=== PATIENT | male | born 1965 | race Caucasian/White ===

== ENCOUNTER 2016-03-30 17:46 | Inpatient (IN) | payer OTHER ==
[2016-03-30] MEDS ORDERED: FUROSEMIDE 40 MG/4 ML INJECTABLE VIAL IVPUSH ONE (18:08)
[2016-03-30] MEDS ORDERED: NITROGLYCERIN SUBLINGUAL 1/150 0.4 MG TAB SL ONE (18:09)
[2016-03-30 18:10] VITALS: BMI 33.0
[2016-03-30] MEDS ORDERED: NITROGLYCERIN 25MG/D5W 250ML 250 ML IVPB SCH (18:15)
--- NOTE | 2016-03-30 18:16 | PDOC ---
History of Present Illness - General Chief Complaint: Shortness of Breath Stated Complaint: SOB Time Seen by Provider: 03/30/16 17:56 - History of Present Illness Initial Comments: 03/30/16 18:11 50-year-old male with a past medical history of stage V CKD, who was supposed to start dialysis on Sunday He also has a history of bipolar disorder, substance abuse, hypertension, syncope, hyperkalemia Patient arrives in extremis, minimal history is available from the patient, history is obtained from old records Patient is due to start dialysis on Sunday He is complaining of progressive shortness of breath for 2-3 days, and became severely dyspneic this evening He is complaining of dyspnea with minimal exertion, and leg edema He denies any chest pain He has a known history of hyperkalemia and stopped his Kayexalate a few weeks ago Patient arrives in extremis, and no further history is available Past History - Past Medical History Allergies/Adverse Reactions: Allergies Allergy/AdvReac Type Severity Reaction Status Date / Time No Known Drug Allergies Allergy Verified 03/30/16 18:06 Home Medications: Ambulatory Orders Bupropion HCl [Wellbutrin -] 150 mg PO DAILY 03/30/16 Divalproex [Depakote -] 1,000 mg PO BID 03/30/16 Lamotrigine [Lamictal] 100 mg PO DAILY 03/30/16 Lorazepam [Ativan] 1 mg PO BID 03/30/16 Nifedipine [Adalat cc] 30 mg PO DAILY 03/30/16 Quetiapine Fumarate [Seroquel] 150 mg PO DAILY 03/30/16 Sodium Bicarbonate - 1,300 mg PO BID 03/30/16 Sodium Polystyrene Sulfon/Sorb [Kionex] 15 gm PO Q48H 03/30/16 Anemia: No Asthma: No Cancer: No Cardiac Disorders: No CVA: No COPD: No CHF: No Dementia: No Diabetes: No (diet-controlled, borderline) GI Disorders: No Disorders: No HTN: No ("FLUCTUATES" NO MEDS AT THIS TIME) Hypercholesterolemia: No Liver Disease: No Psychiatric Problems: Yes (bipolar and depression) Seizures: No Thyroid Disease: No Other medical history: esrd - Surgical History Abdominal Surgery: No Appendectomy: No Cardiac Surgery: No Cholecystectomy: No Lung Surgery: No Neurologic Surgery: No Orthopedic Surgery: No - Immunization History Td Vaccination: No - Psycho/Social/Smoking Cessation Hx Anxiety: No Suicidal Ideation: No Smoking Status: No Smoking History: Former smoker Years of Tobacco Use: 0 Have you smoked in the past 12 months: No Number of Cigarettes Smoked Daily: 0 If you are a former smoker, when did you quit?: 1999 Information on smoking cessation initiated: No Hx Alcohol Use: No Drug/Substance Use Hx: No Substance Use Type: None Hx Substance Use Treatment: No Review of Systems - Review of Systems Able to Perform ROS?: No (pt in extremis) *Physical Exam - Vital Signs Last Vital Signs Temp Pulse Resp BP Pulse Ox 97.8 F 116 H 24 164/97 92 L 03/30/16 17:47 03/30/16 17:47 03/30/16 17:47 03/30/16 17:47 03/30/16 18:05 - Physical Exam Comments: 03/30/16 18:16 Physical exam Last Vital Signs Temp Pulse Resp BP Pulse Ox 97.8 F 116 H 24 164/97 92 L 03/30/16 17:47 03/30/16 17:47 03/30/16 17:47 03/30/16 17:47 03/30/16 18:05 GENERAL: The patient is awake, and dyspneic, and answering simple questions HEAD: Normal with no signs of trauma. EYES: Sclera anicteric ENT: Mucous membranes moist NECK: Normal range of motion, supple with JVD LUNGS: There are rales in all lung mccord all the way to the top HEART: Tachycardic Regular rate and rhythm, normal S1 and S2 without murmur, rub or gallop. ABDOMEN: Soft, nontender, normoactive bowel sounds. No guarding, no rebound. No masses appreciated. EXTREMITIES: 3+ pitting pedal edema NEUROLOGICAL: Dyspneic at rest, answering simple questions, moving all extremities SKIN: Warm, Dry, ED Treatment Course - LABORATORY CBC & Chemistry Diagram: 04/01/16 05:20 04/01/16 15:50 - RADIOLOGY Radiology Studies Ordered: Category Date Time Status CHEST X-RAY PORTABLE* [RAD] Stat Radiology 03/30/16 18:07 Ordered Medical Decision Making - Critical Care Time Total Critical Care Time (minutes): 45 Critical Care Statement: The care of this patient involved high complexity decision making to prevent further life threatening deterioration of the patient 's condition and/or to evalute & treat vital organ system(s) failure or risk of failure. - Medical Decision Making 03/30/16 18:18 50-year-old male with end-stage renal disease due for dialysis on Sunday comes in with severe fluid overload, and hyperkalemic looking EKG He stopped his Kayexalate 3 weeks ago and has a history of hyperkalemia Will start with glucose insulin bicarbonate calcium immediately based on the hyperkalemic appearing EKG Awaiting all blood work Will give 80 of Lasix IV, subungual nitroglycerin, preload with a nitroglycerin drip EKG Sinus tachycardia with wide bizarre complex is with a QRS duration of 190 And a QTC of 544 03/30/16 19:16 Laboratory Results - last 24 hr 03/30/16 03/30/16 03/30/16 17:19 18:07 18:07 WBC 8.3 D RBC 3.91 L Hgb 12.6 Hct 36.3 MCV 92.9 MCHC 34.6 RDW 15.0 Plt Count 143 MPV 6.5 L INR 1.07 Sodium 137 Potassium 5.7 H Chloride 111 H Carbon Dioxide 16 L D Anion Gap 10 BUN 82 H Creatinine 4.9 H Creat Clearance w eGFR 12.54 Random Glucose 150 H D Calcium 8.9 Magnesium 2.6 H Total Bilirubin 0.4 AST 16 ALT 12 Alkaline Phosphatase 92 Creatine Kinase Troponin I Total Protein 6.2 L Albumin 3.1 L Lipase 66 H Urine Color Urine Appearance Urine pH Ur Specific [place] Urine Protein Urine Glucose (UA) Urine Ketones Urine Blood Urine Nitrite Urine Bilirubin Urine Urobilinogen Ur Leukocyte Esterase 03/30/16 03/30/16 18:07 18:48 WBC RBC Hgb Hct MCV MCHC RDW Plt Count MPV INR Sodium Potassium Chloride Carbon Dioxide Anion Gap BUN Creatinine Creat Clearance w eGFR Random Glucose Calcium Magnesium Total Bilirubin AST ALT Alkaline Phosphatase Creatine Kinase 49 Troponin I 0.05 D Total Protein Albumin Lipase Urine Color Yellow Urine Appearance Clear Urine pH 7.0 Ur Specific [place] 1.010 Urine Protein Trace Urine Glucose (UA) 1+ H Urine Ketones Negative Urine Blood 1+ H Urine Nitrite Negative Urine Bilirubin Negative Urine Urobilinogen 0.2 e.u/dl Ur Leukocyte Esterase Negative Potassium 5.7 Patient started on BiPAP, 01/10, 12, 30% Patient much more comfortable on BiPAP Starting to put out some urine in response to the IV Lasix Case discussed with insulation nozzleman-Dr. Márquez, case discussed with executive assistant- Dr. Palafox , and hospitalist Will admit ICU Hypervolemia,Fluid overload, Congestive heart failure, Acute hyperkalemia, CKD ( chronic kidney disease) stage 5, GFR less than 15 ml/min, Hypertension Repeat K - 4.5 *DC/Admit/Observation/Transfer Diagnosis at time of Disposition: Fluid overload, Congestive heart failure (CHF), Acute hyperkalemia, CKD ( chronic kidney disease) stage 5, GFR less than 15 ml/min, Hypertension - Discharge Dispostion Condition at time of disposition: Fair Admit: Yes
[2016-03-30] MEDS ORDERED: INSULIN REGULAR HUMAN 100 UNITS/ML *VIAL IVPUSH ONE (18:19)
[2016-03-30] MEDS ORDERED: DEXTROSE 50%-WATER 50 ML VIAL IVPUSH ONE (18:20)
[2016-03-30] MEDS ORDERED: SODIUM BICARBONATE 8.4% 50 MEQ/50 ML DISP.SYRIN IVPUSH ONE (18:20)
[2016-03-30] MEDS ORDERED: CALCIUM CHLORIDE 10% 1 GM/10 ML *VIAL IVPUSH ONE (18:22)
[2016-03-30] MEDS ORDERED: SODIUM POLYSTYRENE SULFONATE 15 GM/60 ML BOTTLE PO ONE (18:23)
[2016-03-30] MEDS ORDERED: NITROGLYCERIN SUBLINGUAL 1/150 0.4 MG TAB ONE (18:27)
[2016-03-30] MEDS ORDERED: FUROSEMIDE 100 MG/10 ML INJECTABLE VIAL ONE (18:27)
[2016-03-30 18:28] LABS: MCH 32.1 pg (25.7-33.7); MCHC 34.6 g/dl (32.0-35.9); MEAN CELL VOLUME 92.9 fl (80-96); MEAN PLT VOLUME 6.5 fl (7.5-11.1); PLATELET COUNT 143 K/MM3 (134-434); WHITE BLOOD COUNT 8.3 K/mm3 (4.0-10.0)
[2016-03-30] MEDS: NITROGLYCERIN 50 MG/10 ML VIAL IVPB SCH (18:28)
[2016-03-30] MEDS ORDERED: DEXTROSE 50%-WATER 50 ML DISP.SYRIN ONE (18:30)
[2016-03-30] MEDS ORDERED: SODIUM BICARBONATE 8.4% 50 MEQ/50 ML VIAL ONE (18:30)
[2016-03-30] MEDS ORDERED: SODIUM POLYSTYRENE SULFONATE 15 GM/60 ML BOTTLE ONE (18:30)
[2016-03-30] MEDS ORDERED: INSULIN REGULAR HUMAN 100 UNITS/ML *VIAL ONE (18:32)
[2016-03-30 18:34] LABS: INR 1.07 (0.82-1.09)
[2016-03-30 18:41] LABS: ALBUMIN 3.1 g/dl (3.5-5.0); BILIRUBIN,TOTAL 0.4 mg/dl (0.2-1.0); CALCIUM 8.9 mg/dl (8.4-10.2); CREATININE 4.9 mg/dl (0.6-1.3); MAGNESIUM 2.6 mg/dL (1.8-2.4); TOT PROT 6.2 g/dl (6.4-8.3)
[2016-03-30 18:55] LABS: URINE APPEARANCE Clear; URINE BILIRUBIN Negative (NEGATIVE); URINE GLUCOSE (UA) 1+ (NEGATIVE); URINE KETONE Negative (NEGATIVE); URINE LEUK ESTERASE Negative (NEGATIVE); URINE NITRITE Negative (NEGATIVE); URINE PROTEIN Trace (NEGATIVE); URINE UROBILINOGEN 0.2 E.U/dl (0.2-1.0)
[2016-03-30 18:56] LABS: URINE BLOOD 1+ (NEGATIVE); URINE COLOR YELLOW
[2016-03-30 18:56] LABS: TROPONIN I (DFP) 0.05 ng/ml (0.03-0.50)
--- NOTE | 2016-03-30 21:30 | PN ---
<Brooke Mason - Last Filed: 03/30/16 21:29> Teaching Attending Note Name of Resident: Yanick Reyes <Elizabeth Capellan - Last Filed: 03/31/16 04:41> Teaching Attending Note ATTENDING PHYSICIAN STATEMENT I saw and evaluated the patient. I reviewed the resident's note and discussed the case with the resident. I agree with the resident's findings and plan as documented. SUBJECTIVE: The patient is a 50 yo M with a PMHx of ESRD (was supposed to start HD on 03/27) , hypokalemia who presented to the ED with progressively worsening dyspnea for the past 2-3 days. He reports increasing SOB with minimal exertion however denies any chest pain, diaphoresis, palpitations, numbness or tingling. The patient states he stopped taking his Kayexalate a few weeks ago. Patients notes they called Dr. Palafox (transportation broker) and was sent in for further evaluation of his emergent condition. Patient is currently on BiPAP. PMHx: bipolar disorder, substance abuse, hypertension, syncope OBJECTIVE: Physical Last Vital Signs Temp Pulse Resp BP Pulse Ox 98.1 F 104 H 17 153/97 95 03/30/16 21:00 03/30/16 21:00 03/30/16 21:00 03/30/16 21:00 03/30/16 21:00 GENERAL: + Cooperative. + Delayed verbal responses. +Flat affect. Awake, alert , and fully oriented, in no acute distress HEENT: Atraumatic. PERRLA, EOMI. Moist mucosa. No JVD LUNGS: + on BiPAP. + Normal bilateral airway entry clear with no crackles or wheezing. No distress, speaks full sentences, clear to auscultation bilaterally HEART: Regular rate and rhythm, normal S1 and S2, no murmurs, rubs or gallops, peripheral pulses normal and equal bilaterally. ABDOMEN: Soft, nontender, normoactive bowel sounds. No guarding, no rebound. No masses EXTREMITIES: + R arm AV fistula with palpable thrill. 1+ pitting edema on bilateral LE. Normal inspection, Normal range of motion. No clubbing or cyanosis. NEUROLOGICAL: Cranial nerves II through XII grossly intact. Normal speech, normal gait, no focal sensorimotor deficits SKIN: + 3 areas of ecchymosis on his L anterior thorax mid clavicular below the level of T4. Warm, Dry, normal turgor, no rashes or lesions noted. CBCD WBC 8.3 K/mm3 (4.0-10.0) D 03/30/16 18:07 RBC 3.91 M/mm3 (4.00-5.60) L 03/30/16 18:07 Hgb 12.6 GM/dl (11.7-16.9) 03/30/16 18:07 Hct 36.3 % (35.4-49) 03/30/16 18:07 MCV 92.9 fl (80-96) 03/30/16 18:07 MCHC 34.6 g/dl (32.0-35.9) 03/30/16 18:07 RDW 15.0 % (11.9-15.9) 03/30/16 18:07 Plt Count 143 K/MM3 (134-434) 03/30/16 18:07 MPV 6.5 fl (7.5-11.1) L 03/30/16 18:07 CMP Sodium 137 mmol/L (136-145) 03/30/16 18:07 Potassium 5.7 mmol/L (3.5-5.1) H 03/30/16 18:07 Chloride 111 mmol/L (98-107) H 03/30/16 18:07 Carbon Dioxide 16 mmol/L (22-28) L D 03/30/16 18:07 Anion Gap 10 (8-16) 03/30/16 18:07 BUN 82 mg/dl (7-18) H 03/30/16 18:07 Creatinine 4.9 mg/dl (0.6-1.3) H 03/30/16 18:07 Creat Clearance w eGFR 12.54 (>60) 03/30/16 18:07 Calcium 8.9 mg/dl (8.4-10.2) 03/30/16 18:07 Total Bilirubin 0.4 mg/dl (0.2-1.0) 03/30/16 18:07 AST 16 U/L (10-42) 03/30/16 18:07 ALT 12 U/L (10-40) 03/30/16 18:07 Alkaline Phosphatase 92 U/L (32-92) 03/30/16 18:07 Total Protein 6.2 g/dl (6.4-8.3) L 03/30/16 18:07 Albumin 3.1 g/dl (3.5-5.0) L 03/30/16 18:07 Imaging: Chest Xray Impression: Bilateral pneumonic infiltrates, as described above. Follow-up is needed. ASSESSMENT AND PLAN: Patient admitted to ICU for further management of their emergent condition. 1.) ESRD and Hyperkalemia with dyspnea most likely secondary to fluid overload. -Repeat CMP -Nephrology consult to initiate HD in AM -Lasix 80 mg BID -Monitor Is and Os -ABG -Bicarb as per nephro consult -Cardiac monitoring -Repeat echo -Continue home meds Documentation prepared by Elizabeth Capellan, acting as medical screener for Brooke Mason MD.
--- NOTE | 2016-03-30 21:46 | HP ---
CHIEF COMPLAINT: PCP: HISTORY OF PRESENT ILLNESS: 50-year-old male with a past medical history of stage V CKD, HTN, DM ( not on meds ), bipolar, substance abuse, who was supposed to start dialysis on Sunday was sent from [facility] ED because of SOB. patient states that he noticed sob 3 days ago, which is progressivly increasing, unable to walk half block ( before use to walk normal), increases on lying down also reports that he has dry cough from 3 days. He also reports lightheadedness. Denies chest pain, palpitations, fever. pain abdomen, diarrhoea , nause, vomiting, swelling in legs, burning micturation. He was diagnosed with HTN 1 year ago and DM 3 - 4 year s ago. He has a known history of hyperkalemia and stopped his Kayexalate a few weeks ago. ER course was notable for: (1) cbc , cmp ua, cxr (2) lasix, calcium gluconate, insulin with d 50 Recent Travel: No PAST MEDICAL HISTORY: stage V CKD, HTN, DM ( not on meds ), bipolar, substance abuse PAST SURGICAL HISTORY: no Social History: Smoking: stopped in 1999 Alcohol: stopped in 1999 Drugs: mirjuana stopped in 1999 Family History: no Allergies No Known Drug Allergies Allergy (Verified 03/30/16 18:06) HOME MEDICATIONS: Home Medications Medication Instructions Recorded Bupropion HCl [Wellbutrin -] 150 mg PO DAILY 03/30/16 Divalproex [Depakote -] 1,000 mg PO BID 03/30/16 Lamotrigine [Lamictal] 100 mg PO DAILY 03/30/16 Lorazepam [Ativan] 1 mg PO BID 03/30/16 Nifedipine [Adalat cc] 30 mg PO DAILY 03/30/16 Quetiapine Fumarate [Seroquel] 150 mg PO DAILY 03/30/16 Sodium Bicarbonate - 1,300 mg PO BID 03/30/16 Sodium Polystyrene Sulfon/Sorb 15 gm PO Q48H 03/30/16 [Kionex] REVIEW OF SYSTEMS CONSTITUTIONAL: Absent: fever, chills, diaphoresis, generalized weakness, malaise, loss of appetite, weight change HEENT: Absent: rhinorrhea, nasal congestion, throat pain, throat swelling, difficulty swallowing, mouth swelling, ear pain, eye pain, visual changes CARDIOVASCULAR: Absent: chest pain, syncope, palpitations, irregular heart rate, lightheadedness , peripheral edema RESPIRATORY: Absent: cough, shortness of breath, dyspnea with exertion, orthopnea, wheezing, stridor, hemoptysis GASTROINTESTINAL: Absent: abdominal pain, abdominal distension, nausea, vomiting, diarrhea, constipation, melena, hematochezia GENITOURINARY: Absent: dysuria, frequency, urgency, hesitancy, hematuria, flank pain, genital pain MUSCULOSKELETAL: Absent: myalgia, arthralgia, joint swelling, back pain, neck pain SKIN: Absent: rash, itching, pallor HEMATOLOGIC/IMMUNOLOGIC: Absent: easy bleeding, easy bruising, lymphadenopathy, frequent infections ENDOCRINE: Absent: unexplained weight gain, unexplained weight loss, heat intolerance, cold intolerance NEUROLOGIC: Absent: headache, focal weakness or paresthesias, dizziness, unsteady gait, seizure, mental status changes, bladder or bowel incontinence PSYCHIATRIC: Absent: anxiety, depression, suicidal or homicidal ideation, hallucinations. PHYSICAL EXAMINATION GENERAL: Awake, alert, and fully oriented, HEAD: Normal with no signs of trauma. EYES: Pupils equal, round and reactive to light, extraocular movements intact, sclera anicteric, conjunctiva clear. EARS, NOSE, THROAT: Ears normal, nares patent, oropharynx clear without exudates. Moist mucous membranes. NECK: Normal range of motion, LUNGS: Breath sounds equal, clear to auscultation bilaterally. No wheezes, and no crackles. No accessory muscle use. HEART: Regular rate and rhythm, normal S1 and S2 without murmur, ABDOMEN: Soft, nontender, not distended, normoactive bowel sounds, no guarding, no rebound, no masses. 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 No bony deformities or tenderness. No CVA tenderness. UPPER EXTREMITIES: 2+ pulses, warm, well-perfused. No cyanosis. No clubbing. Cap refill <2 seconds. No peripheral edema. LOWER EXTREMITIES: 2+ pulses, warm, well-perfused. No calf tenderness. peripheral edema 2+ NEUROLOGICAL: Cranial nerves II-XII intact. Normal speech. Normal gait. PSYCHIATRIC: Cooperative. Good eye contact. Appropriate mood and affect. SKIN: Warm, dry, normal turgor, no rashes or lesions noted. Current Medications Generic Name Dose Route Start Last Admin Trade Name Freq PRN Reason Stop Dose Admin Chlorhexidine Gluconate 1 applic 03/30/16 22:00 Hibiclens For Decolonization - TP HS BERTIN Furosemide 80 mg 03/31/16 06:00 Lasix Injection - IVPUSH BID@0600,1400 BERTIN Heparin Sodium (Porcine) 5,000 unit 03/30/16 22:00 Heparin - SQ TID BERTIN Mupirocin 1 applic 03/30/16 22:00 Bactroban Ointment (For Decolonization) - NS 04/04/16 21:59 BID [facility] Nitroglycerin 10 mcg 03/30/16 19:00 03/30/16 18:28 Tridil Injection - IVPB 10 mcg TITR BERTIN Administration Sodium Bicarbonate 1,300 mg 03/30/16 22:00 Sodium Bicarbonate - PO BID BERTIN CBCD WBC 8.3 K/mm3 (4.0-10.0) D 03/30/16 18:07 RBC 3.91 M/mm3 (4.00-5.60) L 03/30/16 18:07 Hgb 12.6 GM/dl (11.7-16.9) 03/30/16 18:07 Hct 36.3 % (35.4-49) 03/30/16 18:07 MCV 92.9 fl (80-96) 03/30/16 18:07 MCHC 34.6 g/dl (32.0-35.9) 03/30/16 18:07 RDW 15.0 % (11.9-15.9) 03/30/16 18:07 Plt Count 143 K/MM3 (134-434) 03/30/16 18:07 MPV 6.5 fl (7.5-11.1) L 03/30/16 18:07 CMP Sodium 137 mmol/L (136-145) 03/30/16 18:07 Potassium 5.7 mmol/L (3.5-5.1) H 03/30/16 18:07 Chloride 111 mmol/L (98-107) H 03/30/16 18:07 Carbon Dioxide 16 mmol/L (22-28) L D 03/30/16 18:07 Anion Gap 10 (8-16) 03/30/16 18:07 BUN 82 mg/dl (7-18) H 03/30/16 18:07 Creatinine 4.9 mg/dl (0.6-1.3) H 03/30/16 18:07 Creat Clearance w eGFR 12.54 (>60) 03/30/16 18:07 Random Glucose 150 mg/dl (74-106) H D 03/30/16 18:07 Calcium 8.9 mg/dl (8.4-10.2) 03/30/16 18:07 Total Bilirubin 0.4 mg/dl (0.2-1.0) 03/30/16 18:07 AST 16 U/L (10-42) 03/30/16 18:07 ALT 12 U/L (10-40) 03/30/16 18:07 Alkaline Phosphatase 92 U/L (32-92) 03/30/16 18:07 Total Protein 6.2 g/dl (6.4-8.3) L 03/30/16 18:07 Albumin 3.1 g/dl (3.5-5.0) L 03/30/16 18:07 CARDIAC ENZYMES Creatine Kinase 49 IU/L (38-174) 03/30/16 18:07 Troponin I 0.05 ng/ml (0.03-0.50) D 03/30/16 18:07 cxr : b/l infiltrate ASSESSMENT/PLAN: 50-year-old male with a past medical history of stage V CKD, HTN, DM ( not on meds ), bipolar, substance abuse, who was supposed to start dialysis on Sunday was sent from [facility] ED because of SOB. ESRD with hyperkalemia and SOB probably from fluid over load Repeat [facility] nephrology consult continue lasix 80 mg bid monitor vital , monito i/O daily weight ECHO to r/o cardiorenal continue with sodium bicarb as per nephrology repeat sr k at 12:00 am continue with bipap DM diabetic diet monitor blood glucose sliding scale Bipolar disorder continue home meds HTN continue home meds nifidipine 30mg po daily Fluid : avoid electrolyte ; hyperkalemia, repeat sr k in at 1200: am nutrition : diabetic diet, low kotassium and low salt diet dvt pro ; on heparin gi pro : not required Dispo : admitted in icu Visit type - Emergency Visit Emergency Visit: Yes ED Registration Date: 03/30/16 Care time: The patient presented to the Emergency Department on the above date and was hospitalized for further evaluation of their emergent condition. - New Patient This patient is new to me today: Yes Date on this admission: 03/31/16 - Critical Care Critical Care patient: Yes Total Critical Care Time (in minutes): 45 Critical Care Statement: The care of this patient involved high complexity decision making to prevent further life threatening deterioration of the patient 's condition and/or to evalute & treat vital organ system(s) failure or risk of failure.
[2016-03-30] MEDS: NITROGLYCERIN 25MG/D5W 250ML 250 ML IVPB SCH (22:00)
[2016-03-30] MEDS ORDERED: SODIUM BICARBONATE 650 MG TABLET PO SCH (22:00)
--- NOTE | 2016-03-30 22:11 | CONSULT ---
Consult Consult Specialty:: Pulm/CCM Reason for Consultation:: SOB, renal failure - History of Present Illness Chief Complaint: SOB, nausea History of Present Illness: This is a 50 yo man with Bipolar disease, CKD 5 r/t HTN with plan for starting HD 04/03/16. He presented from home with progressive LE edema, nausea and SOB x 2 -3 days. Denies prodrome of illness, no fever/chills/HIGGINS. In the ED he was found to have hyperkalemia K: 5.7. BNP 35k. CXR with pulmonary vascular congestion and effusion L>R. BP: 164/97 treated with nitro gtt and lasix push. Good urine output (~1.4 liters). Sat 90% on RA. BiPAP (Fio2 30%) started for SOB with improvement. Patient transferred to [facility] ICU. Patient awake, alert and cooperative states his breathing is improved with BiPAP. - History Source History Provided By: Patient, Family Member, Medical Record Limitations to Obtaining History: No Limitations - Past Medical History Cardio/Vascular: Yes: HTN Pulmonary: Yes: Other (lung injust with chest tube insetion after trauma) Renal/: Yes: Renal Inusuff Psych: Yes: Bipolar - Past Surgical History Past Surgical History: Yes: AV Fistula/Graft (upper right arm) - Alcohol/Substance Use Hx Alcohol Use: No History of Substance Use: reports: Marijuana - Smoking History Smoking history: Former smoker Have you smoked in the past 12 months: No Aproximately how many cigarettes per day: 0 If you are a former smoker, when did you quit?: 1999 - Social History Usual Living Arrangement: With Spouse 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 of Recent Travel: No Home Medications - Allergies Allergies/Adverse Reactions: Allergies Allergy/AdvReac Type Severity Reaction Status Date / Time No Known Drug Allergies Allergy Verified 03/30/16 18:06 - Home Medications Home Medications: Ambulatory Orders Bupropion HCl [Wellbutrin -] 150 mg PO DAILY 03/30/16 Divalproex [Depakote -] 1,000 mg PO BID 03/30/16 Lamotrigine [Lamictal] 100 mg PO DAILY 03/30/16 Lorazepam [Ativan] 1 mg PO BID 03/30/16 Nifedipine [Adalat cc] 30 mg PO DAILY 03/30/16 Quetiapine Fumarate [Seroquel] 150 mg PO DAILY 03/30/16 Sodium Bicarbonate - 1,300 mg PO BID 03/30/16 Sodium Polystyrene Sulfon/Sorb [Kionex] 15 gm PO Q48H 03/30/16 Family Disease History - Family Disease History Family History: Unremarkable Review of Systems - Review of Systems Cardiovascular: reports: Edema, Shortness of Breath Gastrointestinal: reports: Nausea Genitourinary: reports: Frequency (decreased) Neurological: reports: No Symptoms Physical Exam Vital Signs: Vital Signs Temperature 98.1 F 03/30/16 20:32 Pulse Rate 104 H 03/30/16 20:32 Respiratory Rate 17 03/30/16 20:32 Blood Pressure 153/97 03/30/16 20:32 O2 Sat by Pulse Oximetry (%) 95 03/30/16 19:25 Intake & Output 03/27/16 03/28/16 03/29/16 03/30/16 23:59 23:59 23:59 23:59 Intake Total 50 Output Total 1999 Balance -1950 Weight 113.398 kg Current Medications Bupropion HCl (Wellbutrin -) 150 mg PO DAILY [facility] Chlorhexidine Gluconate (Hibiclens For Decolonization -) 1 applic TP HS [facility] Divalproex Sodium (Depakote -) 1,000 mg PO BID [facility] Furosemide (Lasix Injection -) 80 mg IVPUSH BID@0600,1400 [facility] Furosemide (Lasix Injection -) 80 mg IVPUSH ONCE ONE Stop: 03/31/16 00:02 Heparin Sodium (Porcine) (Heparin -) 5,000 unit SQ TID [facility] Lamotrigine (Lamictal -) 100 mg PO DAILY [facility] Lorazepam (Ativan -) 1 mg PO BID [facility] Mupirocin (Bactroban Ointment (For Decolonization) -) 1 applic NS BID [facility] Stop: 04/04/16 21:59 Nifedipine (Procardia Xl -) 30 mg PO DAILY [facility] Nitroglycerin (Tridil Injection -) 10 mcg IVPB TITR [facility] Last Admin: 03/30/16 18:28 Dose: 10 mcg Quetiapine Fumarate (Seroquel -) 150 mg PO DAILY [facility] Sodium Bicarbonate (Sodium Bicarbonate -) 1,300 mg PO BID [facility] Constitutional: Yes: No Distress, Calm Eyes: Yes: Conjunctiva Clear, EOM Intact Cardiovascular: Yes: Regular Rate and Rhythm, S1, S2 Respiratory: Yes: Rales (faint insp rales in bases) Gastrointestinal: Yes: Normal Bowel Sounds, Soft, Abdomen, Obese Renal/: Yes: Maher Present Edema: LLE: 2+, RLE: 2+ Integumentary: Yes: Tattoos ...Motor Strength: WNL Psychiatric: Yes: Alert, Oriented Labs: CBCD WBC 8.3 K/mm3 (4.0-10.0) D 03/30/16 18:07 RBC 3.91 M/mm3 (4.00-5.60) L 03/30/16 18:07 Hgb 12.6 GM/dl (11.7-16.9) 03/30/16 18:07 Hct 36.3 % (35.4-49) 03/30/16 18:07 MCV 92.9 fl (80-96) 03/30/16 18:07 MCHC 34.6 g/dl (32.0-35.9) 03/30/16 18:07 RDW 15.0 % (11.9-15.9) 03/30/16 18:07 Plt Count 143 K/MM3 (134-434) 03/30/16 18:07 MPV 6.5 fl (7.5-11.1) L 03/30/16 18:07 CMP Sodium 137 mmol/L (136-145) 03/30/16 18:07 Potassium 5.7 mmol/L (3.5-5.1) H 03/30/16 18:07 Chloride 111 mmol/L (98-107) H 03/30/16 18:07 Carbon Dioxide 16 mmol/L (22-28) L D 03/30/16 18:07 Anion Gap 10 (8-16) 03/30/16 18:07 BUN 82 mg/dl (7-18) H 03/30/16 18:07 Creatinine 4.9 mg/dl (0.6-1.3) H 03/30/16 18:07 Creat Clearance w eGFR 12.54 (>60) 03/30/16 18:07 Random Glucose 150 mg/dl (74-106) H D 03/30/16 18:07 Calcium 8.9 mg/dl (8.4-10.2) 03/30/16 18:07 Total Bilirubin 0.4 mg/dl (0.2-1.0) 03/30/16 18:07 AST 16 U/L (10-42) 03/30/16 18:07 ALT 12 U/L (10-40) 03/30/16 18:07 Alkaline Phosphatase 92 U/L (32-92) 03/30/16 18:07 Total Protein 6.2 g/dl (6.4-8.3) L 03/30/16 18:07 Albumin 3.1 g/dl (3.5-5.0) L 03/30/16 18:07 CARDIAC ENZYMES Creatine Kinase 49 IU/L (38-174) 03/30/16 18:07 Troponin I 0.05 ng/ml (0.03-0.50) D 03/30/16 18:07 Laboratory Tests 03/30/16 18:07 B-Natriuretic Peptide 65587.58 H Imaging - Results Chest X-ray: Report Reviewed, Image Reviewed (PVC, L>R effusion) Problem List - Problems (1) Acute hyperkalemia Code(s): E87.5 - HYPERKALEMIA (2) CKD (chronic kidney disease) stage 5, GFR less than 15 ml/min Code(s): N18.5 - CHRONIC KIDNEY DISEASE, STAGE 5 (3) Congestive heart failure (CHF) Code(s): I50.9 - HEART FAILURE, UNSPECIFIED (4) Fluid overload Code(s): E87.70 - FLUID OVERLOAD, UNSPECIFIED (5) Hypertension Code(s): I10 - ESSENTIAL (PRIMARY) HYPERTENSION (6) Affective bipolar disorder Code(s): F31.9 - BIPOLAR DISORDER, UNSPECIFIED Qualifiers: Active/Remission status: remission status unspecified Qualified Code(s) : F31.9 - Bipolar disorder, unspecified Assessment/Plan 50 yo man Bipolar, DM, CKD stage 5 planned with HTN, hypoxia and SOB r/t pulmonary vascular congestion -ICU monitoring -Renal consulted -renal dose all medications -will likely need HD this admission -medical management of hyperkalemia tonight: kayexalate and lasix -EKG/ECHO -frequent BMP to trend potassium -lasix BID (will give extra dose tonight given SOB) -nitro gtt for SBP 140s -add back home antihypertensives -glucose control -O2 for Sat >92% -BiPAP tonight for PVC -cont home bipolar meds -DVT prophylaxis Boerem ACNP Pulm/CCM CCT: 45m
[2016-03-30 22:24] LABS: URINE BACTERIA FEW /hpf (NEGATIVE); URINE WBC 0-2 (3-5)
[2016-03-30] MEDS: MUPIROCIN 2% TOPICAL OINTMENT FOR DECOLONIZATION NS SCH (23:57)
[2016-03-30] MEDS: DIVALPROEX SODIUM 500 MG TABLET E.C. PO SCH (23:57)
[2016-03-30] MEDS: LORazepam 1 MG TABLET PO SCH (23:57)
[2016-03-30] MEDS: SODIUM BICARBONATE 650 MG TABLET PO SCH (23:57)
[2016-03-30] MEDS: QUEtiapine FUMARATE 100 MG TABLET (FP) PO SCH (23:58)
[2016-03-30] MEDS: CHLORHEXIDINE GLUCONATE 4% CLEANSER FOR DECOLONIZATION TP SCH (23:58)
[2016-03-30] MEDS: HEPARIN NA (PORCINE) 5,000 UNITS/ML 1ML VIAL SQ SCH (23:58)
[2016-03-31] MEDS ORDERED: FUROSEMIDE 40 MG/4 ML INJECTABLE VIAL IVPUSH ONE (00:01)
[2016-03-31 00:06] LABS: URINE APPEARANCE CLEAR; URINE BILIRUBIN NEGATIVE (NEGATIVE); URINE COLOR COLORLESS; URINE GLUCOSE (UA) 1+ (NEGATIVE); URINE KETONE NEGATIVE (NEGATIVE); URINE LEUK ESTERASE NEGATIVE (NEGATIVE); URINE NITRITE NEGATIVE (NEGATIVE); URINE PROTEIN NEGATIVE (NEGATIVE); URINE UROBILINOGEN NEGATIVE E.U./dl (0.2-1.0)
[2016-03-31 00:08] LABS: URINE BLOOD 1+ (NEGATIVE)
[2016-03-31 00:09] LABS: URINE RBC <1 /hpf (0-3); URINE WBC <1 /hpf (3-5)
[2016-03-31 06:34] LABS: BASOPHIL 0.3 % (0-2.0); EOSINOPHIL 0.8 % (0-4.5); MCH 31.6 pg (25.7-33.7); MCHC 32.8 g/dl (32.0-35.9); MEAN CELL VOLUME 96.3 fl (80-96); MEAN PLT VOLUME 6.6 fl (7.5-11.1); NEUTROPHILS 65.3 % (42.8-82.8); PLATELET COUNT 106 K/MM3 (134-434); RDW 15.8 % (11.9-15.9)
[2016-03-31] MEDS ORDERED: FUROSEMIDE 40 MG/4 ML INJECTABLE VIAL ONE ×3 (06:47→13:06)
[2016-03-31 06:49] LABS: ALBUMIN 2.7 g/dl (3.4-5.0); CALCIUM 8.9 mg/dL (8.5-10.1)
[2016-03-31 06:55] LABS: BILIRUBIN,TOTAL 0.5 mg/dL (0.2-1.0); CREATININE 5.5 mg/dL (0.7-1.3); PHOSPHOROUS 6.4 mg/dL (2.5-4.9); TOT PROT 5.9 g/dl (6.4-8.2); TROPONIN I 0.09 ng/ml (0.00-0.05)
[2016-03-31] MEDS: HEPARIN NA (PORCINE) 5,000 UNITS/ML 1ML VIAL SQ SCH ×3 (06:57→22:30)
[2016-03-31] MEDS: FUROSEMIDE 40 MG/4 ML INJECTABLE VIAL IVPUSH SCH ×2 (06:58→13:07)
[2016-03-31 07:06] LABS: INR 1.12 (0.82-1.09); PROTHROMBIN TIME (PATIENT) 12.3 SEC (9.98-11.88)
[2016-03-31 07:09] LABS: ACTIVATED PTT 31.6 SECONDS (26.9-34.4)
[2016-03-31] MEDS ORDERED: PT OWN MED DRAWER 7, Y5N ONE ×2 (09:21→20:19)
[2016-03-31] MEDS: LORazepam 1 MG TABLET PO SCH ×2 (09:24→22:30)
[2016-03-31] MEDS: SODIUM BICARBONATE 650 MG TABLET PO SCH ×2 (09:24→22:30)
[2016-03-31] MEDS: MUPIROCIN 2% TOPICAL OINTMENT FOR DECOLONIZATION NS SCH ×2 (09:24→22:30)
[2016-03-31] MEDS: DIVALPROEX SODIUM 500 MG TABLET E.C. PO SCH ×2 (09:25→22:00)
[2016-03-31] MEDS: lamoTRIgine 100 MG TABLET (FP) PO SCH (09:26)
[2016-03-31] MEDS ORDERED: PNEUMOCOCCAL 23 VACCINE 0.5 ML VIAL IM ONE (10:00)
[2016-03-31] MEDS ORDERED: QUEtiapine FUMARATE 100 MG TABLET (FP) PO SCH (10:00)
[2016-03-31] MEDS ORDERED: PNEUMOC 13-VAL CONJ-DIP CRM/PF 0.5 ML DISP.SYRIN IM ONE (10:00)
[2016-03-31] MEDS ORDERED: NIFEdipine E.R. 30 MG TABLET (FP) PO SCH (10:00)
[2016-03-31] MEDS ORDERED: INFLUENZA VACCINE 45 MCG/0.5 ML (MDV 16-17) IM ONE (10:00)
[2016-03-31] MEDS ORDERED: buPROPion HCL 100 MG TABLET PO SCH (10:00)
--- NOTE | 2016-03-31 11:56 | CONSULT ---
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 Pt was seen in the office on 03/27 and was planned to start dialysis on 04/03. Pt has progressive worsening uremic symptoms ( metallic taste, weakness, Nausea, sleep-wake disturbance). Pt had not had a volume issue in the past. Pt denies any chest pain or dietary indiscretion. No flank pain. Good urine output. Pt responded well to IV lasix and Nitro gtt in the ED. Currently in the ICU. s/p BIPAP overnight. No confusion/lethargy. No fever or chills. No chest pain. No abd pain, No diarrhea. PMHx: as above Allergies: NKDA Family Hx: NC Social Hx: No T/A/D ROS: as per HPI, all other pertinent ros negative Home Meds: Home Medications Medication Instructions Recorded Bupropion HCl [Wellbutrin -] 150 mg PO DAILY 03/30/16 Divalproex [Depakote -] 1,000 mg PO BID 03/30/16 Lamotrigine [Lamictal] 100 mg PO DAILY 03/30/16 Lorazepam [Ativan] 1 mg PO BID 03/30/16 Nifedipine [Adalat cc] 30 mg PO DAILY 03/30/16 Quetiapine Fumarate [Seroquel] 150 mg PO DAILY 03/30/16 Sodium Bicarbonate - 1,300 mg PO BID 03/30/16 Sodium Polystyrene Sulfon/Sorb 15 gm PO Q48H 03/30/16 [Kionex] Vital Signs Temperature 98 F 03/31/16 09:00 Pulse Rate 101 H 03/31/16 10:25 Respiratory Rate 16 03/31/16 10:00 Blood Pressure 133/102 03/31/16 10:00 O2 Sat by Pulse Oximetry (%) 96 03/31/16 10:25 Intake & Output 03/28/16 03/29/16 03/30/16 03/31/16 23:59 23:59 23:59 23:59 Intake Total 50 320 Output Total 3600 2000 Balance -2990 -1680 Weight 250 lb 220 lb 6 oz Gen: NAD, awake and alert HEENT: NC/AT, MMM, slight JVD CVS: RRR, No M/R Lungs: DEc BS at lung bases, no rales or wheeze Abd: Soft NT/ND Ext: No edema, clubbing or cyanosis : No bladder distension, hunter in place. Neuro: awake and alert, no focal defects CBC, BMP 03/31/16 05:10 03/31/16 05:10 Current Medications Bupropion HCl (Wellbutrin Xl -) 150 mg PO DAILY [facility] Last Admin: 03/31/16 09:26 Dose: 150 mg Chlorhexidine Gluconate (Hibiclens For Decolonization -) 1 applic TP HS [facility] Last Admin: 03/30/16 23:58 Dose: 1 applic Divalproex Sodium (Depakote -) 1,000 mg PO BID [facility] Last Admin: 03/31/16 09:25 Dose: 1,000 mg Furosemide (Lasix Injection -) 80 mg IVPUSH BID@0600,1400 [facility] Last Admin: 03/31/16 06:58 Dose: 80 mg Heparin Sodium (Porcine) (Heparin -) 5,000 unit SQ TID [facility] Last Admin: 03/31/16 06:57 Dose: 5,000 unit Nitroglycerin/Dextrose (Nitroglycerin 25mg/D5w 250ml) 250 mls @ 6 mls/hr IVPB TITR [facility] PRN Reason: 10 MCG/MIN Last Admin: 03/30/16 22:00 Dose: 9 mls/hr Lamotrigine (Lamictal -) 100 mg PO DAILY [facility] Last Admin: 03/31/16 09:26 Dose: 100 mg Lorazepam (Ativan -) 1 mg PO BID [facility] Last Admin: 03/31/16 09:24 Dose: 1 mg Mupirocin (Bactroban Ointment (For Decolonization) -) 1 applic NS BID [facility] Stop: 04/04/16 21:59 Last Admin: 03/31/16 09:24 Dose: 1 applic Nifedipine (Procardia Xl -) 30 mg PO DAILY [facility] Last Admin: 03/31/16 09:24 Dose: 30 mg Nitroglycerin (Tridil Injection -) 10 mcg IVPB TITR [facility] Last Admin: 03/30/16 18:28 Dose: 10 mcg Quetiapine Fumarate (Seroquel -) 150 mg PO HS [facility] Last Admin: 03/30/16 23:58 Dose: 150 mg Sodium Bicarbonate (Sodium Bicarbonate -) 1,300 mg PO BID [facility] Last Admin: 03/31/16 09:24 Dose: 1,300 mg A/p 50 year old Gentleman with PMhx of CKD Stage 5 secondary to tubulo-interstitial disease from chronic [place] Use and diabetic nephropathy, Hypertension, DM Type 2, Bipolar Disorder who presented to [facility] with complaints of SOB for 2 days. #CKD Stage 5 -> ESRD on HD with volume overload Continue IV diuretics for now Plan to start dialysis today: 2 hours with goal Uf of 1.5-2L as tolerated Next dialysis planned for tomorrow Pt and informed about the risks and benefits of dialysis and consented to proceeding Will use AVF for HD reveles all meds for intermittent HD Outpatient HD unit placement Nutrition for ESRD Diet education #Renal Osteodystrophy Start Renvela Check PTH Trend Phos #Volume Overload r/o Cardiac dysfunction Check ECHO on Tele currently cardiology evaluation titrate off Nitro gtt as per cardiology #Metabolic acidosis continue PO sodium bicarb for now can discontinue once getting regular HD #Bipolar Disorder continue home meds #Hypertension continue Nifedpine Goal BP < 140/90 Thank you will follow Cornelius Palafox DO
--- NOTE | 2016-03-31 12:13 | EKG ---
Test Reason : Blood Pressure : / mmHG Vent. Rate : 105 BPM Atrial Rate : 105 BPM P-R Int : 154 ms QRS Dur : 188 ms QT Int : 408 ms P-R-T Axes : 054 -13 151 degrees QTc Int : 539 ms SINUS TACHYCARDIA LEFT BUNDLE BRANCH BLOCK ABNORMAL ECG WHEN COMPARED WITH ECG OF 20-MAR-2015 09:00, LEFT BUNDLE BRANCH BLOCK IS NOW PRESENT Confirmed by GULSHAN IVAN MD ([id number] on 03/31/2016 12:13:15 PM Referred By: BRIAN Confirmed By:GULSHAN IVAN MD
--- NOTE | 2016-03-31 12:36 | PN ---
Teaching Attending Note Name of Resident: Noble Canchola ATTENDING PHYSICIAN STATEMENT I saw and evaluated the patient. I reviewed the resident's note and discussed the case with the resident. I agree with the resident's findings and plan as documented. SUBJECTIVE: Patient seen and examined in the ICU. Remains on IV NTG. Required NIPPV overnight. Sleepy but awakens easily to voice command. Intake & Output 03/28/16 03/29/16 03/30/16 03/31/16 23:59 23:59 23:59 23:59 Intake Total 50 320 Output Total 3600 2000 Balance -3550 -1680 Weight 250 lb 220 lb 6 oz Last Vital Signs Temp Pulse Resp BP Pulse Ox 98 F 94 H 14 142/100 96 03/31/16 09:00 03/31/16 12:00 03/31/16 12:00 03/31/16 12:00 03/31/16 10:25 Active Medications Bupropion HCl (Wellbutrin Xl -) 150 mg PO DAILY [facility] Last Admin: 03/31/16 09:26 Dose: 150 mg Chlorhexidine Gluconate (Hibiclens For Decolonization -) 1 applic TP HS [facility] Last Admin: 03/30/16 23:58 Dose: 1 applic Divalproex Sodium (Depakote -) 1,000 mg PO BID [facility] Last Admin: 03/31/16 09:25 Dose: 1,000 mg Furosemide (Lasix Injection -) 80 mg IVPUSH BID@0600,1400 [facility] Last Admin: 03/31/16 06:58 Dose: 80 mg Heparin Sodium (Porcine) (Heparin -) 5,000 unit SQ TID [facility] Last Admin: 03/31/16 06:57 Dose: 5,000 unit Heparin Sodium (Porcine) (Heparin -) 1,000 unit IVPUSH ONCE ONE Stop: 04/01/16 06:01 Nitroglycerin/Dextrose (Nitroglycerin 25mg/D5w 250ml) 250 mls @ 6 mls/hr IVPB TITR [facility] PRN Reason: 10 MCG/MIN Last Admin: 03/30/16 22:00 Dose: 9 mls/hr Lamotrigine (Lamictal -) 100 mg PO DAILY [facility] Last Admin: 03/31/16 09:26 Dose: 100 mg Lorazepam (Ativan -) 1 mg PO BID [facility] Last Admin: 03/31/16 09:24 Dose: 1 mg Mupirocin (Bactroban Ointment (For Decolonization) -) 1 applic NS BID [facility] Stop: 04/04/16 21:59 Last Admin: 03/31/16 09:24 Dose: 1 applic Nifedipine (Procardia Xl -) 30 mg PO DAILY [facility] Last Admin: 03/31/16 09:24 Dose: 30 mg Nitroglycerin (Tridil Injection -) 10 mcg IVPB TITR [facility] Last Admin: 03/30/16 18:28 Dose: 10 mcg Quetiapine Fumarate (Seroquel -) 150 mg PO HS [facility] Last Admin: 03/30/16 23:58 Dose: 150 mg Sevelamer Carbonate (Renvela -) 800 mg PO TIDCM [facility] Sodium Bicarbonate (Sodium Bicarbonate -) 1,300 mg PO BID [facility] Last Admin: 03/31/16 09:24 Dose: 1,300 mg Constitutional: Yes: No Distress, Sleepy but easily arousable Eyes: Yes: Conjunctiva Clear, EOM Intact Cardiovascular: Yes: Regular Rate and Rhythm, S1, S2 Respiratory: Yes: Basilar Rales Gastrointestinal: Yes: Normal Bowel Sounds, Soft, Abdomen, Obese Renal/: Yes: Maher Present Edema: LLE: 2+, RLE: 2+ Integumentary: Yes: Tattoos ...Motor Strength: WNL Psychiatric: Yes: Alert, Oriented Labs: Laboratory Results - last 24 hr 03/30/16 03/30/16 03/30/16 17:19 18:07 18:07 WBC 8.3 D RBC 3.91 L Hgb 12.6 Hct 36.3 MCV 92.9 MCHC 34.6 RDW 15.0 Plt Count 143 MPV 6.5 L Neutrophils % Lymphocytes % Monocytes % Eosinophils % Basophils % INR 1.07 PTT (Actin FS) Sodium 137 Potassium 5.7 H Chloride 111 H Carbon Dioxide 16 L D Anion Gap 10 BUN 82 H Creatinine 4.9 H Creat Clearance w eGFR 12.54 POC Glucometer Random Glucose 150 H D Lactic Acid Calcium 8.9 Phosphorus Magnesium 2.6 H Total Bilirubin 0.4 AST 16 ALT 12 Alkaline Phosphatase 92 Creatine Kinase Troponin I B-Natriuretic Peptide 37508.58 H Total Protein 6.2 L Albumin 3.1 L Lipase 66 H Urine Color Urine Appearance Urine pH Ur Specific [place] Urine Protein Urine Glucose (UA) Urine Ketones Urine Blood Urine Nitrite Urine Bilirubin Urine Urobilinogen Ur Leukocyte Esterase Urine RBC Urine WBC Urine Bacteria 03/30/16 03/30/16 03/30/16 18:07 18:48 23:07 WBC RBC Hgb Hct MCV MCHC RDW Plt Count MPV Neutrophils % Lymphocytes % Monocytes % Eosinophils % Basophils % INR PTT (Actin FS) Sodium Potassium Chloride Carbon Dioxide Anion Gap BUN Creatinine Creat Clearance w eGFR POC Glucometer 142.74803 Random Glucose Lactic Acid Calcium Phosphorus Magnesium Total Bilirubin AST ALT Alkaline Phosphatase Creatine Kinase 49 Troponin I 0.05 D B-Natriuretic Peptide Total Protein Albumin Lipase Urine Color Yellow Urine Appearance Clear Urine pH 7.0 Ur Specific [place] 1.010 Urine Protein Trace Urine Glucose (UA) 1+ H Urine Ketones Negative Urine Blood 1+ H Urine Nitrite Negative Urine Bilirubin Negative Urine Urobilinogen 0.2 e.u/dl Ur Leukocyte Esterase Negative Urine RBC 2-4 Urine WBC 0-2 Urine Bacteria Few 03/31/16 03/31/16 03/31/16 00:00 00:00 05:10 WBC 6.0 RBC 3.85 L Hgb 12.1 D Hct 37.0 MCV 96.3 H MCHC 32.8 RDW 15.8 Plt Count 106 L D MPV 6.6 L Neutrophils % 65.3 D Lymphocytes % 18.4 D Monocytes % 15.2 H Eosinophils % 0.8 Basophils % 0.3 INR PTT (Actin FS) Sodium Potassium 4.5 Chloride Carbon Dioxide Anion Gap BUN Creatinine Creat Clearance w eGFR POC Glucometer Random Glucose Lactic Acid Calcium Phosphorus Magnesium Total Bilirubin AST ALT Alkaline Phosphatase Creatine Kinase Troponin I B-Natriuretic Peptide Total Protein Albumin Lipase Urine Color Colorless Urine Appearance Clear Urine pH 6.0 Ur Specific [place] 1.004 Urine Protein Negative Urine Glucose (UA) 1+ H Urine Ketones Negative Urine Blood 1+ H Urine Nitrite Negative Urine Bilirubin Negative Urine Urobilinogen Negative Ur Leukocyte Esterase Negative Urine RBC <1 Urine WBC <1 Urine Bacteria 03/31/16 03/31/16 03/31/16 05:10 05:10 05:10 WBC RBC Hgb Hct MCV MCHC RDW Plt Count MPV Neutrophils % Lymphocytes % Monocytes % Eosinophils % Basophils % INR 1.12 PTT (Actin FS) 31.6 Sodium 151 H Potassium 4.5 Chloride 119 H Carbon Dioxide 20 L Anion Gap 12 BUN 85 H D Creatinine 5.5 H Creat Clearance w eGFR 10.97 POC Glucometer Random Glucose 109 H Lactic Acid 0.526 Calcium 8.9 Phosphorus 6.4 H D Magnesium 3.0 H Total Bilirubin 0.5 D AST 11 L D ALT 11 L D Alkaline Phosphatase 99 Creatine Kinase 27 L Troponin I 0.09 H D B-Natriuretic Peptide Total Protein 5.9 L Albumin 2.7 L Lipase Urine Color Urine Appearance Urine pH Ur Specific [place] Urine Protein Urine Glucose (UA) Urine Ketones Urine Blood Urine Nitrite Urine Bilirubin Urine Urobilinogen Ur Leukocyte Esterase Urine RBC Urine WBC Urine Bacteria Problem List - Problems (1) Acute hyperkalemia Code(s): E87.5 - HYPERKALEMIA (2) CKD (chronic kidney disease) stage 5, GFR less than 15 ml/min Code(s): N18.5 - CHRONIC KIDNEY DISEASE, STAGE 5 (3) Congestive heart failure (CHF) Code(s): I50.9 - HEART FAILURE, UNSPECIFIED (4) Fluid overload Code(s): E87.70 - FLUID OVERLOAD, UNSPECIFIED (5) Hypertension Code(s): I10 - ESSENTIAL (PRIMARY) HYPERTENSION (6) Affective bipolar disorder Code(s): F31.9 - BIPOLAR DISORDER, UNSPECIFIED Qualifiers: Active/Remission status: remission status unspecified Qualified Code(s) : F31.9 - Bipolar disorder, unspecified Assessment/Plan HD per Renal O2 as needed NIPPV as needed Daily weight Taper IV NTG ECHO Restart home antihypertensives Glucose control Dr [place] CCTime 35"
[2016-03-31] MEDS: NITROGLYCERIN 50 MG/10 ML VIAL IVPB SCH (15:00)
--- NOTE | 2016-03-31 15:39 | PN ---
Physical Exam: SUBJECTIVE: Patient seen and examined. he is complaining of SOB. He denies abdominal pain, chhest pain, palpitations, fever, chills. OBJECTIVE: Vital Signs Period Temp Pulse Resp BP Sys/Miguel Pulse Ox Last 24 Hr 98 F-98.6 F 94-107 14-18 104-157/73-108 96-96 GENERAL: The patient is awake, alert, and fully oriented, in no acute distress, on 3l NC. HEAD: Normal with no signs of trauma. EYES:extraocular movements intact, sclera anicteric, conjunctiva clear. ENT: oropharynx clear without exudates, moist mucous membranes. NECK: Trachea midline, supple. LUNGS: Breath sounds equal, clear to auscultation bilaterally, no wheezes, no crackles, no accessory muscle use. HEART: Regular rate and rhythm, S1, S2 without murmur, rub or gallop. ABDOMEN: Obese,soft, nontender, nondistended, normoactive bowel sounds, no guarding, no rebound. EXTREMITIES: no edema. NEUROLOGICAL: Normal speech, gait not observed. PSYCH: Normal mood, normal affect. SKIN: Warm, dry, normal turgor. Laboratory Results - last 24 hr 03/30/16 03/31/16 03/31/16 23:07 00:00 00:00 WBC RBC Hgb Hct MCV MCHC RDW Plt Count MPV Neutrophils % Lymphocytes % Monocytes % Eosinophils % Basophils % INR PTT (Actin FS) Sodium Potassium 4.5 Chloride Carbon Dioxide Anion Gap BUN Creatinine Creat Clearance w eGFR POC Glucometer [id number] Random Glucose Lactic Acid Calcium Phosphorus Magnesium Total Bilirubin AST ALT Alkaline Phosphatase Creatine Kinase Troponin I Total Protein Albumin Urine Color Colorless Urine Appearance Clear Urine pH 6.0 Ur Specific [place] 1.004 Urine Protein Negative Urine Glucose (UA) 1+ H Urine Ketones Negative Urine Blood 1+ H Urine Nitrite Negative Urine Bilirubin Negative Urine Urobilinogen Negative Ur Leukocyte Esterase Negative Urine RBC <1 Urine WBC <1 03/31/16 03/31/16 03/31/16 05:10 05:10 05:10 WBC 6.0 RBC 3.85 L Hgb 12.1 D Hct 37.0 MCV 96.3 H MCHC 32.8 RDW 15.8 Plt Count 106 L D MPV 6.6 L Neutrophils % 65.3 D Lymphocytes % 18.4 D Monocytes % 15.2 H Eosinophils % 0.8 Basophils % 0.3 INR 1.12 PTT (Actin FS) 31.6 Sodium 151 H Potassium 4.5 Chloride 119 H Carbon Dioxide 20 L Anion Gap 12 BUN 85 H D Creatinine 5.5 H Creat Clearance w eGFR 10.97 POC Glucometer Random Glucose 109 H Lactic Acid Calcium 8.9 Phosphorus 6.4 H D Magnesium 3.0 H Total Bilirubin 0.5 D AST 11 L D ALT 11 L D Alkaline Phosphatase 99 Creatine Kinase 27 L Troponin I 0.09 H D Total Protein 5.9 L Albumin 2.7 L Urine Color Urine Appearance Urine pH Ur Specific [place] Urine Protein Urine Glucose (UA) Urine Ketones Urine Blood Urine Nitrite Urine Bilirubin Urine Urobilinogen Ur Leukocyte Esterase Urine RBC Urine WBC 03/31/16 05:10 WBC RBC Hgb Hct MCV MCHC RDW Plt Count MPV Neutrophils % Lymphocytes % Monocytes % Eosinophils % Basophils % INR PTT (Actin FS) Sodium Potassium Chloride Carbon Dioxide Anion Gap BUN Creatinine Creat Clearance w eGFR POC Glucometer Random Glucose Lactic Acid 0.526 Calcium Phosphorus Magnesium Total Bilirubin AST ALT Alkaline Phosphatase Creatine Kinase Troponin I Total Protein Albumin Urine Color Urine Appearance Urine pH Ur Specific [place] Urine Protein Urine Glucose (UA) Urine Ketones Urine Blood Urine Nitrite Urine Bilirubin Urine Urobilinogen Ur Leukocyte Esterase Urine RBC Urine WBC Active Medications Generic Name Dose Route Start Last Admin Trade Name Ani PRN Reason Stop Dose Admin Bupropion HCl 150 mg 03/31/16 10:00 03/31/16 09:26 Wellbutrin Xl - PO 150 mg DAILY BERTIN Administration Chlorhexidine Gluconate 1 applic 03/30/16 22:00 03/30/16 23:58 Hibiclens For Decolonization - TP 1 applic HS BERTIN Administration Divalproex Sodium 1,000 mg 03/30/16 22:00 03/31/16 09:25 Depakote - PO 1,000 mg BID BERTIN Administration Furosemide 80 mg 03/31/16 06:00 03/31/16 13:07 Lasix Injection - IVPUSH 80 mg BID@0600,1400 BERTIN Administration Heparin Sodium (Porcine) 5,000 unit 03/30/16 22:00 03/31/16 13:07 Heparin - SQ 5,000 unit TID BERTIN Administration Heparin Sodium (Porcine) 1,000 unit 04/01/16 06:00 Heparin - IVPUSH 04/01/16 06:01 ONCE ONE Nitroglycerin/Dextrose 250 mls @ 6 mls/hr 03/31/16 03:45 03/30/16 22:00 Nitroglycerin 25mg/D5w 250ml IVPB 9 mls/hr TITR BERTIN Administration 10 MCG/MIN Lamotrigine 100 mg 03/31/16 10:00 03/31/16 09:26 Lamictal - PO 100 mg DAILY BERTIN Administration Lorazepam 1 mg 03/30/16 22:00 03/31/16 09:24 Ativan - PO 1 mg BID BERTIN Administration Mupirocin 1 applic 03/30/16 22:00 03/31/16 09:24 Bactroban Ointment (For Decolonization) - NS 04/04/16 21:59 1 applic BID BERTIN Administration Nifedipine 30 mg 03/31/16 10:00 03/31/16 09:24 Procardia Xl - PO 30 mg DAILY BERTIN Administration Nitroglycerin 10 mcg 03/30/16 19:00 03/30/16 18:28 Tridil Injection - IVPB 10 mcg TITR BERTIN Administration Quetiapine Fumarate 150 mg 03/30/16 22:00 03/30/16 23:58 Seroquel - PO 150 mg HS BERTIN Administration Sevelamer Carbonate 800 mg 03/31/16 17:30 Renvela - PO TIDCM BERTIN Sodium Bicarbonate 1,300 mg 03/30/16 22:00 03/31/16 09:24 Sodium Bicarbonate - PO 1,300 mg BID BERTIN Administration cxr : b/l infiltrate ASSESSMENT/PLAN: 50-year-old male with a past medical history of stage V CKD, HTN, DM ( not on meds ), bipolar, substance abuse, who was supposed to start dialysis on Sunday was sent from [facility] because of SOB. ESRD with hyperkalemia and SOB probably from fluid over load, he was about to have first HD dialysis today: 2 hours with goal Uf of 1.5-2L as tolerated Repeat CMP i AM nephrology consulted , will have HD today continue lasix 80 mg bid taper NTG IV monitor vital , monito i/O daily weight ECHO to r/o cardiorenal DM diabetic diet monitor blood glucose sliding scale Bipolar disorder continue home meds HTN continue home meds nifidipine 30mg po daily Fluid : No electrolyte ; Nl nutrition : diabetic diet, low kotassium and low salt diet dvt pro ; on heparin gi pro : not required Dispo : admitted in icu Visit type - Emergency Visit Emergency Visit: Yes ED Registration Date: 03/30/16 Care time: The patient presented to the Emergency Department on the above date and was hospitalized for further evaluation of their emergent condition. - New Patient This patient is new to me today: Yes Date on this admission: 03/31/16 - Critical Care Critical Care patient: Yes Total Critical Care Time (in minutes): 40 Critical Care Statement: The care of this patient involved high complexity decision making to prevent further life threatening deterioration of the patient 's condition and/or to evalute & treat vital organ system(s) failure or risk of failure. - Discharge Referral [facility]erred to [facility] Med P.C.: No
[2016-03-31 16:21] LABS: BASOPHIL 0.2 % (0-2.0); EOSINOPHIL 0.2 % (0-4.5); MCH 30.9 pg (25.7-33.7); MCHC 32.7 g/dl (32.0-35.9); MEAN CELL VOLUME 94.5 fl (80-96); MEAN PLT VOLUME 6.7 fl (7.5-11.1); NEUTROPHILS 75.2 % (42.8-82.8); PLATELET COUNT 113 K/MM3 (134-434); RDW 15.9 % (11.9-15.9)
--- NOTE | 2016-03-31 16:54 | PN ---
Physical Exam: SUBJECTIVE: Patient seen and examined at bedside in the ICU. He reported feeling better, especially breathing, put out a lot of urine, appetite has returned. Denies fever, chills, chest pain, n/v, headache, abd pain. OBJECTIVE: Vital Signs Period Temp Pulse Resp BP Sys/Miguel Pulse Ox Last 24 Hr 98 F-98.6 F 90-107 14-18 104-157/73-108 96-96 GENERAL: AAO x 3 on NC. EYES: Pupils equal, reactive to light LUNGS: bibasal fine crackles HEART: tachycardic, S1 and S2, without murmur, gallop, rub ABDOMEN: Soft, obese, nontender, not distended, normoactive bowel sounds, no guarding, no rebound, no masses. EXTREMITIES: No peripheral edema. CBCD WBC 7.0 K/mm3 (4.0-10.0) 03/31/16 15:30 RBC 4.21 M/mm3 (4.00-5.60) 03/31/16 15:30 Hgb 13.0 GM/dL (11.7-16.9) 03/31/16 15:30 Hct 39.7 % (35.4-49) 03/31/16 15:30 MCV 94.5 fl (80-96) 03/31/16 15:30 MCHC 32.7 g/dl (32.0-35.9) 03/31/16 15:30 RDW 15.9 % (11.9-15.9) 03/31/16 15:30 Plt Count 113 K/MM3 (134-434) L 03/31/16 15:30 MPV 6.7 fl (7.5-11.1) L 03/31/16 15:30 CMP Sodium 151 mmol/L (136-145) H 03/31/16 05:10 Potassium 4.5 mmol/L (3.5-5.1) 03/31/16 05:10 Chloride 119 mmol/L (98-107) H 03/31/16 05:10 Carbon Dioxide 20 mmol/L (21-32) L 03/31/16 05:10 Anion Gap 12 (8-16) 03/31/16 05:10 BUN 85 mg/dL (7-18) H D 03/31/16 05:10 Creatinine 5.5 mg/dL (0.7-1.3) H 03/31/16 05:10 Creat Clearance w eGFR 10.97 (>60) 03/31/16 05:10 Calcium 8.9 mg/dL (8.5-10.1) 03/31/16 05:10 Total Bilirubin 0.5 mg/dL (0.2-1.0) D 03/31/16 05:10 AST 11 U/L (15-37) L D 03/31/16 05:10 ALT 11 U/L (12-78) L D 03/31/16 05:10 Alkaline Phosphatase 99 U/L (45-117) 03/31/16 05:10 Total Protein 5.9 g/dl (6.4-8.2) L 03/31/16 05:10 Albumin 2.7 g/dl (3.4-5.0) L 03/31/16 05:10 Intake & Output 03/28/16 03/29/16 03/30/16 03/31/16 23:59 23:59 23:59 23:59 Intake Total 50 1320 Output Total 3600 4300 Balance -3550 -2980 Weight 113.398 kg 99.96 kg Active Medications Generic Name Dose Route Start Last Admin Trade Name Freq PRN Reason Stop Dose Admin Bupropion HCl 150 mg 03/31/16 10:00 03/31/16 09:26 Wellbutrin Xl - PO 150 mg DAILY BERTIN Administration Chlorhexidine Gluconate 1 applic 03/30/16 22:00 03/30/16 23:58 Hibiclens For Decolonization - TP 1 applic HS BERTIN Administration Divalproex Sodium 1,000 mg 03/30/16 22:00 03/31/16 09:25 Depakote - PO 1,000 mg BID BERTIN Administration Furosemide 80 mg 03/31/16 06:00 03/31/16 13:07 Lasix Injection - IVPUSH 80 mg BID@0600,1400 BERTIN Administration Heparin Sodium (Porcine) 5,000 unit 03/30/16 22:00 03/31/16 13:07 Heparin - SQ 5,000 unit TID BERTIN Administration Heparin Sodium (Porcine) 1,000 unit 04/01/16 06:00 Heparin - IVPUSH 04/01/16 06:01 ONCE ONE Nitroglycerin/Dextrose 250 mls @ 6 mls/hr 03/31/16 03:45 03/30/16 22:00 Nitroglycerin 25mg/D5w 250ml IVPB 9 mls/hr TITR BERTIN Administration 10 MCG/MIN Lamotrigine 100 mg 03/31/16 10:00 03/31/16 09:26 Lamictal - PO 100 mg DAILY BERTIN Administration Lorazepam 1 mg 03/30/16 22:00 03/31/16 09:24 Ativan - PO 1 mg BID BERTIN Administration Mupirocin 1 applic 03/30/16 22:00 03/31/16 09:24 Bactroban Ointment (For Decolonization) - NS 04/04/16 21:59 1 applic BID BERTIN Administration Nifedipine 30 mg 03/31/16 10:00 03/31/16 09:24 Procardia Xl - PO 30 mg DAILY BERTIN Administration Nitroglycerin 10 mcg 03/30/16 19:00 03/30/16 18:28 Tridil Injection - IVPB 10 mcg TITR BERTIN Administration Quetiapine Fumarate 150 mg 03/30/16 22:00 03/30/16 23:58 Seroquel - PO 150 mg HS BERTIN Administration Sevelamer Carbonate 800 mg 03/31/16 17:30 Renvela - PO TIDCM BERTIN Sodium Bicarbonate 1,300 mg 03/30/16 22:00 03/31/16 09:24 Sodium Bicarbonate - PO 1,300 mg BID BERTIN Administration IMAGING CXR on 03/31: b/l infiltrate ECHO on 03/31: reduced LV function, mild tri. regurg., pericardial effusion, large pleural effusion ASSESSMENT/PLAN: 50 yo M h/o stage 5 CKD, HTN, bipolar, substance abuse admitted to the ICU for acute respiratory distress 2/2 CHF exacerbation and hyperkalemia. Cardio and Pulm: Acute systolic CHF exacerbation - ECHO shows HFrEF - On NC 2L maintain O2 Sat > 88% - Lasix 80mg IVPUSH BID - Strict I/O and daily weight - BiPAP PRN Renal: CKD Stage 5 2/2 [employer] lithium use - Received first HD today - Hyperkalemia resolved, cont. to monitor electrolytes - On NaCO3 and renvela, cont. to trend phos - Titrating down nitro - Started back on procarda for BP control - f/u PTH level Neuro: Bipolar disorder - Cont. all medications - Neurochecks Endo: DM2 - BGM - On Sliding scale Prophylaxis - DVT: heparin SQ 5000 BID - GI: not indicated Disposition - Cont. to monitor in ICU Code status - Full code Visit type - Emergency Visit Emergency Visit: No - New Patient This patient is new to me today: Yes Date on this admission: 03/31/16 - Critical Care Critical Care patient: Yes Total Critical Care Time (in minutes): 45 Critical Care Statement: The care of this patient involved high complexity decision making to prevent further life threatening deterioration of the patient 's condition and/or to evalute & treat vital organ system(s) failure or risk of failure.
--- NOTE | 2016-03-31 17:00 | PN ---
Teaching Attending Note Name of Resident: Katie Romeo ATTENDING PHYSICIAN STATEMENT I saw and evaluated the patient. I reviewed the resident's note and discussed the case with the resident. I agree with the resident's findings and plan as documented. SUBJECTIVE:" i feel better " . SOB improved, but c/o pain in suprepubic area after insertion of catheter OBJECTIVE: Vital Signs Temp 98.5 F 03/31/16 15:10 Pulse 96 H 03/31/16 16:15 Resp 18 03/31/16 16:15 BP 111/92 03/31/16 16:15 Pulse Ox 96 03/31/16 10:25 Intake & Output 03/30/16 03/31/16 03/31/16 23:59 11:59 23:59 Intake Total 50 320 1000 Output Total 3600 1999 2300 Balance -3550 -1680 -1300 Weight 113.398 kg 99.96 kg Intake: IV 120 Nitroglycerin 25Mg/D5w 120 250Ml 250 ml @ 10 MCG/MIN 6 mls/hr IVPB TITR BERTIN Rx#:[id number] IVPB 50 Oral 200 1000 Output: Urine 3600 1999 2300 [place] 3600 1999 2300 Other: Voiding Method Indwelling Catheter Indwelling Catheter Indwelling Catheter Height 6 ft 1 in Body Mass Index (BMI) 33.0 Weight Measurement Method Built in [facility] Weight Measurement Method Est/Stated by Patient GENERAL: The patient is awake, alert, and fully oriented, in no acute distress, on 3l NC. HEAD: Normal with no signs of trauma. EYES:extraocular movements intact, sclera anicteric, conjunctiva clear. ENT: oropharynx clear without exudates, moist mucous membranes. NECK: Trachea midline, supple. LUNGS: Breath sounds equal, clear to auscultation bilaterally, no wheezes, no crackles, no accessory muscle use. HEART: Regular rate and rhythm, S1, S2 without murmur, rub or gallop. ABDOMEN: Obese,soft, nontender, nondistended, normoactive bowel sounds, no guarding rebound. EXTREMITIES: no edema. NEUROLOGICAL: Normal speech, gait not observed. PSYCH: Normal mood, normal affect. SKIN: Warm, dry, normal turgor. CBC, BMP 03/31/16 15:30 03/31/16 05:10 ASSESSMENT AND PLAN: 50 year old with history of CKD IV admitted due to SOB and fluid overload . Was scheduled for his 1st HD on 04/03. R arm fistula is mature 1.Acute respiratory failure secondary to fluid overload . - for HD today - O2 supplement 2. CKD IV - will arrange HD as o/p - on renal transplant list 3. Hyperkalemia - corrected, no acute EKG changes upon arrival - monitor electrolytes 4. Disuria , 2/2 hunter - puridium 5. DVT ppx Lovenox
[2016-03-31] MEDS: SEVELAMER CARBONATE 800 MG TAB (FP) PO SCH (17:09)
[2016-03-31] MEDS: QUEtiapine FUMARATE 100 MG TABLET (FP) PO SCH (22:30)
[2016-03-31] MEDS: CHLORHEXIDINE GLUCONATE 4% CLEANSER FOR DECOLONIZATION TP SCH (22:30)
[2016-04-01] MEDS ORDERED: FUROSEMIDE 40 MG/4 ML INJECTABLE VIAL ONE (04:44)
[2016-04-01 06:16] LABS: MCH 31.4 pg (25.7-33.7); MCHC 33.1 g/dl (32.0-35.9); MEAN PLT VOLUME 6.8 fl (7.5-11.1); PLATELET COUNT 106 K/MM3 (134-434); RDW 15.7 % (11.9-15.9); WHITE BLOOD COUNT 7.9 K/mm3 (4.0-10.0)
[2016-04-01] MEDS: FUROSEMIDE 40 MG/4 ML INJECTABLE VIAL IVPUSH SCH (06:20)
[2016-04-01] MEDS: HEPARIN NA (PORCINE) 5,000 UNITS/ML 1ML VIAL SQ SCH ×3 (06:20→21:31)
[2016-04-01 06:52] LABS: ALBUMIN 3.1 g/dl (3.4-5.0); BILIRUBIN,TOTAL 0.6 mg/dL (0.2-1.0); CALCIUM 9.3 mg/dL (8.5-10.1); CREATININE 5.4 mg/dL (0.7-1.3); PHOSPHOROUS 7.1 mg/dL (2.5-4.9); TOT PROT 6.7 g/dl (6.4-8.2)
[2016-04-01] MEDS: SEVELAMER CARBONATE 800 MG TAB (FP) PO SCH ×3 (08:30→17:00)
--- NOTE | 2016-04-01 08:52 | PN ---
Progress Note (short form) - Note Progress Note: Seen and examined in [facility] stable of BiPAP Denies: SOB/CP/n/v/HIGGINS Weaned off nitro drip this AM tolerated HD yesterday Current Medications Bupropion HCl (Wellbutrin Xl -) 150 mg PO DAILY [facility] Last Admin: 03/31/16 09:26 Dose: 150 mg Chlorhexidine Gluconate (Hibiclens For Decolonization -) 1 applic TP HS [facility] Last Admin: 03/31/16 22:30 Dose: 1 applic Divalproex Sodium (Depakote -) 1,000 mg PO BID [facility] Last Admin: 03/31/16 22:00 Dose: 1,000 mg Furosemide (Lasix Injection -) 80 mg IVPUSH BID@0600,1400 [facility] Last Admin: 04/01/16 06:20 Dose: 80 mg Heparin Sodium (Porcine) (Heparin -) 5,000 unit SQ TID [facility] Last Admin: 04/01/16 06:20 Dose: 5,000 unit Heparin Sodium (Porcine) (Heparin -) 1,000 unit IVPUSH ONCE ONE Stop: 04/01/16 06:01 Nitroglycerin/Dextrose (Nitroglycerin 25mg/D5w 250ml) 250 mls @ 6 mls/hr IVPB TITR [facility] PRN Reason: 10 MCG/MIN Last Admin: 03/30/16 22:00 Dose: 9 mls/hr Lamotrigine (Lamictal -) 100 mg PO DAILY [facility] Last Admin: 03/31/16 09:26 Dose: 100 mg Lorazepam (Ativan -) 1 mg PO BID [facility] Last Admin: 03/31/16 22:30 Dose: 1 mg Mupirocin (Bactroban Ointment (For Decolonization) -) 1 applic NS BID [facility] Stop: 04/04/16 21:59 Last Admin: 03/31/16 22:30 Dose: 1 applic Nifedipine (Procardia Xl -) 60 mg PO DAILY [facility] Quetiapine Fumarate (Seroquel -) 150 mg PO HS [facility] Last Admin: 03/31/16 22:30 Dose: 150 mg Sevelamer Carbonate (Renvela -) 800 mg PO TIDCM [facility] Last Admin: 03/31/16 17:09 Dose: 800 mg Sodium Bicarbonate (Sodium Bicarbonate -) 1,300 mg PO BID [facility] Last Admin: 03/31/16 22:30 Dose: 1,300 mg Vital Signs Period Temp Pulse Resp BP Sys/Miguel Pulse Ox Last 24 Hr 94 F-98.6 F 90-102 14-23 111-168/75-111 93-96 Intake & Output 03/29/16 03/30/16 03/31/16 04/01/16 23:59 23:59 23:59 23:59 Intake Total 50 2221 208.5 Output Total 3600 6500 1500 Balance -3550 -4279 -1291.5 Weight 113.398 kg 99.96 kg 96.524 kg Exam: gen: OOb to chair eating breakfast w/o distress HEENT: PERRL CV: RRR Abd: obese, SNTND Ext: WWP +1 LEedema Neuro: intact CBCD WBC 7.9 K/mm3 (4.0-10.0) 04/01/16 05:20 RBC 4.26 M/mm3 (4.00-5.60) 04/01/16 05:20 Hgb 13.4 GM/dL (11.7-16.9) 04/01/16 05:20 Hct 40.4 % (35.4-49) 04/01/16 05:20 MCV 95.0 fl (80-96) 04/01/16 05:20 MCHC 33.1 g/dl (32.0-35.9) 04/01/16 05:20 RDW 15.7 % (11.9-15.9) 04/01/16 05:20 Plt Count 106 K/MM3 (134-434) L 04/01/16 05:20 MPV 6.8 fl (7.5-11.1) L 04/01/16 05:20 CMP Sodium 151 mmol/L (136-145) H 04/01/16 05:20 Potassium 3.8 mmol/L (3.5-5.1) 04/01/16 05:20 Chloride 112 mmol/L (98-107) H 04/01/16 05:20 Carbon Dioxide 26 mmol/L (21-32) D 04/01/16 05:20 Anion Gap 13 (8-16) 04/01/16 05:20 BUN 71 mg/dL (7-18) H 04/01/16 05:20 Creatinine 5.4 mg/dL (0.7-1.3) H 04/01/16 05:20 Creat Clearance w eGFR 11.21 (>60) 04/01/16 05:20 Random Glucose 95 mg/dL (74-106) 04/01/16 05:20 Calcium 9.3 mg/dL (8.5-10.1) 04/01/16 05:20 Total Bilirubin 0.6 mg/dL (0.2-1.0) 04/01/16 05:20 AST 13 U/L (15-37) L 04/01/16 05:20 ALT 11 U/L (12-78) L 04/01/16 05:20 Alkaline Phosphatase 113 U/L (45-117) 04/01/16 05:20 Total Protein 6.7 g/dl (6.4-8.2) 04/01/16 05:20 Albumin 3.1 g/dl (3.4-5.0) L 04/01/16 05:20 CARDIAC ENZYMES Creatine Kinase 27 IU/L (39-308) L 03/31/16 05:10 Troponin I 0.09 ng/ml (0.00-0.05) H D 03/31/16 05:10 Problem List - Problems (1) Acute hyperkalemia Code(s): E87.5 - HYPERKALEMIA (2) CKD (chronic kidney disease) stage 5, GFR less than 15 ml/min Code(s): N18.5 - CHRONIC KIDNEY DISEASE, STAGE 5 (3) Congestive heart failure (CHF) Code(s): I50.9 - HEART FAILURE, UNSPECIFIED (4) Fluid overload Code(s): E87.70 - FLUID OVERLOAD, UNSPECIFIED (5) Hypertension Code(s): I10 - ESSENTIAL (PRIMARY) HYPERTENSION (6) Affective bipolar disorder Code(s): F31.9 - BIPOLAR DISORDER, UNSPECIFIED Qualifiers: Active/Remission status: remission status unspecified Qualified Code(s) : F31.9 - Bipolar disorder, unspecified Assessment/Plan HD per Renal encourage free water for hyperNa O2 as needed NIPPV as needed Daily weight Taper IV NTG increased oral antiHTN Glucose control Stable for floor transfer now off nitro Boerem ACNP Pulm/CCM CCT: 35 Problem List - Problems (1) Acute hyperkalemia Code(s): E87.5 - HYPERKALEMIA (2) CKD (chronic kidney disease) stage 5, GFR less than 15 ml/min Code(s): N18.5 - CHRONIC KIDNEY DISEASE, STAGE 5 (3) Congestive heart failure (CHF) Code(s): I50.9 - HEART FAILURE, UNSPECIFIED (4) Fluid overload Code(s): E87.70 - FLUID OVERLOAD, UNSPECIFIED (5) Hypertension Code(s): I10 - ESSENTIAL (PRIMARY) HYPERTENSION (6) Affective bipolar disorder Code(s): F31.9 - BIPOLAR DISORDER, UNSPECIFIED Qualifiers: Active/Remission status: remission status unspecified Qualified Code(s) : F31.9 - Bipolar disorder, unspecified
[2016-04-01] MEDS: NITROGLYCERIN 25MG/D5W 250ML 250 ML IVPB SCH ×2 (09:18→14:55)
[2016-04-01] MEDS: LORazepam 1 MG TABLET PO SCH ×2 (09:43→21:30)
[2016-04-01] MEDS: lamoTRIgine 100 MG TABLET (FP) PO SCH (09:44)
[2016-04-01] MEDS: MUPIROCIN 2% TOPICAL OINTMENT FOR DECOLONIZATION NS SCH ×2 (09:44→21:31)
[2016-04-01] MEDS: DIVALPROEX SODIUM 500 MG TABLET E.C. PO SCH ×2 (09:44→21:30)
[2016-04-01] MEDS ORDERED: NIFEdipine E.R 60 MG TABLET (UD) PO SCH (10:00)
[2016-04-01] MEDS ORDERED: HEPARIN NA (PORCINE) 5,000 UNITS/ML 1ML VIAL IVPUSH ONE (10:15)
--- NOTE | 2016-04-01 10:38 | PN ---
Progress Note (short form) - Note Progress Note: Renal Follow up for CKD Stage 5 -> ESRD on HD Pt seen and examined at the bedside No acute complaints s/p HD yesterday SOB is improved no abd pain,N/V/D or chest pain For dialysis today Vital Signs Temperature 94 F L 04/01/16 06:05 Pulse Rate 100 H 04/01/16 08:53 Respiratory Rate 18 04/01/16 08:00 Blood Pressure 151/97 04/01/16 08:00 O2 Sat by Pulse Oximetry (%) 98 04/01/16 08:53 Intake & Output 03/29/16 03/30/16 03/31/16 04/01/16 23:59 23:59 23:59 23:59 Intake Total 50 2221 208.5 Output Total 3600 6500 1500 Balance -3550 -4279 -1291.5 Weight 250 lb 220 lb 6 oz 212 lb 12.8 oz Gen: NAD, awake and alert CVS: RRR, No M/R Lungs: DEc BS at lung bases Abd: Soft NT/ND Ext: No edema, clubbing or cyanosis Neuro: awake and alert, no focal defects CBC, BMP 04/01/16 05:20 04/01/16 05:20 Laboratory Tests 03/31/16 04/01/16 04/01/16 05:10 05:20 05:20 Calcium 8.9 9.3 Phosphorus 6.4 H D 7.1 H Magnesium 3.0 H Albumin 3.1 L PTH Intact Pending Current Medications Bupropion HCl (Wellbutrin Xl -) 150 mg PO DAILY [facility] Last Admin: 04/01/16 09:43 Dose: 150 mg Chlorhexidine Gluconate (Hibiclens For Decolonization -) 1 applic TP HS [facility] Last Admin: 03/31/16 22:30 Dose: 1 applic Divalproex Sodium (Depakote -) 1,000 mg PO BID [facility] Last Admin: 04/01/16 09:44 Dose: 1,000 mg Furosemide (Lasix -) 80 mg PO DAILY [facility] Heparin Sodium (Porcine) (Heparin -) 5,000 unit SQ TID [facility] Last Admin: 04/01/16 06:20 Dose: 5,000 unit Nitroglycerin/Dextrose (Nitroglycerin 25mg/D5w 250ml) 250 mls @ 6 mls/hr IVPB TITR BERTIN PRN Reason: 10 MCG/MIN Last Admin: 04/01/16 09:18 Dose: Not Given Lamotrigine (Lamictal -) 100 mg PO DAILY [facility] Last Admin: 04/01/16 09:44 Dose: 100 mg Lorazepam (Ativan -) 1 mg PO BID [facility] Last Admin: 04/01/16 09:43 Dose: 1 mg Mupirocin (Bactroban Ointment (For Decolonization) -) 1 applic NS BID [facility] Stop: 04/04/16 21:59 Last Admin: 04/01/16 09:44 Dose: 1 applic Nifedipine (Procardia Xl -) 60 mg PO DAILY [facility] Last Admin: 04/01/16 09:43 Dose: 60 mg Quetiapine Fumarate (Seroquel -) 150 mg PO HS [facility] Last Admin: 03/31/16 22:30 Dose: 150 mg Sevelamer Carbonate (Renvela -) 800 mg PO TIDCM [facility] Last Admin: 04/01/16 08:30 Dose: 800 mg A/p 50 year old Gentleman with PMhx of CKD Stage 5 secondary to tubulo-interstitial disease from chronic [place] Use and diabetic nephropathy, Hypertension, DM Type 2, Bipolar Disorder who presented to [facility] with complaints of SOB for 2 days. #CKD Stage 5 -> ESRD on HD with volume overload For second Hd today Change IV Lasix to PO once daily UF as tolerated with HD Dose all meds for intermittent HD Social work consult for outpatient HD unit placement #Renal Osteodystrophy Continue Renvela PTH pending Low phos diet #Volume Overload ECHO showed decreased LVEF Consider Cardiology evaluation off NItro gtt #Metabolic acidosis D/c PO sodium bicarb #Bipolar Disorder continue home meds #Hypertension continue Nifedpine Goal BP < 140/90 trend BP with fluid removal with dialysis Cornelius Palafox DO
--- NOTE | 2016-04-01 14:31 | PN ---
Physical Exam: SUBJECTIVE: Patient seen and examined. He is feeling better today. He doesn't have any complaints. He deniesdysuria, fever, chills, abdominal pain, dizziness. OBJECTIVE: Vital Signs Period Temp Pulse Resp BP Sys/Miguel Pulse Ox Last 24 Hr 94 F-98.6 F 90-101 10-23 96-168/75-111 93-99 GENERAL: The patient is awake, alert, and fully oriented, in no acute distress, on 3l NC. HEAD: Normal with no signs of trauma. EYES:extraocular movements intact, sclera anicteric, conjunctiva clear. ENT: oropharynx clear without exudates, moist mucous membranes. NECK: Trachea midline, supple. LUNGS: Breath sounds equal, clear to auscultation bilaterally, no wheezes, no crackles, no accessory muscle use. HEART: Regular rate and rhythm, S1, S2 without murmur, rub or gallop. ABDOMEN: Obese,soft, nontender, nondistended, normoactive bowel sounds, no guarding, no rebound. EXTREMITIES: trace LE edema. NEUROLOGICAL: Normal speech, gait not observed. PSYCH: Normal mood, normal affect. SKIN: Warm, dry, normal turgor. Laboratory Results - last 24 hr 03/31/16 03/31/16 03/31/16 15:30 17:18 22:50 WBC 7.0 RBC 4.21 Hgb 13.0 Hct 39.7 MCV 94.5 MCHC 32.7 RDW 15.9 Plt Count 113 L MPV 6.7 L Neutrophils % 75.2 Lymphocytes % 11.2 D Monocytes % 13.2 H Eosinophils % 0.2 Basophils % 0.2 Sodium Potassium Chloride Carbon Dioxide Anion Gap BUN Creatinine Creat Clearance w eGFR POC Glucometer 149.80043 94.05447 Random Glucose Calcium Phosphorus Total Bilirubin AST ALT Alkaline Phosphatase Total Protein Albumin 04/01/16 04/01/16 04/01/16 05:16 05:20 05:20 WBC 7.9 RBC 4.26 Hgb 13.4 Hct 40.4 MCV 95.0 MCHC 33.1 RDW 15.7 Plt Count 106 L MPV 6.8 L Neutrophils % Lymphocytes % Monocytes % Eosinophils % Basophils % Sodium 151 H Potassium 3.8 Chloride 112 H Carbon Dioxide 26 D Anion Gap 13 BUN 71 H Creatinine 5.4 H Creat Clearance w eGFR 11.21 POC Glucometer 114.23266 Random Glucose 95 Calcium 9.3 Phosphorus 7.1 H Total Bilirubin 0.6 AST 13 L ALT 11 L Alkaline Phosphatase 113 Total Protein 6.7 Albumin 3.1 L Active Medications Generic Name Dose Route Start Last Admin Trade Name Freq PRN Reason Stop Dose Admin Bupropion HCl 150 mg 03/31/16 10:00 04/01/16 09:43 Wellbutrin Xl - PO 150 mg DAILY BERTIN Administration Chlorhexidine Gluconate 1 applic 03/30/16 22:00 03/31/16 22:30 Hibiclens For Decolonization - TP 1 applic HS BERTIN Administration Divalproex Sodium 1,000 mg 03/30/16 22:00 04/01/16 09:44 Depakote - PO 1,000 mg BID BERTIN Administration Furosemide 80 mg 04/02/16 10:00 Lasix - PO DAILY BERTIN Heparin Sodium (Porcine) 5,000 unit 03/30/16 22:00 04/01/16 06:20 Heparin - SQ 5,000 unit TID BERTIN Administration Nitroglycerin/Dextrose 250 mls @ 6 mls/hr 03/31/16 03:45 04/01/16 09:18 Nitroglycerin 25mg/D5w 250ml IVPB Not Given TITR BERTIN 10 MCG/MIN Lamotrigine 100 mg 03/31/16 10:00 04/01/16 09:44 Lamictal - PO 100 mg DAILY BERTIN Administration Lorazepam 1 mg 03/30/16 22:00 04/01/16 09:43 Ativan - PO 1 mg BID BERTIN Administration Mupirocin 1 applic 03/30/16 22:00 04/01/16 09:44 Bactroban Ointment (For Decolonization) - NS 04/04/16 21:59 1 applic BID BERTIN Administration Nifedipine 60 mg 04/01/16 10:00 04/01/16 09:43 Procardia Xl - PO 60 mg DAILY BERTIN Administration Quetiapine Fumarate 150 mg 03/30/16 22:00 03/31/16 22:30 Seroquel - PO 150 mg HS BERTIN Administration Sevelamer Carbonate 800 mg 03/31/16 17:30 04/01/16 08:30 Renvela - PO 800 mg TIDCM BERTIN Administration cxr : b/l infiltrate ASSESSMENT/PLAN: 50-year-old male with a past medical history of stage V CKD, HTN, DM ( not on meds ), bipolar, substance abuse, who was supposed to start dialysis on Sunday was sent from [facility] ED because of SOB. ESRD with hyperkalemia and SOB probably from fluid over load, he was about to have first HD on 04/03/16 dialysis yestedrday: 2 hours with goal Uf of 1.5-2L as tolerated, another one today-2h Repeat CMP i AM nephrology consulted continue lasix 80 mg qd taper NTG IV today monitor vital , monito i/O daily weight ECHO done, Cardiology consult ordered DM diabetic diet monitor blood glucose sliding scale Bipolar disorder continue home meds HTN continue home meds nifidipine 30mg po daily switched to 60 mg today Renal Osteodystrophy Continue Renvela PTH pending Fluid : No electrolyte ; Nl nutrition : diabetic diet, low potassium and low salt diet dvt pro ; on heparin gi pro : not required Dispo : admitted in icu, will be transferred to medicine after HD. Visit type - Emergency Visit Emergency Visit: Yes ED Registration Date: 03/30/16 Care time: The patient presented to the Emergency Department on the above date and was hospitalized for further evaluation of their emergent condition. - New Patient This patient is new to me today: No - Critical Care Critical Care patient: No - Discharge Referral Referred to [facility] Med P.C.: No
--- NOTE | 2016-04-01 14:54 | PN ---
Teaching Attending Note Name of Resident: Katie Romeo ATTENDING PHYSICIAN STATEMENT I saw and evaluated the patient. I reviewed the resident's note and discussed the case with the resident. I agree with the resident's findings and plan as documented. SUBJECTIVE: Patient is comfortable sitting in chair. OBJECTIVE: Vital Signs Period Temp Pulse Resp BP Sys/Miguel Pulse Ox Last 24 Hr 94 F-98.6 F 71-101 10-23 96-168/75-111 93-99 HEART: S1 S2, RRR LUNGS: Clear ABDOMEN: Soft, non-tender, normal BS EXTREMITIES: Trace edema ASSESSMENT AND PLAN: This is a 50-year-old man with a history of stage 5 CKD, HTN, type 2 DM, bipolar disorder, polysubstance abuse who presented with SOB. 1. ESRD with hyperkalemia, volume overload, metabolic acidosis - HD started yesterday - HD again today - Continue Lasix - Sodium bicarb discontinued since acidosis improved - Potassium improved 2. Acute on chronic systolic heart failure secondary to volume overload - Continue HD, Lasix - Nitroglycerin IV drip discontinued 3. Type 2 diabetes mellitus 4. Bipolar disorder - Continue Seroquel, Depakote, Lamictal, Wellbutrin, Ativan 5. Hypertension - Continue Procardia, Lasix 6. Renal osteodystrophy - Continue Renvela - PTH pending 7. Hypernatremia - Monitor electrolytes
--- NOTE | 2016-04-01 15:54 | CON.CARD ---
Consult Consult Specialty:: cardiology Reason for Consultation:: shortness of breath - History of Present Illness Chief Complaint: no chest pain; mild dyspnea intermittently, with or without exertion. History of Present Illness: 50-year-old male with a past medical history of stage V CKD, who was supposed to start dialysis on Sunday He also has a history of bipolar disorder, substance abuse, hypertension, syncope, hyperkalemia Patient arrives in extremis, minimal history is available from the patient, history is obtained from old records Patient is due to start dialysis on Sunday He is complaining of progressive shortness of breath for 2-3 days, and became severely dyspneic this evening He is complaining of dyspnea with minimal exertion, and leg edema He denies any chest pain He has a known history of hyperkalemia and stopped his Kayexalate a few weeks ago Patient arrives in extremis, and no further history is available - History Source History Provided By: Patient, Medical Record Limitations to Obtaining History: Poor Historian - Past Medical History Cardio/Vascular: Yes: HTN Pulmonary: Yes: Other (lung injust with chest tube insetion after trauma) Renal/: Yes: Renal Inusuff Psych: Yes: Bipolar - Past Surgical History Past Surgical History: Yes: AV Fistula/Graft (upper right arm) - Alcohol/Substance Use Hx Alcohol Use: No History of Substance Use: reports: Marijuana - Smoking History Smoking history: Former smoker Have you smoked in the past 12 months: No Aproximately how many cigarettes per day: 0 If you are a former smoker, when did you quit?: 1999 - Social History Usual Living Arrangement: With Spouse 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 of Recent Travel: No Home Medications - Allergies Allergies/Adverse Reactions: Allergies Allergy/AdvReac Type Severity Reaction Status Date / Time No Known Drug Allergies Allergy Verified 03/30/16 18:06 - Home Medications Home Medications: Ambulatory Orders Bupropion HCl [Wellbutrin -] 150 mg PO DAILY 03/30/16 Divalproex [Depakote -] 1,000 mg PO BID 03/30/16 Lamotrigine [Lamictal] 100 mg PO DAILY 03/30/16 Lorazepam [Ativan] 1 mg PO BID 03/30/16 Nifedipine [Adalat cc] 30 mg PO DAILY 03/30/16 Quetiapine Fumarate [Seroquel] 150 mg PO DAILY 03/30/16 Sodium Bicarbonate - 1,300 mg PO BID 03/30/16 Sodium Polystyrene Sulfon/Sorb [Kionex] 15 gm PO Q48H 03/30/16 Review of Systems Unable to obtain ROS, reason: bipolar - Risk Factors Known Risk Factors: Yes: Age, Diabetes Mellitus, Hypercholesterolemia, Hypertension, Physical Inactivity Vital Signs: Vital Signs Temperature 98.3 F 04/01/16 15:00 Pulse Rate 98 H 04/01/16 15:00 Respiratory Rate 15 04/01/16 15:00 Blood Pressure 115/84 04/01/16 15:00 O2 Sat by Pulse Oximetry (%) 95 04/01/16 14:22 Constitutional: Yes: Anxious Eyes: Yes: WNL HENT: Yes: WNL Neck: Yes: WNL Respiratory: Yes: Diminished Gastrointestinal: Yes: Soft Renal/: No: Anuria Cardiovascular: Yes: Regular Rate and Rhythm PMI: Displaced Heart Sounds: Yes: Split S2 Murmur: Yes: Systolic Murmur, Grade 2 Musculoskeletal: Yes: Muscle Weakness Edema: Yes Edema: LLE: Trace, RLE: Trace Peripheral Pulses WNL: Yes Neurological: Yes: Alert, Weakness Psychiatric: Yes: Other (bipolar) - Other Data Labs, Other Data: CBC, BMP 04/01/16 05:20 04/01/16 05:20 INR, PTT INR 1.12 (0.82-1.09) 03/31/16 05:10 Echo: Report Reviewed Ejection Fraction %: LVEF < 40 % Imaging - Results Chest X-ray: Image Reviewed (pneumonic infiltrates; left pleural effusion) EKG: Image Reviewed (NSR; LBBB (?new).) Problem List - Problems (1) CKD (chronic kidney disease) stage 5, GFR less than 15 ml/min Assessment/Plan: underwent HD again today. F/u with surveillance inspector. Code(s): N18.5 - CHRONIC KIDNEY DISEASE, STAGE 5 (2) Acute on chronic systolic CHF (congestive heart failure), NYHA class 2 Assessment/Plan: Moderately severe LVEF by ECHO. As discussed with Dr. Palafox, will start metoprolol ER and lisinopril; will discontinue nifedipine. Plan for starting spironolactone in the future, if pt tolerates optimal dose of lisinopril and hyperkalemia does not re-develop. If not done recently, pt will require coronary artery workup in the future to r/ o CAD. F/u lipids. Code(s): I50.23 - ACUTE ON CHRONIC SYSTOLIC (CONGESTIVE) HEART FAILURE
[2016-04-01] MEDS: POLYETHYLENE GLYCOL 3350 119 GM BTL PO SCH (17:00)
[2016-04-01 17:07] LABS: CREATININE 4.5 mg/dL (0.7-1.3); MAGNESIUM 2.1 mg/dL (1.8-2.4); PHOSPHOROUS 4.4 mg/dL (2.5-4.9)
[2016-04-01 17:36] LABS: CHOLESTEROL 174 mg/dL (50-200); LDL CHOLESTEROL (ONLY SJRH) 105 mg/dL (5-100)
[2016-04-01] MEDS: QUETIAPINE FUMARATE 100 MG, QUETIAPINE FUMARATE 50 MG PO SCH (21:30)
[2016-04-01] MEDS: CHLORHEXIDINE GLUCONATE 4% CLEANSER FOR DECOLONIZATION TP SCH (21:31)
[2016-04-01] MEDS ORDERED: QUEtiapine FUMARATE 100 MG TABLET (FP) PO SCH (22:00)
[2016-04-02] MEDS: HEPARIN NA (PORCINE) 5,000 UNITS/ML 1ML VIAL SQ SCH ×3 (06:03→21:24)
[2016-04-02 08:53] LABS: MCH 31.6 pg (25.7-33.7); MCHC 33.3 g/dl (32.0-35.9); MEAN CELL VOLUME 94.7 fl (80-96); MEAN PLT VOLUME 6.5 fl (7.5-11.1); PLATELET COUNT 91 K/MM3 (134-434); RDW 15.5 % (11.9-15.9); WHITE BLOOD COUNT 8.6 K/mm3 (4.0-10.0)
[2016-04-02] MEDS: SEVELAMER CARBONATE 800 MG TAB (FP) PO SCH ×3 (08:59→16:39)
[2016-04-02] MEDS: MUPIROCIN 2% TOPICAL OINTMENT FOR DECOLONIZATION NS SCH ×2 (09:00→21:25)
[2016-04-02] MEDS: DIVALPROEX SODIUM 500 MG TABLET E.C. PO SCH ×2 (09:00→21:23)
[2016-04-02] MEDS: LORazepam 1 MG TABLET PO SCH ×2 (09:00→21:24)
[2016-04-02] MEDS: lamoTRIgine 100 MG TABLET (FP) PO SCH (09:00)
[2016-04-02] MEDS: LISINOPRIL 5 MG TABLET (FP) PO SCH (09:02)
[2016-04-02] MEDS: METOPROLOL SUCCINATE 25 MG TAB.SR.24H (FP) PO SCH (09:02)
[2016-04-02] MEDS: FUROSEMIDE 40 MG TABLET (FP) PO SCH (09:02)
[2016-04-02] MEDS: POLYETHYLENE GLYCOL 3350 119 GM BTL PO SCH (09:02)
[2016-04-02 09:06] LABS: CALCIUM 9.5 mg/dL (8.5-10.1); CREATININE 5.3 mg/dL (0.7-1.3); MAGNESIUM 2.7 mg/dL (1.8-2.4); PHOSPHOROUS 7.3 mg/dL (2.5-4.9)
[2016-04-02] MEDS ORDERED: NIFEdipine E.R 60 MG TABLET (UD) PO SCH (10:00)
[2016-04-02] MEDS ORDERED: POLYETHYLENE GLYCOL 3350 119 GM BTL PO SCH (10:00)
[2016-04-02] MEDS ORDERED: FUROSEMIDE 40 MG TABLET (FP) PO SCH (10:00)
--- NOTE | 2016-04-02 10:22 | PN ---
Progress Note (short form) - Note Progress Note: PULMONARY Breathing continues to improve. Minimal nonproductive cough. No fevers or chills. Last Vital Signs Temp Pulse Resp BP Pulse Ox 98.6 F 91 H 18 117/86 96 04/02/16 06:00 04/02/16 06:00 04/02/16 06:00 04/02/16 06:00 04/01/16 21:00 Gen: NAD at rest Heart: RRR Lung: decreased breath sounds at the bases Abd: soft, nontender Ext: no edema CBC, BMP 04/02/16 07:15 04/02/16 07:15 Active Medications Bupropion HCl (Wellbutrin Xl -) 150 mg PO DAILY [facility] Last Admin: 04/02/16 09:01 Dose: 150 mg Chlorhexidine Gluconate (Hibiclens For Decolonization -) 1 applic TP HS [facility] Last Admin: 04/01/16 21:31 Dose: Not Given Divalproex Sodium (Depakote -) 1,000 mg PO BID [facility] Last Admin: 04/02/16 09:00 Dose: 1,000 mg Furosemide (Lasix -) 80 mg PO DAILY [facility] Last Admin: 04/02/16 09:02 Dose: 80 mg Heparin Sodium (Porcine) (Heparin -) 5,000 unit SQ TID [facility] Last Admin: 04/02/16 06:03 Dose: 5,000 unit Nitroglycerin/Dextrose (Nitroglycerin 25mg/D5w 250ml) 250 mls @ 6 mls/hr IVPB TITR [facility] PRN Reason: 10 MCG/MIN Last Admin: 04/01/16 14:55 Dose: Not Given Lamotrigine (Lamictal -) 100 mg PO DAILY [facility] Last Admin: 04/02/16 09:00 Dose: 100 mg Lisinopril (Prinivil) 2.5 mg PO DAILY [facility] Last Admin: 04/02/16 09:02 Dose: 2.5 mg Lorazepam (Ativan -) 1 mg PO BID [facility] Last Admin: 04/02/16 09:00 Dose: 1 mg Metoprolol Succinate (Toprol Xl -) 25 mg PO DAILY [facility] Last Admin: 04/02/16 09:02 Dose: 25 mg Mupirocin (Bactroban Ointment (For Decolonization) -) 1 applic NS BID [facility] Stop: 04/04/16 21:59 Last Admin: 04/02/16 09:00 Dose: Not Given Polyethylene Glycol (Miralax (For Daily Use) -) 17 gm PO DAILY [facility] Last Admin: 04/02/16 09:02 Dose: Not Given Quetiapine Fumarate 100 mg/ (Quetiapine Fumarate 50 mg) 150 mg PO HS [facility] Last Admin: 04/01/16 21:30 Dose: 150 mg Sevelamer Carbonate (Renvela -) 800 mg PO TIDCM [facility] Last Admin: 04/02/16 08:59 Dose: 800 mg A/P ESRD on HD Hypertensive Urgency improved Volume Overload LV Systolic Dysfunction Pulmonary HTN - HD per renal with ultrafiltration - continue lasix - monitor urine output, creatinine - BP control - O2 to keep SpO2 >90% - DVT prophylaxis
--- NOTE | 2016-04-02 10:34 | PN ---
Physical Exam: SUBJECTIVE: Patient seen and examined. He has no complaints. OBJECTIVE: Vital Signs Period Temp Pulse Resp BP Sys/Miguel Pulse Ox Last 24 Hr 9.0 F-98.6 F 71-101 10-21 96-122/72-86 95-96 GENERAL: The patient is awake, alert, and fully oriented, in no acute distress. LUNGS: Breath sounds equal, clear to auscultation bilaterally, no wheezes, no crackles, no accessory muscle use. HEART: Regular rate and rhythm, S1, S2 without murmur, rub or gallop. ABDOMEN: Soft, nontender, nondistended, normoactive bowel sounds, no guarding, no rebound, no hepatosplenomegaly, no masses. EXTREMITIES: 2+ pulses, warm, well-perfused, no edema. Laboratory Results - last 24 hr 04/01/16 04/01/16 04/01/16 13:18 15:50 15:50 WBC RBC Hgb Hct MCV MCHC RDW Plt Count MPV Sodium 143 Potassium 3.5 Chloride 99 D Carbon Dioxide 28 Anion Gap 16 BUN 47 H D Creatinine 4.5 H POC Glucometer [phone] Random Glucose 212 H D Calcium 9.0 9.5 Phosphorus 4.4 D Magnesium 2.1 D Triglycerides Cholesterol Total LDL Cholesterol HDL Cholesterol 04/01/16 04/01/16 04/01/16 15:50 17:04 21:29 WBC RBC Hgb Hct MCV MCHC RDW Plt Count MPV Sodium Potassium Chloride Carbon Dioxide Anion Gap BUN Creatinine POC Glucometer 96 87 Random Glucose Calcium Phosphorus Magnesium Triglycerides 177 H Cholesterol 174 Total LDL Cholesterol 105 H HDL Cholesterol 54 04/02/16 04/02/16 04/02/16 06:02 07:15 07:15 WBC 8.6 RBC 4.43 Hgb 14.0 Hct 41.9 MCV 94.7 MCHC 33.3 RDW 15.5 Plt Count 91 L MPV 6.5 L Sodium 143 Potassium 4.0 Chloride 102 Carbon Dioxide 30 Anion Gap 11 BUN 64 H D Creatinine 5.3 H POC Glucometer 98 Random Glucose 92 D Calcium 9.5 Phosphorus 7.3 H D Magnesium 2.7 H D Triglycerides Cholesterol Total LDL Cholesterol HDL Cholesterol Active Medications Generic Name Dose Route Start Last Admin Trade Name Freq PRN Reason Stop Dose Admin Bupropion HCl 150 mg 04/02/16 10:00 04/02/16 09:01 Wellbutrin Xl - PO 150 mg DAILY BERTIN Administration Chlorhexidine Gluconate 1 applic 04/01/16 22:00 04/01/16 21:31 Hibiclens For Decolonization - TP Not Given HS BERTIN Divalproex Sodium 1,000 mg 04/01/16 22:00 04/02/16 09:00 Depakote - PO 1,000 mg BID BERTIN Administration Furosemide 80 mg 04/02/16 10:00 04/02/16 09:02 Lasix - PO 80 mg DAILY BERTIN Administration Heparin Sodium (Porcine) 5,000 unit 04/01/16 22:00 04/02/16 06:03 Heparin - SQ 5,000 unit TID BERTIN Administration Nitroglycerin/Dextrose 250 mls @ 6 mls/hr 04/01/16 14:51 04/01/16 14:55 Nitroglycerin 25mg/D5w 250ml IVPB Not Given TITR BERTIN 10 MCG/MIN Lamotrigine 100 mg 04/02/16 10:00 04/02/16 09:00 Lamictal - PO 100 mg DAILY BERTIN Administration Lisinopril 2.5 mg 04/02/16 10:00 04/02/16 09:02 Prinivil PO 2.5 mg DAILY BERTIN Administration Lorazepam 1 mg 04/01/16 22:00 04/02/16 09:00 Ativan - PO 1 mg BID BERTIN Administration Metoprolol Succinate 25 mg 04/02/16 10:00 04/02/16 09:02 Toprol Xl - PO 25 mg DAILY BERTIN Administration Mupirocin 1 applic 04/01/16 22:00 04/02/16 09:00 Bactroban Ointment (For Decolonization) - NS 04/04/16 21:59 Not Given BID BERTIN Polyethylene Glycol 17 gm 04/01/16 16:45 04/02/16 09:02 Miralax (For Daily Use) - PO Not Given DAILY BERTIN Quetiapine Fumarate 100 mg/ 150 mg 04/01/16 22:00 04/01/16 21:30 Quetiapine Fumarate 50 mg PO 150 mg HS BERTIN Administration Sevelamer Carbonate 800 mg 04/01/16 17:30 04/02/16 08:59 Renvela - PO 800 mg TIDCM BERTIN Administration ASSESSMENT/PLAN: This is a 50-year-old man with a history of stage 5 CKD, HTN, type 2 DM, bipolar disorder, polysubstance abuse who presented with SOB. 1. ESRD with hyperkalemia, volume overload, metabolic acidosis - Had HD 03/31 and 04/01 - Continue Lasix - Metabolic acidosis improved - Potassium improved 2. Acute on chronic systolic heart failure secondary to volume overload - Continue HD, Lasix - Procardia discontinued - Lisinopril and Toprol XL started 3. Type 2 diabetes mellitus - Diet controlled 4. Bipolar disorder - Continue Seroquel, Depakote, Lamictal, Wellbutrin, Ativan 5. Hypertension - Continue Lisinopril, Toprol XL, Lasix 6. Renal osteodystrophy - Continue Renvela - PTH pending 7. Hypernatremia - Improved Visit type - Emergency Visit Emergency Visit: Yes ED Registration Date: 03/30/16 Care time: The patient presented to the Emergency Department on the above date and was hospitalized for further evaluation of their emergent condition. - New Patient This patient is new to me today: No - Critical Care Critical Care patient: No - Discharge Referral Referred to [facility] Med P.C.: No
[2016-04-02] MEDS: NITROGLYCERIN 25MG/D5W 250ML 250 ML IVPB SCH (14:36)
[2016-04-02] MEDS: QUETIAPINE FUMARATE 100 MG, QUETIAPINE FUMARATE 50 MG PO SCH (21:24)
[2016-04-02] MEDS: CHLORHEXIDINE GLUCONATE 4% CLEANSER FOR DECOLONIZATION TP SCH (21:25)
[2016-04-03] MEDS ORDERED: HEPARIN NA (PORCINE) 5,000 UNITS/ML 1ML VIAL IVPUSH ONE ×2 (06:00→14:00)
[2016-04-03] MEDS: HEPARIN NA (PORCINE) 5,000 UNITS/ML 1ML VIAL SQ SCH ×3 (06:03→21:03)
--- NOTE | 2016-04-03 07:31 | PN ---
Progress Note, Physician Chief Complaint: no chest pain History of Present Illness: 50-year-old white male with a past medical history of stage V CKD, who was supposed to start dialysis on Sunday He also has a history of bipolar disorder, substance abuse, hypertension, syncope, hyperkalemia, ? hyperlipidemia. Patient arrives in extremis, minimal history is available from the patient, history is obtained from old records Patient is due to start dialysis on Sunday He is complaining of progressive shortness of breath for 2-3 days, and became severely dyspneic this evening He is complaining of dyspnea with minimal exertion, and leg edema He denies any chest pain He has a known history of hyperkalemia and stopped his Kayexalate a few weeks ago Patient arrives in extremis, and no further history is available - Current Medication List Current Medications: Active Medications Bupropion HCl (Wellbutrin Xl -) 150 mg PO DAILY [facility] Last Admin: 04/02/16 09:01 Dose: 150 mg Chlorhexidine Gluconate (Hibiclens For Decolonization -) 1 applic TP HS [facility] Last Admin: 04/02/16 21:25 Dose: Not Given Divalproex Sodium (Depakote -) 1,000 mg PO BID [facility] Last Admin: 04/02/16 21:23 Dose: 1,000 mg Furosemide (Lasix -) 80 mg PO DAILY [facility] Last Admin: 04/02/16 09:02 Dose: 80 mg Heparin Sodium (Porcine) (Heparin -) 5,000 unit SQ TID [facility] Last Admin: 04/03/16 06:03 Dose: 5,000 unit Heparin Sodium (Porcine) (Heparin -) 1,000 unit IVPUSH ONCE ONE Stop: 04/03/16 06:16 Nitroglycerin/Dextrose (Nitroglycerin 25mg/D5w 250ml) 250 mls @ 6 mls/hr IVPB TITR [facility] PRN Reason: 10 MCG/MIN Last Admin: 04/02/16 14:36 Dose: Not Given Lamotrigine (Lamictal -) 100 mg PO DAILY [facility] Last Admin: 04/02/16 09:00 Dose: 100 mg Lisinopril (Prinivil) 2.5 mg PO DAILY [facility] Last Admin: 04/02/16 09:02 Dose: 2.5 mg Lorazepam (Ativan -) 1 mg PO BID [facility] Last Admin: 04/02/16 21:24 Dose: 1 mg Metoprolol Succinate (Toprol Xl -) 25 mg PO DAILY [facility] Last Admin: 04/02/16 09:02 Dose: 25 mg Mupirocin (Bactroban Ointment (For Decolonization) -) 1 applic NS BID [facility] Stop: 04/04/16 21:59 Last Admin: 04/02/16 21:25 Dose: Not Given Polyethylene Glycol (Miralax (For Daily Use) -) 17 gm PO DAILY [facility] Last Admin: 04/02/16 09:02 Dose: Not Given Quetiapine Fumarate 100 mg/ (Quetiapine Fumarate 50 mg) 150 mg PO HS [facility] Last Admin: 04/02/16 21:24 Dose: 150 mg Sevelamer Carbonate (Renvela -) 800 mg PO TIDCM [facility] Last Admin: 04/02/16 16:39 Dose: 800 mg - Objective Vital Signs: Vital Signs Temperature 97.4 F L 04/03/16 05:52 Pulse Rate 73 04/03/16 05:52 Respiratory Rate 18 04/03/16 05:52 Blood Pressure 90/55 04/03/16 05:52 O2 Sat by Pulse Oximetry (%) 98 04/02/16 21:00 Constitutional: Yes: Calm Eyes: Yes: WNL HENT: Yes: WNL Neck: Yes: WNL Cardiovascular: Yes: Regular Rate and Rhythm Respiratory: Yes: Regular Gastrointestinal: Yes: Soft ...Rectal Exam: Yes: Deferred Genitourinary: No: Anuria Breast(s): Yes: WNL Musculoskeletal: Yes: Muscle Weakness Extremities: Yes: Cool Edema: No Peripheral Pulses WNL: No Peripheral Pulses: Left Doralis Pedis: 1+, Right Dorsalis Pedis: 1+ Neurological: Yes: Alert Psychiatric: Yes: Other Labs: CBC, BMP 04/02/16 07:15 04/02/16 07:15 INR, PTT INR 1.12 (0.82-1.09) 03/31/16 05:10 Problem List - Problems (1) CKD (chronic kidney disease) stage 5, GFR less than 15 ml/min Assessment/Plan: F/u with roll cutting operator for HD. Code(s): N18.5 - CHRONIC KIDNEY DISEASE, STAGE 5 (2) Acute on chronic systolic CHF (congestive heart failure), NYHA class 2 Assessment/Plan: On lisinopril and metoprolol (denies hx cocaine). Code(s): I50.23 - ACUTE ON CHRONIC SYSTOLIC (CONGESTIVE) HEART FAILURE (3) Hypertension Code(s): I10 - ESSENTIAL (PRIMARY) HYPERTENSION (4) Affective bipolar disorder Code(s): F31.9 - BIPOLAR DISORDER, UNSPECIFIED Qualifiers: Active/Remission status: remission status unspecified Qualified Code(s) : F31.9 - Bipolar disorder, unspecified (5) Hyperlipidemia Assessment/Plan: lipid panel noted. Statin started. Code(s): E78.5 - HYPERLIPIDEMIA, UNSPECIFIED
[2016-04-03] MEDS: SEVELAMER CARBONATE 800 MG TAB (FP) PO SCH ×3 (08:17→17:06)
[2016-04-03] MEDS: LORazepam 1 MG TABLET PO SCH ×2 (09:47→21:02)
[2016-04-03] MEDS: DIVALPROEX SODIUM 500 MG TABLET E.C. PO SCH ×2 (09:47→21:02)
[2016-04-03] MEDS: lamoTRIgine 100 MG TABLET (FP) PO SCH (09:47)
[2016-04-03] MEDS: POLYETHYLENE GLYCOL 3350 119 GM BTL PO SCH (09:48)
[2016-04-03] MEDS: LISINOPRIL 5 MG TABLET (FP) PO SCH (09:48)
[2016-04-03] MEDS: FUROSEMIDE 40 MG TABLET (FP) PO SCH (09:48)
[2016-04-03] MEDS: METOPROLOL SUCCINATE 25 MG TAB.SR.24H (FP) PO SCH (09:48)
[2016-04-03] MEDS: MUPIROCIN 2% TOPICAL OINTMENT FOR DECOLONIZATION NS SCH ×2 (09:48→21:03)
[2016-04-03] MEDS ORDERED: PT OWN MED DRAWER 7, Y5N ONE ×2 (10:00→21:00)
--- NOTE | 2016-04-03 10:51 | PN ---
Progress Note (short form) - Note Progress Note: Renal Follow up for CKD Stage 5 -> ESRD on HD Pt seen and examined at the bedside no acute complaints sob is resolved had cramping in LE with last hD Vital Signs Temperature 97.2 F L 04/03/16 09:00 Pulse Rate 72 04/03/16 09:00 Respiratory Rate 20 04/03/16 09:00 Blood Pressure 92/60 04/03/16 09:00 O2 Sat by Pulse Oximetry (%) 98 04/02/16 21:00 Intake & Output 03/31/16 04/01/16 04/02/16 04/03/16 23:59 23:59 23:59 23:59 Intake Total 2221 1421.5 400 650 Output Total 6500 3500 Balance -4279 -2078.5 400 650 Weight 220 lb 6 oz 212 lb 12.8 oz 214 lb 216 lb Gen: NAD, awake and alert CVS: RRR, No M/R Lungs: DEc BS at lung bases Abd: Soft NT/ND Ext: No edema, clubbing or cyanosis Neuro: awake and alert, no focal defects CBC, BMP 04/02/16 07:15 04/02/16 07:15 Current Medications Atorvastatin Calcium (Lipitor -) 20 mg PO HS [facility] Bupropion HCl (Wellbutrin Xl -) 150 mg PO DAILY [facility] Last Admin: 04/03/16 09:47 Dose: 150 mg Chlorhexidine Gluconate (Hibiclens For Decolonization -) 1 applic TP HS [facility] Last Admin: 04/02/16 21:25 Dose: Not Given Divalproex Sodium (Depakote -) 1,000 mg PO BID [facility] Last Admin: 04/03/16 09:47 Dose: 1,000 mg Furosemide (Lasix -) 80 mg PO DAILY [facility] Last Admin: 04/03/16 09:48 Dose: Not Given Heparin Sodium (Porcine) (Heparin -) 5,000 unit SQ TID [facility] Last Admin: 04/03/16 06:03 Dose: 5,000 unit Heparin Sodium (Porcine) (Heparin -) 1,000 unit IVPUSH ONCE ONE Stop: 04/03/16 06:16 Lamotrigine (Lamictal -) 100 mg PO DAILY [facility] Last Admin: 04/03/16 09:47 Dose: 100 mg Lisinopril (Prinivil) 2.5 mg PO DAILY [facility] Last Admin: 04/03/16 09:48 Dose: Not Given Lorazepam (Ativan -) 1 mg PO BID [facility] Last Admin: 04/03/16 09:47 Dose: 1 mg Metoprolol Succinate (Toprol Xl -) 25 mg PO DAILY [facility] Last Admin: 04/03/16 09:48 Dose: Not Given Mupirocin (Bactroban Ointment (For Decolonization) -) 1 applic NS BID [facility] Stop: 04/04/16 21:59 Last Admin: 04/03/16 09:48 Dose: Not Given Polyethylene Glycol (Miralax (For Daily Use) -) 17 gm PO DAILY [facility] Last Admin: 04/03/16 09:48 Dose: Not Given Quetiapine Fumarate 100 mg/ (Quetiapine Fumarate 50 mg) 150 mg PO [facility] Last Admin: 04/02/16 21:24 Dose: 150 mg Sevelamer Carbonate (Renvela -) 1,600 mg PO TIDCM [facility] A/p 50 year old Gentleman with PMhx of CKD Stage 5 secondary to tubulo-interstitial disease from chronic [place] Use and diabetic nephropathy, Hypertension, DM Type 2, Bipolar Disorder who presented to [place] ED with complaints of SOB for 2 days. #CKD Stage 5 -> ESRD on HD with volume overload HD today UF as tolerated #Renal Osteodystrophy Continue Renvela (increased to 1600mg TID) PTH pending Low phos diet #Volume Overload ECHO showed decreased LVEF Cardiology follow up #Bipolar Disorder continue home meds #Hypertension Bp low today monitor UF after HD may need to down titrate meds Cornelius Palafox DO
--- NOTE | 2016-04-03 13:36 | PN ---
Progress Note, Physician History of Present Illness: 50-year-old white male with a past medical history of stage V CKD, who was supposed to start dialysis on Sunday He also has a history of bipolar disorder, substance abuse, hypertension, syncope, hyperkalemia, ? hyperlipidemia. - Current Medication List Current Medications: Active Medications Atorvastatin Calcium (Lipitor -) 20 mg PO [facility] Bupropion HCl (Wellbutrin Xl -) 150 mg PO DAILY [facility] Last Admin: 04/03/16 09:47 Dose: 150 mg Chlorhexidine Gluconate (Hibiclens For Decolonization -) 1 applic TP [facility] Last Admin: 04/02/16 21:25 Dose: Not Given Divalproex Sodium (Depakote -) 1,000 mg PO BID [facility] Last Admin: 04/03/16 09:47 Dose: 1,000 mg Furosemide (Lasix -) 80 mg PO DAILY [facility] Last Admin: 04/03/16 09:48 Dose: Not Given Heparin Sodium (Porcine) (Heparin -) 5,000 unit SQ TID [facility] Last Admin: 04/03/16 06:03 Dose: 5,000 unit Heparin Sodium (Porcine) (Heparin -) 1,000 unit IVPUSH ONCE ONE Stop: 04/03/16 06:16 Lamotrigine (Lamictal -) 100 mg PO DAILY [facility] Last Admin: 04/03/16 09:47 Dose: 100 mg Lorazepam (Ativan -) 1 mg PO BID [facility] Last Admin: 04/03/16 09:47 Dose: 1 mg Metoprolol Succinate (Toprol Xl -) 25 mg PO DAILY [facility] Last Admin: 04/03/16 09:48 Dose: Not Given Mupirocin (Bactroban Ointment (For Decolonization) -) 1 applic NS BID [facility] Stop: 04/04/16 21:59 Last Admin: 04/03/16 09:48 Dose: Not Given Polyethylene Glycol (Miralax (For Daily Use) -) 17 gm PO DAILY [facility] Last Admin: 04/03/16 09:48 Dose: Not Given Quetiapine Fumarate 100 mg/ (Quetiapine Fumarate 50 mg) 150 mg PO [facility] Last Admin: 04/02/16 21:24 Dose: 150 mg Sevelamer Carbonate (Renvela -) 1,600 mg PO TIDCM [facility] Last Admin: 04/03/16 12:11 Dose: 1,600 mg - Objective Vital Signs: Vital Signs Temperature 97.2 F L 04/03/16 09:00 Pulse Rate 72 04/03/16 09:00 Respiratory Rate 20 04/03/16 09:00 Blood Pressure 92/60 04/03/16 09:00 O2 Sat by Pulse Oximetry (%) 98 04/02/16 21:00 Eyes: Yes: WNL, Conjunctiva Clear, EOM Intact HENT: Yes: WNL, Atraumatic, Normocephalic Neck: Yes: WNL, Supple, Trachea Midline Cardiovascular: Yes: WNL, Regular Rate and Rhythm Respiratory: Yes: WNL, Regular, CTA Bilaterally Gastrointestinal: Yes: WNL, Normal Bowel Sounds Genitourinary: Yes: WNL Musculoskeletal: Yes: WNL Extremities: Yes: WNL Edema: No Integumentary: Yes: WNL Neurological: Yes: WNL, Alert, Oriented ...Motor Strength: WNL Psychiatric: Yes: WNL Labs: CBC, BMP 04/02/16 07:15 04/02/16 07:15 INR, PTT INR 1.12 (0.82-1.09) 03/31/16 05:10
--- NOTE | 2016-04-03 13:37 | PN ---
Progress Note, Physician History of Present Illness: 50-year-old white male with a past medical history of stage V CKD, who was supposed to start dialysis on Sunday He also has a history of bipolar disorder, substance abuse, hypertension, syncope, hyperkalemia, ? hyperlipidemia. - Current Medication List Current Medications: Active Medications Atorvastatin Calcium (Lipitor -) 20 mg PO [facility] Bupropion HCl (Wellbutrin Xl -) 150 mg PO DAILY [facility] Last Admin: 04/03/16 09:47 Dose: 150 mg Chlorhexidine Gluconate (Hibiclens For Decolonization -) 1 applic TP [facility] Last Admin: 04/02/16 21:25 Dose: Not Given Divalproex Sodium (Depakote -) 1,000 mg PO BID [facility] Last Admin: 04/03/16 09:47 Dose: 1,000 mg Furosemide (Lasix -) 80 mg PO DAILY [facility] Last Admin: 04/03/16 09:48 Dose: Not Given Heparin Sodium (Porcine) (Heparin -) 5,000 unit SQ TID [facility] Last Admin: 04/03/16 13:35 Dose: Not Given Heparin Sodium (Porcine) (Heparin -) 1,000 unit IVPUSH ONCE ONE Stop: 04/03/16 06:16 Lamotrigine (Lamictal -) 100 mg PO DAILY [facility] Last Admin: 04/03/16 09:47 Dose: 100 mg Lorazepam (Ativan -) 1 mg PO BID [facility] Last Admin: 04/03/16 09:47 Dose: 1 mg Metoprolol Succinate (Toprol Xl -) 25 mg PO DAILY [facility] Last Admin: 04/03/16 09:48 Dose: Not Given Mupirocin (Bactroban Ointment (For Decolonization) -) 1 applic NS BID [facility] Stop: 04/04/16 21:59 Last Admin: 04/03/16 09:48 Dose: Not Given Polyethylene Glycol (Miralax (For Daily Use) -) 17 gm PO DAILY [facility] Last Admin: 04/03/16 09:48 Dose: Not Given Quetiapine Fumarate 100 mg/ (Quetiapine Fumarate 50 mg) 150 mg PO [facility] Last Admin: 04/02/16 21:24 Dose: 150 mg Sevelamer Carbonate (Renvela -) 1,600 mg PO TIDCM [facility] Last Admin: 04/03/16 12:11 Dose: 1,600 mg - Objective Vital Signs: Vital Signs Temperature 97.2 F L 04/03/16 09:00 Pulse Rate 72 04/03/16 09:00 Respiratory Rate 20 04/03/16 09:00 Blood Pressure 92/60 04/03/16 09:00 O2 Sat by Pulse Oximetry (%) 98 04/02/16 21:00 Eyes: Yes: WNL, Conjunctiva Clear, EOM Intact HENT: Yes: WNL, Atraumatic, Normocephalic Neck: Yes: WNL, Supple, Trachea Midline Cardiovascular: Yes: WNL, Regular Rate and Rhythm Respiratory: Yes: WNL, Regular, CTA Bilaterally Gastrointestinal: Yes: WNL, Normal Bowel Sounds Genitourinary: Yes: WNL Musculoskeletal: Yes: WNL Extremities: Yes: WNL Edema: No Integumentary: Yes: WNL Neurological: Yes: WNL, Alert, Oriented ...Motor Strength: WNL Psychiatric: Yes: WNL Labs: CBC, BMP 04/02/16 07:15 04/02/16 07:15 INR, PTT INR 1.12 (0.82-1.09) 03/31/16 05:10 Assessment/Plan - Problems (1) CKD (chronic kidney disease) stage 5, GFR less than 15 ml/min Assessment/Plan: 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 Code(s): N18.5 - CHRONIC KIDNEY DISEASE, STAGE 5 (2) Acute on chronic systolic CHF (congestive heart failure), NYHA class 2 Assessment/Plan: On lisinopril and metoprolol (denies hx cocaine). Code(s): I50.23 - ACUTE ON CHRONIC SYSTOLIC (CONGESTIVE) HEART FAILURE (3) Hypertension Code(s): I10 - ESSENTIAL (PRIMARY) HYPERTENSION (4) Affective bipolar disorder Code(s): F31.9 - BIPOLAR DISORDER, UNSPECIFIED Qualifiers: Active/Remission status: remission status unspecified Qualified Code(s) : F31.9 - Bipolar disorder, unspecified (5) Hyperlipidemia Assessment/Plan: lipid panel noted. Statin started. Code(s): E78.5 - HYPERLIPIDEMIA, UNSPECIFIED
[2016-04-03 14:12] LABS: MCH 31.3 pg (25.7-33.7); MCHC 33.2 g/dl (32.0-35.9); MEAN CELL VOLUME 94.2 fl (80-96); MEAN PLT VOLUME 6.2 fl (7.5-11.1); PLATELET COUNT 101 K/MM3 (134-434); WHITE BLOOD COUNT 9.7 K/mm3 (4.0-10.0)
[2016-04-03 14:47] LABS: ALBUMIN 2.6 g/dl (3.4-5.0); BILIRUBIN,TOTAL 0.3 mg/dL (0.2-1.0); CALCIUM 8.2 mg/dL (8.5-10.1); CREATININE 7.2 mg/dL (0.7-1.3); TOT PROT 5.7 g/dl (6.4-8.2)
[2016-04-03 14:52] LABS: PHOSPHOROUS 8.5 mg/dL (2.5-4.9)
--- NOTE | 2016-04-03 18:28 | PN ---
Physical Exam: SUBJECTIVE: Patient seen and examined. He doesn't have any complaints today. He deinies chest pain, palpitations, abdominal pain, leg cramps today. OBJECTIVE: Vital Signs Period Temp Pulse Resp BP Sys/Miguel Pulse Ox Last 24 Hr 97.2 F-98.0 F 72-93 18-20 79-114/43-73 98 GENERAL: The patient is awake, alert, and fully oriented, in no acute distress. HEAD: Normal with no signs of trauma. EYES:extraocular movements intact, sclera anicteric, conjunctiva clear. ENT: oropharynx clear without exudates, moist mucous membranes. NECK: Trachea midline, supple. LUNGS: Breath sounds equal, clear to auscultation bilaterally, no wheezes, no crackles, no accessory muscle use. HEART: Regular rate and rhythm, S1, S2 without murmur, rub or gallop. ABDOMEN: Obese,soft, nontender, nondistended, normoactive bowel sounds, no guarding, no rebound. EXTREMITIES: trace LE edema. NEUROLOGICAL: Normal speech, gait not observed. PSYCH: Normal mood, normal affect. SKIN: Warm, dry, normal turgor. Laboratory Results - last 24 hr 04/02/16 04/03/16 04/03/16 21:23 05:58 14:00 WBC 9.7 RBC 4.03 Hgb 12.6 Hct 38.0 MCV 94.2 MCHC 33.2 RDW 15.0 Plt Count 101 L MPV 6.2 L Sodium Potassium Chloride Carbon Dioxide Anion Gap BUN Creatinine Creat Clearance w eGFR POC Glucometer 140 106 Random Glucose Calcium Phosphorus Total Bilirubin AST ALT Alkaline Phosphatase Total Protein Albumin 04/03/16 14:00 WBC RBC Hgb Hct MCV MCHC RDW Plt Count MPV Sodium 135 L Potassium 3.4 L Chloride 93 L Carbon Dioxide 23 D Anion Gap 19 H BUN 95 H D Creatinine 7.2 H D Creat Clearance w eGFR 8.04 POC Glucometer Random Glucose 122 H D Calcium 8.2 L Phosphorus 8.5 H Total Bilirubin 0.3 D AST 23 D ALT 14 D Alkaline Phosphatase 95 Total Protein 5.7 L Albumin 2.6 L Active Medications Generic Name Dose Route Start Last Admin Trade Name Freq PRN Reason Stop Dose Admin Atorvastatin Calcium 20 mg 04/03/16 22:00 Lipitor - PO HS [facility] Bupropion HCl 150 mg 04/02/16 10:00 04/03/16 09:47 Wellbutrin Xl - PO 150 mg DAILY [facility] Administration Chlorhexidine Gluconate 1 applic 04/01/16 22:00 04/02/16 21:25 Hibiclens For Decolonization - TP Not Given HS [facility] Divalproex Sodium 1,000 mg 04/01/16 22:00 04/03/16 09:47 Depakote - PO 1,000 mg BID [facility] Administration Furosemide 80 mg 04/02/16 10:00 04/03/16 09:48 Lasix - PO Not Given DAILY [facility] Heparin Sodium (Porcine) 5,000 unit 04/01/16 22:00 04/03/16 13:35 Heparin - SQ Not Given TID [facility] Lamotrigine 100 mg 04/02/16 10:00 04/03/16 09:47 Lamictal - PO 100 mg DAILY [facility] Administration Lorazepam 1 mg 04/01/16 22:00 04/03/16 09:47 Ativan - PO 1 mg BID [facility] Administration Metoprolol Succinate 25 mg 04/02/16 10:00 04/03/16 09:48 Toprol Xl - PO Not Given DAILY [facility] Mupirocin 1 applic 04/01/16 22:00 04/03/16 09:48 Bactroban Ointment (For Decolonization) - NS 04/04/16 21:59 Not Given BID [facility] Polyethylene Glycol 17 gm 04/01/16 16:45 04/03/16 09:48 Miralax (For Daily Use) - PO Not Given DAILY [facility] Quetiapine Fumarate 100 mg/ 150 mg 04/01/16 22:00 04/02/16 21:24 Quetiapine Fumarate 50 mg PO 150 mg HS [facility] Administration Sevelamer Carbonate 1,600 mg 04/03/16 12:00 04/03/16 17:06 Renvela - PO 1,600 mg TIDCM [facility] Administration cxr : b/l infiltrate ASSESSMENT/PLAN: 50-year-old male with a past medical history of stage V CKD, HTN, DM ( not on meds ), bipolar, substance abuse, who was supposed to start dialysis on Sunday was sent from [facility] because of SOB. ESRD with hyperkalemia and SOB probably from fluid over load, he was about to have first HD on 04/03/16 dialysis started on weekend nephrology consulted continue lasix 80 mg qd monitor vital , monito i/O daily weight ECHO done, Cardiology consult ordered Acute on chronic systolic CHF NYHA class 2 cont. metoprolol DM diabetic diet monitor blood glucose sliding scale Bipolar disorder continue home meds HTN holding COOKIE inh cont. metoprolol Renal Osteodystrophy increased Renvela PTH pending Fluid : No electrolyte ; Nl nutrition : diabetic diet, low potassium and low salt diet dvt pro ; on heparin gi pro : not required Dispo : med-surg, discharge tomorrow Problem List - Problems (1) CKD (chronic kidney disease) stage 5, GFR less than 15 ml/min Code(s): N18.5 - CHRONIC KIDNEY DISEASE, STAGE 5 (2) Acute hyperkalemia Code(s): E87.5 - HYPERKALEMIA (3) Acute on chronic systolic CHF (congestive heart failure), NYHA class 2 Code(s): I50.23 - ACUTE ON CHRONIC SYSTOLIC (CONGESTIVE) HEART FAILURE (4) Fluid overload Code(s): E87.70 - FLUID OVERLOAD, UNSPECIFIED (5) Affective bipolar disorder Code(s): F31.9 - BIPOLAR DISORDER, UNSPECIFIED Qualifiers: Active/Remission status: remission status unspecified Qualified Code(s) : F31.9 - Bipolar disorder, unspecified (6) Hypertension Code(s): I10 - ESSENTIAL (PRIMARY) HYPERTENSION (7) Hyperlipidemia Code(s): E78.5 - HYPERLIPIDEMIA, UNSPECIFIED Visit type - Emergency Visit Emergency Visit: Yes ED Registration Date: 03/30/16 Care time: The patient presented to the Emergency Department on the above date and was hospitalized for further evaluation of their emergent condition. - New Patient This patient is new to me today: No - Critical Care Critical Care patient: No - Discharge Referral Referred to [facility] Med P.C.: No
--- NOTE | 2016-04-03 18:41 | PN ---
Teaching Attending Note Name of Resident: Katie Romeo ATTENDING PHYSICIAN STATEMENT I saw and evaluated the patient. I reviewed the resident's note and discussed the case with the resident. I agree with the resident's findings and plan as documented. SUBJECTIVE: Patient seen at HD. He has no complaints. OBJECTIVE: Vital Signs Period Temp Pulse Resp BP Sys/Miguel Pulse Ox Last 24 Hr 97.2 F-98.0 F 72-93 18-20 79-114/43-73 98 GENERAL: The patient is awake, alert, and fully oriented, in no acute distress. LUNGS: Breath sounds equal, clear to auscultation bilaterally, no wheezes, no crackles, no accessory muscle use. HEART: Regular rate and rhythm, S1, S2 without murmur, rub or gallop. ABDOMEN: Soft, nontender, nondistended, normoactive bowel sounds, no guarding, no rebound, no hepatosplenomegaly, no masses. EXTREMITIES: 2+ pulses, warm, well-perfused, no edema. ASSESSMENT AND PLAN: This is a 50-year-old man with a history of stage 5 CKD, HTN, type 2 DM, bipolar disorder, polysubstance abuse who presented with SOB. 1. ESRD with hyperkalemia, volume overload, metabolic acidosis - Had HD 03/31 and 04/01 - Continue Lasix - Metabolic acidosis improved - Potassium improved 2. Acute on chronic systolic heart failure secondary to volume overload - Continue HD, Lasix - Procardia discontinued - Lisinopril and Toprol XL started 3. Type 2 diabetes mellitus - Diet controlled 4. Bipolar disorder - Continue Seroquel, Depakote, Lamictal, Wellbutrin, Ativan 5. Hypertension - Continue Lisinopril, Toprol XL, Lasix 6. Renal osteodystrophy - Continue Renvela - PTH pending 7. Hypernatremia - Improved
[2016-04-03] MEDS: QUETIAPINE FUMARATE 100 MG, QUETIAPINE FUMARATE 50 MG PO SCH (21:02)
[2016-04-03] MEDS: CHLORHEXIDINE GLUCONATE 4% CLEANSER FOR DECOLONIZATION TP SCH (21:03)
[2016-04-03] MEDS ORDERED: ATORVASTATIN CA 20 MG TABLET (FP) PO SCH (22:00)
[2016-04-04] MEDS: HEPARIN NA (PORCINE) 5,000 UNITS/ML 1ML VIAL SQ SCH ×2 (06:17→13:38)
[2016-04-04] MEDS: SEVELAMER CARBONATE 800 MG TAB (FP) PO SCH ×2 (08:03→11:47)
[2016-04-04 09:01] LABS: CALCIUM 8.7 mg/dL (8.5-10.1); CREATININE 5.7 mg/dL (0.7-1.3)
[2016-04-04] MEDS: METOPROLOL SUCCINATE 25 MG TAB.SR.24H (FP) PO SCH (09:24)
[2016-04-04] MEDS: LORazepam 1 MG TABLET PO SCH (09:24)
[2016-04-04] MEDS: FUROSEMIDE 40 MG TABLET (FP) PO SCH (09:24)
[2016-04-04] MEDS: lamoTRIgine 100 MG TABLET (FP) PO SCH (09:25)
[2016-04-04] MEDS: DIVALPROEX SODIUM 500 MG TABLET E.C. PO SCH (09:25)
[2016-04-04] MEDS: MUPIROCIN 2% TOPICAL OINTMENT FOR DECOLONIZATION NS SCH (09:27)
[2016-04-04] MEDS: POLYETHYLENE GLYCOL 3350 119 GM BTL PO SCH (09:27)
[2016-04-04 15:05] VITALS: BP 98/69; PULSE 86; TEMP 98.3
--- NOTE | 2016-04-04 15:16 | PN ---
Progress Note (short form) - Note Progress Note: Renal Follow up for CKD Stage 5 -> ESRD on HD Pt seen and examined at the bedside no complaints denies any dizziness or lightheadedness no sob or chest pain Vital Signs Temperature 98.3 F 04/04/16 15:04 Pulse Rate 86 04/04/16 15:04 Respiratory Rate 20 04/04/16 09:00 Blood Pressure 98/69 04/04/16 15:04 O2 Sat by Pulse Oximetry (%) 98 04/04/16 10:45 Intake & Output 04/01/16 04/02/16 04/03/16 04/04/16 23:59 23:59 23:59 23:59 Intake Total 1421.5 400 1550 1250 Output Total 3500 Balance -2078.5 400 1550 1250 Weight 212 lb 12.8 oz 214 lb 216 lb 216 lb 3 oz Gen: NAD, awake and alert CVS: RRR, No M/R Lungs: DEc BS at lung bases Abd: Soft NT/ND Ext: No edema, clubbing or cyanosis Neuro: awake and alert, no focal defects CBC, BMP 04/03/16 14:00 04/04/16 07:08 A/p 50 year old Gentleman with PMhx of CKD Stage 5 secondary to tubulo-interstitial disease from chronic [place] Use and diabetic nephropathy, Hypertension, DM Type 2, Bipolar Disorder who presented to [place] ED with complaints of SOB for 2 days. #CKD Stage 5 -> ESRD on HD with volume overload s/p dialysis yesterday to resume HD as outpatient on #Renal Osteodystrophy Continue Renvela Low phos diet #Volume Overload ECHO showed decreased LVEF Cardiology follow up #Bipolar Disorder continue home meds Cornelius Palafox DO
--- NOTE | 2016-04-04 18:47 | PN ---
Teaching Attending Note Name of Resident: Katie Romeo ATTENDING PHYSICIAN STATEMENT I saw and evaluated the patient. I reviewed the resident's note and discussed the case with the resident. I agree with the resident's findings and plan as documented. SUBJECTIVE: No complaints. OBJECTIVE: Vital Signs Period Temp Pulse Resp BP Sys/Miguel Pulse Ox Last 24 Hr 97.6 F-99.1 F 82-95 18-20 85-101/50-69 97-98 GENERAL: The patient is awake, alert, and fully oriented, in no acute distress. LUNGS: Breath sounds equal, clear to auscultation bilaterally, no wheezes, no crackles, no accessory muscle use. HEART: Regular rate and rhythm, S1, S2 without murmur, rub or gallop. ABDOMEN: Soft, nontender, nondistended, normoactive bowel sounds, no guarding, no rebound, no hepatosplenomegaly, no masses. EXTREMITIES: 2+ pulses, warm, well-perfused, no edema. ASSESSMENT AND PLAN: This is a 50-year-old man with a history of stage 5 CKD, HTN, type 2 DM, bipolar disorder, polysubstance abuse who presented with SOB. 1. ESRD with hyperkalemia, volume overload, metabolic acidosis - Had HD 03/31 and 04/01 - Continue Lasix - Metabolic acidosis improved - Potassium improved 2. Acute on chronic systolic heart failure secondary to volume overload - Continue HD, Lasix, Lisinopril, Toprol XL 3. Type 2 diabetes mellitus - Diet controlled 4. Bipolar disorder - Continue Seroquel, Depakote, Lamictal, Wellbutrin, Ativan 5. Hypertension - Continue Lisinopril, Toprol XL, Lasix 6. Renal osteodystrophy - Continue Renvela - PTH elevated 541 7. Hypernatremia - Improved 8. Disposition - Arrangements made for HD at [facility] Tu/Th/Sat - Discharge home today
== END 2016-04-04 15:14 | disposition home or self-care (01) | DRG 291 ==
LOC: FER 17:46 → JICU 21:00 → J6S 04-01 15:28
PROVIDERS: ADMIT Internal Medicine; ATTEND Internal Medicine
DX: I13.2 Hypertensive heart and chronic kidney disease with heart failure and with stage 5 chronic kidney disease, or end stage renal disease (principal); N18.6 End stage renal disease; I50.23 Acute on chronic systolic (congestive) heart failure; E87.2 Acidosis; E11.22 Type 2 diabetes mellitus with diabetic chronic kidney disease; F31.9 Bipolar disorder, unspecified; E87.5 Hyperkalemia; Z87.891 Personal history of nicotine dependence; Z99.2 Dependence on renal dialysis; I16.0 Hypertensive urgency
CPT/HCPCS: 36415; 71010-TC; 80048; 80053; 80061; 80074; 81003; 81015; 82310; 82550; 83605; 83690; 83721; 83735; 83880; 83970; 84100; 84132; 84484; 85025; 85027; 85610; 85730; 90732; 93005; 93306-TC; 93990-TC; 94660; 99285-25; G0008; G0009; J1644; Q2037

== ENCOUNTER 2016-04-08 16:59 | Emergency (ER) | payer OTHER ==
[2016-04-08 17:08] VITALS: TEMP 97.7; BMI 28.3
--- NOTE | 2016-04-08 17:12 | PDOC ---
History of Present Illness - General History Source: Patient Exam Limitations: No Limitations - History of Present Illness Initial Comments: 04/08/16 17:18 The patient is a 50 year old male with a significant past medical history of stage V CKD, and hypertension, presenting to the Emergency Department s/p fall at home after dialysis treatment just prior to arrival. The patient states that today was his 4th dialysis treatment, from which his drove him home. He reports that he tripped on the curb coming out of the car, falling onto his right hip and wrist. He denies dizziness before or after the fall and denies hitting his head. He admits to walking up the stairs to his home after the fall. The patient admits that it is normal for him to be tired and fatigued after his dialysis treatments. He is current complaining of right hip and right wrist pain. The patient denies dizziness, blurry vision, and headache. Patient denies nausea , vomiting, and diarrhea. Patient denies fever, cough, or chills. Patient denies back pain, or neck pain. Patient denies shortness of breath, palpitations , or chest pain. PCP: Dr. Borwn Beater Engineer Helper: Dr. Palafox <Ayde Aviles - Last Filed: 04/08/16 17:31> <Jeanmarie Villalba - Last Filed: 04/08/16 18:11> - General Chief Complaint: Injury Stated Complaint: BACK, RT HIP PAIN, FALL Time Seen by Provider: 04/08/16 17:10 Past History <Ayde Aviles - Last Filed: 04/08/16 17:31> - Past Medical History Anemia: No Asthma: No Cancer: No Cardiac Disorders: No CVA: No COPD: No CHF: No Dementia: No Diabetes: (diet-controlled, borderline) GI Disorders: No Disorders: No HTN: Yes ("FLUCTUATES" NO MEDS AT THIS TIME) Hypercholesterolemia: No Liver Disease: No Psychiatric Problems: Yes (bipolar and depression) Seizures: No Thyroid Disease: No - Surgical History Abdominal Surgery: No Appendectomy: No Cardiac Surgery: No Cholecystectomy: No Lung Surgery: No Neurologic Surgery: No Orthopedic Surgery: No - Immunization History Td Vaccination: No - Psycho/Social/Smoking Cessation Hx Anxiety: Yes Suicidal Ideation: No Smoking Status: No Smoking History: Unknown if ever smoked Years of Tobacco Use: 0 Have you smoked in the past 12 months: No Number of Cigarettes Smoked Daily: 0 If you are a former smoker, when did you quit?: 1999 Hx Alcohol Use: No (Quit 1999) Drug/Substance Use Hx: No Substance Use Type: None Hx Substance Use Treatment: No <Jeanmarie Villalba - Last Filed: 04/08/16 18:11> - Past Medical History Allergies/Adverse Reactions: Allergies Allergy/AdvReac Type Severity Reaction Status Date / Time No Known Drug Allergies Allergy Verified 04/08/16 17:04 Home Medications: Ambulatory Orders Bupropion HCl [Wellbutrin -] 150 mg PO DAILY 03/30/16 Divalproex [Depakote -] 1,000 mg PO BID 03/30/16 Lamotrigine [Lamictal] 100 mg PO DAILY 03/30/16 Lorazepam [Ativan] 1 mg PO BID 03/30/16 Quetiapine Fumarate [Seroquel] 150 mg PO DAILY 03/30/16 Atorvastatin Ca [Lipitor] 20 mg PO HS #30 tablet 04/04/16 Furosemide [Lasix -] 80 mg PO DAILY #30 tablet 04/04/16 Metoprolol Succinate [Toprol XL -] 25 mg PO DAILY #30 tab.sr.24h 04/04/16 Sevelamer Carbonate [Renvela -] 1,600 mg PO TIDCM #90 tab 04/04/16 Review of Systems - Review of Systems Able to Perform ROS?: Yes Comments:: 04/08/16 17:19 CONSTITUTIONAL: Absent: fever, chills, diaphoresis, generalized weakness, malaise, loss of appetite HEENT: Absent: rhinorrhea, nasal congestion, throat pain, throat swelling, difficulty swallowing, mouth swelling, ear pain, eye pain, visual Changes CARDIOVASCULAR: Absent: chest pain, syncope, palpitations, irregular heart rate, lightheadedness , peripheral edema RESPIRATORY: Absent: cough, shortness of breath, dyspnea with exertion, orthopnea, wheezing, stridor, hemoptysis GASTROINTESTINAL: Absent: abdominal pain, abdominal distension, nausea, vomiting, diarrhea, constipation, melena, hematochezia GENITOURINARY: Absent: dysuria, frequency, urgency, hesitancy, hematuria, flank pain, genital pain MUSCULOSKELETAL: Present: + right hip pain, + right wrist pain Absent: myalgia, arthralgia, joint swelling SKIN: Absent: rash, itching, pallor HEMATOLOGIC/IMMUNOLOGIC: Absent: easy bleeding, easy bruising, lymphadenopathy, frequent infections ENDOCRINE: Absent: unexplained weight gain, unexplained weight loss, heat intolerance, cold intolerance NEUROLOGIC: Absent: headache, focal weakness or paresthesias, dizziness, unsteady gait, seizure, mental status changes, bladder or bowel incontinence PSYCHIATRIC: Absent: anxiety, depression, suicidal or homicidal ideation, hallucinations. <Ayde Aviles - Last Filed: 04/08/16 17:31> *Physical Exam - Vital Signs Last Vital Signs Temp Pulse Resp BP Pulse Ox 97.7 F 74 18 83/51 100 04/08/16 17:00 04/08/16 17:00 04/08/16 17:00 04/08/16 17:00 04/08/16 17:00 - Physical Exam Comments: 04/08/16 17:19 GENERAL: Well developed, well nourished. Awake and alert. In no acute distress. HEENT: Normocephalic, atraumatic. PERRLA, EOMI. No conjunctival pallor. Sclera are non- icteric. Moist mucous membranes. Oropharynx is clear. NECK: Supple. Full ROM. No JVD. Carotid pulses 2+ and symmetric, without bruits. No thyromegaly. No lymphadenopathy. CARDIOVASCULAR: Regular rate and rhythm. No murmurs, rubs, or gallops. Distal pulses are 2+ and symmetric. PULMONARY: No evidence of respiratory distress. Lungs clear to auscultation bilaterally. No wheezing, rales or rhonchi. ABDOMINAL: Soft. Non-tender. Non-distended. No rebound or guarding. No organomegaly. Normoactive bowel sounds. MUSCULOSKELETAL Normal range of motion at all joints. No bony deformities or tenderness. No CVA tenderness. EXTREMITIES: No hip pain with flexion, extension, internal rotation, or external rotation. Mild right lateral hip tenderness on deep palpation. No wrist tenderness on lateral and AP compression or axial loading. No carpal bone tenderness on lateral or AP compression or axial loading. No cyanosis. No clubbing. No edema. No calf tenderness. SKIN: Warm and dry. Normal capillary refill. No rashes. No jaundice. NEUROLOGICAL: Alert, awake, appropriate. Cranial nerves 2-12 intact. No deficits to light touch and temperature in face, upper extremities and lower extremities. No motor deficits in the in face, upper extremities and lower extremities. Normoreflexic in the upper and lower extremities. Normal speech. Toes are downgoing bilaterally. Gait is normal without ataxia. PSYCHIATRIC: Cooperative. Good eye contact. Appropriate mood and affect. <TraciAyde - Last Filed: 04/08/16 17:31> - Vital Signs Last Vital Signs Temp Pulse Resp BP Pulse Ox 97.7 F 74 18 83/51 100 04/08/16 17:00 04/08/16 17:00 04/08/16 17:00 04/08/16 17:00 04/08/16 17:00 <Jeanmarie Villalba - Last Filed: 04/08/16 18:11> ED Treatment Course - LABORATORY CBC & Chemistry Diagram: 04/08/16 17:21 04/08/16 17:21 <Jeanmarie Villalba - Last Filed: 04/08/16 18:11> Medical Decision Making - Medical Decision Making 04/08/16 17:11 The patient is well-appearing and in no acute distress His fall was mechanical He adamantly denies head or neck trauma There is no pain at his right hip with all active and passive range of motion There is no pain at his right wrist with all active and passive range of motion as well as axial loading and lateral/AP compression Both he and his state that it is normal for him to feel fatigued after dialysis Will obtain plain films of the right wrist, right hip and pelvis Will obtain basic labs 04/08/16 17:44 After an extensive discussion with both the patient and the , they are adamantly refusing x-rays They would like to leave the emergency department immediately, even though the labs are pending I discussed the risks and benefits of leaving the emergency department without x -rays and without lab results, and strongly cautioned them against it They agreed to stay for lab results They continue to refuse x-rays 04/08/16 18:08 Labs noted Serial blood pressures noted, and at baseline according to the patient and his He is well appearing and in no acute distress The patient states that he feels "much better" and would like to go home Clinical impression: Status post mechanical fall Wrist contusion Hip contusion I discussed the physical exam findings, ancillary test results and final diagnoses with the patient. I answered all of the patient's questions. The patient was satisfied with the care received and felt comfortable with the discharge plan and treatment plan. The patient will call their primary care physician within 24 hours to arrange follow-up and will return to the Emergency Department with any new, persistent or worsening symptoms. A portion of this note was documented by scribe services under my direction. I have reviewed the details of the note, within reason, and agree with the documentation with the following case summary and management plan written by me. <Jeanmarie Villalba - Last Filed: 04/08/16 18:11> *DC/Admit/Observation/Transfer - Attestations Scribe Attestion: 04/08/16 17:21 Documentation prepared by Ayde Aviles, acting as medical laboratory scientist for Emergency Dept,PhysicianMD. <Ayde Aviles - Last Filed: 04/08/16 17:31> <Jeanmarie Villalba - Last Filed: 04/08/16 18:11> Diagnosis at time of Disposition: Fall, Contusion of wrist, right, Contusion of right hip - Discharge Dispostion Disposition: HOME Condition at time of disposition: Stable - Patient Instructions Printed Discharge Instructions: How to Prevent Falls, DI for Contusion Additional Instructions: Return to the emergency department immediately with ANY new, persistent or worsening symptoms. You MUST call and follow up with your doctor tomorrow. Please make sure your doctor reviews the results of your emergency department evaluation.
[2016-04-08 17:48] LABS: BASOPHIL 0.6 % (0-2.0); EOSINOPHIL 0.8 % (0-4.5); MCH 31.1 pg (25.7-33.7); MCHC 33.5 g/dl (32.0-35.9); MEAN CELL VOLUME 92.8 fl (80-96); MEAN PLT VOLUME 6.2 fl (7.5-11.1); NEUTROPHILS 67.4 % (42.8-82.8); PLATELET COUNT 137 K/MM3 (134-434); RDW 13.8 % (11.9-15.9); WHITE BLOOD COUNT 6.1 K/mm3 (4.0-10.0)
[2016-04-08 17:54] LABS: ALBUMIN 2.7 g/dl (3.5-5.0); BILIRUBIN,TOTAL 0.6 mg/dl (0.2-1.0); CALCIUM 8.7 mg/dl (8.4-10.2); CREATININE 3.9 mg/dl (0.6-1.3); TOT PROT 6.2 g/dl (6.4-8.3)
[2016-04-08 18:06] VITALS: BP 94/56; PULSE 72
== END 2016-04-08 18:35 | disposition home or self-care (01) ==
LOC: FER 16:59
DX: S70.01XA Contusion of right hip, initial encounter (principal); S60.211A Contusion of right wrist, initial encounter; W10.1XXA Fall (on)(from) sidewalk curb, initial encounter; Y93.89 Activity, other specified; Y92.410 Unspecified street and highway as the place of occurrence of the external cause; N18.5 Chronic kidney disease, stage 5; Z99.2 Dependence on renal dialysis; F31.9 Bipolar disorder, unspecified
CPT/HCPCS: 36415; 80053; 85025; 99284-25

== ENCOUNTER 2016-06-13 10:52 | Day surgery (SDC) | payer OTHER, MEDICARE ==
[2016-06-12 10:44] VITALS: BMI 27.4
[~2016-06-13 10:52] MED LIST: LIDOCAINE HCL 2% JELLY 10 ML CARTRIDGE TP ONE
[2016-06-13] MEDS ORDERED: ACETAMINOPHEN 1000 MG/100 ML VIAL (NON FORMULARY) IVPB ONE (12:09)
--- NOTE | 2016-06-13 12:09 | HP ---
History & Physical Update - History History: No Change - Physical Physical: No Change - Assessment Assessment: No Change - Plan Plan: No Change
[2016-06-13] MEDS ORDERED: DEXTROSE 5%-0.45% SALINE 1,000 ML IV SCH (12:15)
[2016-06-13] MEDS ORDERED: LIDOCAINE HCL/PF 2% SDV 5ML VIAL ONE (12:22)
[2016-06-13] MEDS ORDERED: PROPOFOL 20 ML ONE (12:22)
[2016-06-13] MEDS ORDERED: MIDAZOLAM HCL 2 MG/2 ML SINGLE DOSE VIAL ONE (12:22)
[2016-06-13] MEDS ORDERED: LIDOCAINE HCL 2% JELLY 10 ML CARTRIDGE ONE (12:46)
[2016-06-13] MEDS ORDERED: ceFAZolin SODIUM 1 GM VIAL ONE (12:50)
[2016-06-13] MEDS ORDERED: ceFAZolin SODIUM 1 GM VIAL IVPB ONE (12:52)
[2016-06-13] MEDS ORDERED: LIDOCAINE HCL 2% JELLY 10 ML CARTRIDGE TP ONE (13:09)
[2016-06-13] MEDS ORDERED: oxyCODONE HCL 5 MG TABLET PO PRN (13:26)
[2016-06-13] MEDS ORDERED: ACETAMINOPHEN 325 MG TABLET (FP) PO PRN (13:26)
[2016-06-13] MEDS ORDERED: ONDANSETRON 4 MG/2 ML VIAL IVPUSH PRN (13:26)
[2016-06-13] MEDS ORDERED: SODIUM CHLORIDE 1,000 ML IV SCH (13:30)
[2016-06-13] MEDS ORDERED: ACETAMINOPHEN INJECTION 100 ML IVPB ONE (13:54)
[2016-06-13] MEDS ORDERED: oxyCODONE HCL 5 MG TABLET ONE ×2 (14:55→16:08)
[2016-06-13 16:04] VITALS: PULSE 70
[2016-06-13 17:21] VITALS: BP 90/60; TEMP 97.8
--- NOTE | 2016-06-14 13:49 | PATH ---
Surgical Pathology Report Patient Name: VARINDER REGALADO [facility]. Rec. #: [id number] /Age/Gender: 1965 (Age: 50) / M Account: [id number] Location: [facility] SURGICAL Taken: 06/13/2016 Received: 06/13/2016 Reported: 06/14/2016 Physicians: Emmanuel Sykes M.D. Specimen(s) Received BLADDER BIOPSY Clinical History Gross hematuria Final Diagnosis BLADDER, BIOPSY: BENIGN UROTHELIAL MUCOSA WITH MARKED ACTIVE AND CHRONIC INFLAMMATION WITH FOCAL FEATURES OF CYSTITIS CYSTICA. NO CARCINOMA IDENTIFIED. Electronically Signed Juni Castillo M.D. Gross Description Received in formalin, labeled "bladder tissue biopsy" is a del castillo, irregular portion of soft tissue measuring 0.5 cm in greatest dimension. The specimen is submitted in toto in one cassette. /06/13/201606/13/2016
--- NOTE | 2016-07-04 10:31 | OP ---
DATE OF OPERATION: 06/13/2016 PREOPERATIVE DIAGNOSES: Gross hematuria. Bladder mass. POSTOPERATIVE DIAGNOSES: Gross hematuria. Bladder mass. PROCEDURES: Cystoscopy. Biopsy of the bladder. SURGEON: Emmanuel Sykes MD ANESTHESIA: General. SPECIMEN: Bladder biopsy. PREOPERATIVE INDICATION: The patient is a 50-year-old male with a history of gross hematuria. Cystoscopy revealed an area of the bladder that appears to be irregular and not normal. He was brought to the OR for a formal bladder biopsy. OPERATION: The patient was brought to the OR, placed on the table in the supine position, given general anesthesia and IV antibiotics, and placed in the modified lithotomy position. The groin was prepped and draped sterilely. A timeout was performed. A cystoscopy was performed. The urethra appeared to be unremarkable. The sphincter was visualized. The prostate appeared to be normal, as well. In the bladder itself, no june tumors or stones were seen. Both UOs were visualized. There was an area of irregularity noted. This area was biopsied. The area that was biopsied was then fulgurated. No active bleeding was seen at the end of the case. The bladder was emptied. The patient was woken up. Brian [id number]
== END 2016-06-13 17:15 | disposition home or self-care (01) ==
LOC: JASU-SURG 10:52
PROVIDERS: ATTEND Urology
PROC: 0T5B8ZZ Destruction of Bladder, Via Natural or Artificial Opening Endoscopic (ICD-10-PCS; principal; 2016-06-13 12:00)
DX: N30.91 Cystitis, unspecified with hematuria (principal); D30.3 Benign neoplasm of bladder
CPT/HCPCS: 88305-TC; 94760

== ENCOUNTER 2017-02-04 15:57 | Emergency (ER) | payer OTHER, MEDICARE ==
[2017-02-04 16:17] VITALS: BP 136/84; PULSE 85; TEMP 97.6; BMI 28.5
--- NOTE | 2017-02-04 16:26 | PDOC ---
History of Present Illness - General History Source: Patient Exam Limitations: No Limitations - History of Present Illness Initial Comments: 02/04/17 16:45 The patient is a 51 year old male with history of DM, ESRD on HD ([facility]), bipolar disorder, who presents to the ED complaining of pain and blistering to his left fourth and fifth fingers that began yesterday. The patient reports he was moving freezing cans without wearing gloves yesterday prior to the onset of his symptoms. He subsequently did not run his hands under warm water, but wrapped his hand in a glove. Today he was at his HD session when they sent him to the ED. He does complain about some mild associated numbness in his left hand. No fever, chills, nausea, vomiting. <Carolina Nieves - Last Filed: 02/04/17 16:45> <Suha Holguin - Last Filed: 02/04/17 17:49> - General Chief Complaint: Wound Stated Complaint: POSSIBLE FROSTBITE LEFT HAND FINGERS Time Seen by Provider: 02/04/17 16:25 Past History <Carolina Nieves - Last Filed: 02/04/17 16:45> - Past Medical History Anemia: No Asthma: No Cancer: No Cardiac Disorders: No CVA: No COPD: No CHF: No Dementia: No Diabetes: Yes (diet-controlled, borderline) Dialysis: Yes (graft to right arm) GI Disorders: No Disorders: No HTN: Yes ("FLUCTUATES" NO MEDS AT THIS TIME) Hypercholesterolemia: No Liver Disease: No Psychiatric Problems: Yes (bipolar) Seizures: No Thyroid Disease: No - Surgical History Abdominal Surgery: No Appendectomy: No Cardiac Surgery: No Cholecystectomy: No Lung Surgery: No Neurologic Surgery: No Orthopedic Surgery: No - Immunization History Td Vaccination: No - Suicide/Smoking/Psychosocial Hx Smoking Status: No Smoking History: Former smoker Years of Tobacco Use: 0 Have you smoked in the past 12 months: No Number of Cigarettes Smoked Daily: 0 If you are a former smoker, when did you quit?: 1999 Information on smoking cessation initiated: No Hx Alcohol Use: No Drug/Substance Use Hx: No Substance Use Type: None Hx Substance Use Treatment: No <Suha Holguin - Last Filed: 02/04/17 17:49> - Past Medical History Allergies/Adverse Reactions: Allergies Allergy/AdvReac Type Severity Reaction Status Date / Time No Known Drug Allergies Allergy Verified 06/13/16 11:52 Home Medications: Ambulatory Orders Bupropion HCl [Wellbutrin -] 150 mg PO DAILY 03/30/16 Divalproex [Depakote -] 1,000 mg PO BID 03/30/16 Lamotrigine [Lamictal] 100 mg PO HS 03/30/16 Lorazepam [Ativan] 1 mg PO BID 03/30/16 Quetiapine Fumarate [Seroquel] 400 mg PO HS 03/30/16 Atorvastatin Ca [Lipitor] 20 mg PO HS #30 tablet 04/04/16 Furosemide [Lasix -] 80 mg PO DAILY #30 tablet 04/04/16 Sevelamer Carbonate [Renvela -] 1,600 mg PO TIDCM #90 tab 04/04/16 Bacitracin - [Bacitracin Topical Ointment -] 1 applic TP DAILY #1 tube 02/04/17 Gauze Bandage [Rolled Gauze] 1 each TP DAILY #20 bandage 02/04/17 Review of Systems - Review of Systems Able to Perform ROS?: Yes Comments:: 02/04/17 16:49 GENERAL/CONSTITUTIONAL: No fever or chills. No weakness. HEAD, EYES, EARS, NOSE AND THROAT: No change in vision. No ear pain or discharge. No sore throat. CARDIOVASCULAR: No chest pain or shortness of breath. RESPIRATORY: No cough, wheezing, or hemoptysis. GASTROINTESTINAL: No nausea, vomiting, diarrhea or constipation. GENITOURINARY: No dysuria, frequency, or change in urination. MUSCULOSKELETAL: Left fourth and fifth fingers pain, blistering, numbness. No other joint or muscle swelling or pain. No neck or back pain. SKIN: As described in MUSCULOSKELETAL. NEUROLOGIC: No headache, vertigo, loss of consciousness, or change in strength/ sensation. ENDOCRINE: No increased thirst. No abnormal weight change. HEMATOLOGIC/LYMPHATIC: No anemia, easy bleeding, or history of blood clots. ALLERGIC/IMMUNOLOGIC: No hives or skin allergy. <Carolina Nieves - Last Filed: 02/04/17 16:45> *Physical Exam - Vital Signs Last Vital Signs Temp Pulse Resp BP Pulse Ox 97.6 F 85 20 136/84 99 02/04/17 15:59 02/04/17 15:59 02/04/17 15:59 02/04/17 15:59 02/04/17 15:59 - Physical Exam Comments: 02/04/17 16:51 GENERAL: Awake, alert, and fully oriented, in no acute distress EXTREMITIES: Left upper extremity: Large bullous lesions to fourth and fifth distal phalanges. NEUROLOGICAL: Alert and oriented x 3. Moves all extremities. Face is symmetric. Left upper extremity: Decreased sensation to the tips of the fourth and fifth fingers. <Carolina Nieves - Last Filed: 02/04/17 16:45> - Vital Signs Last Vital Signs Temp Pulse Resp BP Pulse Ox 97.6 F 85 20 136/84 99 02/04/17 15:59 02/04/17 15:59 02/04/17 15:59 02/04/17 15:59 02/04/17 15:59 <Suha Holguin - Last Filed: 02/04/17 17:49> Medical Decision Making - Medical Decision Making History is suspicious for frostbite which led to formation of the bullous lesions to the fingers. He was outside in below-freezing temperatures handling wet objects without gloves on. He subsequently wrapped them in tight scarves in the house, which may have made the bullae form. Recommended lubricating the skin to prevent worsening blistering. I dressed with bacitracin and sterile gauze. Counseled him NOT to rupture the blisters, as he may be at risk for infection. F/u with PMD. <Suha Holguin - Last Filed: 02/04/17 17:49> *DC/Admit/Observation/Transfer - Attestations Scribe Attestion: 02/04/17 16:53 Documentation prepared by Carolina Nieves, acting as medical research tech for Suha Holguin MD. <Carolina Nieves - Last Filed: 02/04/17 16:45> - Discharge Dispostion Admit: No <Suha Holguin - Last Filed: 02/04/17 17:49> Diagnosis at time of Disposition: Frostbite Qualifiers: Encounter type: initial encounter Qualified Code(s): T33.90XA - Superficial frostbite of unspecified sites, initial encounter - Discharge Dispostion Disposition: HOME Condition at time of disposition: Stable - Prescriptions Prescriptions: Bacitracin - [Bacitracin Topical Ointment -] 1 applic TP DAILY #1 tube Gauze Bandage [Rolled Gauze] 1 each TP DAILY #20 bandage - Patient Instructions Printed Discharge Instructions: DI for Frostbite Additional Instructions: Keep fingers covered with bacitracin and gauze as directed. Do not break the blisters. Allow them to break by themselves.
== END 2017-02-04 16:36 | disposition home or self-care (01) ==
LOC: FER 15:57
DX: T33.532A Superficial frostbite of left finger(s), initial encounter (principal); T33.99XA Superficial frostbite of other sites, initial encounter; X31.XXXA Exposure to excessive natural cold, initial encounter; Y93.89 Activity, other specified; Y92.9 Unspecified place or not applicable; Y99.0 Civilian activity done for income or pay; F31.9 Bipolar disorder, unspecified; E11.22 Type 2 diabetes mellitus with diabetic chronic kidney disease; N18.6 End stage renal disease; Z99.2 Dependence on renal dialysis; Z87.891 Personal history of nicotine dependence
CPT/HCPCS: 99282-25

== ENCOUNTER 2017-02-07 21:11 | Emergency (ER) | payer OTHER, MEDICARE ==
[2017-02-07 21:21] VITALS: BP 130/100; PULSE 100; TEMP 98; BMI 43.4
--- NOTE | 2017-02-07 22:03 | PDOC ---
History of Present Illness - General Chief Complaint: [place] Bite Stated Complaint: BLISTERS TO THE L HAND Time Seen by Provider: 02/07/17 21:22 - History of Present Illness Initial Comments: This 51-year-old man with a history of DM and ESRD (hemodialysis M/W/F) presents with his mother for reevaluation of his left hand. Patient was seen here 02/04/17 with development of bullae of the distal dorsal aspect of the left fourth and fifth fingers (patient's dialysis access is on the right arm ) . History suggested that this was frostbite since he had been handling wet cans in a cold environment without gloves the day prior to onset of the bullae. Since evaluation, the patient and his mother have been dressing the area with bacitracin and gauze as instructed. He notes no increase in pain (either at rest or with movement of the fingers), no fever/chills. There has been no red streaking in hand/fingers or increase in swelling in the hands/fingers. The patient became concerned tonight because the bullae have become faintly red over the last 24 hours. Past History - Past Medical History Allergies/Adverse Reactions: Allergies Allergy/AdvReac Type Severity Reaction Status Date / Time No Known Drug Allergies Allergy Verified 06/13/16 11:52 Home Medications: Ambulatory Orders Bupropion HCl [Wellbutrin -] 150 mg PO DAILY 03/30/16 Divalproex [Depakote -] 1,000 mg PO BID 03/30/16 Lamotrigine [Lamictal] 100 mg PO HS 03/30/16 Lorazepam [Ativan] 1 mg PO BID 03/30/16 Quetiapine Fumarate [Seroquel] 400 mg PO HS 03/30/16 Atorvastatin Ca [Lipitor] 20 mg PO HS #30 tablet 04/04/16 Furosemide [Lasix -] 80 mg PO DAILY #30 tablet 04/04/16 Sevelamer Carbonate [Renvela -] 1,600 mg PO TIDCM #90 tab 04/04/16 Bacitracin - [Bacitracin Topical Ointment -] 1 applic TP DAILY #1 tube 02/04/17 Gauze Bandage [Rolled Gauze] 1 each TP DAILY #20 bandage 02/04/17 Anemia: No Asthma: No Cancer: No Cardiac Disorders: No CVA: No COPD: No CHF: No Dementia: No Diabetes: Yes (diet-controlled, borderline) Dialysis: Yes (graft to right arm) GI Disorders: No Disorders: No HTN: Yes ("FLUCTUATES" NO MEDS AT THIS TIME) Hypercholesterolemia: No Liver Disease: No Psychiatric Problems: Yes (bipolar) Seizures: No Thyroid Disease: No - Surgical History Abdominal Surgery: No Appendectomy: No Cardiac Surgery: No Cholecystectomy: No Lung Surgery: No Neurologic Surgery: No Orthopedic Surgery: No - Immunization History Td Vaccination: No - Suicide/Smoking/Psychosocial Hx Smoking Status: No Smoking History: Unknown if ever smoked Years of Tobacco Use: 0 Have you smoked in the past 12 months: No Number of Cigarettes Smoked Daily: 0 If you are a former smoker, when did you quit?: 1999 Information on smoking cessation initiated: No Hx Alcohol Use: No Drug/Substance Use Hx: No Substance Use Type: None Hx Substance Use Treatment: No Review of Systems - Review of Systems Able to Perform ROS?: Yes Comments:: 12 point review of systems is negative except for what is noted in the history of present illness *Physical Exam - Vital Signs Last Vital Signs Temp Pulse Resp BP Pulse Ox 98 F 100 H 14 130/100 99 02/07/17 21:15 02/07/17 21:15 02/07/17 21:15 02/07/17 21:15 02/07/17 21:15 - Physical Exam Comments: GENERAL: Adult male, alert and oriented 3, no acute distress HEAD: Normal with no signs of trauma. EYES: PERRLA, EOMI, sclera anicteric, conjunctiva clear. ENT: Ears normal, nares patent, oropharynx clear without exudates. Dry mucous membranes. NECK: Normal range of motion, supple without lymphadenopathy, JVD, or masses. LUNGS: Breath sounds equal, clear to auscultation bilaterally. No wheezes, and no crackles. HEART:Regular rate and rhythm, normal S1 and S2 without murmur, rub or gallop. ABDOMEN:.normal bowel sounds No guarding,tenderness or rebound.No masses No distention. EXTREMITIES: Left hand-faintly erythematous intact bullae of the dorsal distal phalanx (periungual ) of the fourth and fifth fingers Moderate edema without erythema or streaking of fourth and fifth fingers No pain on passive or active movement of any of the fingers of the left hand No other bullae/necrosis or significant skin changes noted Hemodialysis access intact in right forearm NEUROLOGICAL: Cranial nerves II through XII grossly intact. Normal speech. No focal neurological deficits. MUSCULOSKELETAL: Back non-tender to palpation, no CVA tenderness SKIN: Warm, Dry, normal turgor, no rashes or lesions noted. Medical Decision Making - Medical Decision Making This patient presents for wound check of frostbite of his left fourth/fifth fingers. This was sustained 4 days prior to presentation; patient evaluated here 3 days ago. Patient and his mother have been dressing area daily since being seen here. Patient has no new complaints but was concerned that vesicles have become mildly erythematous in the last 24 hours. There is no other evidence of cellulitis or lymphangitis/Tenosynovitis. Patient and his mother had been instructed to follow up with PMD () but no follow-up appointment has yet been made. Case discussed with Dr. Pinto (general surgery staff). He agreed with wound care plan and will follow up with the patient on February. Referral information for Dr. Pinto given to patient/mother. Meanwhile, they should call Dr. Harris tomorrow morning and make appointment to be seen by her. If there is any increase in redness/swelling/pain or development of fever , the patient should return to the emergency room *DC/Admit/Observation/Transfer Diagnosis at time of Disposition: Frostbite of hand, left Qualifiers: Encounter type: subsequent encounter Qualified Code(s): T33.522D - Superficial frostbite of left hand, subsequent encounter - Discharge Dispostion Disposition: HOME Condition at time of disposition: Stable - Referrals Referrals: Angelina Harris MD [Primary Care Provider] - Call tomorrow Jesus Pinto MD [Staff Physician] - 02/13/17 - Patient Instructions Printed Discharge Instructions: DI for Frostbite Additional Instructions: Continue bacitracin/gauze dressings to fingers daily Call tomorrow to arrange follow-up within [address] Pinto's(surgeon) office tomorrow to arrange follow-up on February 13 Return to ER if fingers/hand become red/swollen/painful or fever develops - Post Discharge Activity
[2017-02-07] MEDS ORDERED: IBUPROFEN 600 MG TABLET (FP) PO ONE (22:35)
== END 2017-02-07 22:47 | disposition home or self-care (01) ==
LOC: FER 21:11
DX: T33.522D Superficial frostbite of left hand, subsequent encounter (principal); X58.XXXD Exposure to other specified factors, subsequent encounter; Y93.89 Activity, other specified; Y92.9 Unspecified place or not applicable
CPT/HCPCS: 99282-25

== ENCOUNTER 2017-12-28 16:36 | Emergency (ER) | payer OTHER, MEDICARE ==
--- NOTE | 2017-12-28 16:49 | PDOC ---
History of Present Illness - History of Present Illness Initial Comments: 12/28/17 16:51 The patient is a 52 year old male, accompanied by , with a significant PMH of diabetes mellitus, ESRD on dialysis (M-W-F), who presents to the emergency department with pulsating bleeding from the right arm fistula beginning prior to arrival. The patient states after arriving home from dialysis he removed the right arm bandage surrounding the fistula and the bleeding began. The patient reports he applied pressure to the right arm fistula bleeding and was transported to the ED by his . The patient states he completed his dialysis in full. The patient denies chest pain, shortness of breath, headache and dizziness. Denies fever, chills, nausea, vomit, diarrhea and constipation. Denies dysuria, frequency, urgency and hematuria. Allergies: NKDA <Rufino García - Last Filed: 12/28/17 16:51> - General History Source: Patient Exam Limitations: No Limitations <Amrita Burch - Last Filed: 12/28/17 17:41> - General Chief Complaint: AV shunt bleeding Stated Complaint: BLEEDING FROM DIALYSIS FISTULA Time Seen by Provider: 12/28/17 16:44 Past History <Rufino García - Last Filed: 12/28/17 16:51> - Past Medical History Anemia: No Asthma: No Cancer: No Cardiac Disorders: No CVA: No COPD: No CHF: No Dementia: No Diabetes: Yes (diet-controlled, borderline) Dialysis: Yes (graft to right arm) GI Disorders: No Disorders: No HTN: Yes ("FLUCTUATES" NO MEDS AT THIS TIME) Hypercholesterolemia: No Liver Disease: No Psychiatric Problems: Yes (bipolar) Seizures: No Thyroid Disease: No - Surgical History Abdominal Surgery: No Appendectomy: No Cardiac Surgery: No Cholecystectomy: No Lung Surgery: No Neurologic Surgery: No Orthopedic Surgery: No - Immunization History Td Vaccination: No - Suicide/Smoking/Psychosocial Hx Smoking Status: No Smoking History: Unknown if ever smoked Years of Tobacco Use: 0 Have you smoked in the past 12 months: No Number of Cigarettes Smoked Daily: 0 If you are a former smoker, when did you quit?: 1999 Hx Alcohol Use: No Drug/Substance Use Hx: No Substance Use Type: None Hx Substance Use Treatment: No <Amrita Burch - Last Filed: 12/28/17 17:41> - Past Medical History Allergies/Adverse Reactions: Allergies Allergy/AdvReac Type Severity Reaction Status Date / Time No Known Drug Allergies Allergy Verified 12/28/17 16:37 Home Medications: Ambulatory Orders Bupropion HCl [Wellbutrin -] 150 mg PO DAILY 03/30/16 Divalproex [Depakote -] 1,000 mg PO BID 03/30/16 LORazepam [Ativan] 1 mg PO BID 03/30/16 Lamotrigine [Lamictal] 100 mg PO HS 03/30/16 Quetiapine Fumarate [Seroquel] 400 mg PO HS 03/30/16 Atorvastatin Ca [Lipitor] 20 mg PO HS #30 tablet 04/04/16 Sevelamer Carbonate [Renvela -] 1,600 mg PO TIDCM #90 tab 04/04/16 Furosemide [Lasix -] 80 mg PO BID 12/28/17 Gabapentin 300 mg PO HS 12/28/17 Review of Systems - Review of Systems Comments:: 12/28/17 16:52 GENERAL/CONSTITUTIONAL: No fever or chills. No weakness. HEAD, EYES, EARS, NOSE AND THROAT: No change in vision. No ear pain or discharge. No sore throat. CARDIOVASCULAR: No chest pain or shortness of breath. RESPIRATORY: No cough, wheezing, or hemoptysis. GASTROINTESTINAL: No nausea, vomiting, diarrhea or constipation. GENITOURINARY: No dysuria, frequency, or change in urination. MUSCULOSKELETAL: No joint or muscle swelling or pain. No neck or back pain. SKIN: No rash. NEUROLOGIC: No headache, vertigo, loss of consciousness, or change in strength/ sensation. ENDOCRINE: No increased thirst. No abnormal weight change. HEMATOLOGIC/LYMPHATIC: (+) Bleeding from right arm fistula. No anemia or history of blood clots. ALLERGIC/IMMUNOLOGIC: No hives or skin allergy. <Rufino García - Last Filed: 12/28/17 16:51> *Physical Exam - Vital Signs Last Vital Signs Temp Pulse Resp BP Pulse Ox 98 F 112 H 20 149/106 H 100 12/28/17 16:37 12/28/17 16:37 12/28/17 16:37 12/28/17 16:37 12/28/17 16:37 - Physical Exam Comments: 12/28/17 16:53 GENERAL: Awake, alert, and fully oriented, in no acute distress HEAD: No signs of trauma EYES: PERRLA, EOMI, sclera anicteric, conjunctiva clear ENT: Auricles normal inspection, hearing grossly normal, nares patent, oropharynx clear without exudates. Moist mucosa NECK: Normal ROM, supple, no lymphadenopathy, JVD, or masses LUNGS: Breath sounds equal, clear to auscultation bilaterally. No wheezes, and no crackles HEART: Regular rate and rhythm, normal S1 and S2, no murmurs, rubs or gallops ABDOMEN: Soft, nontender, normoactive bowel sounds. No guarding, no rebound. No masses EXTREMITIES: Normal range of motion, no edema. No clubbing or cyanosis. No cords, erythema, or tenderness NEUROLOGICAL: Cranial nerves II through XII grossly intact. Normal speech, normal gait SKIN: (+) Right upper extremity dialysis site has a pulsating bleed in fistula area. Fistula has good bruits. Strong pulse. No erythema. Distal neurovascular intact. Otherwise warm and dry except for the fistula wound. <Rufino García - Last Filed: 12/28/17 16:51> Medical Decision Making - Medical Decision Making 12/28/17 16:47 52 yo male h/o DM htn esrd on dialysis s/p dialysis today took off bandage immediately following. had bleeding from site. no dizziness, unable to get bleeding to stop. no cp or sob. no syncope. normally takes off bandage, but today was bleeding. on exam pulstatile small puncture, dialysis access site. pressure dressing placed. bleeding contained. will revaluate after short observation. 12/28/17 17:38 bleeding controlled with pressure. dc home. <Amrita Burch - Last Filed: 12/28/17 17:41> *DC/Admit/Observation/Transfer - Attestations Scribe Attestion: 12/28/17 16:56 Documentation prepared by Rufino García, acting as medical transcription radiology for Amrita Burch MD. <Rufino García - Last Filed: 12/28/17 16:51> <Amrita Burch - Last Filed: 12/28/17 17:41> Diagnosis at time of Disposition: Complication of AV dialysis fistula - Discharge Dispostion Disposition: HOME Condition at time of disposition: Improved - Referrals Referrals: Kushal Rice MD [Non Staff, Medical] - - Patient Instructions Printed Discharge Instructions: DI for Arteriovenous Fistula for Dialysis Additional Instructions: follow up with dr. Rice next week. call to schedule. return for any recurrent bleeding, feeling of dizziness or any concerns. keep the dressing in place until tomorrow.
[2017-12-28 16:58] VITALS: TEMP 98; BMI 29.7
[2017-12-28 17:15] VITALS: BP 128/86; PULSE 94
== END 2017-12-28 17:44 | disposition home or self-care (01) ==
LOC: FER 16:36
DX: Y84.1 Kidney dialysis as the cause of abnormal reaction of the patient, or of later complication, without mention of misadventure at the time of the procedure (principal); Y73.8 Miscellaneous gastroenterology and urology devices associated with adverse incidents, not elsewhere classified; Y92.89 Other specified places as the place of occurrence of the external cause
CPT/HCPCS: 99281-25

== ENCOUNTER 2018-01-10 06:14 | Emergency (ER) | payer OTHER, MEDICARE ==
--- NOTE | 2018-01-10 06:19 | PDOC ---
History of Present Illness - General Stated Complaint: DISLOCATED HIP Time Seen by Provider: 01/10/18 06:18 - History of Present Illness Initial Comments: 01/10/18 06:19 Mr. Mckeon is a 52 yo male w/ pmh of DM and ESRD (M/W/F dialysis) who presents for evaluation of R hip pain. Patient reports he was in his prior state of health until he attempted to get up from a chair this evening and experienced sudden right hip pain. Was not able to get up out of the chair following this and experiencing sharp pains when he tries to raise his right leg. Patient denies any trauma or previous pain at this site until before then. No other complaints at this time. The patient denies chest pain, shortness of breath, headache and dizziness. Denies fever, chills, nausea, vomit, diarrhea and constipation. Denies dysuria, frequency, urgency and hematuria. Past History - Past Medical History Allergies/Adverse Reactions: Allergies Allergy/AdvReac Type Severity Reaction Status Date / Time No Known Drug Allergies Allergy Verified 01/10/18 06:20 Home Medications: Ambulatory Orders Bupropion HCl [Wellbutrin -] 150 mg PO DAILY 03/30/16 Divalproex [Depakote -] 1,000 mg PO BID 03/30/16 LORazepam [Ativan] 1 mg PO BID 03/30/16 Lamotrigine [Lamictal] 100 mg PO HS 03/30/16 Quetiapine Fumarate [Seroquel] 400 mg PO HS 03/30/16 Atorvastatin Ca [Lipitor] 20 mg PO HS #30 tablet 04/04/16 Sevelamer Carbonate [Renvela -] 1,600 mg PO TIDCM #90 tab 04/04/16 Furosemide [Lasix -] 80 mg PO BID 12/28/17 Gabapentin 300 mg PO HS 12/28/17 Anemia: No Asthma: No Cancer: No Cardiac Disorders: No CVA: No COPD: No CHF: No Dementia: No Diabetes: Yes (diet-controlled, borderline) Dialysis: Yes (graft to right arm) GI Disorders: No Disorders: No HTN: Yes ("FLUCTUATES" NO MEDS AT THIS TIME) Hypercholesterolemia: No Liver Disease: No Psychiatric Problems: Yes (bipolar) Seizures: No Thyroid Disease: No - Surgical History Abdominal Surgery: No Appendectomy: No Cardiac Surgery: No Cholecystectomy: No Lung Surgery: No Neurologic Surgery: No Orthopedic Surgery: No - Immunization History Td Vaccination: No - Suicide/Smoking/Psychosocial Hx Smoking Status: No Smoking History: Unknown if ever smoked Years of Tobacco Use: 0 Have you smoked in the past 12 months: No Number of Cigarettes Smoked Daily: 0 If you are a former smoker, when did you quit?: 1999 Hx Alcohol Use: No Drug/Substance Use Hx: No Substance Use Type: None Hx Substance Use Treatment: No Review of Systems - Review of Systems Comments:: 01/10/18 06:23 GENERAL/CONSTITUTIONAL: No fever or chills. No weakness. HEAD, EYES, EARS, NOSE AND THROAT: No change in vision. No ear pain or discharge. No sore throat. CARDIOVASCULAR: No chest pain or shortness of breath RESPIRATORY: No cough, wheezing, or hemoptysis. GASTROINTESTINAL: No nausea, vomiting, diarrhea or constipation. GENITOURINARY: No dysuria, frequency, or change in urination. MUSCULOSKELETAL: +Right hip pain as described. SKIN: No rash NEUROLOGIC: No headache, vertigo, loss of consciousness, or change in strength/ sensation. ENDOCRINE: No increased thirst. No abnormal weight change HEMATOLOGIC/LYMPHATIC: No anemia, easy bleeding, or history of blood clots. ALLERGIC/IMMUNOLOGIC: No hives or skin allergy. *Physical Exam - Physical Exam Comments: 01/10/18 06:24 GENERAL: Awake, alert, and fully oriented, in no acute distress HEAD: No signs of trauma, normocephalic, atraumatic EYES: PERRLA, EOMI, sclera anicteric, conjunctiva clear ENT: Auricles normal inspection, hearing grossly normal, nares patent, oropharynx clear without exudates. Moist mucosa NECK: Normal ROM, supple, no lymphadenopathy, JVD, or masses LUNGS: No distress, speaks full sentences, clear to auscultation bilaterally HEART: Regular rate and rhythm, normal S1 and S2, no murmurs, rubs or gallops, peripheral pulses normal and equal bilaterally. ABDOMEN: Soft, nontender, normoactive bowel sounds. No guarding, no rebound. No masses EXTREMITIES: +Pain with attempted engagement of leg muscles however not on passive ranging. TTP of lower leg / upper femur. AV fistula noted to R upper arm. Otherwise normal inspection, normal range of motion, no edema. No clubbing or cyanosis. NEUROLOGICAL: Cranial nerves II through XII grossly intact. Normal speech, normal gait, no focal sensorimotor deficits SKIN: Warm, Dry, normal turgor, no rashes or lesions noted. ED Treatment Course - RADIOLOGY Radiology Studies Ordered: Category Date Time Status HIP & PELVIS-RIGHT [RAD] Stat Radiology 01/10/18 06:18 Ordered Medical Decision Making - Medical Decision Making 01/10/18 06:26 Mr. Mckeon is a 52 yo male w/ pmh as described who presents for evaluation of right hip/leg pain. Xray ordered for further evaluation. Upon repeat interview patient endorses falling around a week ago however denies problems ambulating following this episode. 01/10/18 06:57 Patient signed out to Dr. Case for further evaluation. *DC/Admit/Observation/Transfer Diagnosis at time of Disposition: Leg pain, right - Referrals - Patient Instructions - Post Discharge Activity
[2018-01-10 06:22] VITALS: BMI 30.3
--- NOTE | 2018-01-10 06:49 | PDOC ---
Attending Attestation - Resident Resident Name: Robby Ponce - ED Attending Attestation I have performed the following: I have examined & evaluated the patient, The case was reviewed & discussed with the resident, I agree w/resident's findings & plan, Exceptions are as noted - HPI HPI: 01/10/18 06:47 52M here with sudden onset of R hip px. Pt was seated and trying to get up when he experience sudden onset of focal px to his R hip. No numbness, weakness - Physicial Exam PE: 01/10/18 06:48 Agree with exam as reported by resident, MISA w/o internal/external rotation, symmetric length, no px with passive motion SILT, distal pulses intact - Medical Decision Making 01/10/18 06:48 No trauma, fx dislocation less likely, pathologic fracture? spasm? analgesia f/u xr re-eval
--- NOTE | 2018-01-10 06:58 | PDOC ---
*Physical Exam - Vital Signs Last Vital Signs Temp Pulse Resp BP Pulse Ox 98.6 F 91 H 18 110/98 99 01/10/18 06:20 12 06:20 01/10/18 06:20 01/10/18 06:20 01/10/18 06:20 Medical Decision Making - Medical Decision Making 01/10/18 06:57 52 year old male with PMH DM, ESRD (M/W/F dialysis) presented to ED for nontraumatic right hip pain. Initial Vital Signs Temp Pulse Resp BP Pulse Ox 98.6 F 91 H 18 110/98 99 01/10/18 06:20 01/10/18 06:20 01/10/18 06:20 01/10/18 06:20 01/10/18 06:20 Afebrile. No tachycardia. No tachypnea. Mild hypotension. No hypoxia on room air. Pending XR. 01/10/18 08:43 XR right femur report: no acute fracture, subluxation or dislocation. arthritic changes noted. 01/10/18 08:53 XR pelvis/hip: no acute pathology. Pt reassessed, stated continued right hip pain with standing. Pt was able to bear weight but had difficulty taking steps, only took 2 steps and then had to return to bed. Pending CT right lower extremity. Motrin 600 mg ordered for pain. 01/10/18 11:27 CT right lower extremity: no acute fracture, dislocation. arthritic changes. 01/10/18 11:43 Pt able to ambulate unassisted with crutches. Pt to be discharged with Ortho and PCP follow up. *DC/Admit/Observation/Transfer Diagnosis at time of Disposition: Leg pain, right - Discharge Dispostion Disposition: HOME Condition at time of disposition: Stable Decision to Admit order: No - Referrals Referrals: Angelina Harris MD [Primary Care Provider] - - Patient Instructions Additional Instructions: You were seen today for hip pain. Your XR and Catscan was normal. There are no broken bones. Take ibuprofen over the counter for your pain, take as advised on label. Follow up with your primary care doctor in 1-2 days, follow up with an orthopedic doctor in 1-2 days. Call their offices today and ask for the soonest appointment. Return to the Emergency Department for increasing pain, inability to walk, swelling of calf, or any other new, worsening or concerning symptoms. - Post Discharge Activity
[2018-01-10 08:37] VITALS: BP 147/87; PULSE 89; TEMP 97.8
[2018-01-10] MEDS ORDERED: IBUPROFEN 600 MG TABLET (FP) PO ONE ×2 (08:56→09:07)
== END 2018-01-10 12:02 | disposition home or self-care (01) ==
LOC: JER 06:14
DX: M25.551 Pain in right hip (principal); I12.0 Hypertensive chronic kidney disease with stage 5 chronic kidney disease or end stage renal disease; E11.22 Type 2 diabetes mellitus with diabetic chronic kidney disease; N18.6 End stage renal disease; N17.8 Other acute kidney failure; Z99.2 Dependence on renal dialysis; F31.9 Bipolar disorder, unspecified
CPT/HCPCS: 73523-TC-FY; 73552-TC-RT-FY; 73700-TC-RT; 99282-25

== ENCOUNTER 2018-03-26 08:12 | Day surgery (SDC) | payer OTHER, MEDICARE ==
[2018-03-26 08:54] VITALS: BMI 30.4
[2018-03-26 09:28] VITALS: TEMP 98
[2018-03-26 12:40] VITALS: BP 161/85; PULSE 84
== END 2018-03-26 10:18 | disposition home or self-care (01) ==
LOC: JASU-ENDO 08:12
PROVIDERS: ATTEND Internal Medicine Gastroenterology
PROC: 0DJD8ZZ Inspection of Lower Intestinal Tract, Via Natural or Artificial Opening Endoscopic (ICD-10-PCS; principal; 2018-03-26 09:00)
DX: Z12.11 Encounter for screening for malignant neoplasm of colon (principal); K64.8 Other hemorrhoids

== ENCOUNTER 2018-06-29 06:08 | Emergency (ER) | payer OTHER, MEDICARE ==
[2018-06-29 06:17] VITALS: BP 111/71; PULSE 90; TEMP 98.6; BMI 30.3
--- NOTE | 2018-06-29 07:59 | PDOC ---
History of Present Illness - General Chief Complaint: Pain Stated Complaint: B/L FEET PAIN Time Seen by Provider: 06/29/18 06:34 History Source: Patient, Spouse - History of Present Illness Initial Comments: 06/29/18 07:54 52 yo male h/o schizophrenia, bipolar esrd dm htn ( Dialysis m/w/f) her with c/ o foot pain and swelling. pt mother provides history states he stepped on a peice of glass 6 days ago, was walking and accidently stepped on glass while bare foot. 2 days later pt had a fall. tripped landed on hand. r/o right wrist pain. denies head trauma. no f/c feet hurt , did not take anything for pain. pcp dr damaris lindsey/ tati fernandez meds lorazapam 1 mg bid lamictal 100 qhs depakote 100mg bid lipitor 20 po qhs gabapentin sensipar 1 tab qhs renvla 3 tabs with meals lasix 80 mg q am welbutrin seroquel 400 mg 06/29/18 10:02 Past History - Past Medical History Allergies/Adverse Reactions: Allergies Allergy/AdvReac Type Severity Reaction Status Date / Time No Known Drug Allergies Allergy Verified 01/10/18 06:20 Home Medications: Ambulatory Orders Bupropion HCl [Wellbutrin -] 150 mg PO DAILY 03/30/16 Divalproex [Depakote -] 1,000 mg PO BID 03/30/16 LORazepam [Ativan] 1 mg PO BID 03/30/16 Lamotrigine [Lamictal] 100 mg PO HS 03/30/16 Quetiapine Fumarate [Seroquel] 400 mg PO HS 03/30/16 Sevelamer Carbonate [Renvela -] 1,600 mg PO TIDCM #90 tab 04/04/16 Furosemide [Lasix -] 80 mg PO BID 12/28/17 Clindamycin [Cleocin -] 300 mg PO TID 7 Days #21 capsule 06/29/18 Anemia: No Asthma: No Cancer: No Cardiac Disorders: No CVA: No COPD: No CHF: No Dementia: No Diabetes: Yes (diet-controlled, borderline) Dialysis: Yes (graft to right arm) GI Disorders: No Disorders: Yes (ESRD-DIALYSIS) HTN: Yes ("FLUCTUATES" NO MEDS AT THIS TIME) Hypercholesterolemia: Yes Liver Disease: No Psychiatric Problems: Yes (bipolar) Seizures: No Thyroid Disease: No - Surgical History Abdominal Surgery: No Appendectomy: No Cardiac Surgery: No Cholecystectomy: No Lung Surgery: No Neurologic Surgery: No Orthopedic Surgery: No - Immunization History Td Vaccination: No - Suicide/Smoking/Psychosocial Hx Smoking Status: No Smoking History: Never smoked Years of Tobacco Use: 0 Have you smoked in the past 12 months: No Number of Cigarettes Smoked Daily: 0 If you are a former smoker, when did you quit?: 1999 Hx Alcohol Use: No Drug/Substance Use Hx: No Substance Use Type: None Hx Substance Use Treatment: No Review of Systems - Review of Systems Constitutional: No: Chills, Diaphoresis, Fever HEENTM: No: Eye Pain Respiratory: No: Cough, Orthopnea Cardiac (ROS): No: Chest Pain, Edema : No: Burning, Dysuria All Other Systems: Reviewed and Negative *Physical Exam - Vital Signs Last Vital Signs Temp Pulse Resp BP Pulse Ox 98.6 F 90 18 111/71 100 06/29/18 06:11 06/29/18 06:11 06/29/18 06:11 06/29/18 06:11 06/29/18 06:11 - Physical Exam Comments: 06/29/18 07:59 awake alert lungs clear bilaterally heart rrr no mrg abd soft nt nd ext wwp. right upper ext fistula cdi. right wrist eccymosis over base thumb. from .no snuff box tenderness. mild ttp. 2 + med/ ulnar pulses distally nv intact. left foot plantar surface base small toe with scabbed area. purulence, no palp foreign body. surrounding erythema swelling to left small toe and onto foot. 2 + dp pt pulses bilaterally. nuero alert oriented x 3. moves all four ext. 06/29/18 10:03 ED Treatment Course - LABORATORY CBC & Chemistry Diagram: 06/29/18 08:35 06/29/18 08:35 - RADIOLOGY Radiology Studies Ordered: Category Date Time Status FOOT-LEFT [RAD] Stat Radiology 06/29/18 07:41 Ordered Medical Decision Making - Medical Decision Making 06/29/18 08:02 52 yo m h/o schizophrenia, bipolar esrd nueropathy dm htn esrd here with foot injury , right wrist injury. signs cellulitis foot/ toe possible abscess / fb. plan xray foot. will soak. 06/29/18 08:44 pt with foreign body/ glass in foot. removed at bedside , foot soaked. base clean. continued to soak. will give iv clindamycin. labs pending. pending labs will consider admission for obs vs. dc with 24 - 48 hr fu. 06/29/18 09:19 pt with normal wbc, afebrile will dc with twice daily soaks, clindamycin tid, and close followup. dr damaris lindsey paged. told to return in 48 hr for reevaluation *DC/Admit/Observation/Transfer Diagnosis at time of Disposition: Puncture wound - Discharge Dispostion Disposition: HOME Condition at time of disposition: Stable - Prescriptions Prescriptions: Clindamycin [Cleocin -] 300 mg PO TID 7 Days #21 capsule - Referrals Referrals: Angelina Harris MD [Staff Physician] - Frank Chamberlain MD [Staff Physician] - - Patient Instructions Printed Discharge Instructions: DI for Puncture Wound Additional Instructions: you had a piece of glass removed from your foot today. you need to soak your foot twice daily in warm soapy water. you should follow up with podiatry, Dr Chamberlain, call to schedule see referral informaton. you should also follow up with DR Moses, call to schedule within 5 days. you should return to ED in 48 hrs for a repeat evaluation. return sooner for fever, chills worsening redness , thick yellow discharge or any concerns. you should apply bacitracin and dressing to foot twice daily. - Post Discharge Activity
[2018-06-29] MEDS ORDERED: CLINDAMYCIN PHOSPHATE 600 MG/4 ML VIAL ONE (08:43)
[2018-06-29] MEDS ORDERED: CLINDAMYCIN PHOSPHATE 300 MG/2 ML VIAL ONE (08:43)
[2018-06-29] MEDS ORDERED: CLINDAMYCIN 900 MG PREMIX IVPB 900 MG/50 ML BAG IVPB ONE (08:44)
[2018-06-29 08:52] LABS: HEMOGLOBIN 12.6 GM/dl (11.7-16.9); MEAN CELL VOLUME 98.2 fl (80-96)
[2018-06-29 08:54] LABS: BASO % 0.6 % (0-2.0); EOS % 1.5 % (0-4.5); HEMATOCRIT 37.5 % (35.4-49); LYMPH % 21.3 % (8-40); MCH 33.1 pg (25.7-33.7); MCHC 33.8 g/dl (32.0-35.9); MEAN PLT VOLUME 6.7 fl (7.5-11.1); MONO % 8.5 % (3.8-10.2); NEUT % 68.1 % (42.8-82.8); PLATELET COUNT 136 K/MM3 (134-434); RBC 3.82 M/mm3 (4.00-5.60); RDW 14.2 % (11.9-15.9); WHITE BLOOD COUNT 6.5 K/mm3 (4.0-10.8)
[2018-06-29 09:00] LABS: ALBUMIN 3.3 g/dl (3.4-5.0); BILIRUBIN,TOTAL 0.4 mg/dl (0.2-1); CALCIUM 8.2 mg/dl (8.5-10); CREATININE 5.2 mg/dl (0.55-1.3); TOT PROT 6.5 g/dl (6.4-8.2)
== END 2018-06-29 09:51 | disposition home or self-care (01) ==
LOC: FER 06:08
DX: S91.145A Puncture wound with foreign body of left lesser toe(s) without damage to nail, initial encounter (principal); F31.9 Bipolar disorder, unspecified; E11.22 Type 2 diabetes mellitus with diabetic chronic kidney disease; I12.0 Hypertensive chronic kidney disease with stage 5 chronic kidney disease or end stage renal disease; N18.6 End stage renal disease; F20.9 Schizophrenia, unspecified; X58.XXXA Exposure to other specified factors, initial encounter; Y93.89 Activity, other specified; Y92.89 Other specified places as the place of occurrence of the external cause; Z99.2 Dependence on renal dialysis
CPT/HCPCS: 36415; 71046-TC-FY; 73110-TC-RT-FY; 73630-TC-LT; 80053; 85025; 85651; 86140; 87040; 99282-25

== ENCOUNTER 2018-07-01 16:09 | Emergency (ER) | payer OTHER, MEDICARE | END 2018-07-01 16:40 | disposition home or self-care (01) | LOC: FER 16:09 ==

== ENCOUNTER 2018-11-15 08:47 | Emergency (ER) | payer OTHER, MEDICARE ==
--- NOTE | 2018-11-15 08:50 | PDOC ---
History of Present Illness - General Chief Complaint: Injury Stated Complaint: FALL THIS AM INJURED RIGHT ARM AND KNEES Time Seen by Provider: 11/15/18 08:49 - History of Present Illness Initial Comments: 11/15/18 08:50 52 yo male h/o schizophrenia, bipolar esrd dm htn ( Dialysis m/w/f) who presents with pain in the R elbow after a mechanical fall while stepping down his front stairs while wearing new shoes. The patient denies head trauma or loss of consciousness, but he was able to crawl to the side of the building and called his who helped him up. He was able to walk into the ED at baseline per . The patient denies lightheadedness, chest pain or nausea just prior to fall. ROS GENERAL/CONSTITUTIONAL: No fever or chills. No weakness. HEAD, EYES, EARS, NOSE AND THROAT: No change in vision. No ear pain or discharge. No sore throat. CARDIOVASCULAR: No chest pain or shortness of breath RESPIRATORY: No cough, wheezing, or hemoptysis. GASTROINTESTINAL: No nausea, vomiting, diarrhea or constipation. GENITOURINARY: No dysuria, frequency, or change in urination. MUSCULOSKELETAL: + joint or muscle swelling or pain. No neck or back pain. SKIN: No rash NEUROLOGIC: No headache, vertigo, loss of consciousness, or change in strength/ sensation. PE GENERAL: Awake, alert, and fully oriented, in no acute distress HEAD: No signs of trauma, normocephalic, atraumatic EYES: PERRLA, EOMI, sclera anicteric, conjunctiva clear ENT: oropharynx clear without exudates. Moist mucosa NECK: Normal ROM, supple LUNGS: No distress, speaks full sentences, clear to auscultation bilaterally HEART: Regular rate and rhythm, normal S1 and S2, no murmurs, rubs or gallops, peripheral pulses normal and equal bilaterally. EXTREMITIES : R elbow hematoma, FROM of wrist, elbow, shoulder, NV intact NEUROLOGICAL: Cranial nerves II through XII grossly intact. Normal speech, gait slow (baseline)no focal sensorimotor deficits SKIN: Warm, Dry, normal turgor, no rashes or lesions noted MDM DDX including but not limited to: disolcation vs fx vs sprain W/U: - XR TX: - pain control ED Course: XR as viewed by attending and this global technical writer, no acute pathology on reassessement patient with improvement of pain symptoms will d/c with pcp f/u and otc pain control strict return precautions Karin Jefferson, PGY2 Emergency Medicine 11/15/18 09:58 Past History - Past Medical History Allergies/Adverse Reactions: Allergies Allergy/AdvReac Type Severity Reaction Status Date / Time No Known Drug Allergies Allergy Verified 11/15/18 08:49 Home Medications: Ambulatory Orders Bupropion HCl [Wellbutrin -] 150 mg PO DAILY 03/30/16 Divalproex [Depakote -] 1,000 mg PO BID 03/30/16 LORazepam [Ativan] 1 mg PO BID 03/30/16 Lamotrigine [Lamictal] 100 mg PO HS 03/30/16 Quetiapine Fumarate [Seroquel -] 150 mg PO HS 03/30/16 Furosemide [Lasix -] 80 mg PO DAILY 12/28/17 Atorvastatin Ca [Lipitor] 20 mg PO HS 11/15/18 Gabapentin 100 mg PO DAILY 11/15/18 Isoniazid 300 mg PO DAILY 11/15/18 Sevelamer Carbonate [Renvela -] 2,400 mg PO TIDCM 11/15/18 Anemia: No Asthma: No Cancer: No Cardiac Disorders: No CVA: No COPD: No CHF: No Dementia: No Diabetes: Yes (diet-controlled, borderline) Dialysis: Yes (graft to right arm) GI Disorders: No Disorders: Yes (ESRD-DIALYSIS) HTN: Yes ("FLUCTUATES" NO MEDS AT THIS TIME) Hypercholesterolemia: Yes Liver Disease: No Psychiatric Problems: Yes (bipolar) Seizures: No Thyroid Disease: No - Surgical History Abdominal Surgery: No Appendectomy: No Cardiac Surgery: No Cholecystectomy: No Lung Surgery: No Neurologic Surgery: No Orthopedic Surgery: No - Immunization History Td Vaccination: No - Psycho Social/Smoking Cessation Hx Smoking Status: No Smoking History: Never smoked Years of Tobacco Use: 0 Have you smoked in the past 12 months: No Number of Cigarettes Smoked Daily: 0 If you are a former smoker, when did you quit?: 1999 Hx Alcohol Use: No Drug/Substance Use Hx: No Substance Use Type: None Hx Substance Use Treatment: No Discharge - Discharge Information Problems reviewed: Yes Clinical Impression/Diagnosis: Traumatic hematoma of right elbow Condition: Stable Disposition: HOME - Admission No - Follow up/Referral - Patient Discharge Instructions Patient Printed Discharge Instructions: DI for Elbow Sprain Additional Instructions: You were seen in the ED for complaints of R elbow pain after a fall In the ED you were evaluated with imaging Your results were unremarkable There does not appear to be an acute need for immediate hospitalization. You are advised to follow up with your Primary Care Physician within 1 week. Take Tylenol for pain control, rest, ice and elevate your elbow Return to the ED immediately if you experience worsening pain, inability to move the elbow, numbness or tingling or fevers. - Post Discharge Activity
[2018-11-15 08:58] VITALS: BP 125/81; PULSE 98; TEMP 98.1; BMI 28.2
--- NOTE | 2018-11-15 09:01 | PDOC ---
Attending Attestation - Resident Resident Name: CosmeemmylenchoKarin - HPI HPI: 11/15/18 09:11 Pt presents to the ED complaining of R elbow, hand and wrist pain after mechanical trip and fall. Denies hitting his head or LOC. Patient has AV fistula for HD in affected arm 11/15/18 09:14 - Physicial Exam PE: 11/15/18 09:14 Agree with resident exam. PAtient is sleeping but easily arousable and in no acute distress. RUE: + large ecchymosis at the elbow. No deformity. Full ROM. + small ecchymosis over the MCP joints of the R hand. minimal tenderness. Full ROM at the wrist and MCP joint. 11/15/18 09:14 - Medical Decision Making 11/15/18 09:17 Pt presents to the ED complaining of pain and swelling to the R elbow after fall. Will check xrays to rule out fx.
[2018-11-15] MEDS ORDERED: ACETAMINOPHEN 325 MG TABLET (FP) PO ONE (09:08)
[2018-11-15] MEDS ORDERED: ACETAMINOPHEN 325 MG TABLET (FP) ONE (09:12)
== END 2018-11-15 10:15 | disposition home or self-care (01) ==
LOC: FER 08:47
DX: S53.401A Unspecified sprain of right elbow, initial encounter (principal); W10.8XXA Fall (on) (from) other stairs and steps, initial encounter; Y93.89 Activity, other specified; Y92.008 Other place in unspecified non-institutional (private) residence as the place of occurrence of the external cause; E11.22 Type 2 diabetes mellitus with diabetic chronic kidney disease; I12.0 Hypertensive chronic kidney disease with stage 5 chronic kidney disease or end stage renal disease; N18.6 End stage renal disease; Z99.2 Dependence on renal dialysis; F20.9 Schizophrenia, unspecified; F31.9 Bipolar disorder, unspecified
CPT/HCPCS: 73030-TC-RT-FY; 73070-TC-RT-FY; 73110-TC-RT-FY; 99282-25

== ENCOUNTER 2018-11-27 16:11 | Emergency (ER) | payer OTHER, MEDICARE ==
[2018-11-27 16:17] VITALS: BP 122/76; PULSE 96; TEMP 98.1; BMI 27.7
--- NOTE | 2018-11-27 16:22 | PDOC ---
Rapid Medical Evaluation Chief Complaint: Injury Time Seen by Provider: 11/27/18 16:14 Medical Evaluation: Allergies Allergy/AdvReac Type Severity Reaction Status Date / Time No Known Drug Allergies Allergy Verified 11/15/18 08:49 11/27/18 16:19 Pt c/o: left knee buckled today and now with pain, pt also states fell 2 wereks ago and had xrays done of rue but was -. still with swelling, pain to rt 4th/ 5th knuckles Pt on brief exam: noted ecchymosis and edema to rt hand, no edema or deformity of left knee Pt ordered for: knee and hand xray Pt to proceed to the ED Discharge Disposition - Diagnosis Injury - Referrals - Patient Instructions - Post Discharge Activity
--- NOTE | 2018-11-27 16:38 | PDOC ---
History of Present Illness - General Chief Complaint: Injury Stated Complaint: LT KNEE/RT ARM/RT HAND PAIN Time Seen by Provider: 11/27/18 16:14 History Source: Patient Exam Limitations: No Limitations Past History - Past Medical History Allergies/Adverse Reactions: Allergies Allergy/AdvReac Type Severity Reaction Status Date / Time No Known Drug Allergies Allergy Verified 11/27/18 16:17 Home Medications: Ambulatory Orders Bupropion HCl [Wellbutrin -] 150 mg PO DAILY 03/30/16 Divalproex [Depakote -] 1,000 mg PO BID 03/30/16 LORazepam [Ativan] 1 mg PO BID 03/30/16 Lamotrigine [Lamictal] 100 mg PO HS 03/30/16 Quetiapine Fumarate [Seroquel -] 150 mg PO HS 03/30/16 Furosemide [Lasix -] 80 mg PO DAILY 12/28/17 Atorvastatin Ca [Lipitor] 20 mg PO HS 11/15/18 Gabapentin 100 mg PO DAILY 11/15/18 Isoniazid 300 mg PO DAILY 11/15/18 Sevelamer Carbonate [Renvela -] 2,400 mg PO TIDCM 11/15/18 Anemia: No Asthma: No Cancer: No Cardiac Disorders: No CVA: No COPD: No CHF: No Dementia: No Diabetes: Yes (diet-controlled, borderline) Dialysis: Yes (graft to right arm) GI Disorders: No Disorders: Yes (ESRD-DIALYSIS Rt arm FISTULA) HTN: Yes ("FLUCTUATES" NO MEDS AT THIS TIME) Hypercholesterolemia: Yes Liver Disease: No Psychiatric Problems: Yes (bipolar) Seizures: No Thyroid Disease: No - Surgical History Abdominal Surgery: No Appendectomy: No Cardiac Surgery: No Cholecystectomy: No Lung Surgery: No Neurologic Surgery: No Orthopedic Surgery: No - Immunization History Td Vaccination: No - Psycho Social/Smoking Cessation Hx Smoking Status: No Smoking History: Never smoked Years of Tobacco Use: 0 Have you smoked in the past 12 months: No Number of Cigarettes Smoked Daily: 0 If you are a former smoker, when did you quit?: 1999 Information on smoking cessation initiated: No Hx Alcohol Use: No Drug/Substance Use Hx: No Substance Use Type: None Hx Substance Use Treatment: No *Physical Exam - Vital Signs Last Vital Signs Temp Pulse Resp BP Pulse Ox 98.1 F 96 H 18 122/76 99 11/27/18 16:15 11/27/18 16:15 11/27/18 16:15 11/27/18 16:15 11/27/18 16:15 - Physical Exam General Appearance: No: Apparent Distress Extremity: positive: Other (+ecchymosis along RUE (above R elbow and along dorsal aspect of R hand), FROM of RUE; no effusion of L knee, mild swelling L knee, no TTP along joint, +pain with extension of L knee). negative: Swelling, Calf Tenderness, Erythema Neurologic: positive: Alert, Normal Mood/Affect ED Treatment Course - RADIOLOGY Radiology Studies Ordered: Category Date Time Status DUPLEX VASCUL US-1 ARM [US] Stat Ultrasound 11/27/18 16:33 Ordered Medical Decision Making - Medical Decision Making 52 y/o M with hx of schizophrenia, bipolar, ESRD on HD M/W/F (last completed session today) presents for US of RUE. Patient had mechanical fall 2 weeks, injuring RUE, with negative xrays at the time. Though states the bruising has decreased significantly since the injury, was concerned about how it is still swollen and d/w his vascular physician, Dr. Rice, who recommended US of RUE. Also mentions L knee pain; mentions has bad arthritis and today he exacerbated his L knee by putting extra weight on it when getting up from the toilet. Denies fever, sob, cp, abd pain, n/v, other complaints Plan: L knee xray, RUE US to r/o clot 11/27/18 16:37 L knee xray negative RUE US negative as well stable for dc 11/27/18 18:05 Discharge - Discharge Information Problems reviewed: Yes Clinical Impression/Diagnosis: Injury of right upper arm Qualifiers: Encounter type: subsequent encounter Qualified Code(s): S49.91XD - Unspecified injury of right shoulder and upper arm, subsequent encounter Left knee pain Qualifiers: Chronicity: chronic Qualified Code(s): M25.562 - Pain in left knee; G89.29 - Other chronic pain Condition: Stable Disposition: HOME - Admission No - Additional Discharge Information Prescription Drug Monitoring Program (I-STOP) results: I-STOP not reviewed - Follow up/Referral Referrals: Burt Funk MD [Primary Care Provider] - Darryl Reed MD [Staff Physician] - 2 Days - Patient Discharge Instructions Patient Printed Discharge Instructions: DI for Osteoarthritis Additional Instructions: Thank you for choosing [facility]. It was a pleasure taking care of you. Your ultrasound showed no evidence of clot Please follow-up with orthopedics for continue evaluation of your arthritis Return to the Emergency Department if your symptoms worsen or persist or have other concerning symptoms. - Post Discharge Activity
== END 2018-11-27 18:09 | disposition home or self-care (01) ==
LOC: JERFT 16:11
DX: F31.9 Bipolar disorder, unspecified (principal); F20.9 Schizophrenia, unspecified; Z87.891 Personal history of nicotine dependence; E11.22 Type 2 diabetes mellitus with diabetic chronic kidney disease; I12.0 Hypertensive chronic kidney disease with stage 5 chronic kidney disease or end stage renal disease; N18.6 End stage renal disease; Z99.2 Dependence on renal dialysis
CPT/HCPCS: 73562-TC-LT-FY; 93971; 99281-25

== ENCOUNTER 2019-09-04 17:59 | Inpatient (IN) | payer OTHER, MEDICARE ==
--- NOTE | 2019-09-04 18:18 | PDOC ---
History of Present Illness - General Chief Complaint: Syncope/Near Syncope Stated Complaint: HIT MY HEAD/PASSED OUT History Source: Patient Exam Limitations: No Limitations Past History - Medical History Allergies/Adverse Reactions: Allergies Allergy/AdvReac Type Severity Reaction Status Date / Time No Known Drug Allergies Allergy Verified 09/04/19 18:00 Home Medications: Ambulatory Orders Bupropion HCl [Wellbutrin -] 150 mg PO DAILY 03/30/16 Divalproex [Depakote -] 1,000 mg PO BID 03/30/16 LORazepam [Ativan] 1 mg PO BID 03/30/16 Lamotrigine [Lamictal] 100 mg PO HS 03/30/16 Quetiapine Fumarate [Seroquel -] 150 mg PO HS 03/30/16 Furosemide [Lasix -] 80 mg PO DAILY 12/28/17 Atorvastatin Ca [Lipitor] 20 mg PO HS 11/15/18 Gabapentin 100 mg PO DAILY 11/15/18 Isoniazid 300 mg PO DAILY 11/15/18 Sevelamer Carbonate [Renvela -] 2,400 mg PO TIDCM 11/15/18 Anemia: No Asthma: No Cancer: No Cardiac Disorders: No CVA: No COPD: No CHF: No Dementia: No Diabetes: Yes (diet-controlled, borderline) Dialysis: Yes (graft to right arm) GI Disorders: No Disorders: Yes (ESRD-DIALYSIS Rt arm FISTULA) HTN: Yes ("FLUCTUATES" NO MEDS AT THIS TIME) Hypercholesterolemia: Yes Liver Disease: No Psychiatric Problems: Yes Seizures: No Thyroid Disease: No - Surgical History Abdominal Surgery: No Appendectomy: No Cardiac Surgery: No Cholecystectomy: No Lung Surgery: No Neurologic Surgery: No Orthopedic Surgery: No - Immunization History Td Vaccination: No - Psycho-Social/Smoking History Smoking Status: No Smoking History: Never smoked Years of Tobacco Use: 0 Have you smoked in the past 12 months: No Number of Cigarettes Smoked Daily: 0 If you are a former smoker, when did you quit?: 1999 Information on smoking cessation initiated: No - Substance Abuse Hx (Audit-C & DAST Scrn) How often the patient has a drink containing alcohol: Never Score: In Men: 4 or > Positive; In Women: 3 or > Positive: 0 Screen Result (Pos requires Nsg. Audit-10AR): Negative In the last yr the pt used illegal drug/Rx for NonMed reason: No Score: Yes response is considered Positive: 0 Screen Result (Positive result requires Nsg. DAST-10): Negative Cardiac Specific PMH - Complaint Specific PMHX Pacemaker: No *Physical Exam - Vital Signs Last Vital Signs Temp Pulse Resp BP Pulse Ox 98.8 F 57 L 18 116/46 L 98 09/04/19 18:00 09/04/19 18:00 09/04/19 18:00 09/04/19 18:00 09/04/19 18:00 Discharge - Discharge Information Condition: Stable - Follow up/Referral - Patient Discharge Instructions - Post Discharge Activity
[2019-09-04] MEDS ORDERED: DIPHTH,PERTUSS(ACELL),TET 0.5 ML DISP.SYRIN IM ONE (18:45)
[2019-09-04 19:01] LABS: BASO % 0.9 % (0-2.0); EOS % 1.1 % (0-4.5); HEMATOCRIT 36.5 % (35.4-49); HEMOGLOBIN 12.4 GM/dl (11.7-16.9); LYMPH % 17.6 % (8-40); MCH 32.6 pg (25.7-33.7); MCHC 33.9 g/dl (32.0-35.9); MEAN CELL VOLUME 96.1 fl (80-96); MEAN PLT VOLUME 6.7 fl (7.5-11.1); MONO % 11.1 % (3.8-10.2); NEUT % 69.3 % (42.8-82.8); PLATELET COUNT 140 K/MM3 (134-434); RDW 14.2 % (11.9-15.9); WHITE BLOOD COUNT 9.1 K/mm3 (4.0-10.8)
[2019-09-04 19:09] LABS: ALBUMIN 3.8 g/dl (3.4-5.0); BILIRUBIN,TOTAL 0.8 mg/dl (0.2-1); CALCIUM 7.9 mg/dl (8.5-10); MAGNESIUM 3.1 mg/dL (1.8-2.4); PHOSPHOROUS 8.3 mg/dl (2.5-4.9); POTASSIUM 5.5 mmol/L (3.5-5.1); TOT PROT 6.7 g/dl (6.4-8.2)
[2019-09-04 19:11] LABS: ACTIVATED PTT 19.8 SECONDS (25.2-36.5)
[2019-09-04 19:12] LABS: CREATININE 7.7 mg/dl (0.55-1.3)
[2019-09-04 19:15] LABS: INR 1.1 (0.82-1.09); PROTHROMBIN TIME (PATIENT) 12.3 SEC (10.2-13.0)
--- NOTE | 2019-09-04 20:16 | PDOC ---
Documentation entered by Maggie Andrea SCRIBE, acting as scribe for Amrita Burch MD. Amrita Burch MD: This documentation has been prepared by the Zully medina Xhesika, SCRIBE, under my direction and personally reviewed by me in its entirety. I confirm that the documentation accurately reflects all work, treatment, procedures, and medical decision making performed by me. Attending Attestation - Resident Resident Name: Sarah Mcfadden - ED Attending Attestation I have performed the following: I have examined & evaluated the patient, The case was reviewed & discussed with the resident, I agree w/resident's findings & plan, Exceptions are as noted - HPI HPI: 09/04/19 19:33 The patient is a 53 y/o M with a PMH of schizophrenia, bipolar,DM, peripheral nueropathy, on ESRD HD M/W/F who presents to the ED s/p syncope. Pt had an episode of lightheadedness and dizziness when he passed out and hit his head. states he was outside the grocery store and was in hot sun, felt lightheaded, next thing he knew he was on the ground. denies and palpiations or chest pain prior. does report feeling lighteaded also this am. had similar episode one week ago while walking in a burger t[place] where he nearly fell and passed out. Pt is now reporting L ankle pain and an laceration to posterior head. Pt states he was able to get up after the incident. Per family at beside, the patient has been having more frequent episodes of dizziness where he passes out afterwards. no other complaints. no abd pain. no n/v did eat today. last dialysis was yesterday. Allergies: NKDA PCP: Dr. Lenny Menard 09/04/19 20:07 - Physicial Exam PE: 09/04/19 20:09 awake alert posterior left occipital ne with laceration 1 cm. no palp skull defect. no midline spinal tenderness. skin otherwise warm and dry. lungs clear bilat heart RRR no mrg abd soft nt nd ext wwp. left ankle ttp laterally. eccymosis lateral small toe left foot ( old ) 2 + dp pt pulses right foot. 1+ dp pulse left foot. pelvis stable, knee from bilat. strength 5/5 all four ext. alert oriented x 3. speech clear. - Medical Decision Making 09/04/19 20:11 53 yo male h/o bipolar schizophrenia, dm esrd on dialysis , here s/p syncope. differential dysrthymia, head injury ich, electrolyte abnormality, hypoglycemia, dehydration, mi, plan labs ekg trop cxr xray left ankle r/o bony injury. ct head. pt with episodes of bradycardia on monitor while on tele in ED. will admit to telemetry for further cardiac workup. cxr negative for acute pathology. 09/04/19 20:[address] head unremarkable. potassium mildly elevated at 5.5 due to dysrthymia on monitoring, will treat with insulin d 50 and calclium pt will require admission. tomorrow is his dialysis day. Heart Score/ECG Review #1 General ECG Interpretation: Sinus Rhythm, No acute ischemic changes Compared to previous ECG there are: Other (sinus bradycardia. notched p waves, RBBB. `) Discharge - Discharge Information Problems reviewed: Yes Clinical Impression/Diagnosis: Syncope, Dysthymia, ESRD (end stage renal disease) Condition: Stable - Admission Yes - Follow up/Referral Referrals: Angelina Harris MD [Primary Care Provider] - - Patient Discharge Instructions - Post Discharge Activity
[2019-09-04] MEDS ORDERED: INSULIN REGULAR HUMAN 100 UNITS/ML *VIAL IVPUSH ONE (20:17)
[2019-09-04] MEDS ORDERED: DEXTROSE 50%-WATER - 25 GM/50 ML VIAL IVPUSH ONE (20:18)
[2019-09-04] MEDS ORDERED: CALCIUM GLUCONATE 10% - 1,000 MG/10 ML VIAL IVPUSH ONE (20:18)
[2019-09-04] MEDS ORDERED: DEXTROSE 50%-WATER 25 GM/50 ML DISP.SYRIN ONE (20:31)
[2019-09-04] MEDS ORDERED: CALCIUM GLUCONATE 10% - 1,000 MG/10 ML VIAL ONE (20:31)
[2019-09-04] MEDS ORDERED: INSULIN REGULAR HUMAN 100 UNITS/ML *VIAL ONE (20:33)
--- NOTE | 2019-09-04 23:50 | PN ---
Teaching Attending Note Name of Resident: Cyrus Osorio ATTENDING PHYSICIAN STATEMENT I saw and evaluated the patient. I reviewed the resident's note and discussed the case with the resident. I agree with the resident's findings and plan as documented. SUBJECTIVE: Patient is a 53 year old man with a PMH of Schizophrenia, Bipolar disorder, NI DDM, Peripheral neuropathy and ESRD (on Hemodialysis M/W/F -dialyzed yesterday) who presents to the ER after a syncopal episode. He went to [place] [facility] and was transferred to [facility] telemetry unit after initial evaluation. Patient had an episode of lightheadedness and dizziness when he passed out and hit his head. States he was outside the grocery store and was in the hot sun, felt lightheaded, next thing he knew he was on the ground. Had similar episode one week ago while walking in a [employer] where he nearly fell and passed out. Now has left ankle pain and an laceration to posterior head. States he was able to get up after the incident. Per family at beside, the patient has been having more frequent episodes of dizziness where he passes out afterwards. Patient denies chest pain, shortness of breath, abdominal pain, headache, palpitations, dizziness, fever, chills, nausea, vomiting, diarrhea, constipation, dysuria, frequency, urgency, melena, hematochezia or hematuria. Denies alcohol, tobacco or illicit drug use. No sick contacts or recent travels. Family history is unremarkable. OBJECTIVE: Alert Vital Signs Period Temp Pulse Resp BP Sys/Miguel Pulse Ox Last 24 Hr 98.8 F 52-72 14-18 116-144/46-66 98 HEENT: No Jaundice, eye redness or discharge, PERRLA, EOMI. Left occipital scalp laceration; normocephalic. External ears are normal and hearing is grossly intact. No nasal discharge. Neck: Supple, nontender. No palpable adenopathy or thyromegaly. No JVD Chest: Good effort. Clear to auscultation and percussion. Heart: Regular. No S3, rub or murmur Abdomen: Not distended, soft, nontender and no HSM. No rebound or guarding. Normal bowel sounds. Ext: Peripheral pulses intact. No leg edema. Tender and swollen left ankle. Skin: Warm and dry. No petechiae, rash or ecchymosis. Neuro: Alert. Oriented x3. CN 2-12 grossly intact. Sensation grossly intact in all four extremities and DTR are symmetric. Psych: Appropriate mood and affect. Good insight. Home Medications Medication Instructions Recorded Bupropion HCl [Wellbutrin -] 150 mg PO DAILY 03/30/16 Divalproex [Depakote -] 1,000 mg PO BID 03/30/16 LORazepam [Ativan] 1 mg PO BID 03/30/16 Lamotrigine [Lamictal] 100 mg PO HS 03/30/16 Quetiapine Fumarate [Seroquel -] 300 mg PO HS 03/30/16 Furosemide [Lasix -] 80 mg PO DAILY 12/28/17 Atorvastatin Ca [Lipitor] 20 mg PO HS 11/15/18 Gabapentin 100 mg PO DAILY 11/15/18 Sevelamer Carbonate [Renvela -] 2,400 mg PO TIDCM 11/15/18 Abnormal Lab Results 09/04/19 09/04/19 09/04/19 18:27 18:27 18:27 RBC 3.80 L MCV 96.1 H MPV 6.7 L Monocytes % 11.1 H PTT (Actin FS) 19.8 L Sodium 134 L Potassium 5.5 H Chloride 97 L BUN 75.0 H Creatinine 7.7 H* Calcium 7.9 L Phosphorus 8.3 H Magnesium 3.1 H CK-MB (CK-2) 09/04/19 18:27 RBC MCV MPV Monocytes % PTT (Actin FS) Sodium Potassium Chloride BUN Creatinine Calcium Phosphorus Magnesium CK-MB (CK-2) 4.0 H Current Medications Generic Name Dose Route Start Last Admin Trade Name Freq PRN Reason Stop Dose Admin Heparin Sodium (Porcine) 5,000 unit 09/05/19 06:00 09/05/19 05:42 Heparin - SQ 5,000 unit TID [facility] Administration Insulin Aspart 1 vial 09/05/19 07:00 Novolog Vial Sliding Scale - SQ ACHS [facility] Protocol ASSESSMENT AND PLAN: 1. Syncope - Cause unclear. Will get his updated medication list from his Pharmacy since medication side effect is a possibility. Head CT scan shows left parietal scalp contusion but no acute intracranial abnormalty. CXR shows cardiomegaly but no evidence of acute lung disease. Foot/ankle xray didnot show a fracture. EKG shows NSR at 87/minute and QTc 529, LAE, RBBB with no significant ST-T wave changes. Initial troponin is negative. Will avoid drugs that may prolong QTc. Apply warm compress to left ankle and use Tylenol for pain control - get CT scan if pain persists. Will admit to telemetry, do neurochecks, implement seizure/fall/aspiration precautions, repeat troponin, get ECHO, fasting lipids, carotid doppler, brain MRI and consult Cardiology and Neurology. Got DPT vaccine for scalp laceration and acute treatment for hyperkalemia at [place] [facility] - repeat BMP pending. Viral testing for COVID-19 ordered and patient placed on airborne, droplet and contact isolation. Will continue comprehensive care for all of patients comorbid conditions. 2. ESRD - Consult Nephrology for ESRD care. Treat with phosphate binders, check PTH and address hypocalcemia. 3. DM For now, we will hold the home diabetes drugs and implement sliding scale insulin regimen. Provide comprehensive diabetes care with patient teaching and counseling about the importance of adherence to prescribed diabetes regimen, euglycemia, eye care and foot care. 4. Hypertension Will restart suitable outpatient antihypertensive drugs when clinically appropriate. Subsequently, will revise regimen to ensure [id number] excellent BP control. Patient counseled on the injurious effects of uncontrolled hypertension. Nonpharmacologic measures to control hypertension like weight loss, salt restriction and exercise stressed. Importance of adherence to treatment regimen and attainment of normotension emphasized. 5. DVT prophylaxis - Heparin 5000u sq tid. 6. Advance directives - Full code
[2019-09-05 01:45] VITALS: BMI 30.1
[2019-09-05 03:04] LABS: BLOOD UREA NITROGEN 81.5 mg/dL (7-18); POTASSIUM 4.7 mmol/L (3.5-5.1)
[2019-09-05 03:13] LABS: CREATININE 8.2 mg/dL (0.55-1.3)
[2019-09-05] MEDS: HEPARIN NA (PORCINE) 5,000 UNITS/ML 1ML VIAL SQ SCH ×3 (05:42→21:34)
--- NOTE | 2019-09-05 07:23 | HP ---
CHIEF COMPLAINT: passing out and falling PCP: Dr. Lenny Menard HISTORY OF PRESENT ILLNESS: Pt is a 53 yo M with PMH of ESRD (on HD M/W/F - last dialyzed on Sunday), NIDDM, Schizophrenia, Bipolar Disorder, Peripheral Neuropathy who presented to the ED after a syncopal episode. Yesterday, pt was getting groceries with his when he notes developing dizziness and passing out. His syncopal episode was associated with trauma to the back of the head that resulted in a laceration and spraining his ankle. Endorses that a precipitating factor may have been the hot weather that day. He reports a similar episode one week ago while indoors at a restaurant. Pt denies any confusion before or after the fall, upper/lower extremity weakness, palpitations increased fatigue, CP, SOB, nausea, vomiting, fevers, chills, abdominal pain, or vision changes. Per pt's family, pt seems to be having an increased frequency of dizziness episodes and near syncopal episodes. After being evaluated at , pt was transferred to the [facility] telemetry unit. ER/DF course was notable for: (1)Episodes of bradycardia; intial EKG concerning for Second Degree Heart Block - Mobitz Type 2. This resolved with subsequent EKGs. (2)CT head neg for intracranial pathology; left parietal scalp contusion. CXR negative for lung pathology; cardiomegaly. Foot Xray showing no fracture (3) K found to be 5. Treated with calcium gluconate/d50/insulin (4) Received DPT vaccine Recent Travel:none Sick Contacts: none PAST MEDICAL HISTORY: as per HPI PAST SURGICAL HISTORY: none Social History: Lives with and son. Smoking: Distant smoking hx. Quit several years back; pt refused to specify. Alcohol: Denies Drugs: Pt reports excessive marijuana use in the past but reports that this was "a long time ago." Allergies No Known Drug Allergies Allergy (Verified 09/04/19 18:00) HOME MEDICATIONS: Home Medications Medication Instructions Recorded Bupropion HCl [Wellbutrin -] 150 mg PO DAILY 03/30/16 Divalproex [Depakote -] 1,000 mg PO BID 03/30/16 LORazepam [Ativan] 1 mg PO BID 03/30/16 Lamotrigine [Lamictal] 100 mg PO HS 03/30/16 Quetiapine Fumarate [Seroquel -] 300 mg PO HS 03/30/16 Furosemide [Lasix -] 80 mg PO DAILY 12/28/17 Atorvastatin Ca [Lipitor] 20 mg PO HS 11/15/18 Gabapentin 100 mg PO DAILY 11/15/18 Sevelamer Carbonate [Renvela -] 2,400 mg PO TIDCM 11/15/18 REVIEW OF SYSTEMS As per HPI. PHYSICAL EXAMINATION Vital Signs - 24 hr 09/04/19 09/04/19 09/04/19 18:00 20:00 21:00 Temperature 98.8 F Pulse Rate 57 L Pulse Rate [ 72 52 L Apical] Respiratory 18 14 14 Rate Blood Pressure 116/46 L Blood Pressure 130/50 L 144/66 [Arm] O2 Sat by Pulse 98 Oximetry (%) 09/04/19 09/05/19 09/05/19 23:00 01:00 01:24 Temperature 97.7 F 97.7 F Pulse Rate 94 H 94 H Pulse Rate [ Apical] Respiratory 22 H 22 H 14 Rate Blood Pressure 136/100 136/100 Blood Pressure [Arm] O2 Sat by Pulse 98 98 Oximetry (%) 09/05/19 05:00 Temperature 97.4 F L Pulse Rate 81 Pulse Rate [ Apical] Respiratory 14 Rate Blood Pressure 135/70 Blood Pressure [Arm] O2 Sat by Pulse 98 Oximetry (%) GENERAL: Awake, alert, and fully oriented, in no acute distress. Resting comfortably. HEAD: Pt with laceration on posterior head - no active bleeding. EYES: Pupils equal, round and reactive to light, extraocular movements intact, sclera white, conjunctiva clear. EARS, NOSE, THROAT: Oropharynx clear without exudates. Moist mucous membranes. NECK: Supple without lymphadenopathy, or masses. LUNGS: Breath sounds equal, clear to auscultation bilaterally. No wheezes, and no crackles. No accessory muscle use. HEART: Regular rate and rhythm, normal S1 and S2 without murmur, rub or gallop. ABDOMEN: Soft, nontender, not distended, normoactive bowel sounds MUSCULOSKELETAL: Moving all extremities spontaneously and equally. UPPER EXTREMITIES: 2+ pulses, warm, well-perfused. No peripheral edema. HD Fistula on RUE. LOWER EXTREMITIES: 2+ pulses, warm, well-perfused. Mild swelling around L ankle. NEUROLOGICAL: Cranial nerves II-XII intact. Strength 5/5 through. Sensation intact b/l except decreased sensation at the soles of his feet to light tough. Normal speech. PSYCHIATRIC: Cooperative. Good eye contact. Appropriate mood and affect. SKIN: Warm, dry, no rashes. Laboratory Results - last 24 hr 09/04/19 09/04/19 09/04/19 18:26 18:27 18:27 WBC 9.1 RBC 3.80 L Hgb 12.4 Hct 36.5 MCV 96.1 H MCH 32.6 MCHC 33.9 RDW 14.2 Plt Count 140 MPV 6.7 L Absolute Neuts (auto) 6.3 Neutrophils % 69.3 Lymphocytes % 17.6 Monocytes % 11.1 H Eosinophils % 1.1 Basophils % 0.9 PT with INR 12.3 INR 1.10 PTT (Actin FS) 19.8 L Sodium Potassium Chloride Carbon Dioxide Anion Gap BUN Creatinine Est GFR (CKD-EPI)AfAm Est GFR (CKD-EPI)NonAf POC Glucometer 104 Random Glucose Calcium Phosphorus Magnesium Total Bilirubin AST ALT Alkaline Phosphatase Creatine Kinase Creatine Kinase Index CK-MB (CK-2) Troponin I Total Protein Albumin 09/04/19 09/04/19 09/04/19 18:27 18:27 18:27 WBC RBC Hgb Hct MCV MCH MCHC RDW Plt Count MPV Absolute Neuts (auto) Neutrophils % Lymphocytes % Monocytes % Eosinophils % Basophils % PT with INR INR PTT (Actin FS) Sodium 134 L Potassium 5.5 H Chloride 97 L Carbon Dioxide 21 Anion Gap 16 BUN 75.0 H Creatinine 7.7 H* Est GFR (CKD-EPI)AfAm 8.29 Est GFR (CKD-EPI)NonAf 7.15 POC Glucometer Random Glucose 100 Calcium 7.9 L Phosphorus 8.3 H Magnesium 3.1 H Total Bilirubin 0.8 AST 20 ALT 14 Alkaline Phosphatase 50 Creatine Kinase 161 Creatine Kinase Index 2.4 CK-MB (CK-2) 4.0 H Troponin I < 0.03 Total Protein 6.7 Albumin 3.8 09/05/19 09/05/19 01:00 06:54 WBC RBC Hgb Hct MCV MCH MCHC RDW Plt Count MPV Absolute Neuts (auto) Neutrophils % Lymphocytes % Monocytes % Eosinophils % Basophils % PT with INR INR PTT (Actin FS) Sodium 137 Potassium 4.7 Chloride 100 Carbon Dioxide 22 Anion Gap 14 BUN 81.5 H Creatinine 8.2 H* Est GFR (CKD-EPI)AfAm 7.68 Est GFR (CKD-EPI)NonAf 6.63 POC Glucometer 74 Random Glucose 137 H Calcium 8.0 L Phosphorus Magnesium Total Bilirubin AST ALT Alkaline Phosphatase Creatine Kinase Creatine Kinase Index CK-MB (CK-2) Troponin I Total Protein Albumin ASSESSMENT/PLAN: Pt is a 53 yo M with PMH of ESRD (on HD M/W/F - last dialyzed on Sunday), NIDDM, Schizophrenia, Bipolar Disorder, Peripheral Neuropathy admitted for evaluation and monitoring after a syncopal episode. # Syncope 2/2 unclear etiology Pt on several medications that me be contributing to syncope. Initial troponins negative - Reconcile active medications with pt pharmacy - Cardiology consulted as pt exhibited evidence of 2nd degree heart block (mobitz type 2) on EKG during this visit - Neurology consulted - Echo - Carotid Doppler - Brain MRI - F/u fasting lipids, troponin, CMP - Fall, seizure, and aspiration precautions - Warm compress for left ankle; Tylenol prn for pain #ESRD (HD M/W/F) - Nephrology consulted - pt should get HD today - f/u PTH; address hypoCa, can consider phosphate binders #NIDDM - hold home diabetes meds for now - ISS + BGM #DVT PPX - Heparin 5000 SQ tid #FEN -F - none -E - replete PRN; monitor lytes -N - renal/diabetic diet Dispo: Admit to telemetry Visit type - Emergency Visit Emergency Visit: Yes ED Registration Date: 09/04/19 Care time: The patient presented to the Emergency Department on the above date and was hospitalized for further evaluation of their emergent condition. - New Patient This patient is new to me today: Yes Date on this admission: 09/05/19 - Critical Care Critical Care patient: No ATTENDING PHYSICIAN STATEMENT I saw and evaluated the patient. I reviewed the resident's note and discussed the case with the resident. I agree with the resident's findings and plan as documented. SUBJECTIVE: OBJECTIVE: ASSESSMENT AND PLAN:
--- NOTE | 2019-09-05 07:35 | CON.CARD ---
Consult Consult Specialty:: cardiology Reason for Consultation:: syncope; bradycardia with ? AV block - History of Present Illness History of Present Illness: Mr. Mckeon is a 53 y/o M with a PMH of schizophrenia, bipolar, moderate- severely reduced LVEF (2017 ECHO), LBBB, DM, peripheral nueropathy, ESRD: HD M/W/F, who presents to the ED s/p syncope. Pt had an episode of lightheadedness and dizziness when he passed out and hit his head. states he was outside the grocery store and was in hot sun, felt lightheaded, next thing he knew he was on the ground. denies and palpiations or chest pain prior. does report feeling lighteaded also this am. had similar episode one week ago while walking in a [employer] [place] where he nearly fell and passed out. Pt is now reporting L ankle pain and an laceration to posterior head. Pt states he was able to get up after the incident. Per family at beside, the patient has been having more frequent episodes of dizziness where he passes out afterwards. no other complaints. no abd pain. no n/v did eat today. last dialysis was yesterday. Noted in [facility] to have periods of bradycardia with ? advanced AV block. - History Source History Provided By: Medical Record Limitations to Obtaining History: Other - Past Medical History Cardio/Vascular: Yes: HTN Pulmonary: Yes: Other (lung disorder with chest tube insetion after trauma) Renal/: Yes: Renal Inusuff Psych: Yes: Bipolar - Past Surgical History Past Surgical History: Yes: AV Fistula/Graft (upper right arm) - Alcohol/Substance Use Hx Alcohol Use: No History of Substance Use: reports: Marijuana - Smoking History Smoking history: Never smoked Have you smoked in the past 12 months: No Aproximately how many cigarettes per day: 0 If you are a former smoker, when did you quit?: 1999 - Social History Usual Living Arrangement: With Spouse 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 of Recent Travel: No Home Medications - Allergies Allergies/Adverse Reactions: Allergies Allergy/AdvReac Type Severity Reaction Status Date / Time No Known Drug Allergies Allergy Verified 09/04/19 18:00 - Home Medications Home Medications: Ambulatory Orders Bupropion HCl [Wellbutrin -] 150 mg PO DAILY 03/30/16 Divalproex [Depakote -] 1,000 mg PO BID 03/30/16 LORazepam [Ativan] 1 mg PO BID 03/30/16 Lamotrigine [Lamictal] 100 mg PO HS 03/30/16 Quetiapine Fumarate [Seroquel -] 300 mg PO HS 03/30/16 Furosemide [Lasix -] 80 mg PO DAILY 12/28/17 Atorvastatin Ca [Lipitor] 20 mg PO HS 11/15/18 Gabapentin 100 mg PO DAILY 11/15/18 Sevelamer Carbonate [Renvela -] 2,400 mg PO TIDCM 11/15/18 Vital Signs: Vital Signs Temperature 97.4 F L 09/05/19 05:00 Pulse Rate 81 09/05/19 05:00 Respiratory Rate 14 09/05/19 05:00 Blood Pressure 135/70 09/05/19 05:00 O2 Sat by Pulse Oximetry (%) 98 09/05/19 05:00 - Other Data Labs, Other Data: INR, PTT INR 1.10 (0.82-1.09) 09/04/19 18:27 Troponin, BNP 09/04/19 18:27 Troponin I < 0.03 Troponin, BNP 09/04/19 18:27 Troponin I < 0.03 Assessment/Plan SYncope, with recent increase in dizzy spells Periods of bradycardia with ?advanced AV blcok (pt was on metoprolol in 2018; unclear if he is still taking it) Moderately severe LV dysfunction on 2017 ECHO LBBB noted in 2017 Schizophrenia HTN DM Plan: Transfer to [facility] telemetry. Serial EKG TNI serially. ECHO for LVEF, chamber sizes, vlave status. Complete home medication list. Orthostatic VS checks F/u CT head, LE images post-fall Hemodilysis per bath design sales consultant.
[2019-09-05 07:38] LABS: BASO % 0.4 % (0-2.0); HEMATOCRIT 35.3 % (35.4-49); HEMOGLOBIN 11.6 GM/dL (11.7-16.9); LYMPH % 25.3 % (8-40); MCH 32.7 pg (25.7-33.7); MCHC 32.9 g/dl (32.0-35.9); MEAN CELL VOLUME 99.4 fl (80-96); MEAN PLT VOLUME 6.6 fl (7.5-11.1); MONO % 13.6 % (3.8-10.2); NEUT % 58.7 % (42.8-82.8); PLATELET COUNT 107 K/MM3 (134-434); RBC 3.55 M/mm3 (4.00-5.60); RDW 14.5 % (11.9-15.9)
[2019-09-05] MEDS: INSULIN SLIDING SCALE (NOVOLOG) 1 VIAL SQ SCH ×4 (07:46→22:14)
[2019-09-05 08:09] LABS: ALBUMIN 3.2 g/dl (3.4-5.0); BILIRUBIN,TOTAL 0.5 mg/dL (0.2-1); BLOOD UREA NITROGEN 87.2 mg/dL (7-18); MAGNESIUM 3.7 mg/dL (1.8-2.4); PHOSPHOROUS 8.6 mg/dL (2.5-4.9); POTASSIUM 5.5 mmol/L (3.5-5.1); TOT PROT 6.5 g/dl (6.4-8.2)
[2019-09-05 08:21] LABS: CREATININE 8.5 mg/dL (0.55-1.3)
--- NOTE | 2019-09-05 08:39 | PN ---
Progress Note, Physician History of Present Illness: Mr. Mckeon is a 53 y/o M with a PMH of schizophrenia, bipolar, moderate- severely reduced LVEF (2017 ECHO), LBBB, DM, peripheral nueropathy, ESRD: HD M/W/F, who presents to the ED s/p syncope. Pt had an episode of lightheadedness and dizziness when he passed out and hit his head. states he was outside the grocery store and was in hot sun, felt lightheaded, next thing he knew he was on the ground. denies and palpiations or chest pain prior. does report feeling lighteaded also this am. had similar episode one week ago while walking in a [place] where he nearly fell and passed out. Pt is now reporting L ankle pain and an laceration to posterior head. Pt states he was able to get up after the incident. Per family at beside, the patient has been having more frequent episodes of dizziness where he passes out afterwards. no other complaints. no abd pain. no n/v did eat today. last dialysis was yesterday. Noted in [facility] to have periods of bradycardia with ? advanced AV block. - Current Medication List Current Medications: Active Medications Heparin Sodium (Porcine) (Heparin -) 5,000 unit SQ TID [facility] Last Admin: 09/05/19 05:42 Dose: 5,000 unit Documented by: Insulin Aspart (Novolog Vial Sliding Scale -) 1 vial SQ ACHS [facility]; Protocol Last Admin: 09/05/19 07:46 Dose: Not Given Documented by: - Objective Vital Signs: Vital Signs Temperature 97.4 F L 09/05/19 05:00 Pulse Rate 81 09/05/19 05:00 Respiratory Rate 14 09/05/19 05:00 Blood Pressure 135/70 09/05/19 05:00 O2 Sat by Pulse Oximetry (%) 98 09/05/19 05:00 Eyes: Yes: WNL, Conjunctiva Clear, EOM Intact HENT: Yes: WNL, Atraumatic, Normocephalic Neck: Yes: WNL, Supple, Trachea Midline Cardiovascular: Yes: WNL, Regular Rate and Rhythm Respiratory: Yes: WNL, Regular, CTA Bilaterally Gastrointestinal: Yes: WNL, Normal Bowel Sounds Genitourinary: Yes: WNL Musculoskeletal: Yes: WNL Extremities: Yes: WNL Edema: No Integumentary: Yes: WNL Neurological: Yes: WNL, Alert, Oriented ...Motor Strength: WNL Psychiatric: Yes: WNL Labs: CBC, BMP 09/05/19 07:00 09/05/19 07:00 INR, PTT INR 1.10 (0.82-1.09) 09/04/19 18:27 Assessment/Plan Syncope, with recent increase in dizzy spells Periods of bradycardia with ?advanced AV blcok (pt was on metoprolol in 2018; unclear if he is still taking it) Moderately severe LV dysfunction on 2017 ECHO LBBB noted in 2017 Schizophrenia HTN DM Plan: Transfer to [facility] telemetry. Serial EKG TNI serially. ECHO for LVEF, chamber sizes, vlave status. Complete home medication list. Orthostatic VS checks F/u CT head, LE images post-fall Hemodilysis per vice president business development.
--- NOTE | 2019-09-05 09:15 | CONSULT ---
Consult - text type - Consultation Consultation Note: Neurology CHIEF COMPLAINT: passing out and falling PCP: Dr. Lenny Menard HISTORY OF PRESENT ILLNESS: Pt is a 53 yo M with PMH of ESRD (on HD M// - last dialyzed 2 days prior to admission), NIDDM, Schizophrenia, Bipolar Disorder, Peripheral Neuropathy who presented to the ED after a syncopal episode. On day prior to admission, pt was getting groceries with his when he noted developing dizziness and passing out. His syncopal episode was associated with trauma to the back of the head that resulted in a laceration and spraining his ankle. Endorsed that a precipitating factor may have been the hot weather that day. He reported a similar episode one week ago while indoors at a restaurant. Pt denied any confusion before or after the fall, upper/lower extremity weakness, palpitations increased fatigue, CP, SOB, nausea, vomiting, fevers, chills, abdominal pain, or vision changes. Per pt's family, pt seems to be having an increased frequency of dizziness episodes and near syncopal episodes. After being evaluated at , pt was transferred to the [facility] telemetry unit. Head CT reviewed and showed no acute intracranial pathology, L. parietal scalp contusion, generalized cerebral atrophy and the intracranial structures demostrate no definite intrval change since CT of 03/20/19. Patient complaining of ankle sprain but no significantneurologicdeficits or complaints at this time. Discussed with him the importance of hydration in hopes of avoiding subsequent dizziness. Recent Travel:none Sick Contacts: none PAST MEDICAL HISTORY: as per HPI PAST SURGICAL HISTORY: none Social History: Lives with and son. Smoking: Distant smoking hx. Quit several years back; pt refused to specify. Alcohol: Denies Drugs: Pt reports excessive marijuana use in the past but reports that this was "a long time ago." REVIEW OF SYSTEMS CONSTITUTIONAL: Absent: fever, chills, diaphoresis, + generalized weakness, malaise HEENT: Absent: rhinorrhea, nasal congestion, throat pain, throat swelling, difficulty swallowing, mouth swelling, ear pain, eye pain, visual changes CARDIOVASCULAR: Absent: chest pain, syncope, palpitations, irregular heart rate, lightheadedness, peripheral edema RESPIRATORY: Absent: cough, shortness of breath, dyspnea with exertion, orthopnea, wheezing, stridor, hemoptysis GASTROINTESTINAL: Absent: abdominal pain, abdominal distension, nausea GENITOURINARY: Absent: dysuria, frequency, urgency, MUSCULOSKELETAL: Absent: myalgia, SKIN: Absent: rash, itching, pallor HEMATOLOGIC/IMMUNOLOGIC: Absent: easy bleeding, easy bruising, lymphadenopathy, frequent infections ENDOCRINE: Absent: unexplained weight gain, unexplained weight loss, heat intolerance, cold intolerance NEUROLOGIC: Absent: headache, focal weakness or paresthesias, dizziness, seizure, PSYCHIATRIC: Absent: anxiety, depression, suicidal or homicidal ideation, hallucinations. Allergies No Known Drug Allergies Allergy (Verified 09/04/19 18:00) HOME MEDICATIONS: Home Medications Medication Instructions Recorded Bupropion HCl [Wellbutrin -] 150 mg PO DAILY 03/30/16 Divalproex [Depakote -] 1,000 mg PO BID 03/30/16 LORazepam [Ativan] 1 mg PO BID 03/30/16 Lamotrigine [Lamictal] 100 mg PO HS 03/30/16 Quetiapine Fumarate [Seroquel -] 300 mg PO HS 03/30/16 Furosemide [Lasix -] 80 mg PO DAILY 12/28/17 Atorvastatin Ca [Lipitor] 20 mg PO HS 11/15/18 Gabapentin 100 mg PO DAILY 11/15/18 Sevelamer Carbonate [Renvela -] 2,400 mg PO TIDCM 11/15/18 Active Medications Heparin Sodium (Porcine) (Heparin -) 5,000 unit SQ TID COUNTS INCLUDE 234 BEDS AT THE [facility] Last Admin: 09/05/19 05:42 Dose: 5,000 unit Documented by: Insulin Aspart (Novolog Vial Sliding Scale -) 1 vial SQ [facility] COUNTS INCLUDE 234 BEDS AT THE [facility]; Protocol Last Admin: 09/05/19 07:46 Dose: Not Given Documented by: PHYSICAL EXAMINATION Vital Signs Period Temp Pulse Resp BP Sys/Miguel Pulse Ox Last 24 Hr 97.4 F-98.8 F 52-94 14-22 116-144/46-100 98-98 GENERAL: Awake, alert, and fully oriented, in no acute distress. Resting comfortably. HEAD: Pt with laceration on posterior head - no active bleeding. EYES: Pupils equal, round and reactive to light, extraocular movements intact, sclera white, conjunctiva clear. EARS, NOSE, THROAT: Oropharynx clear without exudates. Moist mucous membranes. NECK: Supple without lymphadenopathy, or masses. LUNGS: Breath sounds equal, clear to auscultation bilaterally. No wheezes, and no crackles. No accessory muscle use. HEART: Regular rate and rhythm, normal S1 and S2 without murmur, rub or gallop. ABDOMEN: Soft, nontender, not distended, normoactive bowel sounds MUSCULOSKELETAL: Moving all extremities spontaneously and equally. UPPER EXTREMITIES: 2+ pulses, warm, well-perfused. No peripheral edema. HD Fistula on RUE. LOWER EXTREMITIES: 2+ pulses, warm, well-perfused. Mild swelling around L ankle. NEUROLOGICAL: Cranial nerves II-XII intact. Strength 5/5 through. Sensation intact b/l except decreased sensation at the soles of his feet to light tough. Normal speech. PSYCHIATRIC: Cooperative. Good eye contact. Appropriate mood and affect. SKIN: Warm, dry, no rashes. CBCD WBC 7.0 K/mm3 (4.0-10.0) 09/05/19 07:00 RBC 3.55 M/mm3 (4.00-5.60) L 09/05/19 07:00 Hgb 11.6 GM/dL (11.7-16.9) L 09/05/19 07:00 Hct 35.3 % (35.4-49) L 09/05/19 07:00 MCV 99.4 fl (80-96) H 09/05/19 07:00 MCHC 32.9 g/dl (32.0-35.9) 09/05/19 07:00 RDW 14.5 % (11.9-15.9) 09/05/19 07:00 Plt Count 107 K/MM3 (134-434) L 09/05/19 07:00 MPV 6.6 fl (7.5-11.1) L 09/05/19 07:00 CMP Sodium 138 mmol/L (136-145) 09/05/19 07:00 Potassium 5.5 mmol/L (3.5-5.1) H 09/05/19 07:00 Chloride 105 mmol/L (98-107) 09/05/19 07:00 Carbon Dioxide 23 mmol/L (21-32) 09/05/19 07:00 Anion Gap 10 MMOL/L (8-16) 09/05/19 07:00 BUN 87.2 mg/dL (7-18) H 09/05/19 07:00 Creatinine 8.5 mg/dL (0.55-1.3) H* 09/05/19 07:00 Random Glucose 72 mg/dL (74-106) L 09/05/19 07:00 Calcium 8.0 mg/dL (8.5-10.1) L 09/05/19 07:00 Total Bilirubin 0.5 mg/dL (0.2-1) 09/05/19 07:00 AST 12 U/L (15-37) L 09/05/19 07:00 ALT 12 U/L (13-61) L 09/05/19 07:00 Alkaline Phosphatase 57 U/L (45-117) 09/05/19 07:00 Total Protein 6.5 g/dl (6.4-8.2) 09/05/19 07:00 Albumin 3.2 g/dl (3.4-5.0) L 09/05/19 07:00 CARDIAC ENZYMES Creatine Kinase 161 U/L (26-308) 09/04/19 18:27 Troponin I 0.02 ng/ml (0.00-0.05) 09/05/19 07:00 ASSESSMENT/PLAN: Pt is a 53 yo M with PMH of ESRD (on HD M/W/F - last dialyzed 2 days prior to admission), NIDDM, Schizophrenia, Bipolar Disorder, Peripheral Neuropathy who presented to the ED after a syncopal episode. On day prior to admission, pt was getting groceries with his when he noted developing dizziness and passing out. His syncopal episode was associated with trauma to the back of the head that resulted in a laceration and spraining his ankle. Endorsed that a precipitating factor may have been the hot weather that day. He reported a similar episode one week ago while indoors at a restaurant. Pt denied any confusion before or after the fall, upper/lower extremity weakness, palpitations increased fatigue, CP, SOB, nausea, vomiting, fevers, chills, abdominal pain, or vision changes. Per pt's family, pt seems to be having an increased frequency of dizziness episodes and near syncopal episodes. After being evaluated at , pt was transferred to the [facility] telemetry unit. Head CT reviewed and showed no acute intracranial pathology, L. parietal scalp contusion, generalized cerebral atrophy and the intracranial structures demostrate no definite intrval change since CT of 03/20/19. Patient complaining of ankle sprain but no significantneurologicdeficits or complaints at this time. Discussed with him the importance of hydration in hopes of avoiding subsequent dizziness. Fall precautions recommended, continue cardiac workup Monitor diabetes, maintain euglycemic range and avoid significant glycemic fluctuation. Hemodialysis as per physician assistant psychiatry. Monitorafter dialysis sessions as significant volume shifting may lead to subsequent syncopal-type episodes.
[2019-09-05] MEDS ORDERED: SODIUM CHLORIDE 250 ML IV PRN (09:58)
--- NOTE | 2019-09-05 11:18 | EKG ---
Test Reason : Blood Pressure : / mmHG Vent. Rate : 048 BPM Atrial Rate : 048 BPM P-R Int : 206 ms QRS Dur : 134 ms QT Int : 552 ms P-R-T Axes : 077 033 052 degrees QTc Int : 493 ms SINUS BRADYCARDIA POSSIBLE LEFT ATRIAL ENLARGEMENT RIGHT BUNDLE BRANCH BLOCK SEPTAL INFARCT , AGE UNDETERMINED ABNORMAL ECG WHEN COMPARED WITH ECG OF 30-MAR-2016 18:54, VENT. RATE HAS DECREASED BY 57 BPM RIGHT BUNDLE BRANCH BLOCK HAS REPLACED LEFT BUNDLE BRANCH BLOCK SEPTAL INFARCT IS NOW PRESENT Confirmed by HANNA WHITE MD ([id number]) on 09/05/2019 11:18:35 AM Referred By: DR MEJIA Confirmed By:HANNA WHITE MD
--- NOTE | 2019-09-05 11:22 | EKG ---
Test Reason : Blood Pressure : / mmHG Vent. Rate : 081 BPM Atrial Rate : 081 BPM P-R Int : 228 ms QRS Dur : 168 ms QT Int : 446 ms P-R-T Axes : 043 -01 025 degrees QTc Int : 518 ms SINUS RHYTHM WITH 1ST DEGREE A-V BLOCK RIGHT BUNDLE BRANCH BLOCK ABNORMAL ECG WHEN COMPARED WITH ECG OF 05-SEP-2019 00:53, VENT. RATE HAS INCREASED BY 33 BPM QT HAS LENGTHENED Confirmed by HANNA WHITE MD ([id number]) on 09/05/2019 11:22:29 AM Referred By: LITO MEYERS DR Confirmed By:HANNA WHITE MD
--- NOTE | 2019-09-05 12:30 | ECHO ---
Version: 1 Name: VARINDER REGALADO Exam: Adult Echocardiogram Study Date: 09/05/2019, 10:42 AM Age: 53 Years MMode/2D Measurements & Calculations IVSd: 2.00 cm LVIDs: 3.6 cm LVIDd: 5.0 cm LVPWd: 1.27 cm LAV (MOD-bp): 52.0 ml ACS: 2.7 cm Ao root diam: 4.0 cm LVOT diam: 2.5 cm LA dimension: 4.1 cm Doppler Measurements & Calculations MV E max doc: 61.1 cm/sec MV V2 max: 112.7 cm/sec MV A max doc: 98.1 cm/sec MV max P.1 mmHg MV mean P.6 mmHg MV E/A: 0.62 Lat E/e': 5.9 Lat Peak E' Doc: 10.3 cm/sec Ao max P.5 mmHg Ao V2 max: 105.9 cm/sec TR max doc: 227.4 cm/sec TR max P.8 mmHg Left Ventricle There is mild concentric left ventricular hypertrophy. Left ventricular systolic function is mildly reduced. Ejection Fraction = 45-50%. The transmitral spectral Doppler flow pattern is suggestive of impaired LV relaxation. Mild to moderate hypokinesis of the apical septum, apical anterior wall and inferoseptum . Right Ventricle The right ventricle is normal in size and function. Atria The left atrium is mildly dilated. Right atrial size is normal. Mitral Valve The mitral valve is grossly normal. There is no mitral valve stenosis. There is no mitral regurgitat ion noted. Tricuspid Valve The tricuspid valve is not well visualized, but is grossly normal. There is mild tricuspid regurgita tion. Right ventricular systolic pressure is normal. Aortic Valve The aortic valve opens well. No hemodynamically significant valvular aortic stenosis. No aortic regu rgitation is present. Pulmonic Valve The pulmonic valve is not well seen, but is grossly normal. There is no pulmonic valvular stenosis. There is no pulmonic valvular regurgitation. Great Vessels Mild aortic root dilatation. Pericardium/Pleura There is no pericardial effusion. Summary Statements Left ventricular systolic function is mildly reduced. Ejection Fraction = 45-50%. The transmitral spectral Doppler flow pattern is suggestive of impaired LV relaxation. Mild to moderate hypokinesis of the apical septum, apical anterior wall and inferoseptum. The right ventricle is normal in size and function. The left atrium is mildly dilated. There is mild tricuspid regurgitation. Mild aortic root dilatation. There is no pericardial effusion. MD Canseco *Ortega 09/05/2019, 12:30 PM Ordering Physician: Cyrus Osorio Performed By: CHITRA OH
--- NOTE | 2019-09-05 12:37 | EKG ---
Test Reason : Blood Pressure : / mmHG Vent. Rate : 048 BPM Atrial Rate : 048 BPM P-R Int : 206 ms QRS Dur : 144 ms QT Int : 476 ms P-R-T Axes : 066 006 070 degrees QTc Int : 425 ms POOR DATA QUALITY, INTERPRETATION MAY BE ADVERSELY AFFECTED SINUS BRADYCARDIA POSSIBLE LEFT ATRIAL ENLARGEMENT RIGHT BUNDLE BRANCH BLOCK NONSPECIFIC ST ABNORMALITY ABNORMAL ECG Confirmed by HANNA WHITE MD ([id number]) on 09/05/2019 12:37:08 PM Referred By: Confirmed By:HANNA WHITE MD
--- NOTE | 2019-09-05 14:38 | PN ---
Teaching Attending Note Name of Resident: Elsy Lopez ATTENDING PHYSICIAN STATEMENT I saw and evaluated the patient. I reviewed the resident's note and discussed the case with the resident. I agree with the resident's findings and plan as documented. SUBJECTIVE: Patient has no new complains. will have dialysis today. OBJECTIVE: Vital Signs Temperature 97.4 F L 09/05/19 05:00 Pulse Rate 81 09/05/19 05:00 Respiratory Rate 14 09/05/19 05:00 Blood Pressure 135/70 09/05/19 05:00 O2 Sat by Pulse Oximetry (%) 98 09/05/19 05:00 PE: per resident's note CBCD WBC 7.0 K/mm3 (4.0-10.0) 09/05/19 07:00 RBC 3.55 M/mm3 (4.00-5.60) L 09/05/19 07:00 Hgb 11.6 GM/dL (11.7-16.9) L 09/05/19 07:00 Hct 35.3 % (35.4-49) L 09/05/19 07:00 MCV 99.4 fl (80-96) H 09/05/19 07:00 MCHC 32.9 g/dl (32.0-35.9) 09/05/19 07:00 RDW 14.5 % (11.9-15.9) 09/05/19 07:00 Plt Count 107 K/MM3 (134-434) L 09/05/19 07:00 MPV 6.6 fl (7.5-11.1) L 09/05/19 07:00 CMP Sodium 138 mmol/L (136-145) 09/05/19 07:00 Potassium 5.5 mmol/L (3.5-5.1) H 09/05/19 07:00 Chloride 105 mmol/L (98-107) 09/05/19 07:00 Carbon Dioxide 23 mmol/L (21-32) 09/05/19 07:00 Anion Gap 10 MMOL/L (8-16) 09/05/19 07:00 BUN 87.2 mg/dL (7-18) H 09/05/19 07:00 Creatinine 8.5 mg/dL (0.55-1.3) H* 09/05/19 07:00 Random Glucose 72 mg/dL (74-106) L 09/05/19 07:00 Calcium 8.0 mg/dL (8.5-10.1) L 09/05/19 07:00 Total Bilirubin 0.5 mg/dL (0.2-1) 09/05/19 07:00 AST 12 U/L (15-37) L 09/05/19 07:00 ALT 12 U/L (13-61) L 09/05/19 07:00 Alkaline Phosphatase 57 U/L (45-117) 09/05/19 07:00 Total Protein 6.5 g/dl (6.4-8.2) 09/05/19 07:00 Albumin 3.2 g/dl (3.4-5.0) L 09/05/19 07:00 CARDIAC ENZYMES Creatine Kinase 161 U/L (26-308) 09/04/19 18:27 Troponin I 0.02 ng/ml (0.00-0.05) 09/05/19 07:00 Current Medications Generic Name Dose Route Start Last Admin Trade Name Freq PRN Reason Stop Dose Admin Heparin Sodium (Porcine) 5,000 unit 09/05/19 06:00 09/05/19 05:42 Heparin - SQ 5,000 unit TID [facility] Administration Sodium Chloride 250 mls @ 3,000 mls/hr 09/05/19 09:58 Normal Saline - IV 09/06/19 09:58 PRN PRN Hypotension during Dialysis Insulin Aspart 1 vial 09/05/19 07:00 09/05/19 11:30 Novolog Vial Sliding Scale - SQ Not Given ACHS [facility] Protocol Home Medications Medication Instructions Recorded Bupropion HCl [Wellbutrin -] 150 mg PO DAILY 03/30/16 Divalproex [Depakote -] 1,000 mg PO BID 03/30/16 LORazepam [Ativan] 1 mg PO BID 03/30/16 Lamotrigine [Lamictal] 100 mg PO HS 03/30/16 Quetiapine Fumarate [Seroquel -] 300 mg PO HS 03/30/16 Furosemide [Lasix -] 80 mg PO DAILY 12/28/17 Atorvastatin Ca [Lipitor] 20 mg PO HS 11/15/18 Gabapentin 100 mg PO DAILY 11/15/18 Sevelamer Carbonate [Renvela -] 2,400 mg PO TIDCM 11/15/18 Now has left ankle pain and an laceration to posterior head. States he was able to get up after the incident. Head CT reviewed and showed no acute intracranial pathology, L. parietal scalp contusion, generalized cerebral atrophy and the intracranial structures demostrate no definite intrval change since CT of 03/20/19. MRI of the brain: no evidence of neoplasm, ischemic changes inthe white matter due tomlong standing HTN or a small vessel arteriosclerosis no evidence of infarction, otherwise NL Assessment and plan: This patient is a 53 yoM with PMHx of ESRD (on HD M/W/F), NIDDM, Schizophrenia, Bipolar Disorder, Peripheral Neuropathy who presented to the [facility] ED after a syncopal episodeand was transferred at [facility] . Patient had similar events x 2 before. #Syncope x2 with increased episode of dizzy spells. possible due to having bradycardia ( asper cardio note: that patient used to be on BB and was dc'd and not sure whether still taking it or not). as per Dr Hilton notes: Echo 2017: Moderately severe LV dysfunction ,LBBB noted in 2017 and patient now has RBBB, anterior apical Hypokinesis with EF 45-50%, Cardiac Catheterization: 12/06/17 -Left Main patent -LAD proximal 40%, distal 30% -LCx proximal 30% -RCA luminal irregularities continue to check orthostatics, CT of the head no acute pathology, left parietal scalp contusion , holter monitor as per cardio, neuro on the case #ESRD On HD (MWF) : nephro on the case #Schizophrenia #HTN #T2DM DVT px: heparin sq
--- NOTE | 2019-09-05 15:17 | CONSULT ---
Consult Consult Specialty:: Nephrology Reason for Consultation:: ESRD - History of Present Illness Chief Complaint: syncope History of Present Illness: Pt is a 53 year old male with pmhx of esrd (MWF), DM, schizophrenia, bipolar, and peripheral neuropathy who presented to the ER after a syncopal episode. He was getting groceries when he felt dizzy and passed out. He did have trauma to the back of the head. He did have an episode about a week ago. I was called to evaluate him for HD. He is due for HD today. He is awake and alert. He feels well. He denies shortness of breath or chest pain. He denies fevers or chills. - History Source History Provided By: Patient - Past Medical History Cardio/Vascular: Yes: HTN Pulmonary: Yes: Other (lung disorder with chest tube insetion after trauma) Renal/: Yes: Renal Inusuff, Hemodialysis Psych: Yes: Bipolar - Past Surgical History Past Surgical History: Yes: AV Fistula/Graft (upper right arm) - Alcohol/Substance Use Hx Alcohol Use: No History of Substance Use: reports: Marijuana - Smoking History Smoking history: Never smoked Have you smoked in the past 12 months: No Aproximately how many cigarettes per day: 0 If you are a former smoker, when did you quit?: 1999 - Social History Usual Living Arrangement: With Spouse 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 of Recent Travel: No Home Medications - Allergies Allergies/Adverse Reactions: Allergies Allergy/AdvReac Type Severity Reaction Status Date / Time No Known Drug Allergies Allergy Verified 09/04/19 18:00 - Home Medications Home Medications: Ambulatory Orders Bupropion HCl [Wellbutrin -] 150 mg PO DAILY 03/30/16 Divalproex [Depakote -] 1,000 mg PO BID 03/30/16 LORazepam [Ativan] 1 mg PO BID 03/30/16 Lamotrigine [Lamictal] 100 mg PO HS 03/30/16 Quetiapine Fumarate [Seroquel -] 300 mg PO HS 03/30/16 Furosemide [Lasix -] 80 mg PO DAILY 12/28/17 Atorvastatin Ca [Lipitor] 20 mg PO HS 11/15/18 Gabapentin 100 mg PO DAILY 11/15/18 Sevelamer Carbonate [Renvela -] 2,400 mg PO TIDCM 11/15/18 Family Medical History Family History: Denies Review of Systems - Review of Systems Constitutional: reports: No Symptoms Eyes: reports: No Symptoms HENT: reports: No Symptoms Neck: reports: No Symptoms Cardiovascular: reports: No Symptoms Respiratory: reports: No Symptoms Gastrointestinal: reports: No Symptoms Genitourinary: reports: No Symptoms Musculoskeletal: reports: No Symptoms Integumentary: reports: No Symptoms Neurological: reports: No Symptoms Endocrine: reports: No Symptoms Hematology/Lymphatic: reports: No Symptoms Psychiatric: reports: No Symptoms Physical Exam Vital Signs: Vital Signs Temperature 97.4 F L 09/05/19 05:00 Pulse Rate 81 09/05/19 05:00 Respiratory Rate 14 09/05/19 05:00 Blood Pressure 135/70 09/05/19 05:00 O2 Sat by Pulse Oximetry (%) 98 09/05/19 05:00 Constitutional: Yes: Calm Eyes: Yes: Conjunctiva Clear HENT: Yes: Atraumatic Neck: Yes: Supple Cardiovascular: Yes: S1, S2 Respiratory: Yes: CTA Bilaterally Gastrointestinal: Yes: Soft Renal/: Yes: WNL Musculoskeletal: Yes: WNL Edema: No Integumentary: Yes: WNL Neurological: Yes: Oriented Psychiatric: Yes: Oriented Labs: CBC, BMP 09/05/19 07:00 09/05/19 07:00 Imaging - Results MRI: Report Reviewed Problem List - Problems (1) ESRD (end stage renal disease) Code(s): N18.6 - END STAGE RENAL DISEASE (2) Syncope Code(s): R55 - SYNCOPE AND COLLAPSE (3) Acute hyperkalemia Code(s): E87.5 - HYPERKALEMIA Assessment/Plan Current Medications Generic Name Dose Route Start Last Admin Trade Name Freq PRN Reason Stop Dose Admin Heparin Sodium (Porcine) 5,000 unit 09/05/19 06:00 09/05/19 05:42 Heparin - SQ 5,000 unit TID [facility] Administration Sodium Chloride 250 mls @ 3,000 mls/hr 09/05/19 09:58 Normal Saline - IV 09/06/19 09:58 PRN PRN Hypotension during Dialysis Insulin Aspart 1 vial 09/05/19 07:00 09/05/19 11:30 Novolog Vial Sliding Scale - SQ Not Given ACHS [facility] Protocol Impression 1. ESRD 2. hyperkalemia 3. DM 4. syncope 5. bipolar Plan - HD today - monitor bp - will UF 1 liter today - monitor lytes - renal diet - cardio follow up - next HD on Sunday
--- NOTE | 2019-09-05 17:44 | PN ---
Physical Exam: SUBJECTIVE: Patient seen and examined, was very cooperative but difficult to follow what he was saying due to repeated tangentiality. Did express that he feels weak after HD and that he feels he could go home. OBJECTIVE: Vital Signs Period Temp Pulse Resp BP Sys/Miguel Pulse Ox Last 24 Hr 97.4 F-98.8 F 52-102 14-22 107-150/46-100 98-98 GENERAL: middle aged male, awake, alert, and fully oriented, in no acute distress HEAD: large laceration on L scalp with 2 lissa, surrounding dried crusted blood EYES: PERRL, extraocular movements intact, no ptosis LUNGS: Mild inspiratory crackles on LLL but all lobes CTAB on repeated auscultation HEART: Regular rate and rhythm, S1, S2 distant but without murmur ABDOMEN: Soft, nontender on palpation, nondistended, hyperactive bowel sounds EXTREMITIES: 2+ pulses, warm, well-perfused, L ankle edematous and tender on palpation, healing crusting black/blue scab on L pinky toe NEUROLOGICAL: Cranial nerves II through XII grossly intact. Normal speech PSYCH: Normal mood, normal affect, poor eye contact, tangential speech SKIN: Warm, no rashes or lesions noted Laboratory Results - last 24 hr 09/04/19 09/04/19 09/04/19 18:26 18:27 18:27 WBC 9.1 RBC 3.80 L Hgb 12.4 Hct 36.5 MCV 96.1 H MCH 32.6 MCHC 33.9 RDW 14.2 Plt Count 140 MPV 6.7 L Absolute Neuts (auto) 6.3 Neutrophils % 69.3 Lymphocytes % 17.6 Monocytes % 11.1 H Eosinophils % 1.1 Basophils % 0.9 Nucleated RBC % PT with INR 12.3 INR 1.10 PTT (Actin FS) 19.8 L Sodium Potassium Chloride Carbon Dioxide Anion Gap BUN Creatinine Est GFR (CKD-EPI)AfAm Est GFR (CKD-EPI)NonAf POC Glucometer 104 Random Glucose Hemoglobin A1c % Calcium Phosphorus Magnesium Total Bilirubin AST ALT Alkaline Phosphatase Creatine Kinase Creatine Kinase Index CK-MB (CK-2) Troponin I Total Protein Albumin Triglycerides Cholesterol Total LDL Cholesterol HDL Cholesterol TSH 09/04/19 09/04/19 09/04/19 18:27 18:27 18:27 WBC RBC Hgb Hct MCV MCH MCHC RDW Plt Count MPV Absolute Neuts (auto) Neutrophils % Lymphocytes % Monocytes % Eosinophils % Basophils % Nucleated RBC % PT with INR INR PTT (Actin FS) Sodium 134 L Potassium 5.5 H Chloride 97 L Carbon Dioxide 21 Anion Gap 16 BUN 75.0 H Creatinine 7.7 H* Est GFR (CKD-EPI)AfAm 8.29 Est GFR (CKD-EPI)NonAf 7.15 POC Glucometer Random Glucose 100 Hemoglobin A1c % Calcium 7.9 L Phosphorus 8.3 H Magnesium 3.1 H Total Bilirubin 0.8 AST 20 ALT 14 Alkaline Phosphatase 50 Creatine Kinase 161 Creatine Kinase Index 2.4 CK-MB (CK-2) 4.0 H Troponin I < 0.03 Total Protein 6.7 Albumin 3.8 Triglycerides Cholesterol Total LDL Cholesterol HDL Cholesterol TSH 09/05/19 09/05/19 09/05/19 01:00 06:54 07:00 WBC 7.0 RBC 3.55 L Hgb 11.6 L Hct 35.3 L MCV 99.4 H MCH 32.7 MCHC 32.9 RDW 14.5 Plt Count 107 L MPV 6.6 L Absolute Neuts (auto) 4.1 Neutrophils % 58.7 D Lymphocytes % 25.3 D Monocytes % 13.6 H Eosinophils % 2.0 D Basophils % 0.4 Nucleated RBC % 0 PT with INR INR PTT (Actin FS) Sodium 137 Potassium 4.7 Chloride 100 Carbon Dioxide 22 Anion Gap 14 BUN 81.5 H Creatinine 8.2 H* Est GFR (CKD-EPI)AfAm 7.68 Est GFR (CKD-EPI)NonAf 6.63 POC Glucometer 74 Random Glucose 137 H Hemoglobin A1c % Calcium 8.0 L Phosphorus Magnesium Total Bilirubin AST ALT Alkaline Phosphatase Creatine Kinase Creatine Kinase Index CK-MB (CK-2) Troponin I Total Protein Albumin Triglycerides Cholesterol Total LDL Cholesterol HDL Cholesterol TSH 09/05/19 09/05/19 09/05/19 07:00 07:00 07:00 WBC RBC Hgb Hct MCV MCH MCHC RDW Plt Count MPV Absolute Neuts (auto) Neutrophils % Lymphocytes % Monocytes % Eosinophils % Basophils % Nucleated RBC % PT with INR INR PTT (Actin FS) Sodium 138 Potassium 5.5 H Chloride 105 Carbon Dioxide 23 Anion Gap 10 BUN 87.2 H Creatinine 8.5 H* Est GFR (CKD-EPI)AfAm 7.35 Est GFR (CKD-EPI)NonAf 6.34 POC Glucometer Random Glucose 72 L Hemoglobin A1c % 5.4 Calcium 8.0 L Phosphorus 8.6 H Magnesium 3.7 H Total Bilirubin 0.5 AST 12 L ALT 12 L Alkaline Phosphatase 57 Creatine Kinase Creatine Kinase Index CK-MB (CK-2) Troponin I 0.02 Total Protein 6.5 Albumin 3.2 L Triglycerides 86 Cholesterol 122 Total LDL Cholesterol 48 HDL Cholesterol 47 TSH 1.40 D 09/05/19 17:18 WBC RBC Hgb Hct MCV MCH MCHC RDW Plt Count MPV Absolute Neuts (auto) Neutrophils % Lymphocytes % Monocytes % Eosinophils % Basophils % Nucleated RBC % PT with INR INR PTT (Actin FS) Sodium Potassium Chloride Carbon Dioxide Anion Gap BUN Creatinine Est GFR (CKD-EPI)AfAm Est GFR (CKD-EPI)NonAf POC Glucometer 118 Random Glucose Hemoglobin A1c % Calcium Phosphorus Magnesium Total Bilirubin AST ALT Alkaline Phosphatase Creatine Kinase Creatine Kinase Index CK-MB (CK-2) Troponin I Total Protein Albumin Triglycerides Cholesterol Total LDL Cholesterol HDL Cholesterol TSH Active Medications Generic Name Dose Route Start Last Admin Trade Name Freq PRN Reason Stop Dose Admin Heparin Sodium (Porcine) 5,000 unit 09/05/19 06:00 09/05/19 15:43 Heparin - SQ Not Given TID [facility] Sodium Chloride 250 mls @ 3,000 mls/hr 09/05/19 09:58 Normal Saline - IV 09/06/19 09:58 PRN PRN Hypotension during Dialysis Insulin Aspart 1 vial 09/05/19 07:00 09/05/19 11:30 Novolog Vial Sliding Scale - SQ Not Given ACHS [facility] Protocol ASSESSMENT/PLAN: Pt is a 53 yo M with PMH of ESRD (on HD M/W/F - last dialyzed on Sunday), NIDDM, Schizophrenia, Bipolar Disorder, Peripheral Neuropathy who presented to the ED after a syncopal episode causing him to fall, leaving him with a L scalp laceration and a L sprained ankle. ED course was remarkable for episodes of bradycardia; intial EKG concerning for Second Degree Heart Block - Mobitz Type 2. This resolved with subsequent EKGs. CT head neg for intracranial pathology; left parietal scalp contusion. CXR negative for lung pathology; cardiomegaly. Foot Xray showing no fracture. Hyperkelemia 5 - treated with calcium gluconate/d50/insulin. Received DPT vaccine. # Syncope 2/2 unclear etiology (cardiac cause vs. dehydration vs. polypharmacy) Pt on several medications that me be contributing to syncope. Initial troponins negative - med list reconciled with pharmacy - patient is taking all indicated medications except for furosemide - Cardiology consulted as pt exhibited evidence of 2nd degree heart block (mobitz type 2) on EKG during this visit - Neurology consulted - appreciated recs. - Echo - Carotid Doppler - Brain MRI - F/u fasting lipids, troponin, CMP - Fall, seizure, and aspiration precautions - Warm compress for left ankle; Tylenol prn for pain #ESRD (HD M/W/F) - Nephrology consulted - pt should get HD today - f/u PTH; address hypoCa, can consider phosphate binders #NIDDM - hold home diabetes meds for now - ISS + BGM #DVT PPX - Heparin 5000 SQ tid #FEN -F - none -E - replete PRN; monitor lytes -N - renal/diabetic diet Dispo: Admit to telemetry Visit type - Emergency Visit Emergency Visit: No - New Patient This patient is new to me today: Yes Date on this admission: 09/05/19 - Critical Care Critical Care patient: No ATTENDING PHYSICIAN STATEMENT I saw and evaluated the patient. I reviewed the resident's note and discussed the case with the resident. I agree with the resident's findings and plan as documented. SUBJECTIVE: OBJECTIVE: ASSESSMENT AND PLAN:
--- NOTE | 2019-09-05 18:36 | RAPID ---
Physical Examination Vital Signs: Vital Signs Temperature 98.5 F 09/05/19 14:00 Pulse Rate 97 H 09/05/19 16:50 Respiratory Rate 16 09/05/19 16:50 Blood Pressure 160/98 09/05/19 16:50 O2 Sat by Pulse Oximetry (%) 98 09/05/19 09:00 Labs: CBC, BMP 09/05/19 07:00 09/05/19 07:00 Rapid Response - Rapid Response Assessment: Rapid response was called overhead while I was in the hallway. Pt was initially wanting to sign out AMA, and I was going to talk to him. He just finished HD and when the nurse pulled out the line from the fistula, he had difficulty controlling the bleeding. Pt's reports this has been happening since February on some HD days. Pt's right arm was wrapped in pressure dressing per Dr. Rice. Dr. Medel also attended. Bleeding was controlled and pt was otherwise stable. He was in agreement to stay.
[2019-09-05] MEDS ORDERED: PT OWN MED DRAWER 7, Y5N ONE (21:35)
[2019-09-05] MEDS: lamoTRIgine 100 MG TABLET PO SCH (22:07)
[2019-09-05] MEDS: DIVALPROEX SODIUM 500 MG TABLET E.C. PO SCH (22:07)
[2019-09-05] MEDS: ATORVASTATIN CA 20 MG TABLET (FP) PO SCH (22:07)
[2019-09-06] MEDS: INSULIN SLIDING SCALE (NOVOLOG) 1 VIAL SQ SCH ×4 (06:17→23:41)
[2019-09-06] MEDS: HEPARIN NA (PORCINE) 5,000 UNITS/ML 1ML VIAL SQ SCH ×3 (07:18→22:31)
[2019-09-06 08:17] LABS: BASO % 0.2 % (0-2.0); EOS % 2.3 % (0-4.5); HEMATOCRIT 37.2 % (35.4-49); HEMOGLOBIN 12.5 GM/dL (11.7-16.9); LYMPH % 24.9 % (8-40); MCH 33.6 pg (25.7-33.7); MCHC 33.5 g/dl (32.0-35.9); MEAN CELL VOLUME 100.2 fl (80-96); MEAN PLT VOLUME 6.7 fl (7.5-11.1); MONO % 12.1 % (3.8-10.2); NEUT % 60.5 % (42.8-82.8); PLATELET COUNT 108 K/MM3 (134-434); RBC 3.71 M/mm3 (4.00-5.60); RDW 14.9 % (11.9-15.9); WHITE BLOOD COUNT 5.5 K/mm3 (4.0-10.0)
[2019-09-06 08:51] LABS: ALBUMIN 3.3 g/dl (3.4-5.0); CALCIUM 8.5 mg/dL (8.5-10.1); POTASSIUM 4.4 mmol/L (3.5-5.1)
[2019-09-06] MEDS: SEVELAMER CARBONATE 800 MG TAB (FP) PO SCH ×3 (09:03→17:02)
[2019-09-06 09:04] LABS: BILIRUBIN,TOTAL 0.5 mg/dL (0.2-1); CREATININE 6.1 mg/dL (0.55-1.3); PHOSPHOROUS 6.9 mg/dL (2.5-4.9)
[2019-09-06 09:08] LABS: BLOOD UREA NITROGEN 44.9 mg/dL (7-18)
[2019-09-06] MEDS: DIVALPROEX SODIUM 500 MG TABLET E.C. PO SCH ×2 (10:08→22:29)
--- NOTE | 2019-09-06 12:09 | PN ---
Progress Note (short form) - Note Progress Note: [facility] *LIVE* Neurology CHIEF COMPLAINT: passing out and falling PCP: Dr. Lenny Menard HISTORY OF PRESENT ILLNESS: Pt is a 53 yo M with PMH of ESRD (on HD M/W/F - last dialyzed 2 days prior to admission), NIDDM, Schizophrenia, Bipolar Disorder, Peripheral Neuropathy who presented to the ED after a syncopal episode. On day prior to admission, pt was getting groceries with his when he noted developing dizziness and passing out. His syncopal episode was associated with trauma to the back of the head that resulted in a laceration and spraining his ankle. Endorsed that a precipitating factor may have been the hot weather that day. He reported a similar episode one week ago while indoors at a restaurant. Pt denied any conf usion before or after the fall, upper/lower extremity weakness, palpitations increased fatigue, CP, SOB, nausea, vomiting, fevers, chills, abdominal pain, or vision changes. Per pt's family, pt seems to be having an increased frequency of dizziness episodes and near syncopal episodes. After being evaluated at , pt was transferred to the [facility] telemetry unit. Head CT reviewed and showed no acute intracranial pathology, L. parietal scalp contusion, generalized cerebral atrophy and the intracranial structures demostrate no definite intrval change since CT of 03/20/19. Patient complaining of ankle sprain but no significantneurologicdeficits or complaints at this time. Discussed with him the importance of hydration in hopes of avoiding subsequent dizziness. Brain MRI completed, no evidence of acute infarction/hemorrhage; ischemic changes in white matter likely due to long standing hypertension or small vessel arteriosclerosis. Echocardiagram completed, EF 45-50% with suggestive impaired L V relaxation and reduced systolic function. Per notes, patient desiring to leave AMA overnight, convinced to remain in hospital for further treatment. Active Medications Atorvastatin Calcium (Lipitor -) 20 mg PO HS [facility] Last Admin: 09/05/19 22:07 Dose: 20 mg Documented by: Bupropion HCl (Wellbutrin Xl -) 150 mg PO DAILY [facility] Last Admin: 09/06/19 10:03 Dose: 150 mg Documented by: Divalproex Sodium (Depakote -) 1,000 mg PO BID [facility] Last Admin: 09/06/19 10:08 Dose: 1,000 mg Documented by: Heparin Sodium (Porcine) (Heparin -) 5,000 unit SQ TID [facility] Last Admin: 09/06/19 07:18 Dose: Not Given Documented by: Sodium Chloride (Normal Saline -) 250 mls @ 3,000 mls/hr IV PRN PRN PRN Reason: Hypotension during Dialysis Stop: 09/06/19 09:58 Insulin Aspart (Novolog Vial Sliding Scale -) 1 vial SQ ACHS [facility]; Protocol Last Admin: 09/06/19 06:17 Dose: Not Given Documented by: Lamotrigine (Lamictal -) 100 mg PO HS [facility] Last Admin: 09/05/19 22:07 Dose: 100 mg Documented by: Sevelamer Carbonate (Renvela -) 2,400 mg PO TIDCM [facility] Last Admin: 09/06/19 09:03 Dose: 2,400 mg Documented by: PHYSICAL EXAMINATION Vital Signs Period Temp Pulse Resp BP Sys/Miguel Pulse Ox Last 24 Hr 97.5 F-98.5 F 80-102 16-20 107-160/69-103 96-98 GENERAL: Awake, alert, and fully oriented, in no acute distress. Resting comfortably. HEAD: Pt with laceration on posterior head - no active bleeding. EYES: Pupils equal, round and reactive to light, extraocular movements intact, sclera white, conjunctiva clear. EARS, NOSE, THROAT: Oropharynx clear without exudates. Moist mucous membranes. NECK: Supple without lymphadenopathy, or masses. LUNGS: Breath sounds equal, clear to auscultation bilaterally. No wheezes, and no crackles. No accessory muscle use. HEART: Regular rate and rhythm, normal S1 and S2 without murmur, rub or gallop. ABDOMEN: Soft, nontender, not distended, normoactive bowel sounds MUSCULOSKELETAL: Moving all extremities spontaneously and equally. UPPER EXTREMITIES: 2+ pulses, warm, well-perfused. No peripheral edema. HD Fistula on RUE. LOWER EXTREMITIES: 2+ pulses, warm, well-perfused. Mild swelling around L ankle. NEUROLOGICAL: Cranial nerves II-XII intact. Strength 5/5 through. Sensation intact b/l except decreased sensation at the soles of his feet to light tough. Normal speech. PSYCHIATRIC: Cooperative. Good eye contact. Appropriate mood and affect. SKIN: Warm, dry, no rashes. CBCD WBC 5.5 K/mm3 (4.0-10.0) 09/06/19 07:15 RBC 3.71 M/mm3 (4.00-5.60) L 09/06/19 07:15 Hgb 12.5 GM/dL (11.7-16.9) 09/06/19 07:15 Hct 37.2 % (35.4-49) 09/06/19 07:15 MCV 100.2 fl (80-96) H 09/06/19 07:15 MCHC 33.5 g/dl (32.0-35.9) 09/06/19 07:15 RDW 14.9 % (11.9-15.9) 09/06/19 07:15 Plt Count 108 K/MM3 (134-434) L 09/06/19 07:15 MPV 6.7 fl (7.5-11.1) L 09/06/19 07:15 CMP Sodium 141 mmol/L (136-145) 09/06/19 07:15 Potassium 4.4 mmol/L (3.5-5.1) 09/06/19 07:15 Chloride 103 mmol/L (98-107) 09/06/19 07:15 Carbon Dioxide 32 mmol/L (21-32) 09/06/19 07:15 Anion Gap 6 MMOL/L (8-16) L 09/06/19 07:15 BUN 44.9 mg/dL (7-18) H 09/06/19 07:15 Creatinine 6.1 mg/dL (0.55-1.3) H 09/06/19 07:15 Calcium 8.5 mg/dL (8.5-10.1) 09/06/19 07:15 Total Bilirubin 0.5 mg/dL (0.2-1) 09/06/19 07:15 AST 14 U/L (15-37) L 09/06/19 07:15 ALT 12 U/L (13-61) L 09/06/19 07:15 Alkaline Phosphatase 65 U/L (45-117) 09/06/19 07:15 Total Protein 7.0 g/dl (6.4-8.2) 09/06/19 07:15 Albumin 3.3 g/dl (3.4-5.0) L 09/06/19 07:15 ASSESSMENT/PLAN: Pt is a 53 yo M with PMH of ESRD (on HD M/W/F - last dialyzed 2 days prior to admission), NIDDM, Schizophrenia, Bipolar Disorder, Peripheral Neuropathy who presented to the ED after a syncopal episode. On day prior to admission, pt was getting groceries with his when he noted developing dizziness and passing out. His syncopal episode was associated with trauma to the back of the head that resulted in a laceration and spraining his ankle. Endorsed that a precipitating factor may have been the hot weather that day. He reported a similar episode one week ago while indoors at a restaurant. Pt denied any confusion before or after the fall, upper/lower extremity weakness, palpitations increased fatigue, CP, SOB, nausea, vomiting, fevers, chills, abdominal pain, or vision changes. Per pt's family, pt seems to be having an increased frequency of dizziness episodes and near syncopal episodes. After being evaluated at , pt was transferred to the [facility] telemetry unit. Head CT reviewed and showed no acute intracranial pathology, L. parietal scalp contusion, generalized cerebral atrophy and the intracranial structures demostrate no definite intrval change since CT of 03/20/19. Patient complaining of ankle sprain but no significantneurologicdeficits or complaints at this time. Discussed with him the importance of hydration in hopes of avoiding subsequent dizziness. Brain MRI completed, no evidence of acute infarction/hemorrhage; ischemic changes in white matter likely due to long standing hypertension or small vessel arteriosclerosis. Echocardiagram completed, EF 45-50% with suggestive impaired LV relaxation and reduced systolic function.Fall precautions recommended, continue cardiac workup Monitor diabetes, maintain euglycemic range and avoid significant glycemic fluctuation. Hemodialysis as per primary class teacher. Monitor after dialysis sessions as significant volume shifting may lead to subsequent syncopal-type episodes. Continue medical optimization.
--- NOTE | 2019-09-06 12:42 | PN ---
Progress Note (short form) - Note Progress Note: RENAL Pt is awake and alert He says he is accident prone feels well lightheaded when he gets up Last Vital Signs Temp Pulse Resp BP Pulse Ox 98.4 F 80 20 138/89 98 09/06/19 08:08 09/06/19 08:08 09/06/19 08:08 09/06/19 08:08 09/06/19 08:08 lungs clear cvs s1s2 rr abd soft ext no edema, has avf in right arm CBC, BMP 09/06/19 07:15 09/06/19 07:15 Current Medications Generic Name Dose Route Start Last Admin Trade Name Freq PRN Reason Stop Dose Admin Atorvastatin Calcium 20 mg 09/05/19 22:00 09/05/19 22:07 Lipitor - PO 20 mg HS [facility] Administration Bupropion HCl 150 mg 09/06/19 10:00 09/06/19 10:03 Wellbutrin Xl - PO 150 mg DAILY [facility] Administration Divalproex Sodium 1,000 mg 09/05/19 22:00 09/06/19 10:08 Depakote - PO 1,000 mg BID [facility] Administration Heparin Sodium (Porcine) 5,000 unit 09/05/19 06:00 09/06/19 07:18 Heparin - SQ Not Given TID [facility] Sodium Chloride 250 mls @ 3,000 mls/hr 09/05/19 09:58 Normal Saline - IV 09/06/19 09:58 PRN PRN Hypotension during Dialysis Insulin Aspart 1 vial 09/05/19 07:00 09/06/19 12:13 Novolog Vial Sliding Scale - SQ Not Given ACHS [facility] Protocol Lamotrigine 100 mg 09/05/19 22:00 09/05/19 22:07 Lamictal - PO 100 mg HS [facility] Administration Sevelamer Carbonate 2,400 mg 09/06/19 08:00 09/06/19 12:15 Renvela - PO 2,400 mg TIDCM [facility] Administration Impression 1. ESRD 2. hyperkalemia 3. DM 4. syncope 5. bipolar Plan re hemodialyze on Sunday continue monitoring MV
--- NOTE | 2019-09-06 15:43 | PN ---
Progress Note, Physician History of Present Illness: Mr. Mckeon is a 53 y/o M with a PMH of schizophrenia, bipolar, moderate- severely reduced LVEF (2017 ECHO), LBBB, DM, peripheral nueropathy, ESRD: HD M/W/F, who presents to the ED s/p syncope. Pt had an episode of lightheadedness and dizziness when he passed out and hit his head. states he was outside the grocery store and was in hot sun, felt lightheaded, next thing he knew he was on the ground. denies and palpiations or chest pain prior. does report feeling lighteaded also this am. had similar episode one week ago while walking in a burger tera where he nearly fell and passed out. Pt is now reporting L ankle pain and an laceration to posterior head. Pt states he was able to get up after the incident. Per family at beside, the patient has been having more frequent episodes of dizziness where he passes out afterwards. no other complaints. no abd pain. no n/v did eat today. last dialysis was yesterday. Noted in [facility] to have periods of bradycardia with ? advanced AV block. - Current Medication List Current Medications: Active Medications Atorvastatin Calcium (Lipitor -) 20 mg PO [facility] Last Admin: 09/05/19 22:07 Dose: 20 mg Documented by: Bupropion HCl (Wellbutrin Xl -) 150 mg PO DAILY [facility] Last Admin: 09/06/19 10:03 Dose: 150 mg Documented by: Divalproex Sodium (Depakote -) 1,000 mg PO BID [facility] Last Admin: 09/06/19 10:08 Dose: 1,000 mg Documented by: Heparin Sodium (Porcine) (Heparin -) 5,000 unit SQ TID [facility] Last Admin: 09/06/19 07:18 Dose: Not Given Documented by: Sodium Chloride (Normal Saline -) 250 mls @ 3,000 mls/hr IV PRN PRN PRN Reason: Hypotension during Dialysis Stop: 09/06/19 09:58 Insulin Aspart (Novolog Vial Sliding Scale -) 1 vial SQ ACHS [facility]; Protocol Last Admin: 09/06/19 12:13 Dose: Not Given Documented by: Lamotrigine (Lamictal -) 100 mg PO HS [facility] Last Admin: 09/05/19 22:07 Dose: 100 mg Documented by: Sevelamer Carbonate (Renvela -) 2,400 mg PO TIDCM [facility] Last Admin: 09/06/19 12:15 Dose: 2,400 mg Documented by: - Objective Vital Signs: Vital Signs Temperature 98 F 09/06/19 14:05 Pulse Rate 86 09/06/19 14:05 Respiratory Rate 09/06/19 14:05 Blood Pressure 149/78 09/06/19 14:05 O2 Sat by Pulse Oximetry (%) 98 09/06/19 08:08 Eyes: Yes: WNL, Conjunctiva Clear, EOM Intact HENT: Yes: WNL, Atraumatic, Normocephalic Neck: Yes: WNL, Supple, Trachea Midline Cardiovascular: Yes: WNL, Regular Rate and Rhythm Respiratory: Yes: WNL, Regular, CTA Bilaterally Gastrointestinal: Yes: WNL, Normal Bowel Sounds Genitourinary: Yes: WNL Musculoskeletal: Yes: WNL Extremities: Yes: WNL Edema: No Integumentary: Yes: WNL Labs: CBC, BMP 09/06/19 07:15 09/06/19 07:15 INR, PTT INR 1.10 (0.82-1.09) 09/04/19 18:27 Assessment/Plan Syncope, with recent increase in dizzy spells Periods of bradycardia with ?advanced AV blcok (pt was on metoprolol in 2018; unclear if he is still taking it) Moderately severe LV dysfunction on 2017 ECHO LBBB noted in 2017 now in RBBB Schizophrenia HTN DM ECHO ant apical HK EF 45-50% Cardiac Catheterization: 12/06/17 -Left Main patent -LAD proximal 40%, distal 30% -LCx proximal 30% -RCA luminal irregularities ESRD on HD 2016 Plan: 24 Holter TNI serially. Complete home medication list. 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
--- NOTE | 2019-09-06 17:13 | PN ---
Progress Note (short form) - Note Progress Note: patient is having lunch, comfortable with no acute distress. Vital Signs Temperature 98 F 09/06/19 14:05 Pulse Rate 86 09/06/19 14:05 Respiratory Rate 20 09/06/19 14:05 Blood Pressure 149/78 09/06/19 14:05 O2 Sat by Pulse Oximetry (%) 98 09/06/19 08:08 GENERAL: The patient is awake, alert, and fully oriented, in no acute distress. HEAD: Normal with no signs of trauma. EYES: PERRL, extraocular movements intact, sclera anicteric, conjunctiva clear. ENT: Ears normal, oropharynx clear without exudates, moist mucous membranes. NECK: Trachea midline, full range of motion, supple. LUNGS: Breath sounds equal, clear to auscultation bilaterally, no wheezes, no crackles, no accessory muscle use. HEART: Regular rate and rhythm, S1, S2 without murmur, rub or gallop. ABDOMEN: Soft, nontender, nondistended, normoactive bowel sounds, no guarding, no rebound, no hepatosplenomegaly, no masses. EXTREMITIES: 2+ pulses, warm, well-perfused, no edema. right arm fistula s/p bleed post dialysis, + gauze NEUROLOGICAL: Cranial nerves II through XII grossly intact. Normal speech, gait not observed. PSYCH: Normal mood, normal affect. SKIN: Warm, dry, normal turgor, no rashes or lesions noted CBCD WBC 5.5 K/mm3 (4.0-10.0) 09/06/19 07:15 RBC 3.71 M/mm3 (4.00-5.60) L 09/06/19 07:15 Hgb 12.5 GM/dL (11.7-16.9) 09/06/19 07:15 Hct 37.2 % (35.4-49) 09/06/19 07:15 MCV 100.2 fl (80-96) H 09/06/19 07:15 MCHC 33.5 g/dl (32.0-35.9) 09/06/19 07:15 RDW 14.9 % (11.9-15.9) 09/06/19 07:15 Plt Count 108 K/MM3 (134-434) L 09/06/19 07:15 MPV 6.7 fl (7.5-11.1) L 09/06/19 07:15 CMP Sodium 141 mmol/L (136-145) 09/06/19 07:15 Potassium 4.4 mmol/L (3.5-5.1) 09/06/19 07:15 Chloride 103 mmol/L (98-107) 09/06/19 07:15 Carbon Dioxide 32 mmol/L (21-32) 09/06/19 07:15 Anion Gap 6 MMOL/L (8-16) L 09/06/19 07:15 BUN 44.9 mg/dL (7-18) H 09/06/19 07:15 Creatinine 6.1 mg/dL (0.55-1.3) H 09/06/19 07:15 Random Glucose 99 mg/dL (74-106) 09/06/19 07:15 Calcium 8.5 mg/dL (8.5-10.1) 09/06/19 07:15 Total Bilirubin 0.5 mg/dL (0.2-1) 09/06/19 07:15 AST 14 U/L (15-37) L 09/06/19 07:15 ALT 12 U/L (13-61) L 09/06/19 07:15 Alkaline Phosphatase 65 U/L (45-117) 09/06/19 07:15 Total Protein 7.0 g/dl (6.4-8.2) 09/06/19 07:15 Albumin 3.3 g/dl (3.4-5.0) L 09/06/19 07:15 CARDIAC ENZYMES Creatine Kinase 161 U/L (26-308) 09/04/19 18:27 Troponin I 0.02 ng/ml (0.00-0.05) 09/05/19 07:00 Current Medications Generic Name Dose Route Start Last Admin Trade Name Freq PRN Reason Stop Dose Admin Atorvastatin Calcium 20 mg 09/05/19 22:00 09/05/19 22:07 Lipitor - PO 20 mg HS BERTIN Administration Bupropion HCl 150 mg 09/06/19 10:00 09/06/19 10:03 Wellbutrin Xl - PO 150 mg DAILY BERTIN Administration Divalproex Sodium 1,000 mg 09/05/19 22:00 09/06/19 10:08 Depakote - PO 1,000 mg BID BERTIN Administration Heparin Sodium (Porcine) 5,000 unit 09/05/19 06:00 09/06/19 15:01 Heparin - SQ 5,000 unit TID BRETIN Administration Sodium Chloride 250 mls @ 3,000 mls/hr 09/05/19 09:58 Normal Saline - IV 09/06/19 09:58 PRN PRN Hypotension during Dialysis Insulin Aspart 1 vial 09/05/19 07:00 09/06/19 17:02 Novolog Vial Sliding Scale - SQ Not Given ACHS [facility] Protocol Lamotrigine 100 mg 09/05/19 22:00 09/05/19 22:07 Lamictal - PO 100 mg HS BERTIN Administration Sevelamer Carbonate 2,400 mg 09/06/19 08:00 09/06/19 17:02 Renvela - PO 2,400 mg TIDCM BERTIN Administration Home Medications Medication Instructions Recorded RX: Bupropion HCl [Wellbutrin -] 150 mg PO DAILY 03/30/16 RX: Divalproex [Depakote -] 1,000 mg PO BID 03/30/16 RX: LORazepam [Ativan] 1 mg PO BID 03/30/16 RX: Lamotrigine [Lamictal] 100 mg PO HS 03/30/16 RX: Quetiapine Fumarate [Seroquel 300 mg PO HS 03/30/16 -] RX: Furosemide [Lasix -] 80 mg PO DAILY 12/28/17 Atorvastatin Ca [Lipitor] 20 mg PO HS 11/15/18 RX: Gabapentin 100 mg PO DAILY 11/15/18 RX: Sevelamer Carbonate [Renvela -] 2,400 mg PO TIDCM 11/15/[address] reviewed and showed no acute intracranial pathology, L. parietal scalp contusion, generalized cerebral atrophy and the intracranial structures demostrate no definite intrval change since CT of 03/20/19. MRI of the brain: no evidence of neoplasm, ischemic changes inthe white matter due tomlong standing HTN or a small vessel arteriosclerosis no evidence of infarction, otherwise NL Assessment and plan: This patient is a 53 yoM with PMHx of ESRD (on HD M/W/F), NIDDM, Schizophrenia, Bipolar Disorder, Peripheral Neuropathy who presented to the [facility] ED after a syncopal episodeand was transferred at [facility] . Patient had similar events x 2 before. #Syncope x2 with increased episode of dizzy spells. possible due to being on polypharmacy since patient is on lorazepam ,seroquel at home, will lower the dose of lorazepam . will psych to see the patient. and also possible due to having bradycardia ( asper cardio note: that patient used to be on BB and was dc'd and not sure whether still taking it or not). as per Dr Hilton notes: Echo 2017: Moderately severe LV dysfunction ,LBBB noted in 2017 and patient now has RBBB, anterior apical Hypokinesis with EF 45-50%, Cardiac Catheterization: 12/06/17 Left Main patent, LAD proximal 40%, distal 30%, LCx proximal 30%, RCA luminal irregularities continue to check orthostatics, CT of the head no acute pathology, left parietal scalp contusion , holter monitor as per cardio. #ESRD On HD (MWF) : nephro on the case #Schizophrenia: #HTN: monitor #T2DM: achs DVT px: heparin sq neuro/cardio/nephro/psych onthe case Visit type - Emergency Visit Emergency Visit: Yes ED Registration Date: 09/04/19 Care time: The patient presented to the Emergency Department on the above date and was hospitalized for further evaluation of their emergent condition. - New Patient This patient is new to me today: No - Critical Care Critical Care patient: No - Discharge Referral Referred to [facility] Med P.C.: No
[2019-09-06] MEDS: lamoTRIgine 100 MG TABLET PO SCH (22:28)
[2019-09-06] MEDS: ATORVASTATIN CA 20 MG TABLET (FP) PO SCH (22:31)
[2019-09-06] MEDS: LORazepam 0.5 MG TABLET PO PRN (22:32)
[2019-09-07] MEDS: HEPARIN NA (PORCINE) 5,000 UNITS/ML 1ML VIAL SQ SCH ×3 (06:39→21:40)
[2019-09-07] MEDS: INSULIN SLIDING SCALE (NOVOLOG) 1 VIAL SQ SCH ×4 (06:39→21:39)
[2019-09-07] MEDS ORDERED: PT OWN MED DRAWER 7, Y5N ONE ×2 (08:56→21:18)
[2019-09-07] MEDS: SEVELAMER CARBONATE 800 MG TAB (FP) PO SCH ×3 (08:57→17:02)
[2019-09-07] MEDS: DIVALPROEX SODIUM 500 MG TABLET E.C. PO SCH ×2 (09:02→21:40)
--- NOTE | 2019-09-07 09:53 | PN ---
Teaching Attending Note Name of Resident: Elsy Lopez ATTENDING PHYSICIAN STATEMENT I saw and evaluated the patient. I reviewed the resident's note and discussed the case with the resident. I agree with the resident's findings and plan as documented. SUBJECTIVE: This patient is comfortable with no acute distress. OBJECTIVE: Vital Signs Temperature 97.7 F 09/07/19 09:00 Pulse Rate 78 09/07/19 09:00 Respiratory Rate 20 09/07/19 09:00 Blood Pressure 146/78 09/07/19 09:00 O2 Sat by Pulse Oximetry (%) 98 09/07/19 09:00 PE: per resident's note CBCD WBC 5.5 K/mm3 (4.0-10.0) 09/06/19 07:15 RBC 3.71 M/mm3 (4.00-5.60) L 09/06/19 07:15 Hgb 12.5 GM/dL (11.7-16.9) 09/06/19 07:15 Hct 37.2 % (35.4-49) 09/06/19 07:15 MCV 100.2 fl (80-96) H 09/06/19 07:15 MCHC 33.5 g/dl (32.0-35.9) 09/06/19 07:15 RDW 14.9 % (11.9-15.9) 09/06/19 07:15 Plt Count 108 K/MM3 (134-434) L 09/06/19 07:15 MPV 6.7 fl (7.5-11.1) L 09/06/19 07:15 CMP Sodium 141 mmol/L (136-145) 09/06/19 07:15 Potassium 4.4 mmol/L (3.5-5.1) 09/06/19 07:15 Chloride 103 mmol/L (98-107) 09/06/19 07:15 Carbon Dioxide 32 mmol/L (21-32) 09/06/19 07:15 Anion Gap 6 MMOL/L (8-16) L 09/06/19 07:15 BUN 44.9 mg/dL (7-18) H 09/06/19 07:15 Creatinine 6.1 mg/dL (0.55-1.3) H 09/06/19 07:15 Random Glucose 99 mg/dL (74-106) 09/06/19 07:15 Calcium 8.5 mg/dL (8.5-10.1) 09/06/19 07:15 Total Bilirubin 0.5 mg/dL (0.2-1) 09/06/19 07:15 AST 14 U/L (15-37) L 09/06/19 07:15 ALT 12 U/L (13-61) L 09/06/19 07:15 Alkaline Phosphatase 65 U/L (45-117) 09/06/19 07:15 Total Protein 7.0 g/dl (6.4-8.2) 09/06/19 07:15 Albumin 3.3 g/dl (3.4-5.0) L 09/06/19 07:15 CARDIAC ENZYMES Creatine Kinase 161 U/L (26-308) 09/04/19 18:27 Troponin I 0.02 ng/ml (0.00-0.05) 09/05/19 07:00 Current Medications Generic Name Dose Route Start Last Admin Trade Name Ani PRN Reason Stop Dose Admin Atorvastatin Calcium 20 mg 09/05/19 22:00 09/06/19 22:31 Lipitor - PO 20 mg HS BERTIN Administration Bupropion HCl 150 mg 09/06/19 10:00 09/07/19 09:02 Wellbutrin Xl - PO 150 mg DAILY BERTIN Administration Divalproex Sodium 1,000 mg 09/05/19 22:00 09/07/19 09:02 Depakote - PO 1,000 mg BID BERTIN Administration Heparin Sodium (Porcine) 5,000 unit 09/05/19 06:00 09/07/19 06:39 Heparin - SQ 5,000 unit TID BERTIN Administration Sodium Chloride 250 mls @ 3,000 mls/hr 09/05/19 09:58 Normal Saline - IV 09/06/19 09:58 PRN PRN Hypotension during Dialysis Insulin Aspart 1 vial 09/05/19 07:00 09/07/19 06:39 Novolog Vial Sliding Scale - SQ Not Given ACHS [facility] Protocol Lamotrigine 100 mg 09/05/19 22:00 09/06/19 22:28 Lamictal - PO 100 mg HS BERTIN Administration Lorazepam 0.5 mg 09/06/19 17:15 09/06/19 22:32 Ativan - PO 0.5 mg DAILY PRN Administration ANXIETY Sevelamer Carbonate 2,400 mg 09/06/19 08:00 09/07/19 08:57 Renvela - PO 2,400 mg TIDCM BERTIN Administration Home Medications Medication Instructions Recorded Bupropion HCl [Wellbutrin -] 150 mg PO DAILY 03/30/16 Divalproex [Depakote -] 1,000 mg PO BID 03/30/16 LORazepam [Ativan] 1 mg PO BID 03/30/16 Lamotrigine [Lamictal] 100 mg PO HS 03/30/16 Quetiapine Fumarate [Seroquel -] 300 mg PO HS 03/30/16 Furosemide [Lasix -] 80 mg PO DAILY 12/28/17 Atorvastatin Ca [Lipitor] 20 mg PO HS 11/15/18 Gabapentin 100 mg PO DAILY 11/15/18 Sevelamer Carbonate [Renvela -] 2,400 mg PO TIDCM 11/15/[address] reviewed and showed no acute intracranial pathology, L. parietal scalp contusion, generalized cerebral atrophy and the intracranial structures demostrate no definite intrval change since CT of 03/20/19. MRI of the brain: no evidence of neoplasm, ischemic changes inthe white matter due tomlong standing HTN or a small vessel arteriosclerosis no evidence of infarction, otherwise NL Assessment and plan: This patient is a 53 yoM with PMHx of ESRD (on HD M//), NIDDM, Schizophrenia, Bipolar Disorder, Peripheral Neuropathy who presented to the [facility] ED after a syncopal episodeand was transferred at [facility] . Patient had similar events x 2 before. #Syncope x2 with increased episode of dizzy spells. possible due to being on polypharmacy since patient is on lorazepam ,seroquel at home, will lower the dose of lorazepam , seroquel ; patient is not on . will hold off on that, will ask psych to see the patient. and also possible due to having bradycardia ( as per cardio note: that patient used to be on BB and was dc'd and not sure whether still taking it or not). as per Dr Hilton notes: Echo 2017: Moderately severe LV dysfunction ,LBBB noted in 2017 and patient now has RBBB, anterior apical Hypokinesis with EF 45-50%, Cardiac Catheterization: 12/06/17 Left Main patent, LAD proximal 40%, distal 30%, LCx proximal 30%, RCA luminal irregularities continue to check orthostatics, CT of the head no acute pathology, left parietal scalp contusion , holter monitor as per cardio. #ESRD On HD (MWF) : nephro on the case #Schizophrenia: #HTN: monitor #T2DM: achs DVT px: heparin sq neuro/cardio/nephro/psych onthe case also lorazepam is lowered the dose due to having syncopal events, and since cannt stop the drug abruptly. continue his home meds
--- NOTE | 2019-09-07 12:28 | PN ---
Progress Note (short form) - Note Progress Note: RENAL Pt is awake and alert feels well Last Vital Signs Temp Pulse Resp BP Pulse Ox 97.7 F 78 20 146/78 98 09/07/19 09:00 09/07/19 09:00 09/07/19 09:00 09/07/19 09:00 09/07/19 09:00 lungs clear cvs s1s2 rr abd soft ext no edema, has avf in right arm CBC, BMP 09/06/19 07:15 09/06/19 07:15 Current Medications Generic Name Dose Route Start Last Admin Trade Name Freq PRN Reason Stop Dose Admin Atorvastatin Calcium 20 mg 09/05/19 22:00 09/06/19 22:31 Lipitor - PO 20 mg HS BERTIN Administration Bupropion HCl 150 mg 09/06/19 10:00 09/07/19 09:02 Wellbutrin Xl - PO 150 mg DAILY BERTIN Administration Divalproex Sodium 1,000 mg 09/05/19 22:00 09/07/19 09:02 Depakote - PO 1,000 mg BID BERTIN Administration Heparin Sodium (Porcine) 5,000 unit 09/05/19 06:00 09/07/19 06:39 Heparin - SQ 5,000 unit TID BERTIN Administration Sodium Chloride 250 mls @ 3,000 mls/hr 09/05/19 09:58 Normal Saline - IV 09/06/19 09:58 PRN PRN Hypotension during Dialysis Insulin Aspart 1 vial 09/05/19 07:00 09/07/19 11:11 Novolog Vial Sliding Scale - SQ Not Given ACHS BERTIN Protocol Lamotrigine 100 mg 09/05/19 22:00 09/06/19 22:28 Lamictal - PO 100 mg HS BERTIN Administration Lorazepam 0.5 mg 09/06/19 17:15 09/06/19 22:32 Ativan - PO 0.5 mg DAILY PRN Administration ANXIETY Sevelamer Carbonate 2,400 mg 09/06/19 08:00 09/07/19 08:57 Renvela - PO 2,400 mg TIDCM BERTIN Administration Impression 1. ESRD 2. hyperkalemia 3. DM 4. syncope 5. bipolar Plan re hemodialyze tomorrow continue monitoring no need for JAREK MV
[2019-09-07] MEDS ORDERED: SODIUM CHLORIDE 250 ML IV PRN (12:29)
--- NOTE | 2019-09-07 13:02 | PN ---
Physical Exam: SUBJECTIVE: Patient seen and examined, was walking out of bedroom upon my arrival. Shuffled gait, appears weak. He wants to go home but understands that he cannot due to the 24h tele monitor. OBJECTIVE: Vital Signs Period Temp Pulse Resp BP Sys/Miguel Pulse Ox Last 24 Hr 97.7 F-98 F 77-95 20-20 124-149/78-88 97-98 GENERAL: middle aged male, awake, alert, and fully oriented, in no acute distress HEAD: large laceration on L scalp with 2 lissa, surrounding dried crusted blood EYES: PERRL, extraocular movements intact, no ptosis LUNGS: CTAB HEART: Regular rate and rhythm, S1, S2 distant but without murmur ABDOMEN: Soft, nontender on palpation, nondistended, active bowel sounds EXTREMITIES: 2+ pulses, warm, well-perfused, L ankle edematous and tender on palpation, fistula on medial R upper arm NEUROLOGICAL: Cranial nerves II through XII grossly intact. Normal speech, shuffled gait PSYCH: Normal mood, normal affect, poor eye contact, tangential speech SKIN: Warm, no rashes or lesions noted Laboratory Results - last 24 hr 09/04/19 09/06/19 09/06/19 21:15 17:05 23:13 POC Glucometer 130 103 COVID-19 (BANG) Not detected 09/07/19 09/07/19 05:59 11:10 POC Glucometer 104 79 COVID-19 (BANG) Active Medications Generic Name Dose Route Start Last Admin Trade Name Freq PRN Reason Stop Dose Admin Atorvastatin Calcium 20 mg 09/05/19 22:00 09/06/19 22:31 Lipitor - PO 20 mg HS BERTIN Administration Bupropion HCl 150 mg 09/06/19 10:00 09/07/19 09:02 Wellbutrin Xl - PO 150 mg DAILY BERTIN Administration Divalproex Sodium 1,000 mg 09/05/19 22:00 09/07/19 09:02 Depakote - PO 1,000 mg BID BERTIN Administration Heparin Sodium (Porcine) 5,000 unit 09/05/19 06:00 09/07/19 06:39 Heparin - SQ 5,000 unit TID BERTIN Administration Sodium Chloride 250 mls @ 3,000 mls/hr 09/05/19 09:58 Normal Saline - IV 08/01/20 09:58 PRN PRN Hypotension during Dialysis Sodium Chloride 250 mls @ 3,000 mls/hr 09/07/19 12:29 Normal Saline - IV 09/08/19 12:29 PRN PRN Hypotension during Dialysis Insulin Aspart 1 vial 09/05/19 07:00 09/07/19 11:11 Novolog Vial Sliding Scale - SQ Not Given ACHS BERTIN Protocol Lamotrigine 100 mg 09/05/19 22:00 09/06/19 22:28 Lamictal - PO 100 mg HS BERTIN Administration Lorazepam 0.5 mg 09/06/19 17:15 09/06/19 22:32 Ativan - PO 0.5 mg DAILY PRN Administration ANXIETY Sevelamer Carbonate 2,400 mg 09/06/19 08:00 09/07/19 08:57 Renvela - PO 2,400 mg TIDCM BERTIN Administration ASSESSMENT/PLAN: Pt is a 53 yo M with PMH of ESRD (on HD M/W/F - last dialyzed on Sunday), NIDDM, Schizophrenia, Bipolar Disorder, Peripheral Neuropathy who presented to the ED after a syncopal episode causing him to fall, leaving him with a L scalp laceration and a L sprained ankle. ED course was remarkable for episodes of bradycardia; intial EKG concerning for Second Degree Heart Block - Mobitz Type 2. This resolved with subsequent EKGs. CT head neg for intracranial pathology; left parietal scalp contusion. CXR negative for lung pathology; cardiomegaly. Foot Xray showing no fracture. Received DPT vaccine. Bilateral Carotid doppler showed a small plaque in R common artery and mild intimal tickening at the R carotid bifurcation. Home meds were re-started. Brain MRI s howed no acute pathology and Echo showed impaired LV relaxation and decreased systolic function. Patient admitted for syncope w/o. # Syncope 2/2 unclear etiology (cardiac cause vs. dehydration vs. HD-related vs. polypharmacy) Pt on several medications that me be contributing to syncope Pt feels weak after HD treatments, has hx of bleeding from his fistula after treatments Initial troponins negative - med list reconciled with pharmacy - patient is taking all indicated medications except for furosemide - Cardiology consulted as pt exhibited evidence of 2nd degree heart block (mobitz type 2) on EKG during this visit - Neurology consulted - appreciated recs - F/u fasting lipids, troponin, CMP - Fall, seizure, and aspiration precautions - Warm compress for left ankle; Tylenol prn for pain - daily orthostatic VS #ESRD (HD M/W/F) - Nephrology consulted - appreciated recs - HD MWF - PTH 389, corrected Ca WNL, Phos 6.9 --> appreciate nephro recs #Hyperkalemia - resolved s/p tx with calcium gluconate/d50/insulin #NIDDM - hold home diabetes meds for now - ISS + BGM #DVT PPX - Heparin 5000 SQ tid #FEN -F - none -E - replete PRN; monitor lytes -N - renal/diabetic diet Dispo: Admit to telemetry Visit type - Emergency Visit Emergency Visit: No - New Patient This patient is new to me today: No - Critical Care Critical Care patient: No ATTENDING PHYSICIAN STATEMENT I saw and evaluated the patient. I reviewed the resident's note and discussed the case with the resident. I agree with the resident's findings and plan as documented. SUBJECTIVE: OBJECTIVE: ASSESSMENT AND PLAN:
--- NOTE | 2019-09-07 15:00 | PN ---
Progress Note, Physician History of Present Illness: Mr. Mckeon is a 53 y/o M with a PMH of schizophrenia, bipolar, moderate- severely reduced LVEF (2017 ECHO), LBBB, DM, peripheral nueropathy, ESRD: HD M/W/F, who presents to the ED s/p syncope. Pt had an episode of lightheadedness and dizziness when he passed out and hit his head. states he was outside the grocery store and was in hot sun, felt lightheaded, next thing he knew he was on the ground. denies and palpiations or chest pain prior. does report feeling lighteaded also this am. had similar episode one week ago while walking in a burger tera where he nearly fell and passed out. Pt is now reporting L ankle pain and an laceration to posterior head. Pt states he was able to get up after the incident. Per family at beside, the patient has been having more frequent episodes of dizziness where he passes out afterwards. no other complaints. no abd pain. no n/v did eat today. last dialysis was yesterday. Noted in [facility] to have periods of bradycardia with ? advanced AV block. - Current Medication List Current Medications: Active Medications Atorvastatin Calcium (Lipitor -) 20 mg PO HS [facility] Last Admin: 09/06/19 22:31 Dose: 20 mg Documented by: Bupropion HCl (Wellbutrin Xl -) 150 mg PO DAILY [facility] Last Admin: 09/07/19 09:02 Dose: 150 mg Documented by: Divalproex Sodium (Depakote -) 1,000 mg PO BID [facility] Last Admin: 09/07/19 09:02 Dose: 1,000 mg Documented by: Heparin Sodium (Porcine) (Heparin -) 5,000 unit SQ TID [facility] Last Admin: 09/07/19 13:45 Dose: 5,000 unit Documented by: Sodium Chloride (Normal Saline -) 250 mls @ 3,000 mls/hr IV PRN PRN PRN Reason: Hypotension during Dialysis Stop: 09/06/19 09:58 Sodium Chloride (Normal Saline -) 250 mls @ 3,000 mls/hr IV PRN PRN PRN Reason: Hypotension during Dialysis Stop: 09/08/19 12:29 Insulin Aspart (Novolog Vial Sliding Scale -) 1 vial SQ [facility]; Protocol Last Admin: 09/07/19 11:11 Dose: Not Given Documented by: Lamotrigine (Lamictal -) 100 mg PO HS [facility] Last Admin: 09/06/19 22:28 Dose: 100 mg Documented by: Lorazepam (Ativan -) 0.5 mg PO DAILY PRN PRN Reason: ANXIETY Last Admin: 09/06/19 22:32 Dose: 0.5 mg Documented by: Sevelamer Carbonate (Renvela -) 2,400 mg PO TIDCM [facility] Last Admin: 09/07/19 12:53 Dose: 2,400 mg Documented by: - Objective Vital Signs: Vital Signs Temperature 97.7 F 09/07/19 13:00 Pulse Rate 91 H 09/07/19 13:16 Respiratory Rate 20 09/07/19 13:00 Blood Pressure 149/86 09/07/19 13:16 O2 Sat by Pulse Oximetry (%) 98 09/07/19 13:00 Eyes: Yes: WNL, Conjunctiva Clear, EOM Intact HENT: Yes: WNL, Atraumatic, Normocephalic Neck: Yes: WNL, Supple, Trachea Midline Cardiovascular: Yes: WNL, Regular Rate and Rhythm Respiratory: Yes: WNL, Regular, CTA Bilaterally Gastrointestinal: Yes: WNL, Normal Bowel Sounds Genitourinary: Yes: WNL Musculoskeletal: Yes: WNL Extremities: Yes: WNL Edema: No Integumentary: Yes: WNL Neurological: Yes: WNL, Alert, Oriented ...Motor Strength: WNL Psychiatric: Yes: WNL Labs: CBC, BMP 09/06/19 07:15 09/06/19 07:15 INR, PTT INR 1.10 (0.82-1.09) 09/04/19 18:27 Assessment/Plan Syncope, with recent increase in dizzy spells Periods of bradycardia with ?advanced AV blcok (pt was on metoprolol in 2018; unclear if he is still taking it) Moderately severe LV dysfunction on 2017 ECHO LBBB noted in 2017 now in RBBB Schizophrenia HTN DM ECHO ant apical HK EF 45-50% Cardiac Catheterization: 12/06/17 -Left Main patent -LAD proximal 40%, distal 30% -LCx proximal 30% -RCA luminal irregularities Episodes of idioventricular rhythm on telemetry ESRD on HD 2016 Plan: 24 Holter TNI serially. Complete home medication list. 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
[2019-09-07] MEDS: lamoTRIgine 100 MG TABLET PO SCH (21:40)
[2019-09-07] MEDS: ATORVASTATIN CA 20 MG TABLET (FP) PO SCH (21:40)
[2019-09-07] MEDS: LORazepam 0.5 MG TABLET PO PRN (21:46)
[2019-09-08] MEDS: INSULIN SLIDING SCALE (NOVOLOG) 1 VIAL SQ SCH ×3 (06:23→17:38)
[2019-09-08] MEDS: HEPARIN NA (PORCINE) 5,000 UNITS/ML 1ML VIAL SQ SCH ×2 (06:24→14:56)
[2019-09-08 07:57] LABS: BASO % 0.3 % (0-2.0); EOS % 2.3 % (0-4.5); HEMATOCRIT 37.5 % (35.4-49); LYMPH % 30.5 % (8-40); MCH 32.2 pg (25.7-33.7); MCHC 32.1 g/dl (32.0-35.9); MEAN CELL VOLUME 100.5 fl (80-96); NEUT % 56.9 % (42.8-82.8); PLATELET COUNT 128 K/MM3 (134-434); RBC 3.73 M/mm3 (4.00-5.60); RDW 14.7 % (11.9-15.9); WHITE BLOOD COUNT 5.9 K/mm3 (4.0-10.0)
[2019-09-08 08:13] LABS: ALBUMIN 3.4 g/dl (3.4-5.0); BILIRUBIN,TOTAL 0.5 mg/dL (0.2-1); CALCIUM 8.7 mg/dL (8.5-10.1); MAGNESIUM 3.7 mg/dL (1.8-2.4); PHOSPHOROUS 8.4 mg/dL (2.5-4.9); POTASSIUM 4.9 mmol/L (3.5-5.1); TOT PROT 6.8 g/dl (6.4-8.2)
--- NOTE | 2019-09-08 08:31 | PN ---
Progress Note (short form) - Note Progress Note: [facility] *LIVE* Neurology CHIEF COMPLAINT: passing out and falling PCP: Dr. Lenny Menard HISTORY OF PRESENT ILLNESS: Pt is a 53 yo M with PMH of ESRD (on HD M/W/F - last dialyzed 2 days prior to admission), NIDDM, Schizophrenia, Bipolar Disorder, Peripheral Neuropathy who presented to the ED after a syncopal episode. On day prior to admission, pt was getting groceries with his when he noted developing dizziness and passing out. His syncopal episode was associated with trauma to the back of the head that resulted in a laceration and spraining his ankle. Endorsed that a precipitating factor may have been the hot weather that day. He reported a similar episode one week ago while indoors at a restaurant. Pt denied any conf usion before or after the fall, upper/lower extremity weakness, palpitations increased fatigue, CP, SOB, nausea, vomiting, fevers, chills, abdominal pain, or vision changes. Per pt's family, pt seems to be having an increased frequency of dizziness episodes and near syncopal episodes. After being evaluated at , pt was transferred to the [facility] telemetry unit. Head CT reviewed and showed no acute intracranial pathology, L. parietal scalp contusion, generalized cerebral atrophy and the intracranial structures demostrate no definite intrval change since CT of 03/20/19. Patient complaining of ankle sprain but no significantneurologicdeficits or complaints at this time. Discussed with him the importance of hydration in hopes of avoiding subsequent dizziness. Brain MRI completed, no evidence of acute infarction/hemorrhage; ischemic changes in white matter likely due to long standing hypertension or small vessel arteriosclerosis. Echocardiagram completed, EF 45-50% with suggestive impaired L V relaxation and reduced systolic function. Patient receiving hemodialysis this morning, no new complaints and seems neurologically at baseline. Active Medications Atorvastatin Calcium (Lipitor -) 20 mg PO HS [facility] Last Admin: 09/07/19 21:40 Dose: 20 mg Documented by: Bupropion HCl (Wellbutrin Xl -) 150 mg PO DAILY [facility] Last Admin: 09/07/19 09:02 Dose: 150 mg Documented by: Divalproex Sodium (Depakote -) 1,000 mg PO BID [facility] Last Admin: 09/07/19 21:40 Dose: 1,000 mg Documented by: Heparin Sodium (Porcine) (Heparin -) 5,000 unit SQ TID [facility] Last Admin: 09/08/19 06:24 Dose: 5,000 unit Documented by: Sodium Chloride (Normal Saline -) 250 mls @ 3,000 mls/hr IV PRN PRN PRN Reason: Hypotension during Dialysis Stop: 09/08/19 12:29 Insulin Aspart (Novolog Vial Sliding Scale -) 1 vial SQ ACHS [facility]; Protocol Last Admin: 09/08/19 06:23 Dose: Not Given Documented by: Lamotrigine (Lamictal -) 100 mg PO HS [facility] Last Admin: 09/07/19 21:40 Dose: 100 mg Documented by: Lorazepam (Ativan -) 0.5 mg PO DAILY PRN PRN Reason: ANXIETY Last Admin: 09/07/19 21:46 Dose: 0.5 mg Documented by: Sevelamer Carbonate (Renvela -) 2,400 mg PO TIDCM [facility] Last Admin: 09/07/19 17:02 Dose: 2,400 mg Documented by: PHYSICAL EXAMINATION Vital Signs Period Temp Pulse Resp BP Sys/Miguel Pulse Ox Last 24 Hr 97.3 F-98.1 F 73-92 18-20 128-149/71-97 96-98 GENERAL: Awake, alert, and fully oriented, in no acute distress. Resting comfortably. HEAD: Pt with laceration on posterior head - no active bleeding. EYES: Pupils equal, round and reactive to light, extraocular movements intact, sclera white, conjunctiva clear. EARS, NOSE, THROAT: Oropharynx clear without exudates. Moist mucous membranes. NECK: Supple without lymphadenopathy, or masses. LUNGS: Breath sounds equal, clear to auscultation bilaterally. No wheezes, and no crackles. No accessory muscle use. HEART: Regular rate and rhythm, normal S1 and S2 without murmur, rub or gallop. ABDOMEN: Soft, nontender, not distended, normoactive bowel sounds MUSCULOSKELETAL: Moving all extremities spontaneously and equally. UPPER EXTREMITIES: 2+ pulses, warm, well-perfused. No peripheral edema. HD Fistula on RUE. LOWER EXTREMITIES: 2+ pulses, warm, well-perfused. Mild swelling around L ankle. NEUROLOGICAL: Cranial nerves II-XII intact. Strength 5/5 through. Sensation intact b/l except decreased sensation at the soles of his feet to light tough. Normal speech. PSYCHIATRIC: Cooperative. Good eye contact. Appropriate mood and affect. SKIN: Warm, dry, no rashes. CBCD WBC 5.9 K/mm3 (4.0-10.0) 09/08/19 05:25 RBC 3.73 M/mm3 (4.00-5.60) L 09/08/19 05:25 Hgb 12.0 GM/dL (11.7-16.9) 09/08/19 05:25 Hct 37.5 % (35.4-49) 09/08/19 05:25 MCV 100.5 fl (80-96) H 09/08/19 05:25 MCHC 32.1 g/dl (32.0-35.9) 09/08/19 05:25 RDW 14.7 % (11.9-15.9) 09/08/19 05:25 Plt Count 128 K/MM3 (134-434) L 09/08/19 05:25 MPV 7.0 fl (7.5-11.1) L 09/08/19 05:25 CMP Sodium 141 mmol/L (136-145) 09/08/19 05:25 Potassium 4.9 mmol/L (3.5-5.1) 09/08/19 05:25 Chloride 105 mmol/L (98-107) 09/08/19 05:25 Carbon Dioxide 27 mmol/L (21-32) 09/08/19 05:25 Anion Gap 9 MMOL/L (8-16) 09/08/19 05:25 BUN 44.9 mg/dL (7-18) H 09/06/19 07:15 Creatinine 6.1 mg/dL (0.55-1.3) H 09/06/19 07:15 Random Glucose 73 mg/dL (74-106) L 09/08/19 05:25 Calcium 8.7 mg/dL (8.5-10.1) 09/08/19 05:25 Total Bilirubin 0.5 mg/dL (0.2-1) 09/08/19 05:25 AST 12 U/L (15-37) L 09/08/19 05:25 ALT 13 U/L (13-61) 09/08/19 05:25 Alkaline Phosphatase 63 U/L (45-117) 09/08/19 05:25 Total Protein 6.8 g/dl (6.4-8.2) 09/08/19 05:25 Albumin 3.4 g/dl (3.4-5.0) 09/08/19 05:25 CARDIAC ENZYMES Creatine Kinase 161 U/L (26-308) 09/04/19 18:27 Troponin I 0.02 ng/ml (0.00-0.05) 09/08/19 05:25 ASSESSMENT/PLAN: Pt is a 53 yo M with PMH of ESRD (on HD M/W/F - last dialyzed 2 days prior to admission), NIDDM, Schizophrenia, Bipolar Disorder, Peripheral Neuropathy who presented to the ED after a syncopal episode. On day prior to admission, pt was getting groceries with his when he noted developing dizziness and passing out. His syncopal episode was associated with trauma to the back of the head that resulted in a laceration and spraining his ankle. Endorsed that a precipitating factor may have been the hot weather that day. He reported a similar episode one week ago while indoors at a restaurant. Pt denied any confusion before or after the fall, upper/lower extremity weakness, palpitations increased fatigue, CP, SOB, nausea, vomiting, fevers, chills, abdominal pain, or vision changes. Per pt's family, pt seems to be having an increased frequency of dizziness episodes and near syncopal episodes. After being evaluated at , pt was transferred to the [facility] telemetry unit. Head CT reviewed and showed no acute intracranial pathology, L. parietal scalp contusion, generalized cerebral atrophy and the intracranial structures demostrate no definite intrval change since CT of 03/20/19. Patient complaining of ankle sprain but no significantn eurologicdeficits or complaints at this time. Discussed with him the importance of hydration in hopes of avoiding subsequent dizziness. Brain MRI completed, no evidence of acute infarction/hemorrhage; ischemic changes in white matter likely due to long standing hypertension or small vessel arteriosclerosis. Echocardiagram completed, EF 45-50% with suggestive impaired LV relaxation and reduced systolic function.Fall precautions recommended, continue cardiac workup Monitor diabetes, maintain euglycemic range and avoid significant glycemic fluctuation. Hemodialysis as per betting clerk. Monitor after dialysis sessions as significant volume shifting may lead to subsequent syncopal-type episodes. Continue medical optimization. Otherwise, neurologically seems to be at baseline.
[2019-09-08 08:38] LABS: BLOOD UREA NITROGEN 80.3 mg/dL (7-18)
--- NOTE | 2019-09-08 08:38 | PN ---
Progress Note, Physician History of Present Illness: Mr. Mckeon is a 53 y/o M with a PMH of schizophrenia, bipolar, moderate- severely reduced LVEF (2017 ECHO), LBBB, DM, peripheral nueropathy, ESRD: HD M/W/F, who presents to the ED s/p syncope. Pt had an episode of lightheadedness and dizziness when he passed out and hit his head. states he was outside the grocery store and was in hot sun, felt lightheaded, next thing he knew he was on the ground. denies and palpiations or chest pain prior. does report feeling lighteaded also this am. had similar episode one week ago while walking in a burger tera where he nearly fell and passed out. Pt is now reporting L ankle pain and an laceration to posterior head. Pt states he was able to get up after the incident. Per family at beside, the patient has been having more frequent episodes of dizziness where he passes out afterwards. no other complaints. no abd pain. no n/v did eat today. last dialysis was yesterday. Noted in [facility] to have periods of bradycardia with ? advanced AV block. - Current Medication List Current Medications: Active Medications Atorvastatin Calcium (Lipitor -) 20 mg PO [facility] Last Admin: 09/07/19 21:40 Dose: 20 mg Documented by: Bupropion HCl (Wellbutrin Xl -) 150 mg PO DAILY [facility] Last Admin: 09/07/19 09:02 Dose: 150 mg Documented by: Divalproex Sodium (Depakote -) 1,000 mg PO BID [facility] Last Admin: 09/07/19 21:40 Dose: 1,000 mg Documented by: Heparin Sodium (Porcine) (Heparin -) 5,000 unit SQ TID [facility] Last Admin: 09/08/19 06:24 Dose: 5,000 unit Documented by: Sodium Chloride (Normal Saline -) 250 mls @ 3,000 mls/hr IV PRN PRN PRN Reason: Hypotension during Dialysis Stop: 09/08/19 12:29 Insulin Aspart (Novolog Vial Sliding Scale -) 1 vial SQ ACHS [facility]; Protocol Last Admin: 09/08/19 06:23 Dose: Not Given Documented by: Lamotrigine (Lamictal -) 100 mg PO HS [facility] Last Admin: 09/07/19 21:40 Dose: 100 mg Documented by: Lorazepam (Ativan -) 0.5 mg PO DAILY PRN PRN Reason: ANXIETY Last Admin: 09/07/19 21:46 Dose: 0.5 mg Documented by: Sevelamer Carbonate (Renvela -) 2,400 mg PO TIDCM [facility] Last Admin: 09/07/19 17:02 Dose: 2,400 mg Documented by: - Objective Vital Signs: Vital Signs Temperature 97.5 F L 09/08/19 06:00 Pulse Rate 80 09/08/19 07:20 Respiratory Rate 18 09/08/19 07:20 Blood Pressure 141/88 09/08/19 07:20 O2 Sat by Pulse Oximetry (%) 96 09/08/19 02:00 Eyes: Yes: WNL, Conjunctiva Clear, EOM Intact HENT: Yes: WNL, Atraumatic, Normocephalic Neck: Yes: WNL, Supple, Trachea Midline Cardiovascular: Yes: WNL, Regular Rate and Rhythm Respiratory: Yes: WNL, Regular, CTA Bilaterally Gastrointestinal: Yes: WNL, Normal Bowel Sounds Genitourinary: Yes: WNL Musculoskeletal: Yes: WNL Extremities: Yes: WNL Edema: No Integumentary: Yes: WNL Neurological: Yes: Alert, Oriented ...Motor Strength: WNL Labs: CBC, BMP 09/08/19 05:25 09/08/19 05:25 INR, PTT INR 1.10 (0.82-1.09) 09/04/19 18:27 Assessment/Plan Syncope, with recent increase in dizzy spells Periods of bradycardia with ?advanced AV blcok (pt was on metoprolol in 2018; unclear if he is still taking it) Moderately severe LV dysfunction on 2017 ECHO LBBB noted in 2017 now in RBBB Schizophrenia HTN DM ECHO ant apical HK EF 45-50% Cardiac Catheterization: 12/06/17 -Left Main patent -LAD proximal 40%, distal 30% -LCx proximal 30% -RCA luminal irregularities Episodes of idioventricular rhythm on telemetry ESRD on HD 2017 Plan: 24 Holter TNI serially. Complete home medication list. Orthostatic VS checks F/u CT head, LE images post-fall Hemodilysis per transformation architect.
--- NOTE | 2019-09-08 08:38 | PN ---
Teaching Attending Note Name of Resident: Elsy Lopez ATTENDING PHYSICIAN STATEMENT I saw and evaluated the patient. I reviewed the resident's note and discussed the case with the resident. I agree with the resident's findings and plan as documented. SUBJECTIVE: Patient is feeling better, no acute distress, having his HD. OBJECTIVE: Vital Signs Temperature 97.5 F L 09/08/19 06:00 Pulse Rate 80 09/08/19 07:20 Respiratory Rate 18 09/08/19 07:20 Blood Pressure 141/88 09/08/19 07:20 O2 Sat by Pulse Oximetry (%) 96 09/08/19 02:00 PE: per resident's note CBCD WBC 5.9 K/mm3 (4.0-10.0) 09/08/19 05:25 RBC 3.73 M/mm3 (4.00-5.60) L 09/08/19 05:25 Hgb 12.0 GM/dL (11.7-16.9) 09/08/19 05:25 Hct 37.5 % (35.4-49) 09/08/19 05:25 MCV 100.5 fl (80-96) H 09/08/19 05:25 MCHC 32.1 g/dl (32.0-35.9) 09/08/19 05:25 RDW 14.7 % (11.9-15.9) 09/08/19 05:25 Plt Count 128 K/MM3 (134-434) L 09/08/19 05:25 MPV 7.0 fl (7.5-11.1) L 09/08/19 05:25 CMP Sodium 141 mmol/L (136-145) 09/08/19 05:25 Potassium 4.9 mmol/L (3.5-5.1) 09/08/19 05:25 Chloride 105 mmol/L (98-107) 09/08/19 05:25 Carbon Dioxide 27 mmol/L (21-32) 09/08/19 05:25 Anion Gap 9 MMOL/L (8-16) 09/08/19 05:25 BUN 44.9 mg/dL (7-18) H 09/06/19 07:15 Creatinine 6.1 mg/dL (0.55-1.3) H 09/06/19 07:15 Random Glucose 73 mg/dL (74-106) L 09/08/19 05:25 Calcium 8.7 mg/dL (8.5-10.1) 09/08/19 05:25 Total Bilirubin 0.5 mg/dL (0.2-1) 09/08/19 05:25 AST 12 U/L (15-37) L 09/08/19 05:25 ALT 13 U/L (13-61) 09/08/19 05:25 Alkaline Phosphatase 63 U/L (45-117) 09/08/19 05:25 Total Protein 6.8 g/dl (6.4-8.2) 09/08/19 05:25 Albumin 3.4 g/dl (3.4-5.0) 09/08/19 05:25 CARDIAC ENZYMES Creatine Kinase 161 U/L (26-308) 09/04/19 18:27 Troponin I 0.02 ng/ml (0.00-0.05) 09/08/19 05:25 Current Medications Generic Name Dose Route Start Last Admin Trade Name Ani PRN Reason Stop Dose Admin Atorvastatin Calcium 20 mg 09/05/19 22:00 09/07/19 21:40 Lipitor - PO 20 mg HS [facility] Administration Bupropion HCl 150 mg 09/06/19 10:00 09/07/19 09:02 Wellbutrin Xl - PO 150 mg DAILY [facility] Administration Divalproex Sodium 1,000 mg 09/05/19 22:00 09/07/19 21:40 Depakote - PO 1,000 mg BID [facility] Administration Heparin Sodium (Porcine) 5,000 unit 09/05/19 06:00 09/08/19 06:24 Heparin - SQ 5,000 unit TID [facility] Administration Sodium Chloride 250 mls @ 3,000 mls/hr 09/07/19 12:29 Normal Saline - IV 09/08/19 12:29 PRN PRN Hypotension during Dialysis Insulin Aspart 1 vial 09/05/19 07:00 09/08/19 06:23 Novolog Vial Sliding Scale - SQ Not Given ACHS [facility] Protocol Lamotrigine 100 mg 09/05/19 22:00 09/07/19 21:40 Lamictal - PO 100 mg HS [facility] Administration Lorazepam 0.5 mg 09/06/19 17:15 09/07/19 21:46 Ativan - PO 0.5 mg DAILY PRN Administration ANXIETY Sevelamer Carbonate 2,400 mg 09/06/19 08:00 09/07/19 17:02 Renvela - PO 2,400 mg TIDCM [facility] Administration Home Medications Medication Instructions Recorded Bupropion HCl [Wellbutrin -] 150 mg PO DAILY 03/30/16 Divalproex [Depakote -] 1,000 mg PO BID 03/30/16 LORazepam [Ativan] 1 mg PO BID 03/30/16 Lamotrigine [Lamictal] 100 mg PO HS 03/30/16 Quetiapine Fumarate [Seroquel -] 300 mg PO HS 03/30/16 Furosemide [Lasix -] 80 mg PO DAILY 12/28/17 Atorvastatin Ca [Lipitor] 20 mg PO HS 11/15/18 Gabapentin 100 mg PO DAILY 11/15/18 Sevelamer Carbonate [Renvela -] 2,400 mg PO TIDCM 11/15/[address] reviewed and showed no acute intracranial pathology, L. parietal scalp contusion, generalized cerebral atrophy and the intracranial structures demostrate no definite intrval change since CT of 03/20/19. MRI of the brain: no evidence of neoplasm, ischemic changes inthe white matter due tomlong standing HTN or a small vessel arteriosclerosis no evidence of infarction, otherwise NL Assessment and plan: This patient is a 53 yoM with PMHx of ESRD (on HD M//), NIDDM, Schizophrenia, Bipolar Disorder, Peripheral Neuropathy who presented to the [facility] ED after a syncopal episodeand was transferred at [facility] . Patient had similar events x 2 before. #Syncope x2 with increased episode of dizzy spells. possible due to being on polypharmacy since patient is on lorazepam ,seroquel at home, lowered the dose of lorazepam . as per psych , discontinued lamictal since can elevate the levels of depakote. As per cardio. the patient is having bradycardia ( as per cardio note: that patient used to be on BB and was dc'd and not sure whether still taking it or not). as per Dr Hilton notes: Echo 2017: Moderately severe LV dysfunction ,LBBB noted in 2017 and patient now has RBBB, anterior apical Hypokinesis with EF 45-50%, Cardiac Catheterization: 12/06/17 Left Main patent, LAD proximal 40%, distal 30%, LCx proximal 30%, RCA luminal irregularities continue to check orthostatics, CT of the head no acute pathology, left parietal scalp contusion , holter monitor as per cardio. #ESRD On HD (MWF) : nephro on the case #Schizophrenia: pschy consulted and discontinued lamictal #HTN: monitor #T2DM: achs DVT px: heparin sq neuro/cardio/nephro/psych onthe case also lorazepam is lowered the dose due to having syncopal events, and since cannot stop the drug abruptly. continue his home meds patient was placed on a holter monitor , waiting for cardiology input.
[2019-09-08 08:40] LABS: CREATININE 9.2 mg/dL (0.55-1.3)
--- NOTE | 2019-09-08 09:11 | PN ---
Physical Exam: SUBJECTIVE: Patient seen and examined, the HD nurse was getting patient ready for HD. I explained to the HD nurse that that after the last HD treatment patient's fistula had some difficulties achieving hemostasis, and that a pressure dressing with 4x4 gauze pads is recommended post HD (not too much pressure). Patient is feeling like himself, was lying in bed, and did mention going home and having dinner. We discussed that he may feel dizzy after his HD treatment and that he needs to take caution if getting out of bed. Patient avoided all eye contact today. OBJECTIVE: Vital Signs Period Temp Pulse Resp BP Sys/Miguel Pulse Ox Last 24 Hr 97.3 F-98.1 F 73-92 18-20 128-149/71-97 96-98 GENERAL: middle aged male, awake, alert, and fully oriented, in no acute distress HEAD: large laceration on L scalp with 2 lissa, surrounding dried crusted blood EYES: PERRL, extraocular movements intact, no ptosis LUNGS: CTAB HEART: Regular rate and rhythm, S1, S2 distant but without murmur ABDOMEN: Soft, nontender on palpation, nondistended, active bowel sounds EXTREMITIES: 2+ pulses, warm, well-perfused, L ankle edematous and tender on palpation, fistula on medial R upper arm NEUROLOGICAL: Cranial nerves II through XII grossly intact. Normal speech, shuffled gait PSYCH: Normal mood, normal affect, poor eye contact, tangential speech SKIN: Warm, no rashes or lesions noted Laboratory Results - last 24 hr 09/07/19 09/07/19 09/07/19 11:10 16:43 21:39 WBC RBC Hgb Hct MCV MCH MCHC RDW Plt Count MPV Absolute Neuts (auto) Neutrophils % Lymphocytes % Monocytes % Eosinophils % Basophils % Nucleated RBC % Sodium Potassium Chloride Carbon Dioxide Anion Gap BUN Creatinine Est GFR (CKD-EPI)AfAm Est GFR (CKD-EPI)NonAf POC Glucometer 79 81 108 Random Glucose Calcium Phosphorus Magnesium Total Bilirubin AST ALT Alkaline Phosphatase CK-MB (CK-2) Troponin I Total Protein Albumin Vitamin B12 Serum Folate 09/08/19 09/08/19 09/08/19 05:25 05:25 05:25 WBC 5.9 RBC 3.73 L Hgb 12.0 Hct 37.5 MCV 100.5 H MCH 32.2 MCHC 32.1 RDW 14.7 Plt Count 128 L MPV 7.0 L Absolute Neuts (auto) 3.4 Neutrophils % 56.9 Lymphocytes % 30.5 D Monocytes % 10.0 Eosinophils % 2.3 Basophils % 0.3 Nucleated RBC % 0 Sodium 141 Potassium 4.9 Chloride 105 Carbon Dioxide 27 Anion Gap 9 BUN 80.3 H Creatinine 9.2 H* Est GFR (CKD-EPI)AfAm 6.68 Est GFR (CKD-EPI)NonAf 5.77 POC Glucometer Random Glucose 73 L Calcium 8.7 Phosphorus 8.4 H Magnesium 3.7 H Total Bilirubin 0.5 AST 12 L ALT 13 Alkaline Phosphatase 63 CK-MB (CK-2) 1.8 Troponin I 0.02 Total Protein 6.8 Albumin 3.4 Vitamin B12 1004 H Serum Folate 9 09/08/19 09/08/19 06:19 07:09 WBC RBC Hgb Hct MCV MCH MCHC RDW Plt Count MPV Absolute Neuts (auto) Neutrophils % Lymphocytes % Monocytes % Eosinophils % Basophils % Nucleated RBC % Sodium Potassium Chloride Carbon Dioxide Anion Gap BUN Creatinine Est GFR (CKD-EPI)AfAm Est GFR (CKD-EPI)NonAf POC Glucometer 72 103 Random Glucose Calcium Phosphorus Magnesium Total Bilirubin AST ALT Alkaline Phosphatase CK-MB (CK-2) Troponin I Total Protein Albumin Vitamin B12 Serum Folate Active Medications Generic Name Dose Route Start Last Admin Trade Name Ani PRN Reason Stop Dose Admin Atorvastatin Calcium 20 mg 09/05/19 22:00 09/07/19 21:40 Lipitor - PO 20 mg HS [facility] Administration Bupropion HCl 150 mg 09/06/19 10:00 09/07/19 09:02 Wellbutrin Xl - PO 150 mg DAILY [facility] Administration Divalproex Sodium 1,000 mg 09/05/19 22:00 09/07/19 21:40 Depakote - PO 1,000 mg BID [facility] Administration Heparin Sodium (Porcine) 5,000 unit 09/05/19 06:00 09/08/19 06:24 Heparin - SQ 5,000 unit TID [facility] Administration Sodium Chloride 250 mls @ 3,000 mls/hr 09/07/19 12:29 Normal Saline - IV 09/08/19 12:29 PRN PRN Hypotension during Dialysis Insulin Aspart 1 vial 09/05/19 07:00 09/08/19 06:23 Novolog Vial Sliding Scale - SQ Not Given ACHS [facility] Protocol Lamotrigine 100 mg 09/05/19 22:00 09/07/19 21:40 Lamictal - PO 100 mg HS [facility] Administration Lorazepam 0.5 mg 09/06/19 17:15 09/07/19 21:46 Ativan - PO 0.5 mg DAILY PRN Administration ANXIETY Sevelamer Carbonate 2,400 mg 09/06/19 08:00 09/07/19 17:02 Renvela - PO 2,400 mg TIDCM [facility] Administration ASSESSMENT/PLAN: Pt is a 53 yo M with PMH of ESRD (on HD M/W/F - last dialyzed on Sunday), NIDDM, Schizophrenia, Bipolar Disorder, Peripheral Neuropathy who presented to the ED after a syncopal episode causing him to fall, leaving him with a L scalp laceration and a L sprained ankle. ED course was remarkable for episodes of bradycardia; intial EKG concerning for Second Degree Heart Block - Mobitz Type 2. This resolved with subsequent EKGs. CT head neg for intracranial pathology; left parietal scalp contusion. CXR negative for lung pathology; cardiomegaly. Foot Xray showing no fracture. Received DPT vaccine. Bilateral Carotid doppler showed a small plaque in R common artery and mild intimal tickening at the R carotid bifurcation. Home meds were re-started. Brain MRI showed no acute pathology and Echo showed impaired LV relaxation and decreased systolic function. Patient admitted for syncope w/o. # Syncope 2/2 unclear etiology (cardiac cause vs. dehydration vs. HD-related vs. polypharmacy) Pt on several medications that me be contributing to syncope Pt feels weak after HD treatments, has hx of bleeding from his fistula after treatments Initial troponins negative - med list reconciled with pharmacy - patient is taking all indicated medications except for furosemide - Cardiology consulted as pt exhibited evidence of 2nd degree heart block (mobitz type 2) on EKG during this visit - Neurology consulted - appreciated recs - F/u fasting lipids, troponin, CMP - Fall, seizure, and aspiration precautions - Warm compress for left ankle; Tylenol prn for pain - daily orthostatic VS #ESRD (HD M/W/F) - Nephrology consulted - appreciated recs - HD MWF - PTH 389, corrected Ca WNL, Phos 6.9 --> appreciate nephro recs #Hyperkalemia - resolved s/p tx with calcium gluconate/d50/insulin #NIDDM - hold home diabetes meds for now - ISS + BGM #DVT PPX - Heparin 5000 SQ tid #FEN -F - none -E - replete PRN; monitor lytes -N - renal/diabetic diet Dispo: Admit to telemetry Visit type - Emergency Visit Emergency Visit: No - New Patient This patient is new to me today: No - Critical Care Critical Care patient: No ATTENDING PHYSICIAN STATEMENT I saw and evaluated the patient. I reviewed the resident's note and discussed the case with the resident. I agree with the resident's findings and plan as documented. SUBJECTIVE: OBJECTIVE: ASSESSMENT AND PLAN:
--- NOTE | 2019-09-08 10:08 | EKG ---
Test Reason : Blood Pressure : / mmHG Vent. Rate : 092 BPM Atrial Rate : 092 BPM P-R Int : 182 ms QRS Dur : 170 ms QT Int : 424 ms P-R-T Axes : 043 -22 026 degrees QTc Int : 524 ms NORMAL SINUS RHYTHM RIGHT BUNDLE BRANCH BLOCK ABNORMAL ECG WHEN COMPARED WITH ECG OF 05-SEP-2019 09:43, MI INTERVAL HAS DECREASED Confirmed by Yesenia Mclean ([id number]) on 09/08/2019 10:08:20 AM Referred By: Anastacio MOLINA Confirmed By:Yesenia Mclean
[2019-09-08] MEDS: SEVELAMER CARBONATE 800 MG TAB (FP) PO SCH ×3 (10:18→17:41)
--- NOTE | 2019-09-08 10:37 | CON.PSY ---
Psychiatry Consult Chief Complaint: 53 Marline old male with a l;bennett history of Bi Polar Disorder admitted for Syncopal episodes. had been on Psych meds for long time. On Dialysis as well. - Previous Psychiatric Treatment Outpatient: More than 6 mos ago Inpatient: One prior admission - Previous Substance Abuse Treatment Outpatient: None Inpatient: None - Reason for Previous Treatment Reason for Previous Treatment: Biploar Illness - Current Medications Current Medications: Active Medications Atorvastatin Calcium (Lipitor -) 20 mg PO HS [facility] Last Admin: 09/07/19 21:40 Dose: 20 mg Documented by: Bupropion HCl (Wellbutrin Xl -) 150 mg PO DAILY [facility] Last Admin: 09/07/19 09:02 Dose: 150 mg Documented by: Divalproex Sodium (Depakote -) 1,000 mg PO BID [facility] Last Admin: 09/07/19 21:40 Dose: 1,000 mg Documented by: Heparin Sodium (Porcine) (Heparin -) 5,000 unit SQ TID [facility] Last Admin: 09/08/19 06:24 Dose: 5,000 unit Documented by: Sodium Chloride (Normal Saline -) 250 mls @ 3,000 mls/hr IV PRN PRN PRN Reason: Hypotension during Dialysis Stop: 09/08/19 12:29 Insulin Aspart (Novolog Vial Sliding Scale -) 1 vial SQ ACHS [facility]; Protocol Last Admin: 09/08/19 06:23 Dose: Not Given Documented by: Lorazepam (Ativan -) 0.5 mg PO DAILY PRN PRN Reason: ANXIETY Last Admin: 09/07/19 21:46 Dose: 0.5 mg Documented by: Sevelamer Carbonate (Renvela -) 2,400 mg PO TIDCM [facility] Last Admin: 09/08/19 10:18 Dose: Not Given Documented by: - Allergies Allergies: Allergies Allergy/AdvReac Type Severity Reaction Status Date / Time No Known Drug Allergies Allergy Verified 09/04/19 18:00 - Current Living Status Usual Living Arrangement: With Spouse - Current Mental Status Evaluation Appearance: Well Groomed Attitude: Cooperative - Affect Affect: Constrictive - Mood Mood: Euthymic - Speech/Language Expressive: Coherent - Psychomotor Activity Psychomotor Activity: Normal - Thought Process Thought Process: Intact - Thought Content Hallucinations: Absent Delusions: Absent - Self Perception Self Perception: No Impairment - Cognition Attention: Alert Orientation: Time Memory, Immediate Recall: Intact Memory, Short Term: 3/3 Memory, Remote with Promptin/3 - Concentration Serial Sevens Intact: No Simple Calculations Intact: Yes - Abstraction Proverb Interpretation: Intact Judgement: Intact - Insight Insight: Intact - Impulse Control Impulse Control: Good Control - Suicidal Ideation Suicidal Ideation: No - Homicidal Ideation Homicidal Ideation: No Assessment/Plan 10 will d/c Lamictal it can interact and increase Valproic acid levels. Patient is already on 2000 mg daily.. Levels may be giing up aith Lamictal.
[2019-09-08] MEDS: DIVALPROEX SODIUM 500 MG TABLET E.C. PO SCH (11:54)
--- NOTE | 2019-09-08 12:31 | PN ---
Progress Note, Physician Chief Complaint: Syncope History of Present Illness: Seen and examined at the bedside s/p dialysis this am with 2.5L UF denied any dizziness, weakness, cramping with dialysis access worked well w/o bleeding denies any sob, cp, palpitations, abd pain, N/V/D - Current Medication List Current Medications: Active Medications Atorvastatin Calcium (Lipitor -) 20 mg PO HS [facility] Last Admin: 09/07/19 21:40 Dose: 20 mg Documented by: Bupropion HCl (Wellbutrin Xl -) 150 mg PO DAILY [facility] Last Admin: 09/08/19 11:54 Dose: 150 mg Documented by: Divalproex Sodium (Depakote -) 1,000 mg PO BID [facility] Last Admin: 09/08/19 11:54 Dose: 1,000 mg Documented by: Heparin Sodium (Porcine) (Heparin -) 5,000 unit SQ TID [facility] Last Admin: 09/08/19 06:24 Dose: 5,000 unit Documented by: Sodium Chloride (Normal Saline -) 250 mls @ 3,000 mls/hr IV PRN PRN PRN Reason: Hypotension during Dialysis Stop: 09/08/19 12:29 Insulin Aspart (Novolog Vial Sliding Scale -) 1 vial SQ [facility]; Protocol Last Admin: 09/08/19 11:54 Dose: Not Given Documented by: Lorazepam (Ativan -) 0.5 mg PO DAILY PRN PRN Reason: ANXIETY Last Admin: 09/07/19 21:46 Dose: 0.5 mg Documented by: Sevelamer Carbonate (Renvela -) 2,400 mg PO TIDCM [facility] Last Admin: 09/08/19 11:54 Dose: 2,400 mg Documented by: - Objective Vital Signs: Vital Signs Temperature 97.6 F 09/08/19 09:23 Pulse Rate 84 09/08/19 11:56 Respiratory Rate 16 09/08/19 11:56 Blood Pressure 152/81 09/08/19 11:56 O2 Sat by Pulse Oximetry (%) 97 09/08/19 11:56 Constitutional: Yes: No Distress, Calm Neck: Yes: Supple Cardiovascular: Yes: Regular Rate and Rhythm Respiratory: Yes: Regular Gastrointestinal: Yes: Soft Extremities: No: Cyanosis Edema: No Neurological: Yes: Alert, Oriented Labs: CBC, BMP 09/08/19 05:25 09/08/19 05:25 INR, PTT INR 1.10 (0.82-1.09) 09/04/19 18:27 Assessment/Plan 53 yo M with PMH of ESRD (on HD M/W/ - last dialyzed 2 days prior to admission), NIDDM, Schizophrenia, Bipolar Disorder, Peripheral Neuropathy who presented to the ED after a syncopal episode. 1. ESRD on HD 2. Syncope 3. DM 4. Schizophrenia/Bipolar disorder Tolerated dialysis well this am with 2.5L UF next planned dialysis is Sunday Renal diet as tolerated Hgb at goal, no JAREK needed Syncope work up as per neurology and cardiology Thank you Cornelius Palafox DO
[2019-09-08 18:04] VITALS: BP 122/80; PULSE 91; TEMP 98
--- NOTE | 2019-09-08 22:52 | PN ---
Progress Note (short form) - Note Progress Note: Called by nurses to evaluate a patient who would like to AMA. While on the way to assess patient, I was stopped by nursing supervisory forester stating patient has already eloped.
--- NOTE | 2019-09-08 22:55 | PN ---
Progress Note (short form) - Note Progress Note: Received page from nurse stating patient would like to AMA around 9 PM. While walking up to assess patient I was stopped by nursing manufacturing engineer supervisor stating patient has eloped. No further assesment required.
--- NOTE | 2019-09-09 06:48 | DS ---
Physical Exam: SUBJECTIVE: Patient seen and examined, the HD nurse was getting patient ready for HD. I explained to the HD nurse that that after the last HD treatment patient's fistula had some difficulties achieving hemostasis, and that a pressure dressing with 4x4 gauze pads is recommended post HD (not too much pressure). Patient is feeling like himself, was lying in bed, and did mention going home and having dinner. We discussed that he may feel dizzy after his HD treatment and that he needs to take caution if getting out of bed. Patient avoided all eye contact today. Patient decided to leave AMA around 9pm. OBJECTIVE: Vital Signs Period Temp Pulse Resp BP Sys/Miguel Pulse Ox Last 24 Hr 97.6 F-98.2 F 80-93 16-18 102-152/64-97 96-97 PHYSICAL EXAM GENERAL: middle aged male, awake, alert, and fully oriented, in no acute distress HEAD: large laceration on L scalp with 2 lissa, surrounding dried crusted blood EYES: PERRL, extraocular movements intact, no ptosis LUNGS: CTAB HEART: Regular rate and rhythm, S1, S2 distant but without murmur ABDOMEN: Soft, nontender on palpation, nondistended, active bowel sounds EXTREMITIES: 2+ pulses, warm, well-perfused, L ankle edematous and tender on palpation, fistula on medial R upper arm NEUROLOGICAL: Cranial nerves II through XII grossly intact. Normal speech, shuffled gait PSYCH: Normal mood, normal affect, poor eye contact, tangential speech SKIN: Warm, no rashes or lesions noted LABS Laboratory Results - last 24 hr 09/08/19 09/08/19 09/08/19 05:25 05:25 05:25 WBC 5.9 RBC 3.73 L Hgb 12.0 Hct 37.5 MCV 100.5 H MCH 32.2 MCHC 32.1 RDW 14.7 Plt Count 128 L MPV 7.0 L Absolute Neuts (auto) 3.4 Neutrophils % 56.9 Lymphocytes % 30.5 D Monocytes % 10.0 Eosinophils % 2.3 Basophils % 0.3 Nucleated RBC % 0 Sodium 141 Potassium 4.9 Chloride 105 Carbon Dioxide 27 Anion Gap 9 BUN 80.3 H Creatinine 9.2 H* Est GFR (CKD-EPI)AfAm 6.68 Est GFR (CKD-EPI)NonAf 5.77 POC Glucometer Random Glucose 73 L Calcium 8.7 Phosphorus 8.4 H Magnesium 3.7 H Total Bilirubin 0.5 AST 12 L ALT 13 Alkaline Phosphatase 63 CK-MB (CK-2) 1.8 Troponin I 0.02 Total Protein 6.8 Albumin 3.4 Vitamin B12 1004 H Serum Folate 9 Hep Bs Antigen Hep C Ab Diagnostic 09/08/19 09/08/19 09/08/19 07:09 07:40 11:51 WBC RBC Hgb Hct MCV MCH MCHC RDW Plt Count MPV Absolute Neuts (auto) Neutrophils % Lymphocytes % Monocytes % Eosinophils % Basophils % Nucleated RBC % Sodium Potassium Chloride Carbon Dioxide Anion Gap BUN Creatinine Est GFR (CKD-EPI)AfAm Est GFR (CKD-EPI)NonAf POC Glucometer 103 110 Random Glucose Calcium Phosphorus Magnesium Total Bilirubin AST ALT Alkaline Phosphatase CK-MB (CK-2) Troponin I Total Protein Albumin Vitamin B12 Serum Folate Hep Bs Antigen Negative Hep C Ab Diagnostic 0.1 09/08/19 17:27 WBC RBC Hgb Hct MCV MCH MCHC RDW Plt Count MPV Absolute Neuts (auto) Neutrophils % Lymphocytes % Monocytes % Eosinophils % Basophils % Nucleated RBC % Sodium Potassium Chloride Carbon Dioxide Anion Gap BUN Creatinine Est GFR (CKD-EPI)AfAm Est GFR (CKD-EPI)NonAf POC Glucometer 99 Random Glucose Calcium Phosphorus Magnesium Total Bilirubin AST ALT Alkaline Phosphatase CK-MB (CK-2) Troponin I Total Protein Albumin Vitamin B12 Serum Folate Hep Bs Antigen Hep C Ab Diagnostic HOSPITAL COURSE: 53 yo M with PMH of ESRD (on HD M/W/F - last dialyzed on Sunday), NIDDM, Schizophrenia, Bipolar Disorder, Peripheral Neuropathy who presented to the ED after a syncopal episode causing him to fall, leaving him with a L scalp laceration and a L sprained ankle. ED course was remarkable for episodes of bradycardia; intial EKG concerning for Second Degree Heart Block - Mobitz Type 2. This resolved with subsequent EKGs. CT head neg for intracranial pathology; left parietal scalp contusion. CXR negative for lung pathology; cardiomegaly. Foot Xray showing no fracture. Received DPT vaccine. Bilateral Carotid doppler showed a small plaque in R common artery and mild intimal tickening at the R carotid bifurcation. Home meds were re-started. Brain MRI showed no acute pathology and Echo showed impaired LV relaxation and decreased systolic function. Patient was admitted for syncope w/o, received multiple HD treatments during his stay, and decided to leave [place]. Date of Admission:09/04/19 Date of Discharge: 09/09/19 Minutes to complete discharge: 37 Discharge Summary Problems reviewed: Yes Reason For Visit: HEART BLOCK Condition: Stable - Instructions Diet, Activity, Other Instructions: Hospital course: You came to the hospital yesterday because you experienced dizziness and loss of consciousness (a syncopal episode) which caused you to fall and hit your head. You had a wound on your head that needed two lissa, and we did some imaging of your head to make sure that you don't have any other injuries. You also sprained your ankle during your fall, and imaging showed that there are no broken bones. While in the hospital, you were seen by a kidney specialist, trade show specialist, and neurologist. You also received two rounds of hemodialysis. Medications: STOP Seroquel Lamictal Gabapentin because these medications could have contributed to your dizziness REDUCE Lorazepam to 0.5mg once a day as needed CONTINUE Depakote Atorvastatin Follow up: Dr. Menard, primary care, [address] Palafox, nephrology, [address] Henderson, cardiology, 1 week after discharge to discuss Holter monitor results Dr. Sanchez, neurology, or your neurologist as needed for medication refills Dr. Prasad, electrophysiology, 1 week after discharge Activity/Exercise: You can gently move around but take caution as you are still a bit weak from your fall and from your hemodialysis treatment. Diet: We recommend a well balanced diet, including much fruit and vegetables. Avoid excessive carbohydrates (chips, sweets, cookies), highly salty foods, and fatty/fried foods. Other information: If you start experiencing dizziness, a black-out, another fall, chest pain, shortness of breath, or any other concerning symptoms, please report to the nearest emergency room or call 911. If your fistula starts bleeding, place gauze on it and wrap it lightly. Hold your arm above the level of your heart. If it does not stop bleeding in an hour or a large amount of blood is lost, return to the emergency room. Referrals: Angelina Harris MD [Primary Care Provider] - 1 Week Jordan Prasad MD [Staff Physician] - 1 Week Matthieu Sanchez MD [Staff Physician] - Noble Henderson MD [Staff Physician] - 1 Week Cornelius Palafox MD [Staff Physician] - 1 Week Disposition: ELOPED - Home Medications Comprehensive Discharge Medication List: Ambulatory Orders Bupropion HCl [Wellbutrin -] 150 mg PO DAILY 03/30/16 Divalproex [Depakote -] 1,000 mg PO BID 03/30/16 LORazepam [Ativan] 1 mg PO BID 03/30/16 Lamotrigine [Lamictal] 100 mg PO HS 03/30/16 Quetiapine Fumarate [Seroquel -] 300 mg PO HS 03/30/16 Furosemide [Lasix -] 80 mg PO DAILY 12/28/17 Atorvastatin Ca [Lipitor] 20 mg PO HS 11/15/18 Gabapentin 100 mg PO DAILY 11/15/18 Sevelamer Carbonate [Renvela -] 2,400 mg PO TIDCM 11/15/18 This patient is new to me today: No Emergency Visit: Yes ED Registration Date: 09/04/19 Care time: The patient presented to the Emergency Department on the above date and was hospitalized for further evaluation of their emergent condition. Critical Care patient: No - Discharge Referral Referred to [facility] No ATTENDING PHYSICIAN STATEMENT I saw and evaluated the patient. I reviewed the resident's note and discussed the case with the resident. I agree with the resident's findings and plan as documented. SUBJECTIVE: OBJECTIVE: ASSESSMENT AND PLAN:
--- NOTE | 2019-09-09 14:14 | HOL ---
Hook-up date: 2019-09-06 14:33:00 Duration: 23:56:00 Test Indications: R/O HEART BLOCK Medications: 134915 QRS complexes 11 Ventricular ectopics which represent <1 % of total QRS comp. 66361 Supraventricular ectopics which represent 16 % of total QRS comp. * Paced QRS complexs which represent % of total QRS comp. * % of Time Classified as Noise VENTRICULAR ECTOPY 11 Isolated 0 Bigeminal Cycles 0 Couplets 0 Runs 0 Beats in Runs * Beats LONGEST at * BPM at :: -- * Beats FASTEST at * BPM at :: -- SUPRAVENTRICULAR ECTOPY 1122 Isolated 272 Couplets 606 Runs 62728 Beats in Runs 2472 Beats LONGEST at 87 BPM at 17:00:41 2019-09-06 4 Beats FASTEST at 122 BPM at 17:00:32 2019-09-06 HEART RATES 43 MIN at 02:10:24 2019-09-07 84 AVG 101 MAX at 22:06:24 2019-09-06 LONGEST RR 1.504 secs at 02:11:51 2019-09-07 SCANNED BY SARAH BENOIT ON 09/09/19 Normal sinus rhythm with frequent bouts of wide complex rhythm, likely rate related abberrancy Confirmed by Fabian Parekh ([id number]) on 09/09/2019 2:13:19 PM Referred By: ISAIAS MCKNIGHT DR Overread By: Fabian Parekh
== END 2019-09-08 20:40 | disposition left against medical advice (07) | DRG 308 ==
LOC: SUPCPDRO 17:59 → FER 17:59 → J4W 23:00
PROVIDERS: ADMIT Student in an Organized Health Care Education/Training Program; ATTEND Internal Medicine
PROC: 0HQ0XZZ Repair Scalp Skin, External Approach (ICD-10-PCS; principal; 2019-09-04)
PROC: 5A1D70Z Performance of Urinary Filtration, Intermittent, Less than 6 Hours Per Day (ICD-10-PCS; 2019-09-08)
DX: R00.1 Bradycardia, unspecified (principal); N18.6 End stage renal disease; S06.0X1A Concussion with loss of consciousness of 30 minutes or less, initial encounter; I12.0 Hypertensive chronic kidney disease with stage 5 chronic kidney disease or end stage renal disease; R55 Syncope and collapse; F20.9 Schizophrenia, unspecified; F31.9 Bipolar disorder, unspecified; E11.42 Type 2 diabetes mellitus with diabetic polyneuropathy; E11.22 Type 2 diabetes mellitus with diabetic chronic kidney disease; I44.7 Left bundle-branch block, unspecified; I44.1 Atrioventricular block, second degree; E87.5 Hyperkalemia; E83.51 Hypocalcemia; I45.10 Unspecified right bundle-branch block; S01.01XA Laceration without foreign body of scalp, initial encounter; W18.39XA Other fall on same level, initial encounter; Y92.098 Other place in other non-institutional residence as the place of occurrence of the external cause; Z99.2 Dependence on renal dialysis
CPT/HCPCS: 36415; 70450-TC; 70551-TC; 71045-TC-FY; 73610-TC-LT-FY; 73630-TC-LT; 80048; 80053; 80061; 82310; 82550; 82553; 82607; 82746; 82962; 83036; 83721; 83735; 83970; 84100; 84443; 84484; 85025; 85610; 85730; 86803; 87340; 93005; 93010; 93225; 93226; 93306-TC; 93880-TC; 97116-GP; 97162-GP; 99285-25; J1644; U0003

== ENCOUNTER 2019-09-11 16:05 | Emergency (ER) | payer OTHER, MEDICARE ==
[2019-09-11 16:17] VITALS: BP 114/84; PULSE 90; TEMP 97.7; BMI 29.1
--- NOTE | 2019-09-11 16:26 | PDOC ---
History of Present Illness - General Chief Complaint: Suture/Staple Removal(Here) Stated Complaint: STAPLE REMOVAL Time Seen by Provider: 09/11/19 16:15 - History of Present Illness Initial Comments: 09/11/19 16:25 53 years old past medical history significant end-stage renal disease on HD [id number] diabetes schizophrenia bipolar peripheral neuropathy syncopal episode 1 week ago with small laceration to top the head 2 lissa were applied presents today for suture removal. Denies headache fever chills signs of infection bleeding pus no dizziness no lightheadedness feeling well Past History - Medical History Allergies/Adverse Reactions: Allergies Allergy/AdvReac Type Severity Reaction Status Date / Time No Known Drug Allergies Allergy Verified 09/04/19 18:00 Home Medications: Ambulatory Orders Bupropion HCl [Wellbutrin -] 150 mg PO DAILY 03/30/16 Divalproex [Depakote -] 1,000 mg PO BID 03/30/16 LORazepam [Ativan] 1 mg PO BID 03/30/16 Lamotrigine [Lamictal] 100 mg PO HS 03/30/16 Quetiapine Fumarate [Seroquel -] 300 mg PO HS 03/30/16 Furosemide [Lasix -] 80 mg PO DAILY 12/28/17 Atorvastatin Ca [Lipitor] 20 mg PO HS 11/15/18 Gabapentin 100 mg PO DAILY 11/15/18 Sevelamer Carbonate [Renvela -] 2,400 mg PO TIDCM 11/15/18 Anemia: No Asthma: No Cancer: No Cardiac Disorders: No CVA: No COPD: No CHF: No Dementia: No Diabetes: Yes (diet-controlled, borderline) Dialysis: Yes (graft to right arm) GI Disorders: No Disorders: Yes (ESRD-DIALYSIS Rt arm FISTULA) HTN: Yes ("FLUCTUATES" NO MEDS AT THIS TIME) Hypercholesterolemia: Yes Liver Disease: No Psychiatric Problems: Yes Seizures: No Thyroid Disease: No - Surgical History Abdominal Surgery: No Appendectomy: No Cardiac Surgery: No Cholecystectomy: No Lung Surgery: No Neurologic Surgery: No Orthopedic Surgery: No - Immunization History Td Vaccination: No - Psycho-Social/Smoking History Smoking Status: No Smoking History: Former smoker Years of Tobacco Use: 0 Have you smoked in the past 12 months: No Number of Cigarettes Smoked Daily: 0 If you are a former smoker, when did you quit?: 1999 Information on smoking cessation initiated: No - Substance Abuse Hx (Audit-C & DAST Scrn) In the last yr the pt used illegal drug/Rx for NonMed reason: No Score: Yes response is considered Positive: 0 Screen Result (Positive result requires Nsg. DAST-10): Negative Review of Systems - Review of Systems Comments:: 09/11/19 16:25 ROS: A complete review of 10 out of 10 review of systems is taken and is negative apart from what is previously mentioned below and in the HPI. *Physical Exam - Vital Signs Last Vital Signs Temp Pulse Resp BP Pulse Ox 97.7 F 90 16 114/84 98 09/11/19 16:08 09/11/19 16:08 09/11/19 16:08 09/11/19 16:08 09/11/19 16:08 - Physical Exam 09/11/19 16:25 Vitals: Triage Vital signs reviewed General Appearance: No acute distress, well nourished well developed, Head: Well-healing small laceration to occiput with [address] Eyes: Pupils equal reactive round, extraocular movement intact Extremities: Full range of motion to all extremities, no cyanosis, clubbing, or edema Skin: Warm and dry, no rashes or lesions, no rash, no petechiae Neuro: AOX3; cranial Nerves 2-12 grossly intact, strength intact to all extremities, sensation intact to all extremities, gait normal Psych: Normal mood, normal affect Medical Decision Making - Medical Decision Making 09/11/19 16:26 2 lissa removed with no complications patient tolerated procedure well Findings, need for follow-up and strict return instructions discussed with patient. Discharge - Discharge Information Problems reviewed: Yes Clinical Impression/Diagnosis: Removal of staple Condition: Stable - Admission No - Follow up/Referral - Patient Discharge Instructions Patient Printed Discharge Instructions: DI for Suture Removal Additional Instructions: Follow-up with your doctor. Return to ED for any signs of infection or for any concerns. Okay to bathe just bathe surendra hair gently over that area. - Post Discharge Activity
== END 2019-09-11 16:36 | disposition home or self-care (01) ==
LOC: FER 16:05
DX: Z48.02 Encounter for removal of sutures (principal)
CPT/HCPCS: 99281-25

== ENCOUNTER 2019-09-15 11:41 | Inpatient (IN) | payer OTHER, MEDICARE ==
[2019-09-15] MEDS ORDERED: SODIUM BICARBONATE 8.4% 50 MEQ/50 ML DISP.SYRIN IVPUSH ONE ×2 (12:18→13:37)
[2019-09-15] MEDS ORDERED: CALCIUM GLUCONATE 10% - 1,000 MG/10 ML VIAL IVPUSH ONE (12:18)
--- NOTE | 2019-09-15 12:47 | PDOC ---
History of Present Illness - General Chief Complaint: Syncope/Near Syncope Stated Complaint: SYNCOPE Time Seen by Provider: 09/15/19 12:13 - History of Present Illness Initial Comments: 09/15/19 12:46 53 yo M with PMH of ESRD (on HD M/W/F - last dialyzed on Sunday) NIDDM, Schizophrenia, Bipolar Disorder, Peripheral Neuropathy, syncope, 1st degree AV block, who was BIBEMS from dialysis for a syncopal episode. States it occurred while on dialysis bed, and denies headstrike or fall. States he had normal dialysis on sunday and had no symptoms over the weekend. This is now his third syncopal Denies incontinence, retention, tremors, confusion, chest pain, palpitation. ROS negative. Also states he hit his left foot several days prior. PMH/PSH: as above SH: denies alc/tob/drugs Home Medication List Medication Instructions Recorded Confirmed Type Bupropion HCl [Wellbutrin -] 150 mg PO DAILY 03/30/16 09/04/19 History Divalproex [Depakote -] 1,000 mg PO BID 03/30/16 09/04/19 History LORazepam [Ativan] 1 mg PO BID 03/30/16 09/04/19 History Lamotrigine [Lamictal] 100 mg PO HS 03/30/16 09/04/19 History Quetiapine Fumarate [Seroquel -] 300 mg PO HS 03/30/16 09/04/19 History Furosemide [Lasix -] 80 mg PO DAILY 12/28/17 09/04/19 History Atorvastatin Ca [Lipitor] 20 mg PO HS 11/15/18 09/04/19 History Gabapentin 100 mg PO DAILY 11/15/18 09/04/19 History Sevelamer Carbonate [Renvela -] 2,400 mg PO TIDCM 11/15/18 09/04/19 History 09/15/19 13:13 Allergies Allergy/AdvReac Type Severity Reaction Status Date / Time No Known Drug Allergies Allergy Verified 09/04/19 18:00 ROS GENERAL/CONSTITUTIONAL: No fever or chills. No weakness. HEAD, EYES, EARS, NOSE AND THROAT: No change in vision. No ear pain or discharge. No sore throat. CARDIOVASCULAR: No chest pain or shortness of breath RESPIRATORY: No cough, wheezing, or hemoptysis. GASTROINTESTINAL: No nausea, vomiting, diarrhea or constipation. GENITOURINARY: No dysuria, frequency, or change in urination. MUSCULOSKELETAL: No joint or muscle swelling or pain. No neck or back pain. SKIN: No rash NEUROLOGIC: +loss of consciousness, No headache, vertigo, or change in strength/sensation. ENDOCRINE: No increased thirst. No abnormal weight change HEMATOLOGIC/LYMPHATIC: No anemia, easy bleeding, or history of blood clots. ALLERGIC/IMMUNOLOGIC: No hives or skin allergy. Vital Signs Period Temp Pulse Resp BP Sys/Miguel Pulse Ox Last 24 Hr 98.5 F 42 16 141/73 98 PE GENERAL: Awake, alert, and fully oriented, in no acute distress. HEAD: No signs of trauma, normocephalic, atraumatic EYES: PERRLA, EOMI, sclera anicteric, conjunctiva clear ENT: Auricles normal inspection, hearing grossly normal, nares patent, oropharynx clear without exudates. Moist mucosa NECK: Normal ROM, supple, no lymphadenopathy, JVD, or masses LUNGS: No distress, speaks full sentences, clear to auscultation bilaterally HEART: Regular rate and rhythm, normal S1 and S2, no murmurs, rubs or gallops, peripheral pulses normal and equal bilaterally. ABDOMEN: Soft, nontender, normoactive bowel sounds. No guarding, no rebound. No masses EXTREMITIES : AV fistula with palpable thrill in RUE. Swelling of left ankle and foot, and echymosis on left toes. Normal range of motion, no edema. No clubbing or cyanosis. NEUROLOGICAL: Cranial nerves II through XII grossly intact. Normal speech, normal gait, no focal sensorimotor deficits SKIN: Warm, Dry, normal turgor, no rashes or lesions noted MDM: 53 yo M with PMH of ESRD (on HD /W/ - last dialyzed on Sunday) NIDDM, Schizophrenia, Bipolar Disorder, Peripheral Neuropathy, syncope, 1st degree AV block, who was BIBEMS from dialysis for a syncopal episode. EKG shows 2:1 heart block. Differential includes primary cardiac arrhythmia, metabolic derangements, infection. Possible broken left foot vs. bruise vs. ligament/muscle strain. -Labs -CXR: portable, poor exposure. no consolidation (my read) -calcium gluconate, bicarb -- in case hyperkalemia is the cause of his arrhythmia. -left foot plain film (pending) -CT head (pending) 09/15/19 13:46 Patient was in asystole for 30 seconds on the monitor as per nurse, with spontaneous recovery. Mental status worsened, more lethargic. Given calcium chloride, bicarb x2, insulin/d50 with improvement in HR to 70s. Repeat EKG showed 1st degree AV block. 09/15/19 14:[address] Shields who will put in dialysis order 09/15/19 14:40 Spoke with ICU resident who accepted the patient 09/15/19 14:44 Past History - Medical History Allergies/Adverse Reactions: Allergies Allergy/AdvReac Type Severity Reaction Status Date / Time No Known Drug Allergies Allergy Verified 09/04/19 18:00 Home Medications: Ambulatory Orders Bupropion HCl [Wellbutrin -] 150 mg PO DAILY 03/30/16 Divalproex [Depakote -] 1,000 mg PO BID 03/30/16 LORazepam [Ativan] 1 mg PO BID 03/30/16 Lamotrigine [Lamictal] 100 mg PO HS 03/30/16 Quetiapine Fumarate [Seroquel -] 300 mg PO HS 03/30/16 Furosemide [Lasix -] 80 mg PO DAILY 12/28/17 Atorvastatin Ca [Lipitor] 20 mg PO HS 11/15/18 Gabapentin 100 mg PO DAILY 11/15/18 Sevelamer Carbonate [Renvela -] 2,400 mg PO TIDCM 11/15/18 Anemia: No Asthma: No Cancer: No Cardiac Disorders: No CVA: No COPD: No CHF: No Dementia: No Diabetes: Yes (diet-controlled, borderline) Dialysis: Yes (graft to right arm) GI Disorders: No Disorders: Yes (ESRD-DIALYSIS Rt arm FISTULA) HTN: Yes ("FLUCTUATES" NO MEDS AT THIS TIME) Hypercholesterolemia: Yes Liver Disease: No Psychiatric Problems: Yes Seizures: No Thyroid Disease: No - Surgical History Abdominal Surgery: No Appendectomy: No Cardiac Surgery: No Cholecystectomy: No Lung Surgery: No Neurologic Surgery: No Orthopedic Surgery: No - Immunization History Td Vaccination: No - Psycho-Social/Smoking History Smoking Status: No Smoking History: Unknown if ever smoked Years of Tobacco Use: 0 Have you smoked in the past 12 months: No Number of Cigarettes Smoked Daily: 0 If you are a former smoker, when did you quit?: 1999 - Substance Abuse Hx (Audit-C & DAST Scrn) In the last yr the pt used illegal drug/Rx for NonMed reason: No Score: Yes response is considered Positive: 0 Screen Result (Positive result requires Nsg. DAST-10): Negative *Physical Exam - Vital Signs Last Vital Signs Temp Pulse Resp BP Pulse Ox 98.5 F 42 L 16 141/73 98 09/15/19 11:50 09/15/19 11:50 09/15/19 11:50 09/15/19 11:50 09/15/19 11:50 ED Treatment Course - LABORATORY CBC & Chemistry Diagram: 09/15/19 13:00 09/15/19 13:00 - ADDITIONAL ORDERS Additional order review: Laboratory Results 09/15/19 12:31 POC Glucometer 105 09/15/19 12:31 POC Glucometer 105 Discharge - Discharge Information Problems reviewed: Yes Clinical Impression/Diagnosis: ESRD (end stage renal disease), Near syncope, Hyperkalemia, Second degree heart block Altered mental status Qualifiers: Altered mental status type: somnolence Qualified Code(s): R40.0 - Somnolence - Admission Yes - Follow up/Referral Referrals: Angelina Harris MD [Primary Care Provider] - - Patient Discharge Instructions - Post Discharge Activity
--- NOTE | 2019-09-15 13:12 | PDOC ---
Attending Attestation - Resident Resident Name: Chandan Zambrano - ED Attending Attestation I have performed the following: I have examined & evaluated the patient, The case was reviewed & discussed with the resident, I agree w/resident's findings & plan - HPI HPI: 09/15/19 13:06 53-year-old male with history of end-stage renal disease on Sunday/Sunday/Sunday dialysis last dialyzed on Sunday presents with episode of lightheadedness/near syncope just prior to onset of dialysis this morning. No associated chest pain, no nausea or vomiting, no diaphoresis. Patient redirected to the emergency department for further evaluation. - Physicial Exam PE: 09/15/19 13:07 Vitals as noted, afebrile, bradycardic in the 40s with normal blood pressure Patient is alert, coherent and communicative, no acute distress Heart is regular bradycardia, lungs are clear Abdomen benign No edema, left distal dorsum of foot ecchymosis and tenderness to palpation Neurological exam is nonfocal, moving all extremities - Critical Care Time Total Critical Care Time: 80 Critical Care Statement: The care of this patient involved high complexity decision making to prevent further life threatening deterioration of the patient's condition and/or to evaluate & treat vital organ system(s) failure or risk of failure. - Medical Decision Making 09/15/19 13:08 53-year-old male with episode of lightheadedness in the setting of bradycardia prior to dialysis, low heart rate here with normal blood pressure. Stat EKG showed sinus bradycardia at 44, baseline right bundle branch block, question U waves versus second-degree 2-1 AV block. Cover empirically with calcium and bicarbonate for concern of hyperkalemia Check remaining labs, chest x-ray Maintain on potline monitor, will need dialysis Admission 09/15/19 13:44 Prior to administration of calcium and bicarbonate, patient had episode of diaphoresis followed by prolonged pause/asystole, recovered within 30 seconds, mental status was appropriate but somnolent, he was given calcium and bicarbonate immediately at bedside with improvement in heart rate to 70s and markedly improved mental status, now sitting up and speaking but still feeling generally weak. We will continue to treat empirically for presumed hyperkalemia with insulin and bicarbonate and D50. Renal consult for likely urgent dialysis Continue close monitoring, blood pressure remained stable 08/10/20 15:16 K 6.4. BP stable, in sinus with resolved block after hyperK treatment MS sleepy but arousable d/w renal, will arrange urgent HD. admitted to ICU Heart Score/ECG Review #1 ECG reviewed & interpreted by me at: 12:13 General ECG Interpretation: Sinus Rhythm (su at 44, ? 2nd degree block v U waves), Normal Intervals (qtc 403, RBBB with QRS 403), No acute ischemic changes Compared to previous ECG there are: Changes noted (c/w 09/06/19, RBBB unchanged but bradycardia new) #2 ECG reviewed & interpreted by me at: 13:35 General ECG Interpretation: Sinus Rhythm, Normal Rate (83), Normal Intervals (1st degree block VT 238, RBBB), No acute ischemic changes Compared to previous ECG there are: Changes noted (improved HR, block resolved) Discharge - Discharge Information Problems reviewed: Yes Clinical Impression/Diagnosis: ESRD (end stage renal disease), Near syncope, Hyperkalemia, Altered mental status, Second degree heart block - Follow up/Referral - Patient Discharge Instructions - Post Discharge Activity
[2019-09-15] MEDS ORDERED: CALCIUM CHLORIDE 1 GM/10 ML *DISP.SYRIN ONE (13:24)
[2019-09-15] MEDS ORDERED: SODIUM BICARBONATE 4.2% 5 MEQ/10 ML DISP.SYRIN IVPUSH ONE (13:24)
[2019-09-15 13:25] LABS: BASO % 0.8 % (0-2.0); HEMOGLOBIN 11.1 GM/dL (11.7-16.9); LYMPH % 14.4 % (8-40); MCH 32.8 pg (25.7-33.7); MCHC 32.6 g/dl (32.0-35.9); MEAN CELL VOLUME 100.5 fl (80-96); MEAN PLT VOLUME 7.4 fl (7.5-11.1); MONO % 10.2 % (3.8-10.2); NEUT % 71.6 % (42.8-82.8); PLATELET COUNT 113 K/MM3 (134-434); RBC 3.38 M/mm3 (4.00-5.60); RDW 15.8 % (11.9-15.9); WHITE BLOOD COUNT 6.7 K/mm3 (4.0-10.0)
[2019-09-15 13:36] LABS: INR 0.93 (0.83-1.09)
[2019-09-15] MEDS ORDERED: DEXTROSE 50%-WATER - 25 GM/50 ML VIAL IVPUSH ONE (13:37)
[2019-09-15] MEDS ORDERED: INSULIN REGULAR HUMAN 100 UNITS/ML *VIAL IVPUSH ONE (13:37)
[2019-09-15 13:38] LABS: ACTIVATED PTT 31.6 SECONDS (25.2-36.5)
[2019-09-15] MEDS ORDERED: INSULIN REGULAR HUMAN 100 UNITS/ML *VIAL ONE (13:42)
[2019-09-15] MEDS ORDERED: DEXTROSE 50%-WATER 25 GM/50 ML DISP.SYRIN ONE (13:42)
[2019-09-15 14:18] LABS: ALBUMIN 3.4 g/dl (3.4-5.0); ALK PHOS 69 U/L (45-117); BILIRUBIN,TOTAL 0.4 mg/dL (0.2-1); BLOOD UREA NITROGEN 92.2 mg/dL (7-18); CALCIUM 8.8 mg/dL (8.5-10.1); CHLORIDE 110 mmol/L (98-107); CO2 19 mmol/L (21-32); GLUCOSE,RANDOM 100 mg/dL (74-106); MAGNESIUM 4.1 mg/dL (1.8-2.4); N-TERMINAL BNP 8103.3 pg/ml (5-125); PHOSPHOROUS 8.2 mg/dL (2.5-4.9); SGOT/AST 17 U/L (15-37); SGPT/ALT 12 U/L (13-61); SODIUM 140 mmol/L (136-145); TOT PROT 6.8 g/dl (6.4-8.2)
[2019-09-15 14:19] LABS: ANION GAP 11 MMOL/L (8-16)
[2019-09-15 14:20] LABS: POTASSIUM 6.4 mmol/L (3.5-5.1)
[2019-09-15] MEDS ORDERED: SODIUM CHLORIDE 250 ML IV PRN (14:24)
--- NOTE | 2019-09-15 15:44 | CONSULT ---
Consultation: REQUESTING PROVIDER: Dr. Eli CONSULT REQUEST: ICU monitoring HISTORY OF PRESENT ILLNESS: 53 yo M with PMH of ESRD (on HD // - last dialyzed on Sunday) NIDDM, Schizophrenia, Bipolar Disorder, Peripheral Neuropathy, syncope, 1st degree AV block, who was BIBEMS from dialysis for a syncopal episode. According to the patient, he was on the dialysis bed when he got dizzy and then he said he "greyd out" patient was brought to the ED before undergoing HD.Of note, patient had a similar episode where he was hospitalized from 09/03-09/07 where he was found to have 2:12 AV block (mobitz 2) both ECHO, holter monitor and carotids were done at that time. In addition, patient has a lot of psych meds that were discontinued at discharge. In the ED patient found to be bradycardic to 42, labs wbc 11 K 6.4 Cr 9 in the ED patient also had a brief 30 second episode of asystole where he came back after 30 seconds . initial EKG rate 44 2:1 AV BLOCK with RBB; after treatment for hyperkalemia patients rate improved to 70 first degree AV block patient denies any recent travel or any sick contacts REVIEW OF SYSTEMS: CONSTITUTIONAL: Absent: fever, chills, diaphoresis, generalized weakness, malaise, loss of appetite, weight change HEENT: Absent: rhinorrhea, nasal congestion, throat pain, throat swelling, difficulty swallowing, mouth swelling, ear pain, eye pain, visual changes CARDIOVASCULAR: Present: syncope Absent: chest pain, syncope, palpitations, irregular heart rate, lightheadedness, peripheral edema RESPIRATORY: Absent: cough, shortness of breath, dyspnea with exertion, orthopnea, wheezing, stridor, hemoptysis GASTROINTESTINAL: Absent: abdominal pain, abdominal distension, nausea, vomiting, diarrhea, constipation, melena, hematochezia GENITOURINARY: Absent: dysuria, frequency, urgency, hesitancy, hematuria, flank pain, genital pain MUSCULOSKELETAL: Absent: myalgia, arthralgia, joint swelling, back pain, neck pain SKIN: Absent: rash, itching, pallor HEMATOLOGIC/IMMUNOLOGIC: Absent: easy bleeding, easy bruising, lymphadenopathy, frequent infections ENDOCRINE: Absent: unexplained weight gain, unexplained weight loss, heat intolerance, cold intolerance NEUROLOGIC: Absent: headache, focal weakness or paresthesias, dizziness, unsteady gait, seizure, mental status changes, bladder or bowel incontinence PSYCHIATRIC: Absent: anxiety, depression, suicidal or homicidal ideation, hallucinations. PHYSICAL EXAMINATION Vital Signs - 24 hr 09/15/19 11:50 Temperature 98.5 F Pulse Rate 42 L Respiratory 16 Rate Blood Pressure 141/73 O2 Sat by Pulse 98 Oximetry (%) GENERAL: Awake, alert, and fully oriented, in no acute distress. EYES: PEERLA; EOMI; no scleral icterus NECK: No JVD; no lymphadenopathy LUNGS: distant breath sounds at the bases. HEART: RRR, normal S1 and S2 without murmur, rub or gallop. ABDOMEN: Soft, NT/ND +BS in all 4 qudrants MUSCULOSKELETAL: Normal range of motion at all joints. No bony deformities or tenderness. No CVA tenderness. UPPER EXTREMITIES: R AVF fistula + palpable thrill LOWER EXTREMITIES: warm; well-perfused no clubbing/cyanosis or edema NEUROLOGICAL: Cranial nerves II-XII intact. Normal speech. Normal gait. PSYCHIATRIC: Cooperative. Good eye contact. Appropriate mood and affect. SKIN: Warm, dry, normal turgor, no rashes or lesions noted. Laboratory Results - last 24 hr 09/15/19 09/15/19 09/15/19 12:31 13:00 13:00 WBC 6.7 RBC 3.38 L Hgb 11.1 L Hct 34.0 L MCV 100.5 H MCH 32.8 MCHC 32.6 RDW 15.8 Plt Count 113 L MPV 7.4 L Absolute Neuts (auto) 4.8 Neutrophils % 71.6 D Lymphocytes % 14.4 D Monocytes % 10.2 Eosinophils % 3.0 Basophils % 0.8 Nucleated RBC % 0 PT with INR 11.00 INR 0.93 PTT (Actin FS) 31.6 Sodium Potassium Chloride Carbon Dioxide Anion Gap BUN Creatinine Est GFR (CKD-EPI)AfAm Est GFR (CKD-EPI)NonAf POC Glucometer 105 Random Glucose Calcium Phosphorus Magnesium Total Bilirubin AST ALT Alkaline Phosphatase Creatine Kinase Troponin I B-Natriuretic Peptide Total Protein Albumin 09/15/19 13:00 WBC RBC Hgb Hct MCV MCH MCHC RDW Plt Count MPV Absolute Neuts (auto) Neutrophils % Lymphocytes % Monocytes % Eosinophils % Basophils % Nucleated RBC % PT with INR INR PTT (Actin FS) Sodium 140 Potassium 6.4 H* Chloride 110 H Carbon Dioxide 19 L Anion Gap 11 BUN 92.2 H Creatinine 9.0 H* Est GFR (CKD-EPI)AfAm 6.86 Est GFR (CKD-EPI)NonAf 5.92 POC Glucometer Random Glucose 100 Calcium 8.8 Phosphorus 8.2 H Magnesium 4.1 H Total Bilirubin 0.4 AST 17 ALT 12 L Alkaline Phosphatase 69 Creatine Kinase 75 Troponin I < 0.02 B-Natriuretic Peptide 8103.3 H Total Protein 6.8 Albumin 3.4 Active Medications Generic Name Dose Route Start Last Admin Trade Name Freq PRN Reason Stop Dose Admin Chlorhexidine Gluconate 1 applic 09/15/19 22:00 Hibiclens For Decolonization - TP HS BERTIN Sodium Chloride 250 mls @ 3,000 mls/hr 09/15/19 14:24 Normal Saline - IV 09/16/19 14:24 PRN PRN Hypotension during Dialysis Insulin Aspart 1 vial 09/15/19 16:30 Novolog Vial Sliding Scale - SQ [facility] Protocol Mupirocin 1 applic 09/15/19 22:00 Bactroban Ointment (For Decolonization) - NS 09/20/19 21:59 BID [facility] ASSESSMENT/PLAN: 53 yo M with PMH of ESRD (on HD M/W/ - last dialyzed on Sunday) NIDDM, Schizophrenia, Bipolar Disorder, Peripheral Neuropathy, syncope, 1st degree AV block, who was BIBEMS from dialysis for a syncopal episode #Neuro AOx3 -stable; no issues #Cardio HF History syncope; 2:1 AV block now improved (qtc 535) -monitor tele -cardio consult -pacer pads at bedside -serial EKGS -holding any QTC prolonging meds -c/w lasix 80 daily #Endo history of NIDDM -BGMS ACHS -ISS ACHS Psych history of Schizophrenia and BPD -holding home meds in light of AV block and prolonged qtc -will reassess when to restart #Pulm stable; no issues #Renal on ESRD (M/W/) missed HD today due to syncopal episode -K-6.4; was treated -patient to receive HD today -f/u post dialysis labs -Dr Palafox consulted -monitor volume status -monitor i's and o's f/e/n not on standing fludis monitor electrolytes renal diet dvt ppx: heaprin sq Dispo: We will continue to follow the patient. Thank you for this consultative opportunity. Problem List - Problems (1) ESRD (end stage renal disease) Problems reviewed: Yes Code(s): N18.6 - END STAGE RENAL DISEASE (2) Second degree heart block Problems reviewed: Yes Code(s): I44.1 - ATRIOVENTRICULAR BLOCK, SECOND DEGREE Visit type - Emergency Visit Emergency Visit: Yes ED Registration Date: 09/15/19 Care time: The patient presented to the Emergency Department on the above date and was hospitalized for further evaluation of their emergent condition. - New Patient This patient is new to me today: Yes Date on this admission: 09/15/19 - Critical Care Critical Care patient: Yes Total Critical Care Time (in minutes): 35 Critical Care Statement: The care of this patient involved high complexity decision making to prevent further life threatening deterioration of the patient's condition and/or to evaluate & treat vital organ system(s) failure or risk of failure. ATTENDING PHYSICIAN STATEMENT I saw and evaluated the patient. I reviewed the resident's note and discussed the case with the resident. I agree with the resident's findings and plan as documented. SUBJECTIVE: OBJECTIVE: ASSESSMENT AND PLAN:
--- NOTE | 2019-09-15 16:17 | PN ---
Teaching Attending Note Name of Resident: Sheela Nunez ATTENDING PHYSICIAN STATEMENT I saw and evaluated the patient. I reviewed the resident's note and discussed the case with the resident. I agree with the resident's findings and plan as documented. SUBJECTIVE: Patient seen and examined in the ER. 53 M,ESRD (on HD M/W/F - last dialyzed on Sunday) NIDDM, Schizophrenia, Bipolar Disorder, Peripheral Neuropathy, syncope, 1st degree AV block. Admitted via the ER due to syncope. Apparently noted to be in high grade AV block. Noted 30 seconds of systole. Noted to have HyperK+ and was given medical treatment. Requires emergent HD. Renal has already been consulted. Intake & Output 09/12/19 09/13/19 09/14/19 09/15/19 23:59 23:59 23:59 23:59 Weight 214 lb Last Vital Signs Temp Pulse Resp BP Pulse Ox 98.5 F 42 L 16 141/73 100 09/15/19 11:50 09/15/19 13:00 09/15/19 11:50 09/15/19 11:50 09/15/19 13:00 Active Medications Chlorhexidine Gluconate (Hibiclens For Decolonization -) 1 applic TP HS BERTIN Sodium Chloride (Normal Saline -) 250 mls @ 3,000 mls/hr IV PRN PRN PRN Reason: Hypotension during Dialysis Stop: 09/16/19 14:24 Insulin Aspart (Novolog Vial Sliding Scale -) 1 vial SQ ACHS BERTIN; Protocol Mupirocin (Bactroban Ointment (For Decolonization) -) 1 applic NS BID BERTIN Stop: 09/20/19 21:59 GENERAL: Awake, alert, and fully oriented, in no acute distress. EYES: PEERLA; EOMI; no scleral icterus NECK: No JVD; no lymphadenopathy LUNGS: distant breath sounds at the bases. HEART: RRR, normal S1 and S2 without murmur, rub or gallop. ABDOMEN: Soft, NT/ND +BS in all 4 qudrants MUSCULOSKELETAL: Normal range of motion at all joints. No bony deformities or tenderness. No CVA tenderness. UPPER EXTREMITIES: R AVF fistula + palpable thrill LOWER EXTREMITIES: warm; well-perfused no clubbing/cyanosis or edema NEUROLOGICAL: Non-focal PSYCHIATRIC: Cooperative. Good eye contact. Appropriate mood and affect. SKIN: Warm, dry, normal turgor, no rashes or lesions noted. Laboratory Results - last 24 hr 09/15/19 09/15/19 09/15/19 12:31 13:00 13:00 WBC 6.7 RBC 3.38 L Hgb 11.1 L Hct 34.0 L MCV 100.5 H MCH 32.8 MCHC 32.6 RDW 15.8 Plt Count 113 L MPV 7.4 L Absolute Neuts (auto) 4.8 Neutrophils % 71.6 D Lymphocytes % 14.4 D Monocytes % 10.2 Eosinophils % 3.0 Basophils % 0.8 Nucleated RBC % 0 PT with INR 11.00 INR 0.93 PTT (Actin FS) 31.6 Sodium Potassium Chloride Carbon Dioxide Anion Gap BUN Creatinine Est GFR (CKD-EPI)AfAm Est GFR (CKD-EPI)NonAf POC Glucometer 105 Random Glucose Calcium Phosphorus Magnesium Total Bilirubin AST ALT Alkaline Phosphatase Creatine Kinase Troponin I B-Natriuretic Peptide Total Protein Albumin 09/15/19 13:00 WBC RBC Hgb Hct MCV MCH MCHC RDW Plt Count MPV Absolute Neuts (auto) Neutrophils % Lymphocytes % Monocytes % Eosinophils % Basophils % Nucleated RBC % PT with INR INR PTT (Actin FS) Sodium 140 Potassium 6.4 H* Chloride 110 H Carbon Dioxide 19 L Anion Gap 11 BUN 92.2 H Creatinine 9.0 H* Est GFR (CKD-EPI)AfAm 6.86 Est GFR (CKD-EPI)NonAf 5.92 POC Glucometer Random Glucose 100 Calcium 8.8 Phosphorus 8.2 H Magnesium 4.1 H Total Bilirubin 0.4 AST 17 ALT 12 L Alkaline Phosphatase 69 Creatine Kinase 75 Troponin I < 0.02 B-Natriuretic Peptide 8103.3 H Total Protein 6.8 Albumin 3.4 Active Medications Generic Name Dose Route Start Last Admin Trade Name Freq PRN Reason Stop Dose Admin Chlorhexidine Gluconate 1 applic 09/15/19 22:00 Hibiclens For Decolonization - TP HS BERTIN Sodium Chloride 250 mls @ 3,000 mls/hr 09/15/19 14:24 Normal Saline - IV 09/16/19 14:24 PRN PRN Hypotension during Dialysis Insulin Aspart 1 vial 09/15/19 16:30 Novolog Vial Sliding Scale - SQ ACHS BERTIN Protocol Mupirocin 1 applic 09/15/19 22:00 Bactroban Ointment (For Decolonization) - NS 09/20/19 21:59 BID [facility] ASSESSMENT/PLAN: Acute on CKD Symptomatic HyperK+ ESRD (HD M/W/F - last dialyzed on Sunday) NIDDM Schizophrenia Bipolar Disorder Peripheral Neuropathy Syncope Resolved high degree AV block Emergent HD per Renal Follow K+ closely Patient was already given medical management of HyperK+ in the ER Strict I & O Supplemental O2 as needed Cardiology evaluation Lasix Glycemic control ICU monitoring Dr Greenfield
[2019-09-15] MEDS: INSULIN SLIDING SCALE (NOVOLOG) 1 VIAL SQ SCH ×2 (16:41→22:24)
--- NOTE | 2019-09-15 18:46 | CON.CARD ---
Consult Consult Specialty:: Cardiology - History of Present Illness History of Present Illness: 53 yo M with PMH of ESRD (on HD M/W/ - last dialyzed on Sunday) NIDDM, Schizophrenia, Bipolar Disorder, Peripheral Neuropathy, syncope, 1st degree AV block, who was BIBEMS from dialysis for a syncopal episode. According to the patient, he was on the dialysis bed when he got dizzy and then he said he "greyd out" patient was brought to the ED before undergoing HD.Of note, patient had a similar episode where he was hospitalized from 09/03-09/07 where he was found to have 2:1 AV block (mobitz 1) both ECHO, holter monitor and carotids were done at that time. In addition, patient has a lot of psych meds that were discontinued at discharge. In the ED patient found to be bradycardic to 42, labs wbc 11 K 6.4 Cr 9 in the ED patient also had a brief 30 second episode of asystole where he came back after 30 seconds . initial EKG rate 44 2:1 AV BLOCK with RBB; after treatment for hyperkalemia patients rate improved to 70 first degree AV block patient denies any recent travel or any sick contacts PMH Moderately severe LV dysfunction on 2017 ECHO LBBB noted in 2017 now in RBBB Schizophrenia HTN DM ECHO ant apical HK EF 45-50% Cardiac Catheterization: 12/06/17 -Left Main patent -LAD proximal 40%, distal 30% -LCx proximal 30% -RCA luminal irregularities Episodes of idioventricular rhythm on telemetry - History Source History Provided By: Medical Record - Past Medical History Cardio/Vascular: Yes: HTN Pulmonary: Yes: Other (lung disorder with chest tube insetion after trauma) Renal/: Yes: Renal Inusuff, Hemodialysis Psych: Yes: Bipolar - Past Surgical History Past Surgical History: Yes: AV Fistula/Graft (upper right arm) - Alcohol/Substance Use Hx Alcohol Use: No History of Substance Use: reports: Marijuana - Smoking History Smoking history: Unknown if ever smoked Have you smoked in the past 12 months: No Aproximately how many cigarettes per day: 0 If you are a former smoker, when did you quit?: 1999 - Social History Usual Living Arrangement: With Spouse 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 of Recent Travel: No Home Medications - Allergies Allergies/Adverse Reactions: Allergies Allergy/AdvReac Type Severity Reaction Status Date / Time No Known Drug Allergies Allergy Verified 09/04/19 18:00 - Home Medications Home Medications: Ambulatory Orders Divalproex [Depakote -] 1,000 mg PO BID 03/30/16 LORazepam [Ativan] 0.5 mg PO BID 03/30/16 Furosemide [Lasix -] 80 mg PO DAILY 12/28/17 Atorvastatin Ca [Lipitor] 20 mg PO HS 11/15/18 Sevelamer Carbonate [Renvela -] 2,400 mg PO TIDCM 11/15/18 Review of Systems - Review of Systems Constitutional: reports: No Symptoms Eyes: reports: No Symptoms HENT: reports: No Symptoms Neck: reports: No Symptoms Cardiovascular: reports: No Symptoms Gastrointestinal: reports: No Symptoms Genitourinary: reports: No Symptoms Breasts: reports: No Symptoms Reported Musculoskeletal: reports: No Symptoms Integumentary: reports: No Symptoms Neurological: reports: Syncope Endocrine: reports: No Symptoms Hematology/Lymphatic: reports: No Symptoms Psychiatric: reports: No Symptoms Vital Signs: Vital Signs Temperature 97.8 F 09/15/19 16:18 Pulse Rate 77 09/15/19 17:07 Respiratory Rate 14 09/15/19 17:07 Blood Pressure 142/69 09/15/19 17:07 O2 Sat by Pulse Oximetry (%) 99 09/15/19 17:07 Constitutional: Yes: Well Nourished, No Distress, Calm Eyes: Yes: WNL, Conjunctiva Clear, EOM Intact HENT: Yes: WNL, Atraumatic, Normocephalic Neck: Yes: WNL, Supple, Trachea Midline Respiratory: Yes: WNL, Regular, CTA Bilaterally Gastrointestinal: Yes: WNL, Normal Bowel Sounds Renal/: Yes: WNL Cardiovascular: Yes: WNL, Regular Rate and Rhythm Musculoskeletal: Yes: WNL Extremities: Yes: WNL Integumentary: Yes: WNL Psychiatric: Yes: Alert, Oriented - Other Data Labs, Other Data: CBC, BMP 09/15/19 13:00 09/15/19 13:00 INR, PTT INR 0.93 (0.83-1.09) 09/15/19 13:00 Troponin, BNP 09/15/19 13:00 Troponin I < 0.02 B-Natriuretic Peptide 8103.3 H Troponin, BNP 09/15/19 13:00 Troponin I < 0.02 B-Natriuretic Peptide 8103.3 H Imaging - Results Chest X-ray: Image Reviewed (no i/e) EKG: Image Reviewed (s su 1 avb RBBB) Problem List - Problems (1) Altered mental status Code(s): R41.82 - ALTERED MENTAL STATUS, UNSPECIFIED Qualifiers: Altered mental status type: somnolence Qualified Code(s): R40.0 - Somnolence (2) ESRD (end stage renal disease) Code(s): N18.6 - END STAGE RENAL DISEASE (3) Hyperkalemia Code(s): E87.5 - HYPERKALEMIA (4) Near syncope Code(s): R55 - SYNCOPE AND COLLAPSE (5) Second degree heart block Code(s): I44.1 - ATRIOVENTRICULAR BLOCK, SECOND DEGREE (6) Acute hyperkalemia Code(s): E87.5 - HYPERKALEMIA (7) Acute on chronic systolic CHF (congestive heart failure), NYHA class 2 Code(s): I50.23 - ACUTE ON CHRONIC SYSTOLIC (CONGESTIVE) HEART FAILURE (8) CKD (chronic kidney disease) stage 5, GFR less than 15 ml/min Code(s): N18.5 - CHRONIC KIDNEY DISEASE, STAGE 5 (9) Complication of AV dialysis fistula Code(s): T82.9XXA - UNSP COMP OF CARDIAC AND VASCULAR PROSTH DEV/GRFT, INIT (10) Contusion of right hip Code(s): S70.01XA - CONTUSION OF RIGHT HIP, INITIAL ENCOUNTER (11) Contusion of wrist, right Code(s): S60.211A - CONTUSION OF RIGHT WRIST, INITIAL ENCOUNTER (12) Dysthymia Code(s): F34.1 - DYSTHYMIC DISORDER (13) Fall Code(s): W19.XXXA - UNSPECIFIED FALL, INITIAL ENCOUNTER (14) Fluid overload Code(s): E87.70 - FLUID OVERLOAD, UNSPECIFIED (15) Frostbite Code(s): T33.90XA - SUPERFICIAL FROSTBITE OF UNSPECIFIED SITES, INIT ENCNTR Qualifiers: Encounter type: initial encounter Qualified Code(s): T33.90XA - Superficial frostbite of unspecified sites, initial encounter (16) Frostbite of hand, left Code(s): T33.522A - SUPERFICIAL FROSTBITE OF LEFT HAND, INITIAL ENCOUNTER; X31 .XXXA - EXPOSURE TO EXCESSIVE NATURAL COLD, INITIAL ENCOUNTER Qualifiers: Encounter type: subsequent encounter Qualified Code(s): T33.522D - Superficial frostbite of left hand, subsequent encounter; X31.XXXD - Exposure to excessive natural cold, subsequent encounter; X31.XXXD - Exposure to excessive natural cold, subsequent encounter (17) Injury of right upper arm Code(s): S49.91XA - UNSP INJURY OF RIGHT SHOULDER AND UPPER ARM, INIT ENCNTR Qualifiers: Encounter type: subsequent encounter Qualified Code(s): S49.91XD - Unspecified injury of right shoulder and upper arm, subsequent encounter (18) Left knee pain Code(s): M25.562 - PAIN IN LEFT KNEE Qualifiers: Chronicity: chronic Qualified Code(s): M25.562 - Pain in left knee; G89.29 - Other chronic pain (19) Leg pain, right Code(s): M79.604 - PAIN IN RIGHT LEG (20) Puncture wound Code(s): T14.8XXA - OTHER INJURY OF UNSPECIFIED BODY REGION, INITIAL ENCOUNTER (21) Removal of staple Code(s): Z48.02 - ENCOUNTER FOR REMOVAL OF SUTURES (22) Syncope Code(s): R55 - SYNCOPE AND COLLAPSE (23) Traumatic hematoma of right elbow Code(s): S50.01XA - CONTUSION OF RIGHT ELBOW, INITIAL ENCOUNTER (24) Wound of left foot Code(s): S91.302A - UNSPECIFIED OPEN WOUND, LEFT FOOT, INITIAL ENCOUNTER (25) Affective bipolar disorder Code(s): F31.9 - BIPOLAR DISORDER, UNSPECIFIED Qualifiers: Active/Remission status: remission status unspecified Qualified Code(s): F31.9 - Bipolar disorder, unspecified (26) Congestive heart failure (CHF) Code(s): I50.9 - HEART FAILURE, UNSPECIFIED (27) Hyperlipidemia Code(s): E78.5 - HYPERLIPIDEMIA, UNSPECIFIED (28) Hypertension Code(s): I10 - ESSENTIAL (PRIMARY) HYPERTENSION Assessment/Plan 53 yo M with PMH of ESRD (on HD M/W/F - last dialyzed on Sunday) NIDDM, Schizophrenia, Bipolar Disorder, Peripheral Neuropathy, syncope, 1st degree AV block, who was BIBEMS from dialysis for a syncopal episode. Episode of 30 s asystole in the ER in the setting of hyperkalemia 6.4 - resolved with anti hyperkalemic treatment. Moderately severe LV dysfunction on 2017 ECHO LBBB noted in 2017 now in RBBB Schizophrenia HTN DM ECHO ant apical HK EF 45-50% Cardiac Catheterization: 12/06/17 -Left Main patent -LAD proximal 40%, distal 30% -LCx proximal 30% -RCA luminal irregularities Episodes of idioventricular rhythm on telemetry last admission Plan; ICU monitoring Evaluation for PPM by EP dr. Prasad DVT plx f/u K Avoid hyperkalemia HD avoid AV boone blocking meds cc time 70 min
[2019-09-15] MEDS: MUPIROCIN 2% TOPICAL OINTMENT FOR DECOLONIZATION NS SCH (22:02)
[2019-09-15] MEDS: CHLORHEXIDINE GLUCONATE 4% CLEANSER FOR DECOLONIZATION TP SCH (22:02)
--- NOTE | 2019-09-15 23:38 | CON.CARD ---
Consult Consult Specialty:: Cardiac Electrophysiology Referred by:: Dr. Rodriguez Reason for Consultation:: Heart Block - History of Present Illness Chief Complaint: Syncope History of Present Illness: Mr. Rosenbaum is a 53 year old male with a pmh of ESRD (on HD M/W/F - last dialyzed on Sunday) NIDDM, Schizophrenia, Bipolar Disorder, Peripheral Neuropathy, syncope, 1st degree AV block, who was BIBEMS from dialysis for a syncopal episode. According to the patient, he was on the dialysis bed when he got dizzy and then he said he "greyed out" patient was brought to the ED before undergoing HD. In the ER the patient was noted to have episodes of 2-1 heart block and a "30 second" pause (strip not available for review). K 6.4. He was given glucagon and started on dialysis. His heart block subsequently resolved and he has had no recurrent events on monitoring in the ICU. Echo done at last visit with LVEF 45-50%. Recent holter done during last hospitalization with NSR, IVCD, rate related BBB appreciated, 2-1 heart block during overnight hours only. He reports 3-4 syncopal events in the past. He denies any chest pain, dyspnea, palpitations. Not on AV boone blocking agents. - History Source History Provided By: Patient, Medical Record - Past Medical History Cardio/Vascular: Yes: HTN Pulmonary: Yes: Other (lung disorder with chest tube insetion after trauma) Renal/: Yes: Renal Inusuff, Hemodialysis Psych: Yes: Bipolar - Past Surgical History Past Surgical History: Yes: AV Fistula/Graft (upper right arm) - Alcohol/Substance Use Hx Alcohol Use: No History of Substance Use: reports: Marijuana - Smoking History Smoking history: Former smoker Have you smoked in the past 12 months: No Aproximately how many cigarettes per day: 0 If you are a former smoker, when did you quit?: 1999 - Social History Usual Living Arrangement: With Spouse 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 of Recent Travel: No Home Medications - Allergies Allergies/Adverse Reactions: Allergies Allergy/AdvReac Type Severity Reaction Status Date / Time No Known Drug Allergies Allergy Verified 09/04/19 18:00 - Home Medications Home Medications: Ambulatory Orders Divalproex [Depakote -] 1,000 mg PO BID 03/30/16 LORazepam [Ativan] 0.5 mg PO BID 03/30/16 Furosemide [Lasix -] 80 mg PO DAILY 12/28/17 Atorvastatin Ca [Lipitor] 20 mg PO HS 11/15/18 Sevelamer Carbonate [Renvela -] 2,400 mg PO TIDCM 11/15/18 Family Medical History Family History: Denies (fam hx of scd) Review of Systems - Review of Systems Constitutional: denies: Chills, Fever HENT: denies: Epistaxis Neck: denies: Decreased ROM Cardiovascular: denies: Chest Pain, Edema, Palpitations, Shortness of Breath Respiratory: denies: Hemoptysis, SOB on Exertion, Wheezing Gastrointestinal: denies: Abdominal Pain, Melena, Nausea, Vomiting Musculoskeletal: denies: Decreased ROM Neurological: reports: Syncope Vital Signs: Vital Signs Temperature 98.2 F 09/15/19 22:00 Pulse Rate 74 09/15/19 22:00 Respiratory Rate 16 09/15/19 22:00 Blood Pressure 149/99 09/15/19 22:00 O2 Sat by Pulse Oximetry (%) 99 09/15/19 22:00 Constitutional: Yes: Well Nourished, No Distress, Calm Eyes: Yes: EOM Intact Neck: Yes: Supple, Trachea Midline Respiratory: Yes: Regular, CTA Bilaterally Gastrointestinal: Yes: Normal Bowel Sounds, Soft Cardiovascular: Yes: Regular Rate and Rhythm Edema: No Neurological: Yes: Alert, Oriented Psychiatric: Yes: Alert, Oriented - Other Data Labs, Other Data: CBC, BMP 09/15/19 13:00 09/15/19 13:00 INR, PTT INR 0.93 (0.83-1.09) 09/15/19 13:00 Troponin, BNP 09/15/19 13:00 Troponin I < 0.02 B-Natriuretic Peptide 8103.3 H Troponin, BNP 09/15/19 13:00 Troponin I < 0.02 B-Natriuretic Peptide 8103.3 H Holter: Image Reviewed Ejection Fraction %: LVEF > or = 40 % Imaging - Results EKG: Image Reviewed Problem List - Problems (1) Heart block AV complete Code(s): I44.2 - ATRIOVENTRICULAR BLOCK, COMPLETE (2) Hyperkalemia Code(s): E87.5 - HYPERKALEMIA (3) Near syncope Code(s): R55 - SYNCOPE AND COLLAPSE (4) Second degree heart block Code(s): I44.1 - ATRIOVENTRICULAR BLOCK, SECOND DEGREE (5) Acute hyperkalemia Code(s): E87.5 - HYPERKALEMIA (6) Syncope Code(s): R55 - SYNCOPE AND COLLAPSE Assessment/Plan 53 year old male with multiple medical problems who presented with syncope in the setting of AV dissociation, hyperkalemia, renal failure s/p glucagon, dialysis with resolution of heart block. Of note, patient has underlying RBBB and prolonged AV delay. Prior holter reviewed, pt had 2-1 heart block overnight only. There were no daytime events. He has had syncopal events in the past, unclear and no correlated rhythm at the time. Of note, pt with reported EKG in the past with LBBB, presently RBBB. LVEF mildly reduced on recent echo. Undergoing covid testing at this time. I had an extensive conversation with the patient regarding the nature of his conduction system disease. We spoke about ppm and monitoring. The patient declines any invasive procedure at this time, particularly since his symptoms and his conduction system disturbance have resolved after treatment. He is considering his options including outpt monitoring vs ILR implant and would like to talk with his family first. - no urgent indication for ppm at this time - would continue monitoring on telemetry for 24-48 hours and see if he has recurrent daytime events/symptoms with correction of above. if so, would reconsider for ppm implant if agreeable - keep k 4-4.5, mg 2-2.5 - sleep study - no av boone blocking agents - if no recurrent events are noted, would recommend for ILR prior to discharge vs outpt wearable event monitoring - the patient will discuss his options with his family and let us know what he would like to do - d/w cardiology - care as per primary services CC: 75 minutes Thank you for allowing me to participate in the care of this patient. Please call with any questions. Please inform should patient's clinical situation change.
[2019-09-16] MEDS ORDERED: MELATONIN 5 MG TABLETS PO ONE (00:43)
[2019-09-16] MEDS: INSULIN SLIDING SCALE (NOVOLOG) 1 VIAL SQ SCH ×5 (06:32→21:33)
--- NOTE | 2019-09-16 07:59 | CON.NEP ---
Consult Consult Specialty:: Nephrology Referred by:: ED Reason for Consultation:: ESRD on HD, Hyperkalemia - History of Present Illness Chief Complaint: Syncope History of Present Illness: This is a 53 year old male with History of ESRD on HD NIDDM, Schizophrenia, Bipolar Disorder, Peripheral Neuropathy, syncope, 1st degree AV block, who was BIBEMS from dialysis for a syncopal episode from the dialysis center and found to have heart block and brief period of asystolic with K of 6.3. Seen and examined at the bedside. s/p emergent dialysis yesterday afternoon. He currently denies any cp, palpitations, dizziness, sob, cp, fever, chills, N/V/D. HR is now in 80's. - History Source History Provided By: Patient Limitations to Obtaining History: No Limitations - Past Medical History Cardio/Vascular: Yes: HTN Pulmonary: Yes: Other (lung disorder with chest tube insetion after trauma) Renal/: Yes: Renal Inusuff, Hemodialysis Psych: Yes: Bipolar - Past Surgical History Past Surgical History: Yes: AV Fistula/Graft (upper right arm) - Alcohol/Substance Use Hx Alcohol Use: No History of Substance Use: reports: Marijuana - Smoking History Smoking history: Former smoker Have you smoked in the past 12 months: No Aproximately how many cigarettes per day: 0 If you are a former smoker, when did you quit?: 1999 - Social History Usual Living Arrangement: With Spouse 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 of Recent Travel: No Home Medications - Allergies Allergies/Adverse Reactions: Allergies Allergy/AdvReac Type Severity Reaction Status Date / Time No Known Drug Allergies Allergy Verified 09/04/19 18:00 - Home Medications Home Medications: Ambulatory Orders Divalproex [Depakote -] 1,000 mg PO BID 03/30/16 LORazepam [Ativan] 0.5 mg PO BID 03/30/16 Furosemide [Lasix -] 80 mg PO DAILY 12/28/17 Atorvastatin Ca [Lipitor] 20 mg PO HS 11/15/18 Sevelamer Carbonate [Renvela -] 2,400 mg PO TIDCM 11/15/18 Family Medical History Family History: Unremarkable Review of Systems - Review of Systems Constitutional: reports: No Symptoms Eyes: reports: No Symptoms HENT: reports: No Symptoms Neck: reports: No Symptoms Cardiovascular: reports: No Symptoms Respiratory: reports: No Symptoms Gastrointestinal: reports: No Symptoms Genitourinary: reports: No Symptoms Musculoskeletal: reports: No Symptoms Integumentary: reports: No Symptoms Neurological: reports: No Symptoms Endocrine: reports: No Symptoms Hematology/Lymphatic: reports: No Symptoms Nephrology Consult - Height Height: 6 ft 1 in - Weight Weight: 98.43 kg - BMI Body Mass Index (BMI): 28.6 - Lab Results CBC,BMP: CBC, BMP 09/15/19 13:00 09/15/19 13:00 Anion Gap: Anion Gap Anion Gap 11 MMOL/L (8-16) 09/15/19 13:00 - Physical Examination Vital Signs: Vital Signs Temperature 98.2 F 09/16/19 06:00 Pulse Rate 64 09/16/19 06:00 Respiratory Rate 18 09/16/19 06:00 Blood Pressure 176/89 H 09/16/19 06:00 O2 Sat by Pulse Oximetry (%) 99 09/16/19 06:00 Constitutional: Yes: Well Nourished, No Distress, Calm Eyes: Yes: Conjunctiva Clear HENT: Yes: Atraumatic, Normocephalic Neck: Yes: Supple Cardiovascular: Yes: Regular Rate and Rhythm Respiratory: Yes: Regular, CTA Bilaterally. No: Rales, Rhonchi Gastrointestinal: Yes: Normal Bowel Sounds, Soft. No: Tenderness Access for Hemodialysis: AV Fistula Extremities: No: Cold, Cool, Cyanosis Edema: No Assessment/Plan 53 year old male with History of ESRD on HD NIDDM, Schizophrenia, Bipolar Disorder, Peripheral Neuropathy, syncope, 1st degree AV block, who was BIBEMS from dialysis for a syncopal episode from the dialysis center and found to have heart block and brief period of asystolic with K of 6.3. 1. ESRD on HD 2. Syncope 3. Heart flock 4. Hyperkalemia 5. Bipolar disorder Clinically stable, HR is now WNL will need to r/o access stenosis as etiology of hyperkalemia despite regular dialysis Check Doppler of AVF Vascular consult with Dr. Rice Tele monitoring Cardiology follow up Next planned dialysis is tomorrow. Thank you Cornelius Palafox DO
[2019-09-16 08:38] LABS: BASO % 0.3 % (0-2.0); EOS % 2.2 % (0-4.5); HEMATOCRIT 34.4 % (35.4-49); HEMOGLOBIN 11.4 GM/dL (11.7-16.9); LYMPH % 23.1 % (8-40); MCH 33.2 pg (25.7-33.7); MCHC 33.1 g/dl (32.0-35.9); MEAN CELL VOLUME 100.4 fl (80-96); MEAN PLT VOLUME 6.2 fl (7.5-11.1); MONO % 12.9 % (3.8-10.2); NEUT % 61.5 % (42.8-82.8); PLATELET COUNT 108 K/MM3 (134-434); RBC 3.43 M/mm3 (4.00-5.60); RDW 15.3 % (11.9-15.9); WHITE BLOOD COUNT 5.6 K/mm3 (4.0-10.0)
[2019-09-16 08:48] LABS: INR 1.02 (0.83-1.09)
[2019-09-16 08:51] LABS: ACTIVATED PTT 31.8 SECONDS (25.2-36.5)
[2019-09-16 09:29] LABS: ALBUMIN 3.1 g/dl (3.4-5.0); BILIRUBIN,TOTAL 0.4 mg/dL (0.2-1); BLOOD UREA NITROGEN 44.1 mg/dL (7-18); CALCIUM 8.2 mg/dL (8.5-10.1); CREATININE 5.7 mg/dL (0.55-1.3); MAGNESIUM 3.1 mg/dL (1.8-2.4); PHOSPHOROUS 6.2 mg/dL (2.5-4.9); POTASSIUM 4.3 mmol/L (3.5-5.1); TOT PROT 6.4 g/dl (6.4-8.2)
[2019-09-16] MEDS ORDERED: FUROSEMIDE 40 MG TABLET (FP) PO SCH (10:00)
[2019-09-16] MEDS: MUPIROCIN 2% TOPICAL OINTMENT FOR DECOLONIZATION NS SCH ×3 (10:12→21:33)
--- NOTE | 2019-09-16 10:29 | EKG ---
Test Reason : Blood Pressure : / mmHG Vent. Rate : 044 BPM Atrial Rate : 044 BPM P-R Int : 224 ms QRS Dur : 170 ms QT Int : 472 ms P-R-T Axes : 062 051 041 degrees QTc Int : 403 ms MARKED SINUS BRADYCARDIA WITH 1ST DEGREE A-V BLOCK RIGHT BUNDLE BRANCH BLOCK ABNORMAL ECG WHEN COMPARED WITH ECG OF 06-SEP-2019 14:14, [place] INTERVAL HAS INCREASED VENT. RATE HAS DECREASED BY 48 BPM QUESTIONABLE CHANGE IN QRS AXIS QT HAS SHORTENED Confirmed by MD Pushpa, Kashif ([id number]) on 09/16/2019 10:29:29 AM Referred By: Confirmed By:Kashif Barrow MD
--- NOTE | 2019-09-16 10:30 | EKG ---
Test Reason : Blood Pressure : / mmHG Vent. Rate : 083 BPM Atrial Rate : 083 BPM P-R Int : 238 ms QRS Dur : 192 ms QT Int : 456 ms P-R-T Axes : 067 067 031 degrees QTc Int : 535 ms SINUS RHYTHM WITH 1ST DEGREE A-V BLOCK RIGHT BUNDLE BRANCH BLOCK ABNORMAL ECG WHEN COMPARED WITH ECG OF 15-SEP-2019 12:13, VENT. RATE HAS INCREASED BY 39 BPM QT HAS LENGTHENED Confirmed by MD Pushpa, Kashif ([id number]) on 09/16/2019 10:30:33 AM Referred By: Confirmed By:Kashif Barrow MD
--- NOTE | 2019-09-16 12:24 | PN ---
Progress Note (short form) - Note Progress Note: 53 yo M with PMH of ESRD (on HD M/W/F - last dialyzed on Sunday) NIDDM, Schizophrenia, Bipolar Disorder, Peripheral Neuropathy, syncope, 1st degree AV block, who was BIBEMS from dialysis for a syncopal episode. pt was monitored on tele . pt was evaluated by nephrology and cardiology. pt was dialyzed 09/14. no acute events on tele monitoring overnight. pt stable for transfer to tele
--- NOTE | 2019-09-16 12:24 | PN ---
Physical Exam: SUBJECTIVE: Patient seen and examined at bedside. pt has no acute complaints. denies cp, sob. states he is feeling better. OBJECTIVE: Vital Signs Period Temp Pulse Resp BP Sys/Miguel Pulse Ox Last 24 Hr 97.8 F-98.4 F 42-84 14-18 125-187/68-109 98-100 GENERAL: The patient is awake, alert, and fully oriented, in no acute distress. HEAD: Normal with no signs of trauma. NECK: Trachea midline, full range of motion, supple. LUNGS: Breath sounds equal, clear to auscultation bilaterally, no accessory muscle use. HEART: Regular rate and rhythm, S1, S2 without murmur ABDOMEN: Soft, nontender, nondistended, normoactive bowel sounds, no guarding EXTREMITIES: 2+ pulses, warm, well-perfused, no edema. NEUROLOGICAL: Cranial nerves II through XII grossly intact. Normal speech SKIN: Warm, dry, normal turgor, no rashes or lesions noted CBC, BMP 09/16/19 08:25 09/16/19 08:25 Active Medications Generic Name Dose Route Start Last Admin Trade Name Freq PRN Reason Stop Dose Admin Chlorhexidine Gluconate 1 applic 09/15/19 22:00 09/15/19 22:02 Hibiclens For Decolonization - TP 1 applic HS BERTIN Administration Furosemide 80 mg 09/16/19 10:00 09/16/19 10:12 Lasix - PO 80 mg DAILY BERTIN Administration Sodium Chloride 250 mls @ 3,000 mls/hr 09/15/19 14:24 Normal Saline - IV 09/16/19 14:24 PRN PRN Hypotension during Dialysis Insulin Aspart 1 vial 09/15/19 16:30 09/16/19 12:08 Novolog Vial Sliding Scale - SQ Not Given ACHS BERTIN Protocol Mupirocin 1 applic 09/15/19 22:00 09/16/19 10:12 Bactroban Ointment (For Decolonization) - NS 09/20/19 21:59 1 applic BID BERTIN Administration ASSESSMENT/PLAN: 53 yo M with PMH of ESRD (on HD M/W/F - last dialyzed on Sunday) NIDDM, Schizophrenia, Bipolar Disorder, Peripheral Neuropathy, syncope, 1st degree AV block, who was BIBEMS from dialysis for a syncopal episode Neuro AOx3 -stable; no issues Cardio HF History syncope; 2:1 AV block now improved (qtc 535) -monitor tele , no acute overnight events -holding any QTC prolonging meds. hold AV node blockers -c/w lasix 80 daily Endo DM -BGMS, ISS Psych history of Schizophrenia and BPD -holding home meds in light of AV block and prolonged qtc -will reassess when to restart Pulm stable; no issues Renal on ESRD (M/W/F) - HD yesterday -K-6.4 . rpt improved 4.3 - renal recs appreciated -Dr Palafox consulted -monitor i's and o's dvt ppx: hold chemical ppx 2/2 thrombocytopenia , SCDs optimized for transfer to tele ATTENDING PHYSICIAN STATEMENT I saw and evaluated the patient. I reviewed the resident's note and discussed the case with the resident. I agree with the resident's findings and plan as documented. SUBJECTIVE: OBJECTIVE: ASSESSMENT AND PLAN:
--- NOTE | 2019-09-16 12:57 | PN ---
Teaching Attending Note Name of Resident: Yusra Grace ATTENDING PHYSICIAN STATEMENT I saw and evaluated the patient. I reviewed the resident's note and discussed the case with the resident. I agree with the resident's findings and plan as documented. SUBJECTIVE: Patient seen and examined in the ICU. Awake and alert. No CP or SOB. S/P HD yesterday. Intake & Output 09/13/19 09/14/19 09/15/19 09/16/19 23:59 23:59 23:59 23:59 Intake Total 600 250 Output Total 3020 500 Balance -2420 -250 Weight 217 lb 217 lb Last Vital Signs Temp Pulse Resp BP Pulse Ox 97.9 F 72 16 160/77 98 09/16/19 10:00 09/16/19 10:00 09/16/19 10:00 09/16/19 10:00 09/16/19 10:00 Active Medications Chlorhexidine Gluconate (Hibiclens For Decolonization -) 1 applic TP HS [facility] Last Admin: 09/15/19 22:02 Dose: 1 applic Documented by: Furosemide (Lasix -) 80 mg PO DAILY [facility] Last Admin: 09/16/19 10:12 Dose: 80 mg Documented by: Sodium Chloride (Normal Saline -) 250 mls @ 3,000 mls/hr IV PRN PRN PRN Reason: Hypotension during Dialysis Stop: 09/16/19 14:24 Insulin Aspart (Novolog Vial Sliding Scale -) 1 vial SQ ACHS [facility]; Protocol Last Admin: 09/16/19 12:08 Dose: Not Given Documented by: Mupirocin (Bactroban Ointment (For Decolonization) -) 1 applic NS BID [facility] Stop: 09/20/19 21:59 Last Admin: 09/16/19 10:12 Dose: 1 applic Documented by: GENERAL: Awake, alert, and fully oriented, in no acute distress. EYES: PEERLA; EOMI; no scleral icterus NECK: No JVD; no lymphadenopathy LUNGS: distant breath sounds at the bases. HEART: RRR, normal S1 and S2 without murmur, rub or gallop. ABDOMEN: Soft, NT/ND +BS in all 4 qudrants MUSCULOSKELETAL: Normal range of motion at all joints. No bony deformities or tenderness. No CVA tenderness. UPPER EXTREMITIES: R AVF fistula + palpable thrill LOWER EXTREMITIES: warm; well-perfused no clubbing/cyanosis or edema NEUROLOGICAL: Non-focal PSYCHIATRIC: Cooperative. Good eye contact. Appropriate mood and affect. SKIN: Warm, dry, normal turgor, no rashes or lesions noted. Laboratory Results - last 24 hr 09/15/19 09/15/19 09/15/19 13:00 13:00 13:00 WBC 6.7 RBC 3.38 L Hgb 11.1 L Hct 34.0 L MCV 100.5 H MCH 32.8 MCHC 32.6 RDW 15.8 Plt Count 113 L MPV 7.4 L Absolute Neuts (auto) 4.8 Neutrophils % 71.6 D Lymphocytes % 14.4 D Monocytes % 10.2 Eosinophils % 3.0 Basophils % 0.8 Nucleated RBC % 0 PT with INR 11.00 INR 0.93 PTT (Actin FS) 31.6 Sodium 140 Potassium 6.4 H* Chloride 110 H Carbon Dioxide 19 L Anion Gap 11 BUN 92.2 H Creatinine 9.0 H* Est GFR (CKD-EPI)AfAm 6.86 Est GFR (CKD-EPI)NonAf 5.92 POC Glucometer Random Glucose 100 Calcium 8.8 Phosphorus 8.2 H Magnesium 4.1 H Total Bilirubin 0.4 AST 17 ALT 12 L Alkaline Phosphatase 69 Creatine Kinase 75 Troponin I < 0.02 B-Natriuretic Peptide 8103.3 H Total Protein 6.8 Albumin 3.4 TSH 09/15/19 09/15/19 09/16/19 16:39 22:10 06:12 WBC RBC Hgb Hct MCV MCH MCHC RDW Plt Count MPV Absolute Neuts (auto) Neutrophils % Lymphocytes % Monocytes % Eosinophils % Basophils % Nucleated RBC % PT with INR INR PTT (Actin FS) Sodium Potassium Chloride Carbon Dioxide Anion Gap BUN Creatinine Est GFR (CKD-EPI)AfAm Est GFR (CKD-EPI)NonAf POC Glucometer 77 79 73 Random Glucose Calcium Phosphorus Magnesium Total Bilirubin AST ALT Alkaline Phosphatase Creatine Kinase Troponin I B-Natriuretic Peptide Total Protein Albumin [facility] 09/16/19 09/16/19 09/16/19 08:25 08:25 08:25 WBC 5.6 RBC 3.43 L Hgb 11.4 L Hct 34.4 L MCV 100.4 H MCH 33.2 MCHC 33.1 RDW 15.3 Plt Count 108 L MPV 6.2 L D Absolute Neuts (auto) 3.4 Neutrophils % 61.5 Lymphocytes % 23.1 D Monocytes % 12.9 H Eosinophils % 2.2 Basophils % 0.3 Nucleated RBC % 0 PT with INR 12.00 INR 1.02 PTT (Actin FS) 31.8 Sodium 145 Potassium 4.3 Chloride 106 Carbon Dioxide 30 Anion Gap 9 BUN 44.1 H Creatinine 5.7 H Est GFR (CKD-EPI)AfAm 11.92 Est GFR (CKD-EPI)NonAf 10.29 POC Glucometer Random Glucose 102 Calcium 8.2 L Phosphorus 6.2 H Magnesium 3.1 H Total Bilirubin 0.4 AST 12 L ALT 11 L Alkaline Phosphatase 66 Creatine Kinase Troponin I B-Natriuretic Peptide Total Protein 6.4 Albumin 3.1 L TSH 0.99 D 09/16/19 12:00 WBC RBC Hgb Hct MCV MCH MCHC RDW Plt Count MPV Absolute Neuts (auto) Neutrophils % Lymphocytes % Monocytes % Eosinophils % Basophils % Nucleated RBC % PT with INR INR PTT (Actin FS) Sodium Potassium Chloride Carbon Dioxide Anion Gap BUN Creatinine Est GFR (CKD-EPI)AfAm Est GFR (CKD-EPI)NonAf POC Glucometer 143 Random Glucose Calcium Phosphorus Magnesium Total Bilirubin AST ALT Alkaline Phosphatase Creatine Kinase Troponin I B-Natriuretic Peptide Total Protein Albumin TSH ASSESSMENT/PLAN: Acute on CKD Symptomatic HyperK+ ESRD (HD M/W/F - last dialyzed on Sunday) NIDDM Schizophrenia Bipolar Disorder Peripheral Neuropathy Syncope Resolved high degree AV block HD per Renal Follow I & O Supplemental O2 as needed PO as tolerated Lasix Glycemic control Floor Dr Greenfield
--- NOTE | 2019-09-16 13:09 | PN ---
Progress Note (short form) - Note Progress Note: Pt. accepted to Telemetry
[2019-09-16] MEDS: HEPARIN NA (PORCINE) 5,000 UNITS/ML 1ML VIAL SQ SCH ×2 (13:54→21:09)
--- NOTE | 2019-09-16 15:09 | PN ---
Progress Note, Physician Chief Complaint: Pt A&ox3; asymptomatic History of Present Illness: 53 yo M with PMH of ESRD (on HD M/W/F - last dialyzed on Sunday) NIDDM, Schizophrenia, Bipolar Disorder, Peripheral Neuropathy, syncope, 1st degree AV block, who was BIBEMS from dialysis for a syncopal episode. According to the patient, he was on the dialysis bed when he got dizzy and then he said he "greyd out" patient was brought to the ED before undergoing HD.Of note, patient had a similar episode where he was hospitalized from 09/03-09/07 where he was found to have 2:1 AV block (mobitz 1) both ECHO, holter monitor and carotids were done at that time. In addition, patient has a lot of psych meds that were discontinued at discharge. In the ED patient found to be bradycardic to 42, labs wbc 11 K 6.4 Cr 9 in the ED patient also had a brief 30 second episode of asystole where he came back after 30 seconds . initial EKG rate 44 2:1 AV BLOCK with RBB; after treatment for hyperkalemia patients rate improved to 70 first degree AV block patient denies any recent travel or any sick contacts PMH Moderately severe LV dysfunction on 2017 ECHO LBBB noted in 2017 now in RBBB Schizophrenia HTN DM ECHO ant apical HK EF 45-50% Cardiac Catheterization: 12/06/17 -Left Main patent -LAD proximal 40%, distal 30% -LCx proximal 30% -RCA luminal irregularities Episodes of idioventricular rhythm on telemetry - Current Medication List Current Medications: Active Medications Chlorhexidine Gluconate (Hibiclens For Decolonization -) 1 applic TP HS [facility] Last Admin: 09/15/19 22:02 Dose: 1 applic Documented by: Furosemide (Lasix -) 80 mg PO DAILY [facility] Last Admin: 09/16/19 10:12 Dose: 80 mg Documented by: Heparin Sodium (Porcine) (Heparin -) 5,000 unit SQ TID [facility] Last Admin: 09/16/19 13:54 Dose: 5,000 unit Documented by: Sodium Chloride (Normal Saline -) 250 mls @ 3,000 mls/hr IV PRN PRN PRN Reason: Hypotension during Dialysis Stop: 09/16/19 14:24 Insulin Aspart (Novolog Vial Sliding Scale -) 1 vial SQ ACHS [facility]; Protocol Last Admin: 09/16/19 12:08 Dose: Not Given Documented by: Mupirocin (Bactroban Ointment (For Decolonization) -) 1 applic NS BID [facility] Stop: 09/20/19 21:59 Last Admin: 09/16/19 10:12 Dose: 1 applic Documented by: - Objective Vital Signs: Vital Signs Temperature 98.2 F 09/16/19 14:00 Pulse Rate 76 09/16/19 14:00 Respiratory Rate 16 09/16/19 14:00 Blood Pressure 106/67 09/16/19 14:00 O2 Sat by Pulse Oximetry (%) 92 L 09/16/19 14:00 Labs: CBC, BMP 09/16/19 08:25 09/16/19 08:25 INR, PTT INR 1.02 (0.83-1.09) 09/16/19 08:25 Assessment/Plan 53 yo M with PMH of ESRD (on HD M/W/F - last dialyzed on Sunday) NIDDM, Schi zophrenia, Bipolar Disorder, Peripheral Neuropathy, syncope, 1st degree AV block, who was BIBEMS from dialysis for a syncopal episode. Episode of 30 s asystole in the ER in the setting of hyperkalemia 6.4 - resolved with anti hyperkalemic treatment. Moderately severe LV dysfunction on 2017 ECHO Acute/chronic systolic CHF LBBB noted in 2017 now in RBBB Schizophrenia HTN DM ECHO ant apical HK EF 45-50% Cardiac Catheterization: 12/06/17 -Left Main patent -LAD proximal 40%, distal 30% -LCx proximal 30% -RCA luminal irregularities Episodes of idioventricular rhythm on telemetry last admission Plan: Per EP (Dr. Prasad), pt has deferred PPM. No significant pauses, AVBlock presently. DVT plx f/u K Avoid hyperkalemia (initially 6.4; now 4.43) HD avoid AV boone blocking meds CC Time spent: 40 minutes.
[2019-09-16] MEDS ORDERED: SODIUM CHLORIDE 250 ML IV PRN (17:57)
[2019-09-16] MEDS: CHLORHEXIDINE GLUCONATE 4% CLEANSER FOR DECOLONIZATION TP SCH ×2 (21:09→21:33)
[2019-09-17] MEDS: MELATONIN 5 MG TABLETS PO PRN ×2 (00:33→21:34)
[2019-09-17] MEDS: HEPARIN NA (PORCINE) 5,000 UNITS/ML 1ML VIAL SQ SCH ×3 (06:03→21:32)
[2019-09-17] MEDS: INSULIN SLIDING SCALE (NOVOLOG) 1 VIAL SQ SCH ×4 (06:19→21:28)
[2019-09-17 06:56] LABS: HEMATOCRIT 36.8 % (35.4-49); MCH 32.7 pg (25.7-33.7); MCHC 32.6 g/dl (32.0-35.9); MEAN CELL VOLUME 100.4 fl (80-96); MEAN PLT VOLUME 6.6 fl (7.5-11.1); PLATELET COUNT 117 K/MM3 (134-434); RBC 3.66 M/mm3 (4.00-5.60); RDW 15.3 % (11.9-15.9); WHITE BLOOD COUNT 5.4 K/mm3 (4.0-10.0)
[2019-09-17 07:12] LABS: BLOOD UREA NITROGEN 65.2 mg/dL (7-18); CALCIUM 8.5 mg/dL (8.5-10.1); PHOSPHOROUS 7.1 mg/dL (2.5-4.9); POTASSIUM 5.2 mmol/L (3.5-5.1)
[2019-09-17] MEDS: MUPIROCIN 2% TOPICAL OINTMENT FOR DECOLONIZATION NS SCH ×2 (10:14→21:32)
--- NOTE | 2019-09-17 12:04 | PN ---
Physical Exam: SUBJECTIVE: Patient seen and examined. Pt. having HD at time of interview. Pt. accepted to Hospitalist service being observed in telemetry. Discussed with that Pt. completed 9 month course of INH for latent TB in July. CXR here has been negative for acute pathology. Pt. states he has not discussed with his about having PPM. OBJECTIVE: Vital Signs Period Temp Pulse Resp BP Sys/Miguel Pulse Ox Last 24 Hr 98 F-98.3 F 60-90 12-22 80-163/56-109 92-100 GENERAL: The patient is awake and alert, in no acute distress. HEAD: Normal with no signs of trauma. NECK: Trachea midline, full range of motion, supple. LUNGS: Breath sounds equal, clear to auscultation bilaterally, no accessory muscle use. HEART: Regular rate and rhythm, S1, S2 without murmur ABDOMEN: Soft, nontender, nondistended, normoactive bowel sounds, no guarding EXTREMITIES: 2+ radial pulses, warm, well-perfused, no edema. NEUROLOGICAL: No focal deficits. Normal speech SKIN: Warm, dry, normal turgor Laboratory Results - last 24 hr 09/15/19 09/16/19 09/16/19 18:38 16:27 21:07 WBC RBC Hgb Hct MCV MCH MCHC RDW Plt Count MPV Sodium Potassium Chloride Carbon Dioxide Anion Gap BUN Creatinine Est GFR (CKD-EPI)AfAm Est GFR (CKD-EPI)NonAf POC Glucometer 110 114 Random Glucose Calcium Phosphorus COVID-19 (BANG) Not detected 09/17/19 09/17/19 09/17/19 06:05 06:05 06:09 WBC 5.4 RBC 3.66 L Hgb 12.0 Hct 36.8 MCV 100.4 H MCH 32.7 MCHC 32.6 RDW 15.3 Plt Count 117 L MPV 6.6 L Sodium 140 Potassium 5.2 H Chloride 105 Carbon Dioxide 26 Anion Gap 9 BUN 65.2 H Creatinine 7.0 H Est GFR (CKD-EPI)AfAm 9.30 Est GFR (CKD-EPI)NonAf 8.02 POC Glucometer 97 Random Glucose 83 Calcium 8.5 Phosphorus 7.1 H COVID-19 ([facility]ANG) Active Medications Generic Name Dose Route Start Last Admin Trade Name Freq PRN Reason Stop Dose Admin Chlorhexidine Gluconate 1 applic 09/16/19 22:00 09/16/19 21:33 Hibiclens For Decolonization - TP Not Given HS [facility] Furosemide 80 mg 09/17/19 10:00 Lasix - PO DAILY [facility] Heparin Sodium (Porcine) 5,000 unit 09/16/19 14:00 09/17/19 06:03 Heparin - SQ 5,000 unit TID [facility] Administration Sodium Chloride 250 mls @ 3,000 mls/hr 09/16/19 17:57 Normal Saline - IV 09/17/19 17:57 PRN PRN Hypotension during Dialysis Insulin Aspart 1 vial 09/16/19 22:00 09/17/19 06:19 Novolog Vial Sliding Scale - SQ Not Given ACHS [facility] Protocol Melatonin 10 mg 09/17/19 00:21 09/17/19 00:33 Melatonin PO 10 mg HS PRN Administration INSOMNIA Mupirocin 1 applic 09/16/19 22:00 09/17/19 10:14 Bactroban Ointment (For Decolonization) - NS 09/20/19 21:59 1 applic BID [facility] Administration Sevelamer Carbonate 2.4 gm 09/17/19 12:00 Renvela Powder Packet - PO TIDCM [facility] Sodium Zirconium Cyclosilicate 10 gm 09/17/19 10:00 Lokelma PO DAILY [facility] ASSESSMENT/PLAN: Pt. is a 53 y.o. M w/ PMHx. of ESRD (HD M/W/F) NIDDM, Schizophrenia, Bipolar Disorder, Peripheral Neuropathy, syncope, 1st degree AV block, who was BIBEMS from dialysis for a syncopal episode #Hyperkalemia w/ associated 1st degree AV block Nephrology Consult appreciated s/p HD today Vascular consult appreciated--> f/u RUE Duplex for assessment of persistent hyperkalemia despite regular HD for ESRD, advised to avoid using RUE access as there is an hematoma Cardiology consults appreciated--> Pt. refusing PPM, will avoid AV boone blocking agents, and QTc prolonging agents for QTc greater than 475 telemetry monitoring #DM #Schizophrenia #Bipolar Disorder c/w home medications provided QTc less than 475, if longer will hold and repeat EKG after assessing magnesium level and repleting #DVT Ppx SCDs ATTENDING PHYSICIAN STATEMENT I saw and evaluated the patient. I reviewed the resident's note and discussed the case with the resident. I agree with the resident's findings and plan as documented. SUBJECTIVE: OBJECTIVE: ASSESSMENT AND PLAN:
--- NOTE | 2019-09-17 12:31 | PN ---
Progress Note, Physician Chief Complaint: Syncope History of Present Illness: Seen and examined at the bedside awake and alert completing dialysis today, access pressures were within normal limits tolerated 2L UF BP has one low episode, HR stable - Current Medication List Current Medications: Active Medications Chlorhexidine Gluconate (Hibiclens For Decolonization -) 1 applic TP HS [facility] Last Admin: 09/16/19 21:33 Dose: Not Given Documented by: Furosemide (Lasix -) 80 mg PO DAILY [facility] Heparin Sodium (Porcine) (Heparin -) 5,000 unit SQ TID [facility] Last Admin: 09/17/19 06:03 Dose: 5,000 unit Documented by: Sodium Chloride (Normal Saline -) 250 mls @ 3,000 mls/hr IV PRN PRN PRN Reason: Hypotension during Dialysis Stop: 09/17/19 17:57 Insulin Aspart (Novolog Vial Sliding Scale -) 1 vial SQ ACHS [facility]; Protocol Last Admin: 09/17/19 06:19 Dose: Not Given Documented by: Melatonin (Melatonin) 10 mg PO HS PRN PRN Reason: INSOMNIA Last Admin: 09/17/19 00:33 Dose: 10 mg Documented by: Mupirocin (Bactroban Ointment (For Decolonization) -) 1 applic NS BID [facility] Stop: 09/20/19 21:59 Last Admin: 09/17/19 10:14 Dose: 1 applic Documented by: Sevelamer Carbonate (Renvela Powder Packet -) 2.4 gm PO TIDCM [facility] Sodium Zirconium Cyclosilicate (Lokelma) 10 gm PO DAILY [facility] - Objective Vital Signs: Vital Signs Temperature 98 F 09/17/19 07:40 Pulse Rate 78 09/17/19 11:30 Respiratory Rate 18 09/17/19 11:30 Blood Pressure 120/74 09/17/19 11:30 O2 Sat by Pulse Oximetry (%) 100 09/17/19 09:00 Constitutional: Yes: No Distress, Calm HENT: Yes: Atraumatic Neck: Yes: Supple Cardiovascular: Yes: Regular Rate and Rhythm Respiratory: Yes: Regular Gastrointestinal: Yes: Soft Edema: No Neurological: Yes: Alert, Oriented Labs: CBC, BMP 09/17/19 06:05 09/17/19 06:05 INR, PTT INR 1.02 (0.83-1.09) 09/16/19 08:25 Assessment/Plan 53 year old male with History of ESRD on HD NIDDM, Schizophrenia, Bipolar Disorder, Peripheral Neuropathy, syncope, 1st degree AV block, who was BIBEMS from dialysis for a syncopal episode from the dialysis center and found to have heart block and brief period of asystolic with K of 6.3. 1. ESRD on HD 2. Syncope 3. Heart flock 4. Hyperkalemia 5. Bipolar disorder Tolerated dialysis well this am with 2L UF Doppler of AVF and vascular evaluation pending to ensure there is no stenosis in AVF Tele monitoring Cardiology follow up Next planned dialysis is Sunday Thank you Cornelius Palafox DO
[2019-09-17] MEDS: SEVELAMER CARBONATE 2.4 GM POWDER PACKET PO SCH ×2 (12:37→17:10)
[2019-09-17] MEDS: SODIUM ZIRCONIUM CYCLOSILICATE (LOKELMA) 5 GM PACKET PO SCH ×2 (12:37→12:49)
[2019-09-17] MEDS: FUROSEMIDE 40 MG TABLET (FP) PO SCH (12:37)
--- NOTE | 2019-09-17 13:57 | CONSULT ---
- Consultation REQUESTING PROVIDER: Irving Rice - Vascular Surgery CONSULT REQUEST: We have been asked to surgically evaluate this patient for r/o AVF stenosis PCP: Alex Cárdenas MD HPI: Called to chava 53yo male w/ PMHx as noted below. Presents to [facility] ED from HD center s/p syncopal episode. Patient well known to Vascular surgery Service as we created his RUE AVF on 03/18/2015 (stage 1). Came back for bascilic vein transposition on 05/12/2015 after imaging confirmed avf maturity. Patient had HD today (3 hrs). Renal following. Denies n/v/f/c, CP, palpitaions, SOB or THOMPSON. PMHx: HTN, ESRD (on HD M/W/F), NIDDM, Schizophrenia, Bipolar Disorder, Peripheral Neuropathy, Syncope, 1st degree AV block PSHx: As above. Home Meds Isoniazid 300mg PO daily Ativan 0.5 mg PO daily Renvela 2,400 mg PO TID Depakote 1,000 mg PO BID Lipitor 20 mg PO HS Allergies: NKDA ROS: 12 systems reviewed and considered negative except for what's contained in the hpi. PE: GENERAL: a&o. nad HEAD: nc. at. EYES: PERRL, sclera anicteric, conjunctiva clear. LUNGS: unlabored respirations HEART: 2:1 AV block (mobitz 1) ABD: Soft, nt. nd RUE: bascilic avf w/ palpable thrill. Area of chronic skin thinning, acute/sub acute hematoma from venous fistula access. Hand is warm. Radial 2+. Cap refill < 3 sec. No peripheral edema. NEUROLOGICAL: Normal speech, gait not observed. PSYCH: Cooperative. Good eye contact. Appropriate mood and affect. Last Vital Signs Temp Pulse Resp BP Pulse Ox 98.9 F 64 16 129/80 100 09/17/19 13:40 09/17/19 13:40 09/17/19 13:40 09/17/19 13:40 09/17/19 09:00 CBC, BMP 09/17/19 06:05 09/17/19 06:05 INR, PTT INR 1.02 (0.83-1.09) 09/16/19 08:25 Serology Test 09/15/19 18:38 COVID-19 ([facility]) Not detected Problem List - Problems (1) ESRD on hemodialysis Assessment/Plan: HD via RUE AVF -- avoid using same access area due to acute/subacute hematoma from recent fistula access. f/u AVF duplex study Renal following Monitor/trend BUN/Cr and potassium Insulin sliding scale / tight glycemic control Above plan discussed with Dr. Rice and agrees Code(s): N18.6 - END STAGE RENAL DISEASE; Z99.2 - DEPENDENCE ON RENAL DIALYSIS (2) Mobitz type 1 second degree AV block Code(s): I44.1 - ATRIOVENTRICULAR BLOCK, SECOND DEGREE (3) Non-insulin dependent diabetes mellitus Code(s): HEM6512 - (4) Hyperkalemia Code(s): E87.5 - HYPERKALEMIA (5) Affective bipolar disorder Code(s): F31.9 - BIPOLAR DISORDER, UNSPECIFIED Qualifiers: Active/Remission status: remission status unspecified Qualified Code(s): F31.9 - Bipolar disorder, unspecified (6) Hyperlipidemia Code(s): E78.5 - HYPERLIPIDEMIA, UNSPECIFIED (7) Hypertension Code(s): I10 - ESSENTIAL (PRIMARY) HYPERTENSION Visit type - Case Type Case Type: ED Admission - Emergency Emergency Visit: Yes ED Registration Date: 09/15/19 Care time: The patient presented to the Emergency Department on the above date and was hospitalized for further evaluation of their emergent condition.
[2019-09-17 17:53] LABS: CALCIUM 9.5 mg/dL (8.5-10.1); CREATININE 4.5 mg/dL (0.55-1.3); POTASSIUM 4.3 mmol/L (3.5-5.1)
--- NOTE | 2019-09-17 18:12 | PN ---
Progress Note, Physician History of Present Illness: 53 yo M with PMH of ESRD (on HD M/W/ - last dialyzed on Sunday) NIDDM, Schizophrenia, Bipolar Disorder, Peripheral Neuropathy, syncope, 1st degree AV block, who was BIBEMS from dialysis for a syncopal episode. According to the patient, he was on the dialysis bed when he got dizzy and then he said he "greyd out" patient was brought to the ED before undergoing HD.Of note, patient had a similar episode where he was hospitalized from 09/03-09/07 where he was found to have 2:1 AV block (mobitz 1) both ECHO, holter monitor and carotids were done at that time. In addition, patient has a lot of psych meds that were discontinued at discharge. In the ED patient found to be bradycardic to 42, labs wbc 11 K 6.4 Cr 9 in the ED patient also had a brief 30 second episode of asystole where he came back after 30 seconds . initial EKG rate 44 2:1 AV BLOCK with RBB; after treatment for hyperkalemia patients rate improved to 70 first degree AV block patient denies any recent travel or any sick contacts PMH Moderately severe LV dysfunction on 2017 ECHO LBBB noted in 2017 now in RBBB Schizophrenia HTN DM ECHO ant apical HK EF 45-50% Cardiac Catheterization: 12/06/17 -Left Main patent -LAD proximal 40%, distal 30% -LCx proximal 30% -RCA luminal irregularities Episodes of idioventricular rhythm on telemetry - Current Medication List Current Medications: Active Medications Chlorhexidine Gluconate (Hibiclens For Decolonization -) 1 applic TP HS [facility] Last Admin: 09/16/19 21:33 Dose: Not Given Documented by: Furosemide (Lasix -) 80 mg PO DAILY [facility] Last Admin: 09/17/19 12:37 Dose: 80 mg Documented by: Heparin Sodium (Porcine) (Heparin -) 5,000 unit SQ TID [facility] Last Admin: 09/17/19 13:39 Dose: 5,000 unit Documented by: Sodium Chloride (Normal Saline -) 250 mls @ 3,000 mls/hr IV PRN PRN PRN Reason: Hypotension during Dialysis Stop: 09/17/19 17:57 Insulin Aspart (Novolog Vial Sliding Scale -) 1 vial SQ ACHS [facility]; Protocol Last Admin: 09/17/19 17:10 Dose: Not Given Documented by: Melatonin (Melatonin) 10 mg PO HS PRN PRN Reason: INSOMNIA Last Admin: 09/17/19 00:33 Dose: 10 mg Documented by: Mupirocin (Bactroban Ointment (For Decolonization) -) 1 applic NS BID [facility] Stop: 09/20/19 21:59 Last Admin: 09/17/19 10:14 Dose: 1 applic Documented by: Sevelamer Carbonate (Renvela Powder Packet -) 2.4 gm PO TIDCM [facility] Last Admin: 09/17/19 17:10 Dose: 2.4 gm Documented by: Sodium Zirconium Cyclosilicate (Lokelma) 10 gm PO DAILY [facility] - Objective Vital Signs: Vital Signs Temperature 98.9 F 09/17/19 13:40 Pulse Rate 64 09/17/19 13:40 Respiratory Rate 16 09/17/19 13:40 Blood Pressure 129/80 09/17/19 13:40 O2 Sat by Pulse Oximetry (%) 100 09/17/19 09:00 Eyes: Yes: WNL, Conjunctiva Clear, EOM Intact HENT: Yes: WNL, Atraumatic, Normocephalic Neck: Yes: WNL, Supple, Trachea Midline Cardiovascular: Yes: WNL, Regular Rate and Rhythm Respiratory: Yes: WNL, Regular, CTA Bilaterally Gastrointestinal: Yes: WNL, Normal Bowel Sounds Genitourinary: Yes: WNL Musculoskeletal: Yes: WNL Extremities: Yes: WNL Edema: No Integumentary: Yes: WNL Neurological: Yes: WNL, Alert, Oriented ...Motor Strength: WNL Psychiatric: Yes: Alert, Oriented Labs: CBC, BMP 09/17/19 06:05 09/17/19 17:15 INR, PTT INR 1.02 (0.83-1.09) 09/16/19 08:25 Problem List - Problems (1) Altered mental status Code(s): R41.82 - ALTERED MENTAL STATUS, UNSPECIFIED Qualifiers: Altered mental status type: somnolence Qualified Code(s): R40.0 - Somnolence (2) Hyperkalemia Code(s): E87.5 - HYPERKALEMIA (3) Near syncope Code(s): R55 - SYNCOPE AND COLLAPSE (4) Second degree heart block Code(s): I44.1 - ATRIOVENTRICULAR BLOCK, SECOND DEGREE (5) Acute hyperkalemia Code(s): E87.5 - HYPERKALEMIA (6) Acute on chronic systolic CHF (congestive heart failure), NYHA class 2 Code(s): I50.23 - ACUTE ON CHRONIC SYSTOLIC (CONGESTIVE) HEART FAILURE (7) CKD (chronic kidney disease) stage 5, GFR less than 15 ml/min Code(s): N18.5 - CHRONIC KIDNEY DISEASE, STAGE 5 (8) Complication of AV dialysis fistula Code(s): T82.9XXA - UNSP COMP OF CARDIAC AND VASCULAR PROSTH DEV/GRFT, INIT (9) Contusion of right hip Code(s): S70.01XA - CONTUSION OF RIGHT HIP, INITIAL ENCOUNTER (10) Contusion of wrist, right Code(s): S60.211A - CONTUSION OF RIGHT WRIST, INITIAL ENCOUNTER (11) Dysthymia Code(s): F34.1 - DYSTHYMIC DISORDER (12) Fall Code(s): W19.XXXA - UNSPECIFIED FALL, INITIAL ENCOUNTER (13) Fluid overload Code(s): E87.70 - FLUID OVERLOAD, UNSPECIFIED (14) Frostbite Code(s): T33.90XA - SUPERFICIAL FROSTBITE OF UNSPECIFIED SITES, INIT ENCNTR Qualifiers: Encounter type: initial encounter Qualified Code(s): T33.90XA - Superficial frostbite of unspecified sites, initial encounter (15) Frostbite of hand, left Code(s): T33.522A - SUPERFICIAL FROSTBITE OF LEFT HAND, INITIAL ENCOUNTER; X31.XXXA - EXPOSURE TO EXCESSIVE NATURAL COLD, INITIAL ENCOUNTER Qualifiers: Encounter type: subsequent encounter Qualified Code(s): T33.522D - Superficial frostbite of left hand, subsequent encounter; X31.XXXD - Exposure to excessive natural cold, subsequent encounter; X31.XXXD - Exposure to excessive natural cold, subsequent encounter (16) Injury of right upper arm Code(s): S49.91XA - UNSP INJURY OF RIGHT SHOULDER AND UPPER ARM, INIT ENCNTR Qualifiers: Encounter type: subsequent encounter Qualified Code(s): S49.91XD - Unspecified injury of right shoulder and upper arm, subsequent encounter (17) Left knee pain Code(s): M25.562 - PAIN IN LEFT KNEE Qualifiers: Chronicity: chronic Qualified Code(s): M25.562 - Pain in left knee; G89.29 - Other chronic pain (18) Leg pain, right Code(s): M79.604 - PAIN IN RIGHT LEG (19) Puncture wound Code(s): T14.8XXA - OTHER INJURY OF UNSPECIFIED BODY REGION, INITIAL ENCOUNTER (20) Removal of staple Code(s): Z48.02 - ENCOUNTER FOR REMOVAL OF SUTURES (21) Syncope Code(s): R55 - SYNCOPE AND COLLAPSE (22) Traumatic hematoma of right elbow Code(s): S50.01XA - CONTUSION OF RIGHT ELBOW, INITIAL ENCOUNTER (23) Wound of left foot Code(s): S91.302A - UNSPECIFIED OPEN WOUND, LEFT FOOT, INITIAL ENCOUNTER (24) Affective bipolar disorder Code(s): F31.9 - BIPOLAR DISORDER, UNSPECIFIED Qualifiers: Active/Remission status: remission status unspecified Qualified Code(s): F31.9 - Bipolar disorder, unspecified (25) Congestive heart failure (CHF) Code(s): I50.9 - HEART FAILURE, UNSPECIFIED (26) Hyperlipidemia Code(s): E78.5 - HYPERLIPIDEMIA, UNSPECIFIED (27) Hypertension Code(s): I10 - ESSENTIAL (PRIMARY) HYPERTENSION Assessment/Plan 53 yo M with PMH of ESRD (on HD M/W/F - last dialyzed on Sunday) NIDDM, Schizophrenia, Bipolar Disorder, Peripheral Neuropathy, syncope, 1st degree AV block, who was BIBEMS from dialysis for a syncopal episode. Episode of 30 s asystole in the ER in the setting of hyperkalemia 6.4 - resolved with anti hyperkalemic treatment. Moderately severe LV dysfunction on 2017 ECHO Acute/chronic systolic CHF LBBB noted in 2017 now in RBBB Schizophrenia HTN DM ECHO ant apical HK EF 45-50% Cardiac Catheterization: 12/06/17 -Left Main patent -LAD proximal 40%, distal 30% -LCx proximal 30% -RCA luminal irregularities Episodes of idioventricular rhythm on telemetry last admission Plan: Per EP (Dr. Prasad), pt has deferred PPM. No significant pauses, AVBlock presently. DVT plx f/u K Avoid hyperkalemia (initially 6.4; now 4.43) HD avoid AV boone blocking meds CC Time spent: 35 minutes.
[2019-09-17] MEDS: CHLORHEXIDINE GLUCONATE 4% CLEANSER FOR DECOLONIZATION TP SCH (21:33)
[2019-09-18] MEDS: HEPARIN NA (PORCINE) 5,000 UNITS/ML 1ML VIAL SQ SCH ×3 (06:12→21:15)
[2019-09-18] MEDS: INSULIN SLIDING SCALE (NOVOLOG) 1 VIAL SQ SCH ×4 (06:15→21:28)
[2019-09-18 07:14] LABS: BLOOD UREA NITROGEN 43.2 mg/dL (7-18); CALCIUM 9.1 mg/dL (8.5-10.1); CREATININE 5.7 mg/dL (0.55-1.3); MAGNESIUM 3.1 mg/dL (1.8-2.4); POTASSIUM 4.2 mmol/L (3.5-5.1)
[2019-09-18 07:17] LABS: HEMATOCRIT 39.4 % (35.4-49); HEMOGLOBIN 12.9 GM/dL (11.7-16.9); MCH 32.9 pg (25.7-33.7); MCHC 32.8 g/dl (32.0-35.9); MEAN CELL VOLUME 100.4 fl (80-96); MEAN PLT VOLUME 6.6 fl (7.5-11.1); PLATELET COUNT 127 K/MM3 (134-434); RBC 3.93 M/mm3 (4.00-5.60)
[2019-09-18] MEDS: SEVELAMER CARBONATE 2.4 GM POWDER PACKET PO SCH ×3 (08:42→18:17)
[2019-09-18] MEDS: MUPIROCIN 2% TOPICAL OINTMENT FOR DECOLONIZATION NS SCH ×2 (09:41→21:15)
[2019-09-18] MEDS: FUROSEMIDE 40 MG TABLET (FP) PO SCH (09:41)
[2019-09-18] MEDS: SODIUM ZIRCONIUM CYCLOSILICATE (LOKELMA) 5 GM PACKET PO SCH (09:41)
--- NOTE | 2019-09-18 13:13 | PN ---
Progress Note (short form) - Note Progress Note: Resting in NAD. No acute events overnight. No CP or SOB. Intake & Output 09/15/19 09/16/19 09/17/19 09/18/19 23:59 23:59 23:59 23:59 Intake Total 209 680 1133 620 Output Total 3020 3300 8292 Balance -3386 -2610 -132 620 Weight 217 lb 217 lb Last Vital Signs Temp Pulse Resp BP Pulse Ox 98.2 F 78 18 114/88 98 09/18/19 09:00 09/18/19 09:00 09/18/19 09:00 09/18/19 09:00 09/18/19 09:00 Active Medications Chlorhexidine Gluconate (Hibiclens For Decolonization -) 1 applic TP HS [facility] Last Admin: 09/17/19 21:33 Dose: Not Given Documented by: Furosemide (Lasix -) 80 mg PO DAILY [facility] Last Admin: 09/18/19 09:41 Dose: 80 mg Documented by: Heparin Sodium (Porcine) (Heparin -) 5,000 unit SQ TID [facility] Last Admin: 09/18/19 06:12 Dose: 5,000 unit Documented by: Sodium Chloride (Normal Saline -) 250 mls @ 3,000 mls/hr IV PRN PRN PRN Reason: Hypotension during Dialysis Stop: 09/17/19 17:57 Insulin Aspart (Novolog Vial Sliding Scale -) 1 vial SQ ACHS [facility]; Protocol Last Admin: 09/18/19 11:59 Dose: Not Given Documented by: Melatonin (Melatonin) 10 mg PO HS PRN PRN Reason: INSOMNIA Last Admin: 09/17/19 21:34 Dose: 10 mg Documented by: Mupirocin (Bactroban Ointment (For Decolonization) -) 1 applic NS BID [facility] Stop: 09/20/19 21:59 Last Admin: 09/18/19 09:41 Dose: 1 applic Documented by: Sevelamer Carbonate (Renvela Powder Packet -) 2.4 gm PO TIDCM [facility] Last Admin: 09/18/19 12:22 Dose: 2.4 gm Documented by: Sodium Zirconium Cyclosilicate (Lokelma) 10 gm PO DAILY [facility] Last Admin: 09/18/19 09:41 Dose: 10 gm Documented by: GENERAL: Awake, alert, and fully oriented, in no acute distress. EYES: PEERLA; EOMI; no scleral icterus NECK: No JVD; no lymphadenopathy LUNGS: distant breath sounds at the bases. HEART: RRR, normal S1 and S2 without murmur, rub or gallop. ABDOMEN: Soft, NT/ND +BS in all 4 qudrants MUSCULOSKELETAL: Normal range of motion at all joints. No bony deformities or tenderness. No CVA tenderness. UPPER EXTREMITIES: R AVF fistula + palpable thrill LOWER EXTREMITIES: warm; well-perfused no clubbing/cyanosis or edema NEUROLOGICAL: Non-focal PSYCHIATRIC: Cooperative. Good eye contact. Appropriate mood and affect. SKIN: Warm, dry, normal turgor, no rashes or lesions noted. Laboratory Results - last 24 hr 09/17/19 09/17/19 09/17/19 13:53 16:55 17:15 WBC RBC Hgb Hct MCV MCH MCHC RDW Plt Count MPV Sodium 141 Potassium 4.3 Chloride 100 Carbon Dioxide 34 H Anion Gap 8 BUN 30.0 H Creatinine 4.5 H Est GFR (CKD-EPI)AfAm 15.87 Est GFR (CKD-EPI)NonAf 13.69 POC Glucometer 174 81 Random Glucose 84 Calcium 9.5 Magnesium 09/17/19 09/18/19 09/18/19 21:18 06:15 06:15 WBC 6.0 RBC 3.93 L Hgb 12.9 Hct 39.4 MCV 100.4 H MCH 32.9 MCHC 32.8 RDW 15.0 Plt Count 127 L MPV 6.6 L Sodium 139 Potassium 4.2 Chloride 101 Carbon Dioxide 28 Anion Gap 10 BUN 43.2 H Creatinine 5.7 H Est GFR (CKD-EPI)AfAm 11.92 Est GFR (CKD-EPI)NonAf 10.29 POC Glucometer 138 Random Glucose 107 H Calcium 9.1 Magnesium 3.1 H 09/18/19 09/18/19 06:16 11:48 WBC RBC Hgb Hct MCV MCH MCHC RDW Plt Count MPV Sodium Potassium Chloride Carbon Dioxide Anion Gap BUN Creatinine Est GFR (CKD-EPI)AfAm Est GFR (CKD-EPI)NonAf POC Glucometer 108 105 Random Glucose Calcium Magnesium ASSESSMENT/PLAN: Acute on CKD Symptomatic HyperK+ ESRD (HD M/W/F - last dialyzed on Sunday) NIDDM Schizophrenia Bipolar Disorder Peripheral Neuropathy Syncope Resolved high degree AV block HD per Renal Follow I & O Supplemental O2 as needed PO as tolerated Lasix Glycemic control Dr Greenfield
--- NOTE | 2019-09-18 14:46 | EKG ---
Test Reason : Blood Pressure : / mmHG Vent. Rate : 077 BPM Atrial Rate : 077 BPM P-R Int : 174 ms QRS Dur : 110 ms QT Int : 408 ms P-R-T Axes : 013 -06 093 degrees QTc Int : 461 ms NORMAL SINUS RHYTHM ABNORMAL ECG WHEN COMPARED WITH ECG OF 15-SEP-2019 13:35, [place] INTERVAL HAS DECREASED RIGHT BUNDLE BRANCH BLOCK IS NO LONGER PRESENT Confirmed by BELEM STEVENSON MD ([id number]) on 09/18/2019 2:46:33 PM Referred By: Confirmed By:BELEM STEVENSON MD
--- NOTE | 2019-09-18 15:09 | PN ---
Progress Note, Physician Chief Complaint: Syncope History of Present Illness: Seen and examined at the bedside awake and alert Offers no acute complaints, denies shortness of breath, chest pain, dizziness, palpitations, nausea, vomiting, diarrhea or abdominal pain. tolerated 2L UF BP has one low episode, HR stable - Current Medication List Current Medications: Active Medications Chlorhexidine Gluconate (Hibiclens For Decolonization -) 1 applic TP HS [facility] Last Admin: 09/17/19 21:33 Dose: Not Given Documented by: Furosemide (Lasix -) 80 mg PO DAILY [facility] Last Admin: 09/18/19 09:41 Dose: 80 mg Documented by: Heparin Sodium (Porcine) (Heparin -) 5,000 unit SQ TID [facility] Last Admin: 09/18/19 14:08 Dose: 5,000 unit Documented by: Sodium Chloride (Normal Saline -) 250 mls @ 3,000 mls/hr IV PRN PRN PRN Reason: Hypotension during Dialysis Stop: 09/17/19 17:57 Insulin Aspart (Novolog Vial Sliding Scale -) 1 vial SQ [facility]; Protocol Last Admin: 09/18/19 11:59 Dose: Not Given Documented by: Melatonin (Melatonin) 10 mg PO HS PRN PRN Reason: INSOMNIA Last Admin: 09/17/19 21:34 Dose: 10 mg Documented by: Mupirocin (Bactroban Ointment (For Decolonization) -) 1 applic NS BID [facility] Stop: 09/20/19 21:59 Last Admin: 09/18/19 09:41 Dose: 1 applic Documented by: Sevelamer Carbonate (Renvela Powder Packet -) 2.4 gm PO TIDCM [facility] Last Admin: 09/18/19 12:22 Dose: 2.4 gm Documented by: Sodium Zirconium Cyclosilicate (Lokelma) 10 gm PO DAILY [facility] Last Admin: 09/18/19 09:41 Dose: 10 gm Documented by: - Objective Vital Signs: Vital Signs Temperature 98.2 F 09/18/19 09:00 Pulse Rate 78 09/18/19 09:00 Respiratory Rate 18 09/18/19 09:00 Blood Pressure 114/88 09/18/19 09:00 O2 Sat by Pulse Oximetry (%) 98 09/18/19 09:00 Constitutional: Yes: No Distress, Calm HENT: Yes: Atraumatic Neck: Yes: Supple Cardiovascular: Yes: Regular Rate and Rhythm Respiratory: Yes: Regular Gastrointestinal: Yes: Soft Extremities: No: Cold, Cool, Cyanosis Edema: No Labs: CBC, BMP 09/18/19 06:15 09/18/19 06:15 INR, PTT INR 1.02 (0.83-1.09) 09/16/19 08:25 Assessment/Plan 53 year old male with History of ESRD on HD NIDDM, Schizophrenia, Bipolar Disorder, Peripheral Neuropathy, syncope, 1st degree AV block, who was BIBEMS from dialysis for a syncopal episode from the dialysis center and found to have heart block and brief period of asystolic with K of 6.3. 1. ESRD on HD 2. Syncope 3. Heart flock 4. Hyperkalemia 5. Bipolar disorder There is no acute indication for [employer] today. Dialysis is tomorrow. Continue potassium binding resin on nondialysis days. Doppler of AVF and vascular evaluation pending to ensure there is no stenosis in AVF Tele monitoring For loop Recorder her placement tomorrow as per cardiology. Cardiology follow up Thank you Cornelius Palafox DO
[2019-09-18] MEDS ORDERED: SODIUM CHLORIDE 250 ML IV PRN (15:11)
--- NOTE | 2019-09-18 21:14 | PN ---
Progress Note, Physician Chief Complaint: Pt A&ox3; ambulated with PT assistance; no chest pain, dizziness, or dyspnea. History of Present Illness: Mr. Mckeon is a 53 yr old man with PMH of ESRD (on HD M/W/ - last dialyzed on Sunday) NIDDM, Schizophrenia, Bipolar Disorder, Peripheral Neuropathy, syncope, 1st degree AV block, who was BIBEMS from dialysis for a syncopal episode. According to the patient, he was on the dialysis bed when he got dizzy and then he said he "greyed out" patient was brought to the ED before undergoing HD.Of note, patient had a similar episode where he was hospitalized from 09/03-09/07 ere he was found to have 2:1 AV block (mobitz 1). both ECHO, holter monitor and carotids were done at that time. In addition, patient has a lot of psych meds that were discontinued at discharge. In the ED patient found to be bradycardic to 42, labs wbc 11 K 6.4 Cr 9 in the ED patient also had a 30 second episode of asystole. initial EKG rate 44; 2:1 AV BLOCK with RBBB; after treatment for hyperkalemia, patient's rate improved to 70 bpm, first degree AV block patient denies any recent travel or any sick contacts PMH Moderately severe LV dysfunction on 2017 ECHO LBBB noted in 2017 now in RBBB Schizophrenia HTN DM ECHO ant apical HK EF 45-50% Cardiac Catheterization: 12/06/17 -Left Main patent -LAD proximal 40%, distal 30% -LCx proximal 30% -RCA luminal irregularities Episodes of idioventricular rhythm on telemetry - Current Medication List Current Medications: Active Medications Chlorhexidine Gluconate (Hibiclens For Decolonization -) 1 applic TP HS [facility] Last Admin: 09/17/19 21:33 Dose: Not Given Documented by: Furosemide (Lasix -) 80 mg PO DAILY [facility] Last Admin: 09/18/19 09:41 Dose: 80 mg Documented by: Heparin Sodium (Porcine) (Heparin -) 5,000 unit SQ TID [facility] Last Admin: 09/18/19 14:08 Dose: 5,000 unit Documented by: Sodium Chloride (Normal Saline -) 250 mls @ 3,000 mls/hr IV PRN PRN PRN Reason: Hypotension during Dialysis Stop: 09/19/19 15:11 Insulin Aspart (Novolog Vial Sliding Scale -) 1 vial SQ ACHS [facility]; Protocol Last Admin: 09/18/19 17:40 Dose: Not Given Documented by: Melatonin (Melatonin) 10 mg PO HS PRN PRN Reason: INSOMNIA Last Admin: 09/17/19 21:34 Dose: 10 mg Documented by: Mupirocin (Bactroban Ointment (For Decolonization) -) 1 applic NS BID [facility] Stop: 09/20/19 21:59 Last Admin: 09/18/19 09:41 Dose: 1 applic Documented by: Sevelamer Carbonate (Renvela Powder Packet -) 2.4 gm PO TIDCM [facility] Last Admin: 09/18/19 18:17 Dose: 2.4 gm Documented by: Sodium Zirconium Cyclosilicate (Lokelma) 10 gm PO DAILY [facility] Last Admin: 09/18/19 09:41 Dose: 10 gm Documented by: - Objective Vital Signs: Vital Signs Temperature 98 F 09/18/19 17:00 Pulse Rate 80 09/18/19 17:00 Respiratory Rate 15 09/18/19 17:00 Blood Pressure 154/87 09/18/19 17:00 O2 Sat by Pulse Oximetry (%) 99 09/18/19 20:10 Constitutional: Yes: Calm Eyes: Yes: WNL HENT: Yes: WNL Neck: Yes: WNL Cardiovascular: Yes: Regular Rate and Rhythm, S1, S2 Labs: CBC, BMP 09/18/19 06:15 09/18/19 06:15 INR, PTT INR 1.02 (0.83-1.09) 09/16/19 08:25 Assessment/Plan 53 yo M with PMH of ESRD (on HD M/W/F - last dialyzed on Sunday) NIDDM, Schizophrenia, Bipolar Disorder, Peripheral Neuropathy, syncope, 1st degree AV block, who was BIBEMS from dialysis for a syncopal episode. Episode of 30 seconds asystole in the ER in the setting of hyperkalemia 6.4 - resolved with anti hyperkalemic treatment. Moderately severe LV dysfunction on 2017 ECHO; 08/2019 ECHO now mildly reduced LVEF with anteroapical hypokinesis. LBBB noted in 2017; now in and out of RBBB. Schizophrenia HTN DM Cardiac Catheterization: 12/06/17 -Left Main patent -LAD proximal 40%, distal 30% -LCx proximal 30% -RCA luminal irregularities Episodes of idioventricular rhythm on telemetry last admission Plan: I discussed pt's findings with him and his (telephone); both are now in favor of undergoing implantable loop recorder. Dr. Prasad will do the procedure today or tomorrow. No significant pauses or AV Block presently. DVT plx Avoid hyperkalemia avoid AV boone blocking meds If agreed by local city driver, consider Hydralazine + Imdur for HTN, systolic CHF (if BP remains elevated; initially hypotensive). hemodialysis per local city driver. CC Time spent: 40 minutes.
[2019-09-18] MEDS: CHLORHEXIDINE GLUCONATE 4% CLEANSER FOR DECOLONIZATION TP SCH (21:35)
[2019-09-18] MEDS: MELATONIN 5 MG TABLETS PO PRN (22:34)
[2019-09-19] MEDS: INSULIN SLIDING SCALE (NOVOLOG) 1 VIAL SQ SCH ×4 (06:21→22:25)
[2019-09-19] MEDS: HEPARIN NA (PORCINE) 5,000 UNITS/ML 1ML VIAL SQ SCH ×3 (06:40→22:24)
[2019-09-19 08:41] LABS: HEMATOCRIT 35.6 % (35.4-49); MCH 33.3 pg (25.7-33.7); MCHC 33.7 g/dl (32.0-35.9); MEAN CELL VOLUME 98.6 fl (80-96); MEAN PLT VOLUME 6.3 fl (7.5-11.1); PLATELET COUNT 132 K/MM3 (134-434); RBC 3.61 M/mm3 (4.00-5.60); RDW 14.6 % (11.9-15.9); WHITE BLOOD COUNT 6.5 K/mm3 (4.0-10.0)
[2019-09-19 09:02] LABS: BLOOD UREA NITROGEN 57.7 mg/dL (7-18); CALCIUM 9.1 mg/dL (8.5-10.1); CREATININE 7.1 mg/dL (0.55-1.3); PHOSPHOROUS 5.6 mg/dL (2.5-4.9); POTASSIUM 4.4 mmol/L (3.5-5.1)
[2019-09-19] MEDS: SODIUM ZIRCONIUM CYCLOSILICATE (LOKELMA) 5 GM PACKET PO SCH (09:45)
[2019-09-19] MEDS: FUROSEMIDE 40 MG TABLET (FP) PO SCH (09:46)
[2019-09-19] MEDS: SEVELAMER CARBONATE 2.4 GM POWDER PACKET PO SCH ×3 (09:46→17:30)
[2019-09-19] MEDS: MUPIROCIN 2% TOPICAL OINTMENT FOR DECOLONIZATION NS SCH ×2 (09:46→22:23)
--- NOTE | 2019-09-19 10:04 | PN ---
Progress Note (short form) - Note Progress Note: VASCULAR SURGERY HD via RUE AVF -- avoid using same access area due to acute/subacute hematoma from recent fistula access. f/u AVF duplex study (done, awaiting official read) Renal following Monitor/trend BUN/Cr and potassium Insulin sliding scale / tight glycemic control Problem List - Problems (1) ESRD on hemodialysis Code(s): N18.6 - END STAGE RENAL DISEASE; Z99.2 - DEPENDENCE ON RENAL DIALYSIS (2) Mobitz type 1 second degree AV block Code(s): I44.1 - ATRIOVENTRICULAR BLOCK, SECOND DEGREE (3) Non-insulin dependent diabetes mellitus Code(s): [id number] - (4) Hyperkalemia Code(s): E87.5 - HYPERKALEMIA (5) Affective bipolar disorder Code(s): F31.9 - BIPOLAR DISORDER, UNSPECIFIED Qualifiers: Active/Remission status: remission status unspecified Qualified Code(s): F31.9 - Bipolar disorder, unspecified (6) Hyperlipidemia Code(s): E78.5 - HYPERLIPIDEMIA, UNSPECIFIED (7) Hypertension Code(s): I10 - ESSENTIAL (PRIMARY) HYPERTENSION
--- NOTE | 2019-09-19 11:26 | PN ---
Teaching Attending Note ATTENDING PHYSICIAN STATEMENT I saw and evaluated the patient. I reviewed the resident's note and discussed the case with the resident. I agree with the resident's findings and plan as documented. SUBJECTIVE: OBJECTIVE: ASSESSMENT AND PLAN:
--- NOTE | 2019-09-19 13:54 | PN ---
Progress Note (short form) - Note Progress Note: Resting in NAD. No acute events overnight. No CP or SOB. Intake & Output 09/16/19 09/17/19 09/18/19 09/19/19 23:59 23:59 23:59 23:59 Intake Total 590 1180 860 400 Output Total 3300 67117 57528 Balance -7213 -6655 860 -59810 Weight 217 lb Last Vital Signs Temp Pulse Resp BP Pulse Ox 98.4 F 82 18 129/86 99 09/19/19 07:35 09/19/19 11:30 09/19/19 11:30 09/19/19 11:30 09/19/19 11:30 Active Medications Chlorhexidine Gluconate (Hibiclens For Decolonization -) 1 applic TP HS [facility] Last Admin: 09/18/19 21:35 Dose: Not Given Documented by: Furosemide (Lasix -) 80 mg PO DAILY [facility] Last Admin: 09/19/19 09:46 Dose: 80 mg Documented by: Heparin Sodium (Porcine) (Heparin -) 5,000 unit SQ TID [facility] Last Admin: 09/19/19 06:40 Dose: 5,000 unit Documented by: Insulin Aspart (Novolog Vial Sliding Scale -) 1 vial SQ [facility]; Protocol Last Admin: 09/19/19 11:58 Dose: Not Given Documented by: Melatonin (Melatonin) 10 mg PO HS PRN PRN Reason: INSOMNIA Last Admin: 09/18/19 22:34 Dose: 10 mg Documented by: Mupirocin (Bactroban Ointment (For Decolonization) -) 1 applic NS BID [facility] Stop: 09/20/19 21:59 Last Admin: 09/19/19 09:46 Dose: 1 applic Documented by: Sevelamer Carbonate (Renvela Powder Packet -) 2.4 gm PO TIDCM [facility] Last Admin: 09/19/19 11:58 Dose: 2.4 gm Documented by: Sodium Zirconium Cyclosilicate (Lokelma) 10 gm PO DAILY [facility] Last Admin: 09/19/19 09:45 Dose: 10 gm Documented by: GENERAL: Awake, alert, and fully oriented, in no acute distress. EYES: PEERLA; EOMI; no scleral icterus NECK: No JVD; no lymphadenopathy LUNGS: distant breath sounds at the bases. HEART: RRR, normal S1 and S2 without murmur, rub or gallop. ABDOMEN: Soft, NT/ND +BS in all 4 qudrants MUSCULOSKELETAL: Normal range of motion at all joints. No bony deformities or tenderness. No CVA tenderness. UPPER EXTREMITIES: R AVF fistula + palpable thrill LOWER EXTREMITIES: warm; well-perfused no clubbing/cyanosis or edema NEUROLOGICAL: Non-focal PSYCHIATRIC: Cooperative. Good eye contact. Appropriate mood and affect. SKIN: Warm, dry, normal turgor, no rashes or lesions noted. Laboratory Results - last 24 hr 09/18/19 09/18/19 09/19/19 17:39 21:27 06:17 WBC RBC Hgb Hct MCV MCH MCHC RDW Plt Count MPV Sodium Potassium Chloride Carbon Dioxide Anion Gap BUN Creatinine Est GFR (CKD-EPI)AfAm Est GFR (CKD-EPI)NonAf POC Glucometer 75 127 88 Random Glucose Calcium Phosphorus 09/19/19 09/19/19 09/19/19 07:45 07:45 11:52 WBC 6.5 RBC 3.61 L Hgb 12.0 Hct 35.6 MCV 98.6 H MCH 33.3 MCHC 33.7 RDW 14.6 Plt Count 132 L MPV 6.3 L Sodium 139 Potassium 4.4 Chloride 103 Carbon Dioxide 27 Anion Gap 9 BUN 57.7 H Creatinine 7.1 H Est GFR (CKD-EPI)AfAm 9.14 Est GFR (CKD-EPI)NonAf 7.89 POC Glucometer 121 Random Glucose 112 H Calcium 9.1 Phosphorus 5.6 H ASSESSMENT/PLAN: Acute on CKD Symptomatic HyperK+ ESRD (HD M/W/F - last dialyzed on Sunday) NIDDM Schizophrenia Bipolar Disorder Peripheral Neuropathy Syncope Resolved high degree AV block HD per Renal Follow I & O Supplemental O2 as needed PO as tolerated Lasix Glycemic control Dr Greenfield
[2019-09-19] MEDS ORDERED: DEXTROSE 50%-WATER - 25 GM/50 ML VIAL IVPUSH ONE (16:45)
[2019-09-19] MEDS ORDERED: DEXTROSE 50%-WATER 25 GM/50 ML DISP.SYRIN ONE (16:46)
[2019-09-19] MEDS ORDERED: LIDOCAINE 1%/EPI 1:100000 (20 ML MULTI DOSE VIAL) ONE (17:38)
[2019-09-19] MEDS ORDERED: LIDOCAINE 1%/EPI 1:100000 (20 ML MULTI DOSE VIAL) INF ONE (18:25)
--- NOTE | 2019-09-19 18:40 | OP ---
Operative Note - Note: Operative Date: 09/19/19 Pre-Operative Diagnosis: syncope Operation: Implantable loop recorder implant Findings: ILR implanted left anterior chest Implants: [employer] LINQ Post-Operative Diagnosis: Same as Pre-op Surgeon: Jordan Prasad V Anesthesia: Local Estimated Blood Loss (mls): 2 Operative Report Dictated: Yes
--- NOTE | 2019-09-19 18:45 | PN ---
Progress Note, Physician Chief Complaint: Syncope History of Present Illness: Seen and examined at the bedside awake and alert Offers no acute complaints, denies shortness of breath, chest pain, dizziness, palpitations, nausea, vomiting, diarrhea or abdominal pain. For loop recorder insertion Status post dialysis earlier this morning without complication - Current Medication List Current Medications: Active Medications Chlorhexidine Gluconate (Hibiclens For Decolonization -) 1 applic TP HS [facility] Last Admin: 09/18/19 21:35 Dose: Not Given Documented by: Chlorhexidine Gluconate (Hibiclens For Decolonization -) 1 applic TP HS [facility] Furosemide (Lasix -) 80 mg PO DAILY [facility] Last Admin: 09/19/19 09:46 Dose: 80 mg Documented by: Heparin Sodium (Porcine) (Heparin -) 5,000 unit SQ TID [facility] Last Admin: 09/19/19 14:50 Dose: Not Given Documented by: Insulin Aspart (Novolog Vial Sliding Scale -) 1 vial SQ [facility]; Protocol Last Admin: 09/19/19 17:29 Dose: Not Given Documented by: Melatonin (Melatonin) 10 mg PO HS PRN PRN Reason: INSOMNIA Last Admin: 09/18/19 22:34 Dose: 10 mg Documented by: Mupirocin (Bactroban Ointment (For Decolonization) -) 1 applic NS BID [facility] Stop: 09/20/19 21:59 Last Admin: 09/19/19 09:46 Dose: 1 applic Documented by: Mupirocin (Bactroban Ointment (For Decolonization) -) 1 applic NS BID [facility] Stop: 09/24/19 21:59 Sevelamer Carbonate (Renvela Powder Packet -) 2.4 gm PO TIDCM [facility] Last Admin: 09/19/19 17:30 Dose: 2.4 gm Documented by: Sodium Zirconium Cyclosilicate (Lokelma) 10 gm PO DAILY [facility] Last Admin: 09/19/19 09:45 Dose: 10 gm Documented by: - Objective Vital Signs: Vital Signs Temperature 98.4 F 09/19/19 07:35 Pulse Rate 82 09/19/19 11:30 Respiratory Rate 18 09/19/19 11:30 Blood Pressure 129/86 09/19/19 11:30 O2 Sat by Pulse Oximetry (%) 99 09/19/19 11:30 Constitutional: Yes: No Distress, Calm HENT: Yes: Atraumatic Neck: Yes: Supple Cardiovascular: Yes: Regular Rate and Rhythm Respiratory: Yes: Regular Gastrointestinal: Yes: Soft Extremities: No: Cyanosis Edema: No Labs: CBC, BMP 09/19/19 07:45 09/19/19 07:45 INR, PTT INR 1.02 (0.83-1.09) 09/16/19 08:25 Assessment/Plan 53 year old male with History of ESRD on HD NIDDM, Schizophrenia, Bipolar Disorder, Peripheral Neuropathy, syncope, 1st degree AV block, who was BIBEMS from dialysis for a syncopal episode from the dialysis center and found to have heart block and brief period of asystolic with K of 6.3. 1. ESRD on HD 2. Syncope 3. Heart flock 4. Hyperkalemia 5. Bipolar disorder Tolerate dialysis well without issue. We will continue low, 10 g daily on Nondialysis days Doppler of AV fistula showed some narrowing in the draining vein. Patient likely will require vascular intervention however this can be done as an outpatient. Will continue low,/Kayexalate as needed to make sure that potassium does not become elevated on nondialysis days. Cardiology follow up Thank you Cornelius Palafox DO
--- NOTE | 2019-09-19 20:24 | PN ---
Progress Note, Physician Chief Complaint: Pt A&ox3; undergoing hemodialysis; understands he will have implantable loop recorder placement today. History of Present Illness: Mr. Mckeon is a 53 yr old white man with PMH of ESRD (on HD M/W/ - last dialyzed on Sunday) NIDDM, Schizophrenia, Bipolar Disorder, Peripheral Neuropathy, syncope, 1st degree AV block, who was BIBEMS from dialysis for a syncopal episode. According to the patient, he was on the dialysis bed when he got dizzy and then he said he "greyed out" patient was brought to the ED before undergoing HD.Of note, patient had a similar episode where he was hospitalized from 09/03-09/07 where he was found to have 2:1 AV block (mobitz 1). both ECHO, holter monitor and carotids were done at that time. In addition, patient has a lot of psych meds that were discontinued at discharge. In the ED patient found to be bradycardic to 42, labs wbc 11 K 6.4 Cr 9 in the ED patient also had a 30 second episode of asystole. initial EKG rate 44; 2:1 AV BLOCK with RBBB; after treatment for hyperkalemia, patient's rate improved to 70 bpm, first degree AV block patient denies any recent travel or any sick contacts PMH Moderately severe LV dysfunction on 2017 ECHO LBBB noted in 2017 now in RBBB Schizophrenia HTN DM ECHO ant apical HK EF 45-50% Cardiac Catheterization: 12/06/17 -Left Main patent -LAD proximal 40%, distal 30% -LCx proximal 30% -RCA luminal irregularities Episodes of idioventricular rhythm on telemetry - Current Medication List Current Medications: Active Medications Chlorhexidine Gluconate (Hibiclens For Decolonization -) 1 applic TP HS [facility] Furosemide (Lasix -) 80 mg PO DAILY [facility] Heparin Sodium (Porcine) (Heparin -) 5,000 unit SQ TID [facility] Insulin Aspart (Novolog Vial Sliding Scale -) 1 vial SQ [facility]; Protocol Melatonin (Melatonin) 10 mg PO HS PRN PRN Reason: INSOMNIA Mupirocin (Bactroban Ointment (For Decolonization) -) 1 applic NS BID [facility] Stop: 09/20/19 21:59 Sevelamer Carbonate (Renvela Powder Packet -) 2.4 gm PO TIDCM [facility] Sodium Zirconium Cyclosilicate (Lokelma) 10 gm PO DAILY [facility] - Objective Vital Signs: Vital Signs Temperature 98.4 F 09/19/19 07:35 Pulse Rate 95 H 09/19/19 18:44 Respiratory Rate 18 09/19/19 18:44 Blood Pressure 125/85 09/19/19 18:44 O2 Sat by Pulse Oximetry (%) 95 09/19/19 18:44 Constitutional: Yes: Calm Eyes: Yes: WNL HENT: Yes: WNL Cardiovascular: Yes: S1, S2 Respiratory: Yes: WNL Gastrointestinal: Yes: Soft ...Rectal Exam: Yes: Deferred Genitourinary: Yes: Oliguria, Other (on hemodialysis) Musculoskeletal: Yes: Muscle Weakness Extremities: Yes: Cool Edema: No Peripheral Pulses WNL: Yes Integumentary: Yes: Venous Stasis Changes Wound/Incision: Yes: Other (AV graft) Psychiatric: Yes: Alert, Oriented, Other (bipolar disorder) Labs: CBC, BMP 09/19/19 07:45 09/19/19 07:45 INR, PTT INR 1.02 (0.83-1.09) 09/16/19 08:25 Abnormal Lab Results 09/19/19 09/19/19 07:45 07:45 RBC 3.61 L MCV 98.6 H Plt Count 132 L MPV 6.3 L BUN 57.7 H Creatinine 7.1 H Random Glucose 112 H Phosphorus 5.6 H - ....Imaging Chest X-ray: Image Reviewed EKG: Image Reviewed Other: Image Reviewed (telemetry) Assessment/Plan 53 yo M with PMH of ESRD (on HD // - last dialyzed on Sunday) NIDDM, Schizophrenia, Bipolar Disorder, Peripheral Neuropathy, syncope, 1st degree AV block, who was BIBEMS from dialysis for a syncopal episode. Episode of 30 seconds asystole in the ER in the setting of hyperkalemia 6.4 - resolved with anti hyperkalemic treatment. Moderately severe LV dysfunction on 2016 ECHO; 08/2019 ECHO now mildly reduced LVEF with anteroapical hypokinesis. LBBB noted in 2017; now in and out of RBBB. Holter noted [id number] bundle branch block.. Schizophrenia HTN DM Cardiac Catheterization: 12/06/17 -Left Main patent -LAD proximal 40%, distal 30% -LCx proximal 30% -RCA luminal irregularities Episodes of idioventricular rhythm on telemetry last admission Plan: Pt for implantable loop recorder today (Dr. Prasad). No significant pauses or AV Block presently Avoid hyperkalemia; on Lokelma; furosemide. avoid AV boone blocking medications. If agreed by waste removalist, consider Hydralazine + Imdur for HTN, systolic CHF (if BP remains elevated; initially hypotensive). Ideally, pt should be on a beta didier; this is presently problematic given arrhythmia, periods of bundle branch block. Loop recorder will be helpful in following rhythm, especially with onging hemodialysis and potassium changes, and, if further ECHOs, deciding if a permanent pacemaker is needed to support medications needed for systolic CHF. CC Time spent: 40 minutes.
[2019-09-19] MEDS ORDERED: CHLORHEXIDINE GLUCONATE 4% CLEANSER FOR DECOLONIZATION TP SCH (22:00)
[2019-09-19] MEDS ORDERED: MUPIROCIN 2% TOPICAL OINTMENT FOR DECOLONIZATION NS SCH (22:00)
--- NOTE | 2019-09-19 22:21 | PN ---
Progress Note, Physician Chief Complaint: chb, syncope History of Present Illness: Mr. Rosenbaum is a 53 year old male with a pmh of ESRD (on HD M// - last dialyzed on Sunday) NIDDM, Schizophrenia, Bipolar Disorder, Peripheral Neuropathy, syncope, 1st degree AV block, who was BIBEMS from dialysis for a syncopal episode. According to the patient, he was on the dialysis bed when he got dizzy and then he said he "greyed out" patient was brought to the ED before undergoing HD. In the ER the patient was noted to have episodes of 2-1 heart block and a "30 second" pause (strip not available for review). K 6.4. He was given glucagon and started on dialysis. His heart block subsequently resolved and he has had no recurrent events on monitoring in the ICU. Echo done at last visit with LVEF 45-50%. Recent holter done during last hospitalization with NSR, IVCD, rate related BBB appreciated, 2-1 heart block during overnight hours only. He reports 3-4 syncopal events in the past. He denies any chest pain, dyspnea, palpitations. Not on AV boone blocking agents. - Current Medication List Current Medications: Active Medications Chlorhexidine Gluconate (Hibiclens For Decolonization -) 1 applic TP HS [facility] Furosemide (Lasix -) 80 mg PO DAILY [facility] Heparin Sodium (Porcine) (Heparin -) 5,000 unit SQ TID [facility] Insulin Aspart (Novolog Vial Sliding Scale -) 1 vial SQ [facility]; Protocol Melatonin (Melatonin) 10 mg PO HS PRN PRN Reason: INSOMNIA Mupirocin (Bactroban Ointment (For Decolonization) -) 1 applic NS BID [facility] Stop: 09/20/19 21:59 Sevelamer Carbonate (Renvela Powder Packet -) 2.4 gm PO TIDCM [facility] Sodium Zirconium Cyclosilicate (Lokelma) 10 gm PO DAILY [facility] - Objective Vital Signs: Vital Signs Temperature 98.4 F 09/19/19 07:35 Pulse Rate 90 09/19/19 20:23 Respiratory Rate 18 09/19/19 20:23 Blood Pressure 118/92 09/19/19 20:23 O2 Sat by Pulse Oximetry (%) 98 09/19/19 20:26 Constitutional: Yes: Well Nourished, No Distress, Calm Eyes: Yes: EOM Intact Neck: Yes: Supple, Trachea Midline Cardiovascular: Yes: Regular Rate and Rhythm Respiratory: Yes: Regular, CTA Bilaterally Gastrointestinal: Yes: Normal Bowel Sounds, Soft Edema: No Neurological: Yes: Alert, Oriented Psychiatric: Yes: Alert, Oriented Labs: CBC, BMP 09/19/19 07:45 09/19/19 07:45 INR, PTT INR 1.02 (0.83-1.09) 09/16/19 08:25 - ....Imaging EKG: Image Reviewed Problem List - Problems (1) Heart block AV complete Code(s): I44.2 - ATRIOVENTRICULAR BLOCK, COMPLETE (2) Hyperkalemia Code(s): E87.5 - HYPERKALEMIA (3) Near syncope Code(s): R55 - SYNCOPE AND COLLAPSE (4) Second degree heart block Code(s): I44.1 - ATRIOVENTRICULAR BLOCK, SECOND DEGREE (5) Acute hyperkalemia Code(s): E87.5 - HYPERKALEMIA (6) Syncope Code(s): R55 - SYNCOPE AND COLLAPSE Assessment/Plan 53 year old male with multiple medical problems who presented with syncope in the setting of AV dissociation, hyperkalemia, renal failure s/p glucagon, dialysis with resolution of heart block. Of note, patient has underlying RBBB and prolonged AV delay. Prior holter reviewed, pt had 2-1 heart block overnight only. There were no daytime events. He has had syncopal events in the past, unclear and no correlated rhythm at the time. Of note, pt with reported EKG in the past with LBBB, presently RBBB. LVEF mildly reduced on recent echo. covid-19 neg. pt and now agreeable to ILR implant for further monitoring. of note, pt has not had any recurrent evidence of heart block on telemetry. consent obtained for ILR implant. r/b/a discussed, all questions answered. pt agreeable to proceed. - for ILR implant today, consent in chart - keep k 4-4.5, mg 2-2.5 - sleep study - no av boone blocking agents - d/w cardiology - care as per primary services CC: 30 minutes
[2019-09-19] MEDS: CHLORHEXIDINE GLUCONATE 4% CLEANSER FOR DECOLONIZATION TP SCH (22:24)
[2019-09-19] MEDS: MELATONIN 5 MG TABLETS PO PRN (22:25)
--- NOTE | 2019-09-19 22:52 | OP ---
DATE OF OPERATION: 09/19/2019 PROCEDURE: Implant of loop recorder implant. INDICATIONS: Recurrent syncope. DETAILS OF PROCEDURE: The anterior thorax was prepped and draped in a sterile fashion. Local anesthesia with lidocaine was infiltrated over the anticipated subcutaneous track in the fourth intercostal space near the sternum. A stab incision was created over the left fourth intercostal/parasternal area. An implantable loop recorder ([employer] Linq serial number [id number]) was then advanced subcutaneously in a horizontal direction using the injection instrument. Hemostasis was achieved. The incision was closed with a running subcuticular 4- 0 Biosyn suture. Dermabond was placed over the incision site. Steri-Strips and a sterile bandage were placed. No acute complications were evident. Device interrogation demonstrated excellent R waves (0.61 millivolts). The patient tolerated the procedure well. Brian [id number] CC: Noble Henderson MD MTDD
[2019-09-20] MEDS: INSULIN SLIDING SCALE (NOVOLOG) 1 VIAL SQ SCH ×3 (07:06→21:25)
[2019-09-20] MEDS: HEPARIN NA (PORCINE) 5,000 UNITS/ML 1ML VIAL SQ SCH ×3 (07:06→22:00)
[2019-09-20] MEDS: FUROSEMIDE 40 MG TABLET (FP) PO SCH (10:07)
[2019-09-20] MEDS: SODIUM ZIRCONIUM CYCLOSILICATE (LOKELMA) 5 GM PACKET PO SCH (10:08)
[2019-09-20] MEDS: SEVELAMER CARBONATE 2.4 GM POWDER PACKET PO SCH ×3 (10:08→18:22)
[2019-09-20] MEDS: MUPIROCIN 2% TOPICAL OINTMENT FOR DECOLONIZATION NS SCH (10:16)
--- NOTE | 2019-09-20 11:26 | PN ---
Progress Note, Physician Chief Complaint: Events noted (Coverage for Dr. Henderson and Michael) Not in distress History of Present Illness: Patient was seen and examined in ICU. Awake and alert. Chart was reviewed Denies chest pain, SOB or palpitations Post LINQ ILR implant by Dr. Prasad - Current Medication List Current Medications: Active Medications Chlorhexidine Gluconate (Hibiclens For Decolonization -) 1 applic TP HS [facility] Last Admin: 09/19/19 22:24 Dose: 1 applic Documented by: Furosemide (Lasix -) 80 mg PO DAILY [facility] Last Admin: 09/20/19 10:07 Dose: 80 mg Documented by: Heparin Sodium (Porcine) (Heparin -) 5,000 unit SQ TID [facility] Last Admin: 09/20/19 07:06 Dose: 5,000 unit Documented by: Insulin Aspart (Novolog Vial Sliding Scale -) 1 vial SQ ACHS [facility]; Protocol Last Admin: 09/20/19 07:06 Dose: Not Given Documented by: Melatonin (Melatonin) 10 mg PO HS PRN PRN Reason: INSOMNIA Last Admin: 09/19/19 22:25 Dose: 10 mg Documented by: Mupirocin (Bactroban Ointment (For Decolonization) -) 1 applic NS BID [facility] Stop: 09/20/19 21:59 Last Admin: 09/20/19 10:16 Dose: 1 applic Documented by: Sevelamer Carbonate (Renvela Powder Packet -) 2.4 gm PO TIDCM [facility] Last Admin: 09/20/19 10:08 Dose: 2.4 gm Documented by: Sodium Zirconium Cyclosilicate (Lokelma) 10 gm PO DAILY [facility] Last Admin: 09/20/19 10:08 Dose: 10 gm Documented by: - Objective Vital Signs: Vital Signs Temperature 99.1 F 09/20/19 08:10 Pulse Rate 90 09/20/19 08:10 Respiratory Rate 18 09/20/19 08:10 Blood Pressure 136/79 09/20/19 08:10 O2 Sat by Pulse Oximetry (%) 100 09/20/19 08:10 Eyes: Yes: PERRL HENT: Yes: Atraumatic Neck: Yes: Supple Cardiovascular: Yes: Regular Rate and Rhythm, S1, S2. No: Murmur Respiratory: Yes: CTA Bilaterally Gastrointestinal: Yes: Normal Bowel Sounds, Soft. No: Tenderness Edema: No Additional Findings/Remarks: - Review of Systems Constitutional: denies: Chills, Fever Cardiovascular: deneis Chest Pain, Shortness of Breath. denies: Palpitations Respiratory: denies: SOB. denies: Cough, Hemoptysis, Orthopnea, PND Gastrointestinal: denies: Abdominal Pain, Constipation, Diarrhea, Melena, Nausea, Rectal Bleeding, Vomiting Neurological: denies: Dizziness, Headache, Seizure, (+) Syncope Labs: CBC, BMP 09/19/19 07:45 09/19/19 07:45 Problem List - Problems (1) ESRD on hemodialysis Code(s): N18.6 - END STAGE RENAL DISEASE; Z99.2 - DEPENDENCE ON RENAL DIALYSIS (2) Mobitz type 1 second degree AV block Code(s): I44.1 - ATRIOVENTRICULAR BLOCK, SECOND DEGREE (3) Near syncope Code(s): R55 - SYNCOPE AND COLLAPSE (4) Non-insulin dependent diabetes mellitus Code(s): IHT0661 - (5) Acute hyperkalemia Code(s): E87.5 - HYPERKALEMIA (6) Acute on chronic systolic CHF (congestive heart failure), NYHA class 2 Code(s): I50.23 - ACUTE ON CHRONIC SYSTOLIC (CONGESTIVE) HEART FAILURE (7) Affective bipolar disorder Code(s): F31.9 - BIPOLAR DISORDER, UNSPECIFIED Qualifiers: Active/Remission status: remission status unspecified Qualified Code(s): F31.9 - Bipolar disorder, unspecified (8) Congestive heart failure (CHF) Code(s): I50.9 - HEART FAILURE, UNSPECIFIED (9) Hyperlipidemia Code(s): E78.5 - HYPERLIPIDEMIA, UNSPECIFIED (10) Hypertension Code(s): I10 - ESSENTIAL (PRIMARY) HYPERTENSION Assessment/Plan 1. Syncope with episode of asystole and hyperkalemia 2. LINQ ILR implant 3. ESRD on HD (MWF) 4. NIDDM 5. Schizophrenia/Bipolar disorder 6. LV systolic dysfunction 7. CAD (non-obstructive), angina pectoris PLAN: 1. Continue Lokelma and monitor K 2. HD as per Renal 3. Avoid AV boone blocking agent and continue to follow ILR with interrogation as outpatient (primary cardiology team). Ideally use of beta block would be problematic. Use of Carvedilol may be considered if HR remains stable 4. Recommend Hydralazine and Nitrates or BiDil in view of LV systolic failure 5. Fall precaution Dr. Henderson and Michael to resume care on Sunday Reese Garcia MD
--- NOTE | 2019-09-20 13:21 | PN ---
Progress Note (short form) - Note Progress Note: Resting in NAD. No acute events overnight. No CP or SOB. Intake & Output 09/17/19 09/18/19 09/19/19 09/20/19 23:59 23:59 23:59 23:59 Intake Total 1180 860 860 Output Total 89741 27935 600 Balance -9930 860 -98809 -600 Last Vital Signs Temp Pulse Resp BP Pulse Ox 99.1 F 90 18 136/79 100 09/20/19 08:10 09/20/19 08:10 09/20/19 08:10 09/20/19 08:10 09/20/19 08:10 Active Medications Chlorhexidine Gluconate (Hibiclens For Decolonization -) 1 applic TP HS [facility] Last Admin: 09/19/19 22:24 Dose: 1 applic Documented by: Furosemide (Lasix -) 80 mg PO DAILY [facility] Last Admin: 09/20/19 10:07 Dose: 80 mg Documented by: Heparin Sodium (Porcine) (Heparin -) 5,000 unit SQ TID [facility] Last Admin: 09/20/19 07:06 Dose: 5,000 unit Documented by: Insulin Aspart (Novolog Vial Sliding Scale -) 1 vial SQ ACHS [facility]; Protocol Last Admin: 09/20/19 07:06 Dose: Not Given Documented by: Melatonin (Melatonin) 10 mg PO HS PRN PRN Reason: INSOMNIA Last Admin: 09/19/19 22:25 Dose: 10 mg Documented by: Mupirocin (Bactroban Ointment (For Decolonization) -) 1 applic NS BID [facility] Stop: 09/20/19 21:59 Last Admin: 09/20/19 10:16 Dose: 1 applic Documented by: Sevelamer Carbonate (Renvela Powder Packet -) 2.4 gm PO TIDCM [facility] Last Admin: 09/20/19 10:08 Dose: 2.4 gm Documented by: Sodium Zirconium Cyclosilicate (Lokelma) 10 gm PO DAILY [facility] Last Admin: 09/20/19 10:08 Dose: 10 gm Documented by: GENERAL: Awake, alert, and fully oriented, in no acute distress. EYES: PEERLA; EOMI; no scleral icterus NECK: No JVD; no lymphadenopathy LUNGS: distant breath sounds at the bases. HEART: RRR, normal S1 and S2 without murmur, rub or gallop. ABDOMEN: Soft, NT/ND +BS in all 4 qudrants MUSCULOSKELETAL: Normal range of motion at all joints. No bony deformities or tenderness. No CVA tenderness. UPPER EXTREMITIES: R AVF fistula + palpable thrill LOWER EXTREMITIES: warm; well-perfused no clubbing/cyanosis or edema NEUROLOGICAL: Non-focal PSYCHIATRIC: Cooperative. Good eye contact. Appropriate mood and affect. SKIN: Warm, dry, normal turgor, no rashes or lesions noted. Laboratory Results - last 24 hr 09/19/19 09/19/19 09/20/19 16:43 22:22 06:41 POC Glucometer 56 95 112 ASSESSMENT/PLAN: Acute on CKD Symptomatic HyperK+ ESRD (HD M/W/F - last dialyzed on Sunday) NIDDM Schizophrenia Bipolar Disorder Peripheral Neuropathy Syncope Resolved high degree AV block HD per Renal Follow I & O Supplemental O2 as needed PO as tolerated Lasix Glycemic control Dr Greenfield
--- NOTE | 2019-09-20 16:09 | PN ---
Progress Note, Physician History of Present Illness: Pt seen and examined at bedside. He is awake and alert. He denies shortness of breath. - Current Medication List Current Medications: Active Medications Chlorhexidine Gluconate (Hibiclens For Decolonization -) 1 applic TP HS [facility] Last Admin: 09/19/19 22:24 Dose: 1 applic Documented by: Furosemide (Lasix -) 80 mg PO DAILY [facility] Last Admin: 09/20/19 10:07 Dose: 80 mg Documented by: Heparin Sodium (Porcine) (Heparin -) 5,000 unit SQ TID [facility] Last Admin: 09/20/19 07:06 Dose: 5,000 unit Documented by: Insulin Aspart (Novolog Vial Sliding Scale -) 1 vial SQ ACHS [facility]; Protocol Last Admin: 09/20/19 07:06 Dose: Not Given Documented by: Melatonin (Melatonin) 10 mg PO HS PRN PRN Reason: INSOMNIA Last Admin: 09/19/19 22:25 Dose: 10 mg Documented by: Mupirocin (Bactroban Ointment (For Decolonization) -) 1 applic NS BID [facility] Stop: 09/20/19 21:59 Last Admin: 09/20/19 10:16 Dose: 1 applic Documented by: Sevelamer Carbonate (Renvela Powder Packet -) 2.4 gm PO TIDCM [facility] Last Admin: 09/20/19 10:08 Dose: 2.4 gm Documented by: Sodium Zirconium Cyclosilicate (Lokelma) 10 gm PO DAILY [facility] Last Admin: 09/20/19 10:08 Dose: 10 gm Documented by: - Objective Vital Signs: Vital Signs Temperature 99.1 F 09/20/19 08:10 Pulse Rate 90 09/20/19 08:10 Respiratory Rate 18 09/20/19 08:10 Blood Pressure 136/79 09/20/19 08:10 O2 Sat by Pulse Oximetry (%) 100 09/20/19 08:10 Constitutional: Yes: Calm Eyes: Yes: Conjunctiva Clear HENT: Yes: Atraumatic Neck: Yes: Supple Cardiovascular: Yes: S1, S2 Respiratory: Yes: CTA Bilaterally Gastrointestinal: Yes: Normal Bowel Sounds, Soft Genitourinary: Yes: WNL Musculoskeletal: Yes: WNL Edema: No Neurological: Yes: Oriented Psychiatric: Yes: Oriented Labs: CBC, BMP 09/19/19 07:45 09/19/19 07:45 INR, PTT INR 1.02 (0.83-1.09) 09/16/19 08:25 Assessment/Plan Current Medications Generic Name Dose Route Start Last Admin Trade Name Florentinq PRN Reason Stop Dose Admin Chlorhexidine Gluconate 1 applic 09/19/19 22:00 09/19/19 22:24 Hibiclens For Decolonization - TP 1 applic HS [facility] Administration Furosemide 80 mg 09/20/19 10:00 09/20/19 10:07 Lasix - PO 80 mg DAILY [facility] Administration Heparin Sodium (Porcine) 5,000 unit 09/19/19 22:00 09/20/19 07:06 Heparin - SQ 5,000 unit TID [facility] Administration Insulin Aspart 1 vial 09/19/19 22:00 09/20/19 07:06 Novolog Vial Sliding Scale - SQ Not Given ACHS [facility] Protocol Melatonin 10 mg 09/19/19 19:58 09/19/19 22:25 Melatonin PO 10 mg HS PRN Administration INSOMNIA Mupirocin 1 applic 09/19/19 22:00 09/20/19 10:16 Bactroban Ointment (For Decolonization) - NS 09/20/19 21:59 1 applic BID [facility] Administration Sevelamer Carbonate 2.4 gm 09/20/19 08:00 09/20/19 10:08 Renvela Powder Packet - PO 2.4 gm TIDCM [facility] Administration Sodium Zirconium Cyclosilicate 10 gm 09/20/19 10:00 09/20/19 10:08 Lokelma PO 10 gm DAILY [facility] Administration 1. ESRD on HD 2. Syncope 3. Heart block 4. Hyperkalemia 5. Bipolar disorder Plan - next HD on Sunday - cnt lokelma - low potassium renal diet - cont lasix - repeat labs in am
[2019-09-20] MEDS: CHLORHEXIDINE GLUCONATE 4% CLEANSER FOR DECOLONIZATION TP SCH (21:25)
[2019-09-20] MEDS: MELATONIN 5 MG TABLETS PO PRN (21:27)
[2019-09-21] MEDS: HEPARIN NA (PORCINE) 5,000 UNITS/ML 1ML VIAL SQ SCH ×3 (06:21→21:57)
[2019-09-21] MEDS: INSULIN SLIDING SCALE (NOVOLOG) 1 VIAL SQ SCH ×4 (06:22→21:58)
[2019-09-21] MEDS: SEVELAMER CARBONATE 2.4 GM POWDER PACKET PO SCH ×3 (08:14→17:11)
[2019-09-21] MEDS: FUROSEMIDE 40 MG TABLET (FP) PO SCH (09:53)
[2019-09-21] MEDS: SODIUM ZIRCONIUM CYCLOSILICATE (LOKELMA) 5 GM PACKET PO SCH (09:53)
--- NOTE | 2019-09-21 12:28 | PN ---
Progress Note, Physician Chief Complaint: Events noted (Coverage for Dr. Henderson and Michael) Not in distress History of Present Illness: Patient was seen and examined in ICU. Awake and alert. Chart was reviewed Denies chest pain, SOB or palpitations Post LINQ ILR implant by Dr. Prasad - Current Medication List Current Medications: Active Medications Chlorhexidine Gluconate (Hibiclens For Decolonization -) 1 applic TP HS [facility] Last Admin: 09/20/19 21:25 Dose: 1 applic Documented by: Furosemide (Lasix -) 80 mg PO DAILY [facility] Last Admin: 09/21/19 09:53 Dose: 80 mg Documented by: Heparin Sodium (Porcine) (Heparin -) 5,000 unit SQ TID [facility] Last Admin: 09/21/19 06:21 Dose: 5,000 unit Documented by: Insulin Aspart (Novolog Vial Sliding Scale -) 1 vial SQ ACHS [facility]; Protocol Last Admin: 09/21/19 11:48 Dose: Not Given Documented by: Melatonin (Melatonin) 10 mg PO HS PRN PRN Reason: INSOMNIA Last Admin: 09/20/19 21:27 Dose: 10 mg Documented by: Sevelamer Carbonate (Renvela Powder Packet -) 2.4 gm PO TIDCM [facility] Last Admin: 09/21/19 08:14 Dose: 2.4 gm Documented by: Sodium Zirconium Cyclosilicate (Lokelma) 10 gm PO DAILY [facility] Last Admin: 09/21/19 09:53 Dose: 10 gm Documented by: - Objective Vital Signs: Vital Signs Temperature 98.5 F 09/21/19 10:00 Pulse Rate 102 H 09/21/19 10:00 Respiratory Rate 14 09/21/19 10:00 Blood Pressure 143/85 09/21/19 10:00 O2 Sat by Pulse Oximetry (%) 100 09/21/19 10:00 Neck: Yes: Supple Cardiovascular: Yes: Tachycardia, S1, S2 Respiratory: Yes: CTA Bilaterally Gastrointestinal: Yes: Normal Bowel Sounds, Soft. No: Tenderness Edema: No Additional Findings/Remarks: - Review of Systems Constitutional: denies: Chills, Fever Cardiovascular: deneis Chest Pain, Shortness of Breath. denies: Palpitations Respiratory: denies: SOB. denies: Cough, Hemoptysis, Orthopnea, PND Gastrointestinal: denies: Abdominal Pain, Constipation, Diarrhea, Melena, Nausea, Rectal Bleeding, Vomiting Neurological: denies: Dizziness, Headache, Seizure, (+) Syncope Labs: CBC, BMP 09/19/19 07:45 09/19/19 07:45 INR, PTT INR 1.02 (0.83-1.09) 09/16/19 08:25 Problem List - Problems (1) ESRD on hemodialysis Code(s): N18.6 - END STAGE RENAL DISEASE; Z99.2 - DEPENDENCE ON RENAL DIALYSIS (2) Mobitz type 1 second degree AV block Code(s): I44.1 - ATRIOVENTRICULAR BLOCK, SECOND DEGREE (3) Near syncope Code(s): R55 - SYNCOPE AND COLLAPSE (4) Non-insulin dependent diabetes mellitus Code(s): KLV0241 - (5) Acute hyperkalemia Code(s): E87.5 - HYPERKALEMIA (6) Acute on chronic systolic CHF (congestive heart failure), NYHA class 2 Code(s): I50.23 - ACUTE ON CHRONIC SYSTOLIC (CONGESTIVE) HEART FAILURE (7) Affective bipolar disorder Code(s): F31.9 - BIPOLAR DISORDER, UNSPECIFIED Qualifiers: Active/Remission status: remission status unspecified Qualified Code(s): F31.9 - Bipolar disorder, unspecified (8) Congestive heart failure (CHF) Code(s): I50.9 - HEART FAILURE, UNSPECIFIED (9) Hyperlipidemia Code(s): E78.5 - HYPERLIPIDEMIA, UNSPECIFIED (10) Hypertension Code(s): I10 - ESSENTIAL (PRIMARY) HYPERTENSION Assessment/Plan 1. Syncope with episode of asystole and hyperkalemia 2. LINQ ILR implant 3. ESRD on HD (MWF) 4. NIDDM 5. Schizophrenia/Bipolar disorder 6. LV systolic dysfunction 7. CAD (non-obstructive), angina pectoris PLAN: 1. Continue Lokelma and monitor K 2. HD as per Renal 3. Avoid AV boone blocking agent and continue to follow ILR with interrogation as outpatient (primary cardiology team). 4. Recommend Hydralazine and Nitrates or BiDil in view of LV systolic failure 5. Fall precaution Dr. Henderson and Michael to resume care on Sunday Reese Garcia MD
--- NOTE | 2019-09-21 12:56 | PN ---
Progress Note (short form) - Note Progress Note: Resting in NAD. No acute events overnight. No CP or SOB. Intake & Output 09/18/19 09/19/19 09/20/19 09/21/19 23:59 23:59 23:59 23:59 Intake Total 860 860 120 Output Total 57076 1350 500 Balance 860 -32935 -1230 -500 Last Vital Signs Temp Pulse Resp BP Pulse Ox 98.5 F 102 H 14 143/85 100 09/21/19 10:00 09/21/19 10:00 09/21/19 10:00 09/21/19 10:00 09/21/19 10:00 Active Medications Chlorhexidine Gluconate (Hibiclens For Decolonization -) 1 applic TP HS [facility] Last Admin: 09/20/19 21:25 Dose: 1 applic Documented by: Furosemide (Lasix -) 80 mg PO DAILY [facility] Last Admin: 09/21/19 09:53 Dose: 80 mg Documented by: Heparin Sodium (Porcine) (Heparin -) 5,000 unit SQ TID [facility] Last Admin: 09/21/19 06:21 Dose: 5,000 unit Documented by: Insulin Aspart (Novolog Vial Sliding Scale -) 1 vial SQ [facility]; Protocol Last Admin: 09/21/19 11:48 Dose: Not Given Documented by: Melatonin (Melatonin) 10 mg PO HS PRN PRN Reason: INSOMNIA Last Admin: 09/20/19 21:27 Dose: 10 mg Documented by: Sevelamer Carbonate (Renvela Powder Packet -) 2.4 gm PO TIDCM [facility] Last Admin: 09/21/19 08:14 Dose: 2.4 gm Documented by: Sodium Zirconium Cyclosilicate (Lokelma) 10 gm PO DAILY [facility] Last Admin: 09/21/19 09:53 Dose: 10 gm Documented by: GENERAL: Awake, alert, and fully oriented, in no acute distress. EYES: PEERLA; EOMI; no scleral icterus NECK: No JVD; no lymphadenopathy LUNGS: distant breath sounds at the bases. HEART: RRR, normal S1 and S2 without murmur, rub or gallop. ABDOMEN: Soft, NT/ND +BS in all 4 qudrants MUSCULOSKELETAL: Normal range of motion at all joints. No bony deformities or tenderness. No CVA tenderness. UPPER EXTREMITIES: R AVF fistula + palpable thrill LOWER EXTREMITIES: warm; well-perfused no clubbing/cyanosis or edema NEUROLOGICAL: Non-focal PSYCHIATRIC: Cooperative. Good eye contact. Appropriate mood and affect. SKIN: Warm, dry, normal turgor, no rashes or lesions noted. Laboratory Results - last 24 hr 09/20/19 09/20/19 09/20/19 14:05 17:48 21:24 POC Glucometer 141 125 94 09/21/19 09/21/19 06:11 11:44 POC Glucometer 69 103 ASSESSMENT/PLAN: Acute on CKD Symptomatic HyperK+ ESRD (HD M/W/F - last dialyzed on Sunday) NIDDM Schizophrenia Bipolar Disorder Peripheral Neuropathy Syncope Resolved high degree AV block HD per Renal Follow I & O Supplemental O2 as needed PO as tolerated Lasix Glycemic control Dr Greenfield
--- NOTE | 2019-09-21 15:31 | PN ---
Progress Note, Physician History of Present Illness: Pt seen and examined at bedside. He is awake and appears comfortable. - Current Medication List Current Medications: Active Medications Chlorhexidine Gluconate (Hibiclens For Decolonization -) 1 applic TP HS [facility] Last Admin: 09/20/19 21:25 Dose: 1 applic Documented by: Furosemide (Lasix -) 80 mg PO DAILY [facility] Last Admin: 09/21/19 09:53 Dose: 80 mg Documented by: Heparin Sodium (Porcine) (Heparin -) 5,000 unit SQ TID [facility] Last Admin: 09/21/19 13:36 Dose: 5,000 unit Documented by: Insulin Aspart (Novolog Vial Sliding Scale -) 1 vial SQ ACHS [facility]; Protocol Last Admin: 09/21/19 11:48 Dose: Not Given Documented by: Melatonin (Melatonin) 10 mg PO HS PRN PRN Reason: INSOMNIA Last Admin: 09/20/19 21:27 Dose: 10 mg Documented by: Sevelamer Carbonate (Renvela Powder Packet -) 2.4 gm PO TIDCM [facility] Last Admin: 09/21/19 13:36 Dose: 2.4 gm Documented by: Sodium Zirconium Cyclosilicate (Lokelma) 10 gm PO DAILY [facility] Last Admin: 09/21/19 09:53 Dose: 10 gm Documented by: - Objective Vital Signs: Vital Signs Temperature 98.5 F 09/21/19 10:00 Pulse Rate 102 H 09/21/19 10:00 Respiratory Rate 14 09/21/19 10:00 Blood Pressure 143/85 09/21/19 10:00 O2 Sat by Pulse Oximetry (%) 100 09/21/19 10:00 Constitutional: Yes: Calm Eyes: Yes: Conjunctiva Clear HENT: Yes: Atraumatic Neck: Yes: Supple Cardiovascular: Yes: S1, S2 Respiratory: Yes: CTA Bilaterally Gastrointestinal: Yes: Normal Bowel Sounds, Soft Genitourinary: Yes: WNL Musculoskeletal: Yes: WNL Edema: No Neurological: Yes: Oriented Psychiatric: Yes: Oriented Labs: CBC, BMP 09/19/19 07:45 09/19/19 07:45 INR, PTT INR 1.02 (0.83-1.09) 09/16/19 08:25 Assessment/Plan Current Medications Generic Name Dose Route Start Last Admin Trade Name Freq PRN Reason Stop Dose Admin Chlorhexidine Gluconate 1 applic 09/19/19 22:00 09/20/19 21:25 Hibiclens For Decolonization - TP 1 applic HS [facility] Administration Furosemide 80 mg 09/20/19 10:00 09/21/19 09:53 Lasix - PO 80 mg DAILY [facility] Administration Heparin Sodium (Porcine) 5,000 unit 09/19/19 22:00 09/21/19 13:36 Heparin - SQ 5,000 unit TID [facility] Administration Insulin Aspart 1 vial 09/19/19 22:00 09/21/19 11:48 Novolog Vial Sliding Scale - SQ Not Given ACHS [facility] Protocol Melatonin 10 mg 09/19/19 19:58 09/20/19 21:27 Melatonin PO 10 mg HS PRN Administration INSOMNIA Sevelamer Carbonate 2.4 gm 09/20/19 08:00 09/21/19 13:36 Renvela Powder Packet - PO 2.4 gm TIDCM [facility] Administration Sodium Zirconium Cyclosilicate 10 gm 09/20/19 10:00 09/21/19 09:53 Lokelma PO 10 gm DAILY [facility] Administration 1. ESRD on HD 2. Syncope 3. Heart block 4. Hyperkalemia 5. Bipolar disorder Plan - HD tomorrow - orders written - check labs pre hd - renal diet - volume status stable
--- NOTE | 2019-09-21 18:22 | EKG ---
Test Reason : Blood Pressure : / mmHG Vent. Rate : 092 BPM Atrial Rate : 092 BPM P-R Int : 202 ms QRS Dur : 122 ms QT Int : 396 ms P-R-T Axes : 015 -07 116 degrees QTc Int : 489 ms NORMAL SINUS RHYTHM WITH 1ST DEGREE A-V BLOCK NON-SPECIFIC INTRA-VENTRICULAR CONDUCTION DELAY ABNORMAL ECG Confirmed by MD TORI, KEANU ([id number]) on 09/21/2019 6:22:33 PM Referred By: Leoncio BAUMANN Confirmed By:KEANU VALLE MD
[2019-09-21] MEDS: MELATONIN 5 MG TABLETS PO PRN (21:58)
[2019-09-21] MEDS: CHLORHEXIDINE GLUCONATE 4% CLEANSER FOR DECOLONIZATION TP SCH (21:58)
[2019-09-22] MEDS: INSULIN SLIDING SCALE (NOVOLOG) 1 VIAL SQ SCH ×4 (06:08→21:14)
[2019-09-22] MEDS: HEPARIN NA (PORCINE) 5,000 UNITS/ML 1ML VIAL SQ SCH ×3 (06:11→21:14)
[2019-09-22] MEDS ORDERED: SODIUM CHLORIDE 250 ML IV PRN (06:30)
[2019-09-22 09:44] LABS: HEMATOCRIT 35.9 % (35.4-49); HEMOGLOBIN 11.8 GM/dL (11.7-16.9); MCH 32.3 pg (25.7-33.7); MCHC 32.9 g/dl (32.0-35.9); MEAN CELL VOLUME 98.1 fl (80-96); PLATELET COUNT 175 K/MM3 (134-434); RBC 3.67 M/mm3 (4.00-5.60); RDW 14.3 % (11.9-15.9); WHITE BLOOD COUNT 8.4 K/mm3 (4.0-10.0)
[2019-09-22 10:15] LABS: ALBUMIN 3.6 g/dl (3.4-5.0); BILIRUBIN,TOTAL 0.6 mg/dL (0.2-1); CALCIUM 9.1 mg/dL (8.5-10.1); POTASSIUM 3.8 mmol/L (3.5-5.1); TOT PROT 7.1 g/dl (6.4-8.2)
[2019-09-22 10:16] LABS: BLOOD UREA NITROGEN 92.4 mg/dL (7-18)
[2019-09-22 11:00] LABS: CREATININE 10.1 mg/dL (0.55-1.3)
[2019-09-22] MEDS ORDERED: INSULIN (NOVOLOG) ASPART 100 UNITS/ML 10ML VIAL ONE (11:19)
[2019-09-22] MEDS: FUROSEMIDE 40 MG TABLET (FP) PO SCH (11:20)
[2019-09-22] MEDS: SODIUM ZIRCONIUM CYCLOSILICATE (LOKELMA) 5 GM PACKET PO SCH (11:20)
[2019-09-22] MEDS: SEVELAMER CARBONATE 2.4 GM POWDER PACKET PO SCH ×3 (11:21→17:49)
--- NOTE | 2019-09-22 13:19 | PN ---
Progress Note (short form) - Note Progress Note: Resting in NAD. Currently on HD. No acute events overnight. No CP or SOB. Intake & Output 09/19/19 09/20/19 09/21/19 09/22/19 23:59 23:59 23:59 23:59 Intake Total 860 120 240 400 Output Total 05249 1350 1750 65722 Balance -31725 -1230 -1510 -04944 Weight 208 lb 3.2 oz Last Vital Signs Temp Pulse Resp BP Pulse Ox 98.4 F 87 14 132/89 95 09/21/19 22:00 09/22/19 11:00 09/22/19 11:00 09/22/19 11:00 09/21/19 22:00 Active Medications Chlorhexidine Gluconate (Hibiclens For Decolonization -) 1 applic TP HS [facility] Last Admin: 09/21/19 21:58 Dose: Not Given Documented by: Furosemide (Lasix -) 80 mg PO DAILY [facility] Last Admin: 09/22/19 11:20 Dose: 80 mg Documented by: Heparin Sodium (Porcine) (Heparin -) 5,000 unit SQ TID [facility] Last Admin: 09/22/19 06:11 Dose: 5,000 unit Documented by: Insulin Aspart (Novolog Vial Sliding Scale -) 1 vial SQ ACHS [facility]; Protocol Last Admin: 09/22/19 11:21 Dose: 2 units Documented by: Melatonin (Melatonin) 10 mg PO HS PRN PRN Reason: INSOMNIA Last Admin: 09/21/19 21:58 Dose: 10 mg Documented by: Sevelamer Carbonate (Renvela Powder Packet -) 2.4 gm PO TIDCM [facility] Last Admin: 09/22/19 11:22 Dose: 2.4 gm Documented by: Sodium Zirconium Cyclosilicate (Lokelma) 10 gm PO DAILY [facility] Last Admin: 09/22/19 11:20 Dose: 10 gm Documented by: GENERAL: Awake, alert, and fully oriented, in no acute distress. EYES: PEERLA; EOMI; no scleral icterus NECK: No JVD; no lymphadenopathy LUNGS: distant breath sounds at the bases. HEART: RRR, normal S1 and S2 without murmur, rub or gallop. ABDOMEN: Soft, NT/ND +BS in all 4 qudrants MUSCULOSKELETAL: Normal range of motion at all joints. No bony deformities or tenderness. No CVA tenderness. UPPER EXTREMITIES: R AVF fistula + palpable thrill LOWER EXTREMITIES: warm; well-perfused no clubbing/cyanosis or edema NEUROLOGICAL: Non-focal PSYCHIATRIC: Cooperative. Good eye contact. Appropriate mood and affect. SKIN: Warm, dry, normal turgor, no rashes or lesions noted. Laboratory Results - last 24 hr 09/21/19 09/21/19 09/22/19 16:59 21:57 05:35 WBC RBC Hgb Hct MCV MCH MCHC RDW Plt Count MPV Sodium Potassium Chloride Carbon Dioxide Anion Gap BUN Creatinine Est GFR (CKD-EPI)AfAm Est GFR (CKD-EPI)NonAf POC Glucometer 84 119 80 Random Glucose Calcium Total Bilirubin AST ALT Alkaline Phosphatase Total Protein Albumin 09/22/19 09/22/19 09/22/19 07:00 07:00 11:16 WBC 8.4 RBC 3.67 L Hgb 11.8 Hct 35.9 MCV 98.1 H MCH 32.3 MCHC 32.9 RDW 14.3 Plt Count 175 D MPV 7.0 L D Sodium 137 Potassium 3.8 Chloride 100 Carbon Dioxide 19 L Anion Gap 18 H BUN 92.4 H Creatinine 10.1 H* Est GFR (CKD-EPI)AfAm 5.97 Est GFR (CKD-EPI)NonAf 5.15 POC Glucometer 151 Random Glucose 98 Calcium 9.1 Total Bilirubin 0.6 AST 21 ALT 32 Alkaline Phosphatase 85 Total Protein 7.1 Albumin 3.6 ASSESSMENT/PLAN: Acute on CKD Symptomatic HyperK+ ESRD (HD M/W/F - last dialyzed on Sunday) NIDDM Schizophrenia Bipolar Disorder Peripheral Neuropathy Syncope Resolved high degree AV block HD per Renal Follow I & O Supplemental O2 as needed PO as tolerated Lasix Glycemic control Dr Greenfield
[2019-09-22 16:39] VITALS: BMI 27.4
--- NOTE | 2019-09-22 16:55 | PN ---
Progress Note, Physician History of Present Illness: 53 yo M with PMH of ESRD (on HD M/W/ - last dialyzed on Sunday) NIDDM, Schizophrenia, Bipolar Disorder, Peripheral Neuropathy, syncope, 1st degree AV block, who was BIBEMS from dialysis for a syncopal episode. According to the patient, he was on the dialysis bed when he got dizzy and then he said he "greyd out" patient was brought to the ED before undergoing HD.Of note, patient had a similar episode where he was hospitalized from 09/03-09/07 where he was found to have 2:1 AV block (mobitz 1) both ECHO, holter monitor and carotids were done at that time. In addition, patient has a lot of psych meds that were discontinued at discharge. In the ED patient found to be bradycardic to 42, labs wbc 11 K 6.4 Cr 9 in the ED patient also had a brief 30 second episode of asystole where he came back after 30 seconds . initial EKG rate 44 2:1 AV BLOCK with RBB; after treatment for hyperkalemia patients rate improved to 70 first degree AV block patient denies any recent travel or any sick contacts PMH Moderately severe LV dysfunction on 2017 ECHO LBBB noted in 2017 now in RBBB Schizophrenia HTN DM ECHO ant apical HK EF 45-50% Cardiac Catheterization: 12/06/17 -Left Main patent -LAD proximal 40%, distal 30% -LCx proximal 30% -RCA luminal irregularities Episodes of idioventricular rhythm on telemetry - Current Medication List Current Medications: Active Medications Chlorhexidine Gluconate (Hibiclens For Decolonization -) 1 applic TP HS [facility] Last Admin: 09/21/19 21:58 Dose: Not Given Documented by: Furosemide (Lasix -) 80 mg PO DAILY [facility] Last Admin: 09/22/19 11:20 Dose: 80 mg Documented by: Heparin Sodium (Porcine) (Heparin -) 5,000 unit SQ TID [facility] Last Admin: 09/22/19 14:44 Dose: 5,000 unit Documented by: Insulin Aspart (Novolog Vial Sliding Scale -) 1 vial SQ ACHS [facility]; Protocol Last Admin: 09/22/19 16:25 Dose: Not Given Documented by: Melatonin (Melatonin) 10 mg PO HS PRN PRN Reason: INSOMNIA Last Admin: 09/21/19 21:58 Dose: 10 mg Documented by: Sevelamer Carbonate (Renvela Powder Packet -) 2.4 gm PO TIDCM [facility] Last Admin: 09/22/19 11:22 Dose: 2.4 gm Documented by: Sodium Zirconium Cyclosilicate (Lokelma) 10 gm PO DAILY [facility] Last Admin: 09/22/19 11:20 Dose: 10 gm Documented by: - Objective Vital Signs: Vital Signs Temperature 97.2 F L 09/22/19 16:00 Pulse Rate 76 09/22/19 16:00 Respiratory Rate 16 09/22/19 16:00 Blood Pressure 123/100 09/22/19 16:00 O2 Sat by Pulse Oximetry (%) 96 09/22/19 16:00 Eyes: Yes: WNL, Conjunctiva Clear, EOM Intact HENT: Yes: WNL, Atraumatic, Normocephalic Neck: Yes: WNL, Supple, Trachea Midline Cardiovascular: Yes: WNL, Regular Rate and Rhythm Respiratory: Yes: WNL, Regular, CTA Bilaterally Gastrointestinal: Yes: WNL, Normal Bowel Sounds Genitourinary: Yes: WNL Musculoskeletal: Yes: WNL Extremities: Yes: WNL Edema: No Integumentary: Yes: WNL Neurological: Yes: WNL, Alert, Oriented ...Motor Strength: WNL Psychiatric: Yes: WNL Labs: CBC, BMP 09/22/19 07:00 09/22/19 07:00 INR, PTT INR 1.02 (0.83-1.09) 09/16/19 08:25 Problem List - Problems (1) Altered mental status Code(s): R41.82 - ALTERED MENTAL STATUS, UNSPECIFIED Qualifiers: Altered mental status type: somnolence Qualified Code(s): R40.0 - Somnolence (2) Hyperkalemia Code(s): E87.5 - HYPERKALEMIA (3) Near syncope Code(s): R55 - SYNCOPE AND COLLAPSE (4) Second degree heart block Code(s): I44.1 - ATRIOVENTRICULAR BLOCK, SECOND DEGREE (5) Acute hyperkalemia Code(s): E87.5 - HYPERKALEMIA (6) Acute on chronic systolic CHF (congestive heart failure), NYHA class 2 Code(s): I50.23 - ACUTE ON CHRONIC SYSTOLIC (CONGESTIVE) HEART FAILURE (7) CKD (chronic kidney disease) stage 5, GFR less than 15 ml/min Code(s): N18.5 - CHRONIC KIDNEY DISEASE, STAGE 5 (8) Complication of AV dialysis fistula Code(s): T82.9XXA - UNSP COMP OF CARDIAC AND VASCULAR PROSTH DEV/GRFT, INIT (9) Contusion of right hip Code(s): S70.01XA - CONTUSION OF RIGHT HIP, INITIAL ENCOUNTER (10) Contusion of wrist, right Code(s): S60.211A - CONTUSION OF RIGHT WRIST, INITIAL ENCOUNTER (11) Dysthymia Code(s): F34.1 - DYSTHYMIC DISORDER (12) Fall Code(s): W19.XXXA - UNSPECIFIED FALL, INITIAL ENCOUNTER (13) Fluid overload Code(s): E87.70 - FLUID OVERLOAD, UNSPECIFIED (14) Frostbite Code(s): T33.90XA - SUPERFICIAL FROSTBITE OF UNSPECIFIED SITES, INIT ENCNTR Qualifiers: Encounter type: initial encounter Qualified Code(s): T33.90XA - Superficial frostbite of unspecified sites, initial encounter (15) Frostbite of hand, left Code(s): T33.522A - SUPERFICIAL FROSTBITE OF LEFT HAND, INITIAL ENCOUNTER; X31.X XXA - EXPOSURE TO EXCESSIVE NATURAL COLD, INITIAL ENCOUNTER Qualifiers: Encounter type: subsequent encounter Qualified Code(s): T33.522D - Morales perficial frostbite of left hand, subsequent encounter; X31.XXXD - Exposure to excessive natural cold, subsequent encounter; X31.XXXD - Exposure to excessive natural cold, subsequent encounter (16) Injury of right upper arm Code(s): S49.91XA - UNSP INJURY OF RIGHT SHOULDER AND UPPER ARM, INIT ENCNTR Qualifiers: Encounter type: subsequent encounter Qualified Code(s): S49.91XD - Unspecified injury of right shoulder and upper arm, subsequent encounter (17) Left knee pain Code(s): M25.562 - PAIN IN LEFT KNEE Qualifiers: Chronicity: chronic Qualified Code(s): M25.562 - Pain in left knee; G89.29 - Other chronic pain (18) Leg pain, right Code(s): M79.604 - PAIN IN RIGHT LEG (19) Puncture wound Code(s): T14.8XXA - OTHER INJURY OF UNSPECIFIED BODY REGION, INITIAL ENCOUNTER (20) Removal of staple Code(s): Z48.02 - ENCOUNTER FOR REMOVAL OF SUTURES (21) Syncope Code(s): R55 - SYNCOPE AND COLLAPSE (22) Traumatic hematoma of right elbow Code(s): S50.01XA - CONTUSION OF RIGHT ELBOW, INITIAL ENCOUNTER (23) Wound of left foot Code(s): S91.302A - UNSPECIFIED OPEN WOUND, LEFT FOOT, INITIAL ENCOUNTER (24) Affective bipolar disorder Code(s): F31.9 - BIPOLAR DISORDER, UNSPECIFIED Qualifiers: Active/Remission status: remission status unspecified Qualified Code(s): F31.9 - Bipolar disorder, unspecified (25) Congestive heart failure (CHF) Code(s): I50.9 - HEART FAILURE, UNSPECIFIED (26) Hyperlipidemia Code(s): E78.5 - HYPERLIPIDEMIA, UNSPECIFIED (27) Hypertension Code(s): I10 - ESSENTIAL (PRIMARY) HYPERTENSION Assessment/Plan 1. Syncope with episode of asystole and hyperkalemia 2. LINQ ILR implant 3. ESRD on HD (MWF) 4. NIDDM 5. Schizophrenia/Bipolar disorder 6. LV systolic dysfunction 7. CAD (non-obstructive), angina pectoris PLAN: 1. Continue Lokelma and monitor K 2. HD as per Renal 3. Avoid AV boone blocking agent and continue to follow ILR with interrogation as outpatient (primary cardiology team). 4. Recommend Hydralazine and Nitrates or BiDil in view of LV systolic failure 5. Fall precaution cc time spent 36 min
--- NOTE | 2019-09-22 17:44 | PN ---
Progress Note, Physician Chief Complaint: Syncope History of Present Illness: Seen and examined at the bedside status post dialysis earlier today with 2 L UF. Patient currently denies any acute complaints. No shortness of breath, chest pain, dull pain, nausea, vomiting or diarrhea. Had cramps during the end of urgent dialysis. Palpitations or dizziness. - Current Medication List Current Medications: Active Medications Chlorhexidine Gluconate (Hibiclens For Decolonization -) 1 applic TP HS [facility] Last Admin: 09/21/19 21:58 Dose: Not Given Documented by: Furosemide (Lasix -) 80 mg PO DAILY [facility] Last Admin: 09/22/19 11:20 Dose: 80 mg Documented by: Heparin Sodium (Porcine) (Heparin -) 5,000 unit SQ TID [facility] Last Admin: 09/22/19 14:44 Dose: 5,000 unit Documented by: Insulin Aspart (Novolog Vial Sliding Scale -) 1 vial SQ ACHS [facility]; Protocol Last Admin: 09/22/19 16:25 Dose: Not Given Documented by: Melatonin (Melatonin) 10 mg PO HS PRN PRN Reason: INSOMNIA Last Admin: 09/21/19 21:58 Dose: 10 mg Documented by: Sevelamer Carbonate (Renvela Powder Packet -) 2.4 gm PO TIDCM [facility] Last Admin: 09/22/19 11:22 Dose: 2.4 gm Documented by: Sodium Zirconium Cyclosilicate (Lokelma) 10 gm PO DAILY [facility] Last Admin: 09/22/19 11:20 Dose: 10 gm Documented by: - Objective Vital Signs: Vital Signs Temperature 97.2 F L 09/22/19 16:00 Pulse Rate 76 09/22/19 16:00 Respiratory Rate 16 09/22/19 16:00 Blood Pressure 123/100 09/22/19 16:00 O2 Sat by Pulse Oximetry (%) 96 09/22/19 16:00 Constitutional: Yes: No Distress Eyes: Yes: Conjunctiva Clear HENT: Yes: Atraumatic Neck: Yes: Supple Cardiovascular: Yes: Regular Rate and Rhythm Respiratory: Yes: Regular Gastrointestinal: Yes: Soft Extremities: No: Cyanosis Edema: No Labs: CBC, BMP 09/22/19 07:00 09/22/19 07:00 INR, PTT INR 1.02 (0.83-1.09) 09/16/19 08:25 Assessment/Plan 53 year old male with History of ESRD on HD NIDDM, Schizophrenia, Bipolar Disorder, Peripheral Neuropathy, syncope, 1st degree AV block, who was BIBEMS from dialysis for a syncopal episode from the dialysis center and found to have heart block and brief period of asystolic with K of 6.3. 1. ESRD on HD 2. Syncope 3. Heart flock 4. Hyperkalemia 5. Bipolar disorder tolerate dialysis this morning without any issues. continue Lokelma daily for hyperkalemia management. Doppler of AV fistula showed some narrowing in the draining vein. Patient likely will require vascular intervention however this can be done as an outpatient. W Cardiology follow up Thank you Cornelius Palafox DO
[2019-09-22] MEDS: CHLORHEXIDINE GLUCONATE 4% CLEANSER FOR DECOLONIZATION TP SCH (21:14)
[2019-09-22] MEDS: MELATONIN 5 MG TABLETS PO PRN (21:20)
[2019-09-23] MEDS: HEPARIN NA (PORCINE) 5,000 UNITS/ML 1ML VIAL SQ SCH ×2 (05:39→13:48)
[2019-09-23 07:32] LABS: BLOOD UREA NITROGEN 58.5 mg/dL (7-18); CALCIUM 9.2 mg/dL (8.5-10.1); CREATININE 7.3 mg/dL (0.55-1.3); POTASSIUM 3.4 mmol/L (3.5-5.1)
[2019-09-23] MEDS: INSULIN SLIDING SCALE (NOVOLOG) 1 VIAL SQ SCH ×2 (07:53→11:52)
[2019-09-23] MEDS: SEVELAMER CARBONATE 2.4 GM POWDER PACKET PO SCH ×2 (08:23→11:49)
[2019-09-23] MEDS: SODIUM ZIRCONIUM CYCLOSILICATE (LOKELMA) 5 GM PACKET PO SCH (09:15)
[2019-09-23] MEDS: FUROSEMIDE 40 MG TABLET (FP) PO SCH (09:15)
[2019-09-23] MEDS ORDERED: hydrALAZINE HCL 25 MG TABLET (FP) PO SCH (11:30)
[2019-09-23 12:49] VITALS: BP 124/92; PULSE 98; TEMP 97.8
--- NOTE | 2019-09-23 14:08 | PN ---
Progress Note (short form) - Note Progress Note: Resting in NAD. No acute events overnight. No CP or SOB. Intake & Output 09/20/19 09/21/19 09/22/19 09/23/19 23:59 23:59 23:59 23:59 Intake Total 120 240 600 Output Total 1350 1750 33039 Balance -8850 -1100 -08747 Weight 208 lb Last Vital Signs Temp Pulse Resp BP Pulse Ox 97.8 F 98 H 12 124/92 99 09/23/19 12:00 09/23/19 12:00 09/23/19 12:00 09/23/19 12:00 09/23/19 12:00 Active Medications Chlorhexidine Gluconate (Hibiclens For Decolonization -) 1 applic TP HS [facility] Last Admin: 09/22/19 21:14 Dose: 1 applic Documented by: Furosemide (Lasix -) 80 mg PO DAILY [facility] Last Admin: 09/23/19 09:15 Dose: Not Given Documented by: Heparin Sodium (Porcine) (Heparin -) 5,000 unit SQ TID [facility] Last Admin: 09/23/19 13:48 Dose: 5,000 unit Documented by: Hydralazine HCl (Apresoline -) 25 mg PO BID [facility] Last Admin: 09/23/19 11:48 Dose: 25 mg Documented by: Insulin Aspart (Novolog Vial Sliding Scale -) 1 vial SQ ACHS [facility]; Protocol Last Admin: 09/23/19 11:52 Dose: Not Given Documented by: Melatonin (Melatonin) 10 mg PO HS PRN PRN Reason: INSOMNIA Last Admin: 09/22/19 21:20 Dose: 10 mg Documented by: Sevelamer Carbonate (Renvela Powder Packet -) 2.4 gm PO TIDCM [facility] Last Admin: 09/23/19 11:49 Dose: 2.4 gm Documented by: Sodium Zirconium Cyclosilicate (Lokelma) 10 gm PO DAILY [facility] Last Admin: 09/23/19 09:15 Dose: Not Given Documented by: GENERAL: Awake, alert, and fully oriented, in no acute distress. EYES: PEERLA; EOMI; no scleral icterus NECK: No JVD; no lymphadenopathy LUNGS: distant breath sounds at the bases. HEART: RRR, normal S1 and S2 without murmur, rub or gallop. ABDOMEN: Soft, NT/ND +BS in all 4 qudrants MUSCULOSKELETAL: Normal range of motion at all joints. No bony deformities or tenderness. No CVA tenderness. UPPER EXTREMITIES: R AVF fistula + palpable thrill LOWER EXTREMITIES: warm; well-perfused no clubbing/cyanosis or edema NEUROLOGICAL: Non-focal PSYCHIATRIC: Cooperative. Good eye contact. Appropriate mood and affect. SKIN: Warm, dry, normal turgor, no rashes or lesions noted. Laboratory Results - last 24 hr 09/22/19 09/22/19 09/23/19 16:04 21:13 05:37 Sodium Potassium Chloride Carbon Dioxide Anion Gap BUN Creatinine Est GFR (CKD-EPI)AfAm Est GFR (CKD-EPI)NonAf POC Glucometer 108 121 89 Random Glucose Calcium 09/23/19 09/23/19 06:10 11:51 Sodium 139 Potassium 3.4 L Chloride 99 Carbon Dioxide 28 Anion Gap 13 BUN 58.5 H Creatinine 7.3 H Est GFR (CKD-EPI)AfAm 8.84 Est GFR (CKD-EPI)NonAf 7.63 POC Glucometer 139 Random Glucose 114 H Calcium 9.2 ASSESSMENT/PLAN: Acute on CKD Resolved symptomatic HyperK+ ESRD (HD M/W/F - last dialyzed on Sunday) NIDDM Schizophrenia Bipolar Disorder Peripheral Neuropathy Syncope Resolved high degree AV block HD per Renal Follow I & O Supplemental O2 as needed PO as tolerated Lasix Glycemic control DC planning Dr Greenfield
--- NOTE | 2019-09-23 14:28 | PN ---
Progress Note, Physician Chief Complaint: Pt A&ox3; no chest pain or dyspnea; anxious. History of Present Illness: Mr. Mckeon is a 53 yr old white man with PMH of ESRD (on HD // - last dialyzed on Sunday) NIDDM, Schizophrenia, Bipolar Disorder, Peripheral Neuropathy, syncope, 1st degree AV block, who was BIBEMS from dialysis for a syncopal episode. According to the patient, he was on the dialysis bed when he got dizzy and then he said he "greyed out" patient was brought to the ED before undergoing HD.Of note, patient had a similar episode where he was hospitalized from 09/03-09/07 where he was found to have 2:1 AV block (mobitz 1). both ECHO, holter monitor and carotids were done at that time. In addition, patient has a lot of psych meds that were discontinued at discharge. In the ED patient found to be bradycardic to 42, labs wbc 11 K 6.4 Cr 9 in the ED patient also had a 30 second episode of asystole. initial EKG rate 44; 2:1 AV BLOCK with RBBB; after treatment for hyperkalemia, patient's rate improved to 70 bpm, first degree AV block patient denies any recent travel or any sick contacts PMH Moderately severe LV dysfunction on 2017 ECHO LBBB noted in 2017 now in RBBB Schizophrenia HTN DM ECHO ant apical HK EF 45-50% Cardiac Catheterization: 12/06/17 -Left Main patent -LAD proximal 40%, distal 30% -LCx proximal 30% -RCA luminal irregularities Episodes of idioventricular rhythm on telemetry - Current Medication List Current Medications: Active Medications Chlorhexidine Gluconate (Hibiclens For Decolonization -) 1 applic TP HS [facility] Last Admin: 09/22/19 21:14 Dose: 1 applic Documented by: Furosemide (Lasix -) 80 mg PO DAILY [facility] Last Admin: 09/23/19 09:15 Dose: Not Given Documented by: Heparin Sodium (Porcine) (Heparin -) 5,000 unit SQ TID [facility] Last Admin: 09/23/19 13:48 Dose: 5,000 unit Documented by: Hydralazine HCl (Apresoline -) 25 mg PO BID [facility] Last Admin: 09/23/19 11:48 Dose: 25 mg Documented by: Insulin Aspart (Novolog Vial Sliding Scale -) 1 vial SQ ACHS [facility]; Protocol Last Admin: 09/23/19 11:52 Dose: Not Given Documented by: Melatonin (Melatonin) 10 mg PO HS PRN PRN Reason: INSOMNIA Last Admin: 09/22/19 21:20 Dose: 10 mg Documented by: Sevelamer Carbonate (Renvela Powder Packet -) 2.4 gm PO TIDCM [facility] Last Admin: 09/23/19 11:49 Dose: 2.4 gm Documented by: Sodium Zirconium Cyclosilicate (Lokelma) 10 gm PO DAILY [facility] Last Admin: 09/23/19 09:15 Dose: Not Given Documented by: - Objective Vital Signs: Vital Signs Temperature 97.8 F 09/23/19 12:00 Pulse Rate 98 H 09/23/19 12:00 Respiratory Rate 12 09/23/19 12:00 Blood Pressure 124/92 09/23/19 12:00 O2 Sat by Pulse Oximetry (%) 99 09/23/19 12:00 Labs: CBC, BMP 09/22/19 07:00 09/23/19 06:10 INR, PTT INR 1.02 (0.83-1.09) 09/16/19 08:25 Assessment/Plan 53 yo M with PMH of ESRD (on HD M/W/ - last dialyzed on Sunday) NIDDM, Schizophrenia, Bipolar Disorder, Peripheral Neuropathy, syncope, 1st degree AV block, who was BIBEMS from dialysis for a syncopal episode. Episode of 30 seconds asystole in the ER in the setting of hyperkalemia 6.4 - resolved with anti hyperkalemic treatment. Moderately severe LV dysfunction on 2016 ECHO; 08/2019 ECHO now mildly reduced LVEF with anteroapical hypokinesis. LBBB noted in 2017; now in and out of RBBB. Holter noted [id number] bundle branch block.. Schizophrenia HTN DM Cardiac Catheterization: 12/06/17 -Left Main patent -LAD proximal 40%, distal 30% -LCx proximal 30% -RCA luminal irregularities Episodes of idioventricular rhythm on telemetry last admission Plan: Pt had loop recorder planted. No significant pauses or AV Block presently Maintain K 4.0-4.5; f/u Mg level. avoid AV boone blocking medications. If agreed by digital marketing officer, consider Hydralazine + Imdur for HTN, systolic CHF. CC Time spent: 35 minutes.
--- NOTE | 2019-09-23 15:05 | PN ---
Teaching Attending Note Name of Resident: Darryl Shahid ATTENDING PHYSICIAN STATEMENT I saw and evaluated the patient. I reviewed the resident's note and discussed the case with the resident. I agree with the resident's findings and plan as documented. SUBJECTIVE: pt seen and examined at bedside OBJECTIVE: Last Vital Signs Temp Pulse Resp BP Pulse Ox 97.8 F 98 H 12 124/92 99 09/23/19 12:00 09/23/19 12:00 09/23/19 12:00 09/23/19 12:00 09/23/19 12:00 GENERAL: Awake, alert, and oriented, in no acute distress. HEAD: Normal with no signs of trauma. EYES: Pupils equal, round and reactive to light, sclera anicteric, conjunctiva clear. LUNGS: Breath sounds equal, clear to auscultation bilaterally. No wheezes, and no crackles. No accessory muscle use. HEART: Regular rate and rhythm, normal S1 and S2 ABDOMEN: Soft, nontender, not distended CBCD WBC 8.4 K/mm3 (4.0-10.0) 09/22/19 07:00 RBC 3.67 M/mm3 (4.00-5.60) L 09/22/19 07:00 Hgb 11.8 GM/dL (11.7-16.9) 09/22/19 07:00 Hct 35.9 % (35.4-49) 09/22/19 07:00 MCV 98.1 fl (80-96) H 09/22/19 07:00 MCHC 32.9 g/dl (32.0-35.9) 09/22/19 07:00 RDW 14.3 % (11.9-15.9) 09/22/19 07:00 Plt Count 175 K/MM3 (134-434) D 09/22/19 07:00 MPV 7.0 fl (7.5-11.1) L D 09/22/19 07:00 CMP Sodium 139 mmol/L (136-145) 09/23/19 06:10 Potassium 3.4 mmol/L (3.5-5.1) L 09/23/19 06:10 Chloride 99 mmol/L (98-107) 09/23/19 06:10 Carbon Dioxide 28 mmol/L (21-32) 09/23/19 06:10 Anion Gap 13 MMOL/L (8-16) 09/23/19 06:10 BUN 58.5 mg/dL (7-18) H 09/23/19 06:10 Creatinine 7.3 mg/dL (0.55-1.3) H 09/23/19 06:10 Calcium 9.2 mg/dL (8.5-10.1) 09/23/19 06:10 Total Bilirubin 0.6 mg/dL (0.2-1) 09/22/19 07:00 AST 21 U/L (15-37) 09/22/19 07:00 ALT 32 U/L (13-61) 09/22/19 07:00 Alkaline Phosphatase 85 U/L (45-117) 09/22/19 07:00 Total Protein 7.1 g/dl (6.4-8.2) 09/22/19 07:00 Albumin 3.6 g/dl (3.4-5.0) 09/22/19 07:00 Active Medications Chlorhexidine Gluconate (Hibiclens For Decolonization -) 1 applic TP HS [facility] Last Admin: 09/22/19 21:14 Dose: 1 applic Documented by: Furosemide (Lasix -) 80 mg PO DAILY [facility] Last Admin: 09/23/19 09:15 Dose: Not Given Documented by: Heparin Sodium (Porcine) (Heparin -) 5,000 unit SQ TID [facility] Last Admin: 09/23/19 13:48 Dose: 5,000 unit Documented by: Hydralazine HCl (Apresoline -) 25 mg PO BID [facility] Last Admin: 09/23/19 11:48 Dose: 25 mg Documented by: Insulin Aspart (Novolog Vial Sliding Scale -) 1 vial SQ [facility]; Protocol Last Admin: 09/23/19 11:52 Dose: Not Given Documented by: Melatonin (Melatonin) 10 mg PO HS PRN PRN Reason: INSOMNIA Last Admin: 09/22/19 21:20 Dose: 10 mg Documented by: Sevelamer Carbonate (Renvela Powder Packet -) 2.4 gm PO TIDCM [facility] Last Admin: 09/23/19 11:49 Dose: 2.4 gm Documented by: Sodium Zirconium Cyclosilicate (Lokelma) 10 gm PO DAILY [facility] Last Admin: 09/23/19 09:15 Dose: Not Given Documented by: ASSESSMENT AND PLAN: 53 YOM with PMH of ESRD (on HD M/W/F - last dialyzed on Sunday) NIDDM, Schizophrenia, Bipolar Disorder, Peripheral Neuropathy, syncope, 1st degree AV block, who was BIBEMS from dialysis for a syncopal episode. # HyperKalemia (resolved) emergency HD done ESRD (HD M/W/F - last dialyzed on Sunday) potassium today 3.7 (held [facility]) non complaint with HD and meds found high degree AV block s/p loop placement will need outpatient f/u with cardiology for interpretation Discharge planning for close follow up with PCP/nephrology to monitor potassium levels NIDDM Schizophrenia Bipolar Disorder Peripheral Neuropathy DVT prophylaxis
[2019-09-24 03:14] LABS: MAGNESIUM 2.9 mg/dL (1.8-2.4)
== END 2019-09-23 16:25 | disposition home or self-care (01) | DRG 260 ==
LOC: JER 11:41 → JERBED 14:52 → JICU 16:00
PROVIDERS: ADMIT Internal Medicine Pulmonary Disease; ATTEND Student in an Organized Health Care Education/Training Program
PROC: 0JH632Z Insertion of Monitoring Device into Chest Subcutaneous Tissue and Fascia, Percutaneous Approach (ICD-10-PCS; principal; 2019-09-19 17:30)
PROC: 5A1D70Z Performance of Urinary Filtration, Intermittent, Less than 6 Hours Per Day (ICD-10-PCS; 2019-09-22)
DX: I44.2 Atrioventricular block, complete (principal); N18.6 End stage renal disease; I50.23 Acute on chronic systolic (congestive) heart failure; I46.8 Cardiac arrest due to other underlying condition; I13.2 Hypertensive heart and chronic kidney disease with heart failure and with stage 5 chronic kidney disease, or end stage renal disease; F20.0 Paranoid schizophrenia; E87.5 Hyperkalemia; E11.22 Type 2 diabetes mellitus with diabetic chronic kidney disease; F31.9 Bipolar disorder, unspecified; E11.40 Type 2 diabetes mellitus with diabetic neuropathy, unspecified; R55 Syncope and collapse; R94.31 Abnormal electrocardiogram [ECG] [EKG]; D69.6 Thrombocytopenia, unspecified; F12.90 Cannabis use, unspecified, uncomplicated; I25.119 Atherosclerotic heart disease of native coronary artery with unspecified angina pectoris; Z99.2 Dependence on renal dialysis
CPT/HCPCS: 36415; 70450-TC; 71045-TC-FY; 80048; 80053; 82550; 82962; 83735; 83880; 84100; 84443; 84484; 85025; 85027; 85610; 85730; 93005; 93010; 93931; 97116-GP; 97162-GP; 99291; J1644; U0003

== ENCOUNTER 2019-11-12 11:27 | Emergency (ER) | payer OTHER, MEDICARE ==
[2019-11-12 11:42] VITALS: TEMP 98.4; BMI 26.2
[2019-11-12] MEDS ORDERED: NALOXONE HCL 0.4 MG/ML VIAL ONE (12:04)
[2019-11-12] MEDS ORDERED: NALOXONE HCL 0.4 MG/ML VIAL IVPUSH ONE (12:07)
[2019-11-12 12:51] LABS: BASO % 0.5 % (0-2.0); HEMATOCRIT 35.9 % (35.4-49); HEMOGLOBIN 11.9 GM/dL (11.7-16.9); LYMPH % 27.2 % (8-40); MCH 33.4 pg (25.7-33.7); MCHC 33.1 g/dl (32.0-35.9); MEAN CELL VOLUME 101.1 fl (80-96); MEAN PLT VOLUME 7.1 fl (7.5-11.1); MONO % 13.9 % (3.8-10.2); NEUT % 54.4 % (42.8-82.8); PLATELET COUNT 122 K/MM3 (134-434); RBC 3.56 M/mm3 (4.00-5.60); RDW 15.9 % (11.9-15.9); WHITE BLOOD COUNT 4.7 K/mm3 (4.0-10.0)
[2019-11-12 13:20] LABS: ALBUMIN 3.5 g/dl (3.4-5.0); ALK PHOS 84 U/L (45-117); ANION GAP 9 MMOL/L (8-16); BILIRUBIN,TOTAL 0.5 mg/dL (0.2-1); BLOOD UREA NITROGEN 79.9 mg/dL (7-18); CALCIUM 8.4 mg/dL (8.5-10.1); CHLORIDE 104 mmol/L (98-107); CO2 26 mmol/L (21-32); GLUCOSE,RANDOM 84 mg/dL (74-106); POTASSIUM 4.3 mmol/L (3.5-5.1); SGOT/AST 11 U/L (15-37); SGPT/ALT 10 U/L (13-61); SODIUM 139 mmol/L (136-145); TOT PROT 6.9 g/dl (6.4-8.2)
--- NOTE | 2019-11-12 13:45 | PDOC ---
Documentation entered by Giovanni Rojas SCRIBE, acting as scribe for Jesus Garcia MD. Jesus Garcia MD: This documentation has been prepared by the aracelyibe, Giovanni Rojas SCRIBE, under my direction and personally reviewed by me in its entirety. I confirm that the documentation accurately reflects all work, treatment, procedures, and medical decision making performed by me. History of Present Illness - General Chief Complaint: Syncope/Near Syncope Stated Complaint: Injury Time Seen by Provider: 11/12/19 12:04 History Source: Patient Exam Limitations: No Limitations - History of Present Illness Initial Comments: 11/12/19 13:05 The patient is a 53 year old male with a significant past medical history of schizophrenia, bipolar disorder, NIDDM, peripheral neuropathy, on ESRD (HD M/W/F), and first degree AV block who presents to the emergency department, [facility], for evaluation of a possible syncopal episode today at dialysis. The patient reports he was at HD today and went to the bathroom when he felt lightheaded and passed out. Pt was found in bathroom lethargic and EMS was called. Pt denies any complaints in the ED but is somnolent. Pt adamantly denies taking anything. States he has been "clean for 20 years". The patient denies chest/abdominal/back pain, cough, and shortness of breath. Denies fever, chills, nausea, vomiting, and/or any GI symptoms. Denies any symptoms. Denies any other symptoms. Allergies: NKDA Social Hx: The patient reported he quit using drugs (unknown what kind) 20 years ago. Denies illicit drug use and alcohol consumption. Surgical Hx: None reported PCP: Dr. Lenny Menard Past History - Medical History Allergies/Adverse Reactions: Allergies Allergy/AdvReac Type Severity Reaction Status Date / Time No Known Drug Allergies Allergy Verified 11/14/19 20:32 Home Medications: Ambulatory Orders Divalproex [Depakote -] 1,000 mg PO BID 03/30/16 Atorvastatin Ca [Lipitor] 20 mg PO HS 11/15/18 Lorazepam [Ativan] 1 mg PO BID 09/17/19 Sevelamer Carbonate [Renvela -] 2,400 mg PO TID 09/17/19 Furosemide [Lasix -] 80 mg PO DAILY #30 tablet 09/23/19 Bupropion HCl [Wellbutrin -] 1 tab PO DAILY 11/14/19 Gabapentin 100 mg PO HS 11/14/19 Lamotrigine [LaMICtal -] 1 tab PO HS 11/14/19 Quetiapine Fumarate [Seroquel -] 300 mg PO HS 11/14/19 Anemia: No Asthma: No Cancer: No Cardiac Disorders: No CVA: No COPD: No CHF: No Dementia: No Diabetes: Yes (diet-controlled, borderline) Dialysis: Yes (graft to right arm) GI Disorders: No Disorders: Yes (ESRD-DIALYSIS Rt arm FISTULA) HTN: Yes ("FLUCTUATES" NO MEDS AT THIS TIME) Hypercholesterolemia: Yes Liver Disease: No Psychiatric Problems: Yes Seizures: No Thyroid Disease: No - Surgical History Abdominal Surgery: No Appendectomy: No Cardiac Surgery: No Cholecystectomy: No Lung Surgery: No Neurologic Surgery: No Orthopedic Surgery: No - Immunization History Td Vaccination: No - Psycho-Social/Smoking History Smoking Status: No Smoking History: Smoker current status UNK Years of Tobacco Use: 0 Have you smoked in the past 12 months: No Number of Cigarettes Smoked Daily: 0 If you are a former smoker, when did you quit?: 1999 Information on smoking cessation initiated: No - Substance Abuse Hx (Audit-C & DAST Scrn) How often the patient has a drink containing alcohol: Never Score: In Men: 4 or > Positive; In Women: 3 or > Positive: 0 Screen Result (Pos requires Nsg. Audit-10AR): Negative In the last yr the pt used illegal drug/Rx for NonMed reason: No Score: Yes response is considered Positive: 0 Screen Result (Positive result requires Nsg. DAST-10): Negative Review of Systems - Review of Systems Able to Perform ROS?: Yes Comments:: 11/12/19 13:05 "GENERAL/CONSTITUTIONAL: +lightheaded, No fever or chills. No weakness. HEAD, EYES, EARS, NOSE AND THROAT: No change in vision. No ear pain or discharge. No sore throat. CARDIOVASCULAR: No chest pain, no shortness of breath, no loss of consciousness RESPIRATORY: No cough, wheezing, or hemoptysis. GASTROINTESTINAL: No nausea, vomiting, diarrhea or constipation. GENITOURINARY: No dysuria, frequency, or change in urination. MUSCULOSKELETAL: No joint or muscle swelling or pain. No neck or back pain. SKIN: No rash NEUROLOGIC: No vertigo, no change in strength/sensation. ENDOCRINE: No increased thirst. No abnormal weight change. HEMATOLOGIC/LYMPHATIC: No anemia, easy bleeding, or history of blood clots. ALLERGIC/IMMUNOLOGIC: No hives or skin allergy." All Other Systems: Reviewed and Negative *Physical Exam - Vital Signs Last Vital Signs Temp Pulse Resp BP Pulse Ox 98.4 F 78 12 113/75 99 11/12/19 11:39 11/12/19 12:30 11/12/19 12:30 11/12/19 12:30 11/12/19 12:35 - Physical Exam 11/12/19 13:06 "GENERAL: somnolent but arousable, fully oriented, in no acute distress. HEAD: No signs of trauma EYES: PERRLA, EOMI, sclera anicteric, conjunctiva clear ENT: Auricles normal inspection, hearing grossly normal, nares patent, oropharynx clear without exudates. Moist mucosa NECK: Nontender, no stepoffs, Normal ROM, supple, no lymphadenopathy, JVD, or masses LUNGS: Breath sounds equal, clear to auscultation bilaterally. No wheezes, and no crackles HEART: Regular rate and rhythm, normal S1 and S2, no murmurs, rubs or gallops ABDOMEN: Soft, nontender, normoactive bowel sounds. No guarding, no rebound. No masses EXTREMITIES: Normal range of motion, no edema. No clubbing or cyanosis. No cords, erythema, or tenderness NEUROLOGICAL: Cranial nerves II through XII intact. 5/5 strength and sensation in all extremities, Normal speech, normal gait, normal cerebellar function SKIN: Warm, Dry, normal turgor, no rashes or lesions noted. Heart Score/ECG Review - ECG Impressions Comment:: 11/12/19 13:56 NSr, no CAN/STDs, no TWIs, axis wnl, TN 214, rate 79 ED Treatment Course - LABORATORY CBC & Chemistry Diagram: 11/12/19 12:15 11/12/19 12:15 - ADDITIONAL ORDERS Additional order review: Laboratory Results 11/12/19 12:11 POC Glucometer 87 11/12/19 11/12/19 12:15 12:11 RBC 3.56 L MCV 101.1 H MCHC 33.1 RDW 15.9 D MPV 7.1 L Neutrophils % 54.4 Lymphocytes % 27.2 Monocytes % 13.9 H Eosinophils % 4.0 D Basophils % 0.5 POC Glucometer 87 - Medications Given in the ED: ED Medications Discontinued Medications Generic Name Dose Route Start Last Admin Trade Name Ani PRN Reason Stop Dose Admin Naloxone HCl 0.2 mg 11/12/19 12:07 11/12/19 12:05 Narcan - IVPUSH 11/12/19 12:08 0.2 mg ONCE ONE Administration Medical Decision Making - Medical Decision Making 11/12/19 13:57 53 M here for possible syncopal episode. In ED, pt somnolent but arousable. Appears intoxicated but denies taking anything. Possible opiate or ETOH abuse. Pt protecting airway, satting well on RA. - Labs - CT head Pt was given narcan with mild improvement in mental status 11/12/19 14:10 Pt continues to be awake, alert, without requiring repeated doses of narcan. Pt still denies using anything. Denies SI/HI/AVH. Pt now ambulatory in ED with steady gait. Pt asking to leave AMA, does not wish to stay for further testing or admission to hospital. The patient is clinically sober, free from distracting injury, appears to have intact insight and judgment and reason and in my opinion has the capacity to make decisions. The patient presented with possible syncope. I have explained that I am concerned that this may represent abnormal heart rhythm; they have verbalized an understanding of my concerns. I have told the patient that while their labs were normal, they could still have heart problems. I have discussed the need for admission to the hospital to get more information about potential causes of the patients syncope. I have told the patient that if they leave and have chest pain or shortness of breath, they could get much worse, could become critically ill, and could possibly become disabled or . He is unwilling to stay overnight for monitoring. He is refusing any further care and is leaving against medical advice. I am unable to convince the patient to stay, I have asked them to return as soon as possible to complete their evaluation. I have answered all their questions. Discharge - Discharge Information Problems reviewed: Yes Clinical Impression/Diagnosis: Syncope, Overdose, Fall Condition: Stable Disposition: AGAINST MEDICAL ADVICE - Follow up/Referral Referrals: Angelina Harris MD [Primary Care Provider] - - Patient Discharge Instructions - Post Discharge Activity
[2019-11-12 14:38] VITALS: BP 117/79; PULSE 76
[2019-11-12 14:46] LABS: PHENCYCLIDINE,URINE NEGATIVE ng/ml (CUTOFF=25); URINE AMPHETAMINES NEGATIVE ng/ml (CUTOFF=500); URINE BENZODIAZEPINES NEGATIVE ng/ml (CUTOFF=200)
--- NOTE | 2019-11-12 14:51 | EKG ---
Test Reason : Blood Pressure : / mmHG Vent. Rate : 079 BPM Atrial Rate : 079 BPM P-R Int : 214 ms QRS Dur : 100 ms QT Int : 394 ms P-R-T Axes : 011 006 013 degrees QTc Int : 451 ms SINUS RHYTHM WITH 1ST DEGREE A-V BLOCK ANTEROSEPTAL INFARCT , AGE UNDETERMINED ABNORMAL ECG WHEN COMPARED WITH ECG OF 20-SEP-2019 09:54, ANTEROSEPTAL INFARCT IS NOW PRESENT NONSPECIFIC T WAVE ABNORMALITY NOW EVIDENT IN ANTERIOR LEADS T WAVE INVERSION NO LONGER EVIDENT IN LATERAL LEADS Confirmed by Earle Reyes MD ([id number]) on 11/12/2019 2:50:28 PM Referred By: Confirmed By:Earle Reyes MD
[2019-11-12 14:52] LABS: COCAINE, UR NEGATIVE ng/ml (CUTOFF=300); METHADONE, UR NEGATIVE ng/ml (CUTOFF=300); OPIATES, URI NEGATIVE ng/ml (CUTOFF=300); URINE BARBITURATES NEGATIVE ng/ml (CUTOFF=200)
== END 2019-11-12 14:36 | disposition left against medical advice (07) ==
LOC: JER 11:27
PROC: 3E033NZ Introduction of Analgesics, Hypnotics, Sedatives into Peripheral Vein, Percutaneous Approach (ICD-10-PCS; principal; 2019-11-12)
DX: R55 Syncope and collapse (principal); T50.901A Poisoning by unspecified drugs, medicaments and biological substances, accidental (unintentional), initial encounter
CPT/HCPCS: 36415; 70450-TC; 80053; 80307; 82550; 82962; 84484; 85025; 93005; 93010; 99285-25

== ENCOUNTER 2019-11-14 20:31 | Emergency (ER) | payer OTHER, MEDICARE ==
--- NOTE | 2019-11-14 20:46 | PDOC ---
History of Present Illness - General Chief Complaint: Pain Stated Complaint: RIGHT RIB PAIN Time Seen by Provider: 11/14/19 20:40 History Source: Patient Exam Limitations: No Limitations - History of Present Illness Initial Comments: 11/14/19 21:33 Is a 53-year-old male who is on hemodialysis. Patient slipped and fell in the bathroom at his dialysis center hitting his right ribs on a tall garbage can. Patient did not pass out did not hit his head and denies any other injuries. Allergies: as per nursing notes Past Medical History: Medical problems see nursing notes Social history: Lives with family. No smoking. No alcohol. No illicit drugs. Surgical history: None General: No fevers or chills, no weakness, no weight loss HEENT: No change in vision. No sore throat,. No ear pain CardioVascular: Right rib pain. No shortness of breath Respiratory:No cough, or wheezing. Gastrointestinal: no nausea, vomiting, diarrhea or constipation, No rectal bleeding Genitourinary: No dysuria, hematuria, or frequency Musculoskeletal: No joint or muscle pain or swelling Neurologic: No headache, vertigo, dizziness or loss of consciousness Psychiatric: nor depression Skin: No rashes or easy bruising Endocrine: no increased thirst or abnormal weight change Allergic: no skin or latex allergy All other systems reviewed and normal Exam: General: Well-nourished well-developed individual, no acute distress HEENT: Throat: Normal, tonsils normal, no erythema or exudate Neck: Supple, no meningeal signs, no lymphadenopathy Eyes::Pupils equal reactive and round, extraocular motion intact Chest: There is tenderness on palpation over the right lower ribs laterally Cardiac: S1-S2 normal, regular rate and rhythm, no murmurs rubs or gallops Respiratory: Lungs clear to auscultation bilateral Abdomen: Soft, nondistended, normal bowel sounds, there is no tenderness on palpation diffusely Extremities: Warm, dry, no cyanosis, clubbing, or edema Skin: No rashes Neuro: Alert and oriented x3, CN II - XII intact, nonfocal exam with normal strength, normal sensation, normal reflexes, normal gait, Psych: Normal mood and affect X-ray ribs and chest no acute pathology no rib fractures visualized x-ray reviewed by me Assessment and plan: This a 53-year-old male who slipped and fell banging his ribs on a tall metal garbage can. Patient came in containing of discomfort patient was given Motrin for the pain and x-rays were done that were negative. Patient was discharged and told to continue with some Motrin and follow-up with his primary care doctor. 11/14/19 21:36 Past History - Medical History Allergies/Adverse Reactions: Allergies Allergy/AdvReac Type Severity Reaction Status Date / Time No Known Drug Allergies Allergy Verified 11/14/19 20:32 Home Medications: Ambulatory Orders Divalproex [Depakote -] 1,000 mg PO BID 03/30/16 Atorvastatin Ca [Lipitor] 20 mg PO HS 11/15/18 Lorazepam [Ativan] 1 mg PO BID 09/17/19 Sevelamer Carbonate [Renvela -] 2,400 mg PO TID 09/17/19 Furosemide [Lasix -] 80 mg PO DAILY #30 tablet 09/23/19 Bupropion HCl [Wellbutrin -] 1 tab PO DAILY 11/14/19 Gabapentin 100 mg PO HS 11/14/19 Lamotrigine [LaMICtal -] 1 tab PO HS 11/14/19 Quetiapine Fumarate [Seroquel -] 300 mg PO HS 11/14/19 Anemia: No Asthma: No Cancer: No Cardiac Disorders: No CVA: No COPD: No CHF: No Dementia: No Diabetes: Yes (diet-controlled, borderline) Dialysis: Yes (graft to right arm) GI Disorders: No Disorders: Yes (ESRD-DIALYSIS Rt arm FISTULA) HTN: Yes ("FLUCTUATES" NO MEDS AT THIS TIME) Hypercholesterolemia: Yes Liver Disease: No Psychiatric Problems: Yes Seizures: No Thyroid Disease: No - Surgical History Abdominal Surgery: No Appendectomy: No Cardiac Surgery: No Cholecystectomy: No Lung Surgery: No Neurologic Surgery: No Orthopedic Surgery: No - Immunization History Td Vaccination: No - Psycho-Social/Smoking History Smoking Status: No Smoking History: Smoker current status UNK Years of Tobacco Use: 0 Have you smoked in the past 12 months: No Number of Cigarettes Smoked Daily: 0 If you are a former smoker, when did you quit?: 1999 Discharge - Discharge Information Problems reviewed: Yes Clinical Impression/Diagnosis: Contusion of rib on right side Qualifiers: Encounter type: initial encounter Qualified Code(s): S20.211A - Contusion of right front wall of thorax, initial encounter Condition: Stable Disposition: HOME - Admission No - Follow up/Referral - Patient Discharge Instructions Additional Instructions: Your x-rays were negative for any fractures For the pain take Motrin 600 mg 3 times a day with food do not take on an empty stomach. Return to the emergency department immediately with ANY new, persistent or worsening symptoms. Continue any medications as previously prescribed by your physician. You should follow up with your primary doctor as soon as possible regarding today's emergency department visit. . Please make sure your doctor reviews the results of your emergency evaluation. Thank you for coming to the Emergency Department today for your care. It was a pleasure to see you today. Please note that your evaluation is INCOMPLETE until you follow-up with your doctor. - Post Discharge Activity
--- OUTSIDE RECORDS SUMMARY | 2019-11-14 20:47 | XMS ---
:1965 Author Organization [facility] Care Team Providers Name Role Phone Sushma Newberry Unavailable Unavailable Re-disclosure Warning The records that you are about to access may contain information from federally- assisted alcohol or drug abuse programs. If such information is present, then the following federally mandated warning applies: This information has been disclosed to you from records protected by federal confidentiality rules (42 CFR part 2). The federal rules prohibit you from making any further disclosure of this information unless further disclosure is expressly permitted by the written consent of the person to whom it pertains or as otherwise permitted by 42 CFR part 2. A general authorization for the release of medical or other information is NOT sufficient for this purpose. The Federal rules restrict any use of the information to criminally investigate or prosecute any alcohol or drug abuse patient.The records that you are about to access may contain highly sensitive health information, the redisclosure of which is protected by Article 27-F of the [facility] Public Health law. If you continue you may haveaccess to information: Regarding HIV / AIDS; Provided by facilities licensed or operated by the [facility] Office of Mental Health; or Provided by the [facility] Office for People With Developmental Disabilities. If such information is present, then the following [facility] mandated warning applies: This information has been disclosed to you from confidential records which are protected by state law. State law prohibits you from making any further disclosure of this information without the specific written consent of the person to whom it pertains, or as otherwise permitted by law. Any unauthorized further disclosure in violation of state law may result in a fine or assisted sentence or both. A general authorization for the release of medical or other information is NOT sufficient authorization for further disclosure. Encounters Encounter Providers Location Date Indications Data Source(s ) U Attender: Susmha Mena 07/30/2018 [facility] ([facility] 01:00:00 PM EDT Services of - 07/30/2018 [place]) 01:45:00 PM EDT Patient admitted. Medications Medication Brand Start Product Dose Route Administrative Pharmacy [facility] Indications Reaction Description Data Name Date Form Instructions Instructions Source(s) Seroquel XR [facility] C (quetiapine (Family ) 300 mg Services tablet of extended [place] release 24 r) hr lorazepam [facility] (lorazepam) (Family 1 mg tablet Services of [place] r) Insurance Providers Payer name Policy type Policy ID Covered Covered democrat's Policy P erwin / Coverage democrat ID relationship to [place] Inf ormation type pier[place] MEDICARE [id number] SP [id number] [facility] [id number] SP [id number] CARE OPTIONS MEDICARE [id number] SP [id number] HI MEDICARE [id number] 1 [id number] PART B [place] MED[place]ID OF [id number] 1 [id number] [place] MEDIC[place] [id number] 1 [id number] SUPP[place] [id number] PART B [facility] Healthcare-AA Medicare Self MEDICARE [id number] SP [id number] [facility] [id number] [place] [id number] CARE OPTIONS Medicare-Blue [id number] S [id number] Cross/Blue Shield Medicare [id number] S [id number] A [facility] [id number] SP [id number] CARE OPTIONS MEDICARE [id number] SP [id number] A Surgeries/Procedures Procedure Description Date Indications Data Source(s) [address] 45-50 Min Regular 05/27/2019 [facility] ([facility] 12:00:00 AM EDT Services [facility]) [id number] 15-30 Min Brief Therapy 05/20/2019 [facility] (Family 12:00:00 AM EDT Services [facility]) [id number] 45-50 Min Regular 05/06/2019 [facility] (Family Therapy 12:00:00 AM EDT Services [facility]) [id number] 45-50 Min Regular 05/06/2019 [facility] (Family Therapy 12:00:00 AM EDT Services [facility]) [id number] 45-50 Min Regular 04/29/2019 [facility] (Family Therapy 12:00:00 AM EDT Services [facility]) [id number] 45-50 Min Regular 04/29/2019 [facility] (Family Therapy 12:00:00 AM EDT Services [facility]) [id number] 45-50 Min Regular 04/22/2019 [facility] (Family Therapy 12:00:00 AM EDT Services [facility]) [id number] 45-50 Min Regular 04/22/2019 [facility] (Family Therapy 12:00:00 AM EDT Services [facility]) [id number] 45-50 Min Regular 04/15/2019 [facility] (Family Therapy 12:00:00 AM EDT Services [facility]) [phone] 45-50 Min Regular 04/15/2019 [facility] (Family Therapy 12:00:00 AM EDT Services [facility]) Results ID Date Data Source [id number] 10/02/2019 01:56:00 PM EDT [facility] Name Value Range Interpretation Description Data Sup porting Code Source(s) Document(s ) SARS [facility] Coronavirus 2 RNA Presence Respiratory Specimen BANG Probe Detection This lab was ordered by [place] and rep orted by [facility]. ID Date Data Source [id number] 09/15/2019 06:38:00 PM EDT [facility] Name Value Range Interpretation Description Data Sup porting Code Source(s) Document(s ) SARS [facility] coronavirus 2 RNA This lab was ordered by [facility] and reported by [facility]. ID Date Data Source [id number] 09/04/2019 09:15:00 PM EDT [facility] Name Value Range Interpretation Description Data Sup porting Code Source(s) Document(s ) SARS [facility] coronavirus 2 RNA This lab was ordered by [facility] and reported by [facility]. Procedure
[2019-11-14 20:55] VITALS: BP 117/78; PULSE 79; TEMP 99; BMI 27.9
[2019-11-14] MEDS ORDERED: IBUPROFEN 600 MG TABLET (FP) PO ONE ×2 (21:33→21:34)
== END 2019-11-14 21:42 | disposition home or self-care (01) ==
LOC: FER 20:31
DX: S20.111A Abrasion of breast, right breast, initial encounter (principal)
CPT/HCPCS: 71046-TC-FY; 71101-TC-RT-FY; 99283-25

== ENCOUNTER 2020-01-18 14:05 | Inpatient (IN) | payer OTHER, MEDICARE ==
[2020-01-18 16:11] LABS: EOS % 4.4 % (0-4.5); HEMATOCRIT 35.1 % (35.4-49); HEMOGLOBIN 11.5 GM/dL (11.7-16.9); LYMPH % 22.5 % (8-40); MCH 32.3 pg (25.7-33.7); MCHC 32.6 g/dl (32.0-35.9); MEAN CELL VOLUME 99.1 fl (80-96); MEAN PLT VOLUME 6.4 fl (7.5-11.1); MONO % 10.6 % (3.8-10.2); NEUT % 59.5 % (42.8-82.8); PLATELET COUNT 121 K/MM3 (134-434); RBC 3.55 M/mm3 (4.00-5.60); RDW 15.7 % (11.9-15.9); WHITE BLOOD COUNT 5.7 K/mm3 (4.0-10.0)
[2020-01-18 16:21] LABS: INR 0.97 (0.83-1.09); PROTHROMBIN TIME (PATIENT) 11.9 SEC (9.7-13.0)
[2020-01-18 16:24] LABS: ACTIVATED PTT 32.3 SECONDS (25.2-36.5)
[2020-01-18 16:27] LABS: CHLORIDE 106 mmol/L (98-107); POTASSIUM 4.9 mmol/L (3.5-5.1); SODIUM 141 mmol/L (136-145)
[2020-01-18 16:28] LABS: CALCIUM 7.8 mg/dL (8.5-10.1)
[2020-01-18 16:29] LABS: ALBUMIN 3.3 g/dl (3.4-5.0); ANION GAP 15 MMOL/L (8-16); BLOOD UREA NITROGEN 90.4 mg/dL (7-18); CO2 20 mmol/L (21-32); GLUCOSE,RANDOM 134 mg/dL (74-106)
[2020-01-18 16:32] LABS: SGOT/AST 12 U/L (15-37); SGPT/ALT 14 U/L (13-61)
[2020-01-18 16:34] LABS: BILIRUBIN,TOTAL 0.3 mg/dL (0.2-1); TOT PROT 6.6 g/dl (6.4-8.2)
[2020-01-18 16:35] LABS: ALK PHOS 83 U/L (45-117)
[2020-01-18 16:58] LABS: CREATININE 7.7 mg/dL (0.55-1.3)
[2020-01-18] MEDS ORDERED: LORazepam 0.5 MG TABLET PO PRN (17:58)
[2020-01-18 21:07] VITALS: BMI 28.8
[2020-01-18] MEDS ORDERED: SODIUM CHLORIDE 250 ML IV PRN (21:43)
[2020-01-18] MEDS ORDERED: ATORVASTATIN CA 20 MG TABLET (FP) PO SCH (22:00)
[2020-01-18] MEDS ORDERED: DIVALPROEX SODIUM 500 MG TABLET E.C. PO SCH (22:00)
[2020-01-18] MEDS ORDERED: GABAPENTIN 100 MG CAPSULE PO SCH (22:00)
[2020-01-18] MEDS ORDERED: lamoTRIgine 100 MG TABLET PO SCH (22:00)
[2020-01-18] MEDS ORDERED: QUEtiapine FUMARATE 100 MG TABLET (FP) PO SCH (22:00)
[2020-01-19] MEDS ORDERED: VANCOMYCIN 1 GM in D5W (PRE-DOCKED) 1,000 MG/250 ML IVPB ONE (02:45)
[2020-01-19] MEDS ORDERED: PT OWN MED DRAWER 7, Y5N ONE (09:44)
[2020-01-19] MEDS ORDERED: FUROSEMIDE 40 MG TABLET (FP) PO SCH (10:00)
[2020-01-19] MEDS ORDERED: buPROPion HCL 100 MG TABLET PO SCH (10:00)
[2020-01-19 10:21] LABS: HEMATOCRIT 35.4 % (35.4-49); HEMOGLOBIN 11.5 GM/dL (11.7-16.9); MCH 32.2 pg (25.7-33.7); MCHC 32.6 g/dl (32.0-35.9); MEAN CELL VOLUME 98.9 fl (80-96); MEAN PLT VOLUME 6.4 fl (7.5-11.1); PLATELET COUNT 124 K/MM3 (134-434); RBC 3.58 M/mm3 (4.00-5.60); RDW 15.3 % (11.9-15.9)
[2020-01-19 10:46] LABS: POTASSIUM 5.8 mmol/L (3.5-5.1)
[2020-01-19 10:48] LABS: BLOOD UREA NITROGEN 102.2 mg/dL (7-18); CALCIUM 8.9 mg/dL (8.5-10.1)
[2020-01-19 11:00] LABS: CREATININE 8.8 mg/dL (0.55-1.3)
[2020-01-19 11:05] LABS: PHOSPHOROUS 8.5 mg/dL (2.5-4.9)
[2020-01-19] MEDS ORDERED: LIDOCAINE HCL 1%, 10 MG/ML (20ML VIAL) ONE (13:46)
[2020-01-19] MEDS ORDERED: ceFAZolin SODIUM 1 GM VIAL ONE (13:46)
[2020-01-19] MEDS ORDERED: PROPOFOL 20 ML ONE ×3 (13:58→13:59)
[2020-01-19] MEDS ORDERED: MIDAZOLAM HCL 2 MG/2 ML SINGLE DOSE VIAL ONE (13:59)
[2020-01-19] MEDS ORDERED: ONDANSETRON 4 MG/2 ML VIAL IVPUSH PRN ×2 (14:17→17:33)
[2020-01-19] MEDS ORDERED: oxyCODONE HCL 5 MG TABLET PO PRN ×2 (14:17→17:33)
[2020-01-19] MEDS ORDERED: VANCOMYCIN 1,000 MG VIAL (RESTRICTED TO ID ONLY) IVPB ONE (14:30)
[2020-01-19] MEDS ORDERED: LIDOCAINE HCL 1%, 10 MG/ML (20ML VIAL) NR ONE (15:04)
[2020-01-19] MEDS ORDERED: BUPIVACAINE HCL/PF 0.5% (5 MG/ML) 30 ML VIAL IJ ONE (15:04)
[2020-01-19] MEDS ORDERED: ACETAMINOPHEN 1000 MG/100 ML VIAL (NON FORMULARY) IVPB ONE ×2 (16:45→17:16)
[2020-01-19] MEDS ORDERED: SODIUM CHLORIDE 250 ML IV PRN (17:33)
[2020-01-19] MEDS ORDERED: LORazepam 0.5 MG TABLET PO PRN (17:33)
[2020-01-19] MEDS: DIVALPROEX SODIUM 500 MG TABLET E.C. PO SCH (21:42)
[2020-01-19] MEDS ORDERED: ATORVASTATIN CA 20 MG TABLET (FP) PO SCH (22:00)
[2020-01-19] MEDS ORDERED: lamoTRIgine 100 MG TABLET PO SCH (22:00)
[2020-01-19] MEDS ORDERED: QUEtiapine FUMARATE 100 MG TABLET (FP) PO SCH (22:00)
[2020-01-19] MEDS ORDERED: GABAPENTIN 100 MG CAPSULE PO SCH (22:00)
[2020-01-20] MEDS ORDERED: ENOXAPARIN NA (PORCINE) 30 MG/0.3 ML DISP.SYRIN SQ SCH (10:00)
[2020-01-20] MEDS ORDERED: FUROSEMIDE 40 MG TABLET (FP) PO SCH (10:00)
[2020-01-20] MEDS ORDERED: buPROPion HCL 100 MG TABLET PO SCH (10:00)
[2020-01-20] MEDS ORDERED: PT OWN MED DRAWER 7, Y5N ONE ×2 (10:25→10:26)
[2020-01-20] MEDS: DIVALPROEX SODIUM 500 MG TABLET E.C. PO SCH (10:28)
[2020-01-20] MEDS ORDERED: metoPROLOL SUCCINATE 25 MG TAB.SR.24H (FP) PO SCH (10:30)
[2020-01-20 14:50] VITALS: BP 119/66; PULSE 102; TEMP 97.7
== END 2020-01-20 16:41 | disposition home or self-care (01) | DRG 258 ==
LOC: JER 14:05 → JERBED 15:19 → J4W 19:09
PROVIDERS: ADMIT Internal Medicine; ATTEND Internal Medicine
PROC: 0JH606Z Insertion of Pacemaker, Dual Chamber into Chest Subcutaneous Tissue and Fascia, Open Approach (ICD-10-PCS; 2020-01-19)
PROC: 0JPT02Z Removal of Monitoring Device from Trunk Subcutaneous Tissue and Fascia, Open Approach (ICD-10-PCS; 2020-01-19)
PROC: 5A1D70Z Performance of Urinary Filtration, Intermittent, Less than 6 Hours Per Day (ICD-10-PCS; principal; 2020-01-19 14:00)
DX: I44.2 Atrioventricular block, complete (principal); N18.6 End stage renal disease; I12.0 Hypertensive chronic kidney disease with stage 5 chronic kidney disease or end stage renal disease; I49.5 Sick sinus syndrome; Z99.2 Dependence on renal dialysis; Z87.891 Personal history of nicotine dependence; E87.5 Hyperkalemia; F31.9 Bipolar disorder, unspecified; F20.9 Schizophrenia, unspecified
CPT/HCPCS: 36415; 71045-TC-FY; 71046-TC-FY; 76000-TC-FY; 80048; 80053; 84100; 84484; 85025; 85027; 85610; 85730; 86803; 87340; 93005; 93010; 94760; 99285-25; C9803; J0131; U0003

== ENCOUNTER 2020-04-05 04:29 | Day surgery (SDC) | payer OTHER, MEDICARE ==
[2020-04-02 15:32] VITALS: BMI 29.2
[2020-04-05] MEDS ORDERED: LIDOCAINE HCL 1%, 10 MG/ML (20ML VIAL) ONE (13:36)
[2020-04-05] MEDS ORDERED: HEPARIN NA (PORCINE) 5,000 UNITS/ML 1ML VIAL ONE (13:36)
[2020-04-05] MEDS ORDERED: POVIDONE-IODINE OINTMENT 10% - 28.4 GM TUBE ONE (13:37)
[2020-04-05] MEDS ORDERED: HEPARIN NA (PORCINE) 5,000 UNITS/ML 1ML VIAL SQ ONE (13:43)
[2020-04-05] MEDS ORDERED: LIDOCAINE HCL 1%, 10 MG/ML (20ML VIAL) SQ ONE (13:46)
[2020-04-05] MEDS ORDERED: PROPOFOL 20 ML ONE ×8 (14:13→16:19)
[2020-04-05] MEDS ORDERED: MIDAZOLAM HCL 2 MG/2 ML SINGLE DOSE VIAL ONE (14:14)
[2020-04-05] MEDS ORDERED: LIDOCAINE HCL/PF 2% SDV 5ML VIAL ONE (14:48)
[2020-04-05] MEDS ORDERED: ONDANSETRON 4 MG/2 ML VIAL IVPUSH PRN (15:22)
[2020-04-05] MEDS ORDERED: ceFAZolin SODIUM 1 GM VIAL ONE (15:42)
[2020-04-05] MEDS ORDERED: ceFAZolin SODIUM 1 GM VIAL IVPB ONE (15:48)
[2020-04-05] MEDS ORDERED: BACITRACIN 15 GM TUBE TOPICAL OINTMENT ONE (17:28)
[2020-04-05 18:35] VITALS: BP 140/83; PULSE 80; TEMP 97.4
== END 2020-04-05 18:15 | disposition home or self-care (01) ==
LOC: JASU-SURG 04:29
PROVIDERS: ATTEND Surgery
PROC: 03150JV Bypass Right Axillary Artery to Superior Vena Cava with Synthetic Substitute, Open Approach (ICD-10-PCS; 2020-04-05)
PROC: 05L70ZZ Occlusion of Right Axillary Vein, Open Approach (ICD-10-PCS; principal; 2020-04-05 13:30)
DX: T82.898A Other specified complication of vascular prosthetic devices, implants and grafts, initial encounter (principal); I12.0 Hypertensive chronic kidney disease with stage 5 chronic kidney disease or end stage renal disease; E11.22 Type 2 diabetes mellitus with diabetic chronic kidney disease; N18.6 End stage renal disease; Z99.2 Dependence on renal dialysis
CPT/HCPCS: 36415; 84132; 94760; J1644

== ENCOUNTER 2020-04-12 12:54 | Inpatient (IN) | payer OTHER, MEDICARE ==
[2020-04-12 13:36] VITALS: BMI 29.5
[2020-04-12] MEDS ORDERED: VANCOMYCIN 1 GM in D5W (PRE-DOCKED) 1,000 MG/250 ML IVPB ONE (13:41)
[2020-04-12] MEDS ORDERED: PIPERACILLIN/TAZOB 2.25 GM 2.25 GM in DEXTROSE 5%-WATER - 50 ML IVPB ONE (14:19)
[2020-04-12] MEDS ORDERED: PIPERACILLIN/TAZOB 2.25 GM 2.25 GM/50 ML BAG IVPB ONE (14:29)
[2020-04-12] MEDS ORDERED: VANCOMYCIN 1 GRAM (PRE-DOCKED) 1,000 MG/250 ML BAG IVPB ONE (14:43)
[2020-04-12 14:46] LABS: BASO % 0.6 % (0-2.0); EOS % 2.5 % (0-4.5); HEMATOCRIT 35.1 % (35.4-49); HEMOGLOBIN 11.7 GM/dL (11.7-16.9); LYMPH % 14.6 % (8-40); MCH 33.5 pg (25.7-33.7); MCHC 33.3 g/dl (32.0-35.9); MEAN CELL VOLUME 100.6 fl (80-96); MEAN PLT VOLUME 7.1 fl (7.5-11.1); MONO % 8.7 % (3.8-10.2); NEUT % 73.6 % (42.8-82.8); PLATELET COUNT 194 K/MM3 (134-434); RBC 3.49 M/mm3 (4.00-5.60); RDW 15.9 % (11.9-15.9); WHITE BLOOD COUNT 6.2 K/mm3 (4.0-10.0)
[2020-04-12 14:54] LABS: INR 0.96 (0.83-1.09); PROTHROMBIN TIME (PATIENT) 11.6 SEC (9.7-13.0)
[2020-04-12 14:56] LABS: ACTIVATED PTT 24.5 SECONDS (25.2-36.5)
[2020-04-12 15:12] LABS: CHLORIDE 108 mmol/L (98-107); POTASSIUM 4.9 mmol/L (3.5-5.1); SODIUM 139 mmol/L (136-145)
[2020-04-12 15:14] LABS: ALBUMIN 3.6 g/dl (3.4-5.0); ANION GAP 9 MMOL/L (8-16); BLOOD UREA NITROGEN 56.9 mg/dL (7-18); CO2 23 mmol/L (21-32); GLUCOSE,RANDOM 97 mg/dL (74-106)
[2020-04-12 15:17] LABS: SGPT/ALT 9 U/L (13-61)
[2020-04-12 15:18] LABS: SGOT/AST 9 U/L (15-37)
[2020-04-12 15:19] LABS: BILIRUBIN,TOTAL 0.7 mg/dL (0.2-1); TOT PROT 7.3 g/dl (6.4-8.2)
[2020-04-12 15:20] LABS: ALK PHOS 86 U/L (45-117)
[2020-04-12 15:23] LABS: CALCIUM 8.6 mg/dL (8.5-10.1)
[2020-04-12] MEDS ORDERED: ENOXAPARIN NA (PORCINE) 30 MG/0.3 ML DISP.SYRIN SQ ONE (18:31)
[2020-04-12] MEDS: ENOXAPARIN NA (PORCINE) 30 MG/0.3 ML DISP.SYRIN SQ SCH (19:31)
[2020-04-12 20:42] LABS: EPI CELLS 3 /uL (0-25.1); HYALINE CASTS 0 /uL (0-3.1); PH,URINE 7.5 (5.0-8.0); URINE APPEARANCE CLEAR; URINE BACTERIA 146 /uL (0-1359); URINE BILIRUBIN NEGATIVE (NEGATIVE); URINE COLOR YELLOW; URINE GLUCOSE (UA) 1+ (NEGATIVE); URINE KETONE NEGATIVE (NEGATIVE); URINE LEUK ESTERASE NEGATIVE (NEGATIVE); URINE NITRITE NEGATIVE (NEGATIVE); URINE PROTEIN 1+ (NEGATIVE); URINE RBC 13 /uL (0-23.9); URINE UROBILINOGEN 0.2 mg/dL (0.2-1.0); URINE WBC 2 /uL (0-25.8)
[2020-04-12] MEDS ORDERED: ATORVASTATIN CA 20 MG TABLET (FP) ONE (21:06)
[2020-04-12] MEDS ORDERED: DIVALPROEX SODIUM 500 MG TABLET E.C. ONE (21:07)
[2020-04-12] MEDS ORDERED: QUEtiapine FUMARATE 100 MG TABLET (FP) ONE (21:07)
[2020-04-12] MEDS ORDERED: GABAPENTIN 100 MG CAPSULE ONE (21:07)
[2020-04-12] MEDS ORDERED: lamoTRIgine 100 MG TABLET ONE (21:07)
[2020-04-12] MEDS: DIVALPROEX SODIUM 500 MG TABLET E.C. PO SCH (21:17)
[2020-04-12] MEDS: lamoTRIgine 100 MG TABLET PO SCH (21:17)
[2020-04-12] MEDS: GABAPENTIN 100 MG CAPSULE PO SCH (21:17)
[2020-04-12] MEDS: ATORVASTATIN CA 20 MG TABLET (FP) PO SCH (21:17)
[2020-04-12] MEDS: QUEtiapine FUMARATE 100 MG TABLET (FP) PO SCH (21:54)
[2020-04-12] MEDS ORDERED: SEVELAMER CARBONATE 800 MG TAB (FP) PO SCH (22:00)
[2020-04-12] MEDS ORDERED: QUEtiapine FUMARATE 300 MG TABLET PO SCH (22:00)
[2020-04-13] MEDS ORDERED: LORazepam 1 MG TABLET ONE (01:43)
[2020-04-13] MEDS: LORazepam 1 MG TABLET PO PRN (02:03)
[2020-04-13 07:52] LABS: BASO % 0.4 % (0-2.0); EOS % 2.4 % (0-4.5); HEMOGLOBIN 10.6 GM/dL (11.7-16.9); LYMPH % 17.9 % (8-40); MCH 33.3 pg (25.7-33.7); MCHC 33.3 g/dl (32.0-35.9); MEAN PLT VOLUME 6.6 fl (7.5-11.1); MONO % 13.5 % (3.8-10.2); NEUT % 65.8 % (42.8-82.8); PLATELET COUNT 182 K/MM3 (134-434); WHITE BLOOD COUNT 6.5 K/mm3 (4.0-10.0)
[2020-04-13] MEDS ORDERED: ENOXAPARIN NA (PORCINE) 40 MG/0.4 ML DISP.SYRIN SQ ONE (08:01)
[2020-04-13] MEDS: ENOXAPARIN NA (PORCINE) 30 MG/0.3 ML DISP.SYRIN SQ SCH (11:24)
[2020-04-13] MEDS: SEVELAMER CARBONATE 800 MG TAB (FP) PO SCH ×3 (11:24→17:53)
[2020-04-13] MEDS: DIVALPROEX SODIUM 500 MG TABLET E.C. PO SCH ×2 (12:35→21:57)
[2020-04-13] MEDS: buPROPion HCL 100 MG TABLET PO SCH (12:36)
[2020-04-13] MEDS ORDERED: SODIUM CHLORIDE 250 ML IV PRN (16:12)
[2020-04-13] MEDS: QUEtiapine FUMARATE 100 MG TABLET (FP) PO SCH (21:35)
[2020-04-13] MEDS: GABAPENTIN 100 MG CAPSULE PO SCH (21:36)
[2020-04-13] MEDS: ATORVASTATIN CA 20 MG TABLET (FP) PO SCH (21:36)
[2020-04-13] MEDS ORDERED: PT OWN MED DRAWER 7, Y5N ONE (21:38)
[2020-04-13] MEDS: lamoTRIgine 100 MG TABLET PO SCH (21:57)
[2020-04-14] MEDS ORDERED: PT OWN MED DRAWER 7, Y5N ONE (09:28)
[2020-04-14] MEDS: LORazepam 1 MG TABLET PO PRN (09:52)
[2020-04-14] MEDS: SEVELAMER CARBONATE 800 MG TAB (FP) PO SCH ×2 (09:52→14:48)
[2020-04-14] MEDS: DIVALPROEX SODIUM 500 MG TABLET E.C. PO SCH (09:53)
[2020-04-14] MEDS: buPROPion HCL 100 MG TABLET PO SCH (11:15)
[2020-04-14] MEDS: ENOXAPARIN NA (PORCINE) 30 MG/0.3 ML DISP.SYRIN SQ SCH (11:15)
[2020-04-14 11:54] LABS: HEMATOCRIT 28.9 % (35.4-49); HEMOGLOBIN 9.5 GM/dL (11.7-16.9); MCH 33.2 pg (25.7-33.7); MCHC 33.1 g/dl (32.0-35.9); MEAN CELL VOLUME 100.5 fl (80-96); MEAN PLT VOLUME 6.5 fl (7.5-11.1); PLATELET COUNT 170 K/MM3 (134-434); RBC 2.87 M/mm3 (4.00-5.60); RDW 16.1 % (11.9-15.9)
[2020-04-14 12:16] LABS: POTASSIUM 4.6 mmol/L (3.5-5.1)
[2020-04-14 12:18] LABS: BLOOD UREA NITROGEN 78.2 mg/dL (7-18)
[2020-04-14 12:31] LABS: CALCIUM 8.3 mg/dL (8.5-10.1)
[2020-04-14 12:36] LABS: CREATININE 7.5 mg/dL (0.55-1.3)
[2020-04-14 14:40] VITALS: BP 113/72; PULSE 109; TEMP 97.7
[2020-04-15 20:07] LABS: HEP B CORE AB, TOT Negative (Negative)
== END 2020-04-14 17:50 | disposition home or self-care (01) | DRG 314 ==
LOC: JER 12:54 → JERBED 16:02 → J6S 04-13 16:38
PROVIDERS: ADMIT Internal Medicine; ATTEND Internal Medicine
PROC: 5A1D70Z Performance of Urinary Filtration, Intermittent, Less than 6 Hours Per Day (ICD-10-PCS; principal; 2020-04-14)
DX: T82.898A Other specified complication of vascular prosthetic devices, implants and grafts, initial encounter (principal); N18.6 End stage renal disease; I12.0 Hypertensive chronic kidney disease with stage 5 chronic kidney disease or end stage renal disease; F20.9 Schizophrenia, unspecified; F31.9 Bipolar disorder, unspecified; E11.42 Type 2 diabetes mellitus with diabetic polyneuropathy; I95.9 Hypotension, unspecified; I44.0 Atrioventricular block, first degree; I25.10 Atherosclerotic heart disease of native coronary artery without angina pectoris; E11.22 Type 2 diabetes mellitus with diabetic chronic kidney disease; Z99.2 Dependence on renal dialysis; Z95.0 Presence of cardiac pacemaker; Y83.8 Other surgical procedures as the cause of abnormal reaction of the patient, or of later complication, without mention of misadventure at the time of the procedure; D63.1 Anemia in chronic kidney disease; E66.3 Overweight
CPT/HCPCS: 36415; 71045-TC-FY; 80048; 80053; 81003; 83605; 84100; 84484; 85025; 85027; 85610; 85730; 86704; 86706; 86707; 86708; 86709; 86803; 87040; 87086; 87340; 93005; 93010; 93971; 99285-25; C9803; U0003

== ENCOUNTER 2020-07-14 15:26 | Emergency (ER) | payer OTHER, MEDICARE ==
[2020-07-14 15:47] VITALS: BP 115/75; PULSE 76; TEMP 98; BMI 30.3
== END 2020-07-14 17:27 | disposition home or self-care (01) ==
LOC: FER 15:26
DX: Z04.1 Encounter for examination and observation following transport accident (principal)
CPT/HCPCS: 99281-25

== ENCOUNTER 2021-01-26 13:21 | Emergency (ER) | payer OTHER, MEDICARE ==
[2021-01-26 13:46] VITALS: BP 111/86; PULSE 87; TEMP 98.3; BMI 30.3
[2021-01-26 16:54] LABS: BASO % 0.5 % (0-2.0); EOS % 2.1 % (0-4.5); HEMATOCRIT 38.7 % (35.4-49); LYMPH % 28.6 % (8-40); MCH 33.5 pg (25.7-33.7); MCHC 33.7 g/dl (32.0-35.9); MEAN CELL VOLUME 99.4 fl (80-96); MEAN PLT VOLUME 7.6 fl (7.5-11.1); MONO % 11.3 % (3.8-10.2); NEUT % 57.5 % (42.8-82.8); PLATELET COUNT 103 10^3/uL (134-434); RBC 3.89 M/mm3 (4.00-5.60); RDW 15.3 % (11.9-15.9); WHITE BLOOD COUNT 5.8 K/mm3 (4.0-10.0)
[2021-01-26 17:05] LABS: CHLORIDE 105 mmol/L (98-107); SODIUM 134 mmol/L (136-145)
[2021-01-26 17:07] LABS: BLOOD UREA NITROGEN 53.2 mg/dL (7-18); CALCIUM 9.8 mg/dL (8.5-10.1); CO2 25 mmol/L (21-32); GLUCOSE,RANDOM 77 mg/dL (74-106)
[2021-01-26 17:10] LABS: PHOSPHOROUS 4.9 mg/dL (2.5-4.9); SGPT/ALT 17 U/L (13-61)
[2021-01-26 17:11] LABS: SGOT/AST 52 U/L (15-37)
[2021-01-26 17:12] LABS: BILIRUBIN,TOTAL 0.2 mg/dL (0.2-1); TOT PROT 6.8 g/dl (6.4-8.2)
[2021-01-26 17:13] LABS: ALK PHOS 47 U/L (45-117)
[2021-01-26 17:23] LABS: ANION GAP 5 MMOL/L (8-16)
[2021-01-26 22:31] LABS: CHLORIDE 108 mmol/L (98-107); SODIUM 140 mmol/L (136-145)
[2021-01-26 22:33] LABS: ANION GAP 7 MMOL/L (8-16); BLOOD UREA NITROGEN 60.1 mg/dL (7-18); CO2 26 mmol/L (21-32); GLUCOSE,RANDOM 84 mg/dL (74-106)
[2021-01-26 22:36] LABS: CREATININE 5.6 mg/dL (0.55-1.3)
== END 2021-01-26 23:46 ==
LOC: JER 13:21
DX: R20.2 Paresthesia of skin (principal); R53.1 Weakness
CPT/HCPCS: 36415; 70450-TC; 80048; 80053; 82550; 82962; 83735; 84100; 84484; 85025; 93005; 93010; 99285-25

== ENCOUNTER 2021-02-01 12:27 | Inpatient (IN) | payer OTHER, MEDICARE ==
[2021-02-01] MEDS ORDERED: ACETAMINOPHEN 325 MG TABLET (FP) PO ONE (14:18)
[2021-02-01] MEDS ORDERED: ACETAMINOPHEN 325 MG TABLET (FP) ONE (14:22)
[2021-02-01 16:13] LABS: BASO % 0.7 % (0-2.0); EOS % 1.4 % (0-4.5); HEMATOCRIT 41.1 % (35.4-49); HEMOGLOBIN 13.8 GM/dL (11.7-16.9); LYMPH % 17.8 % (8-40); MCH 33.8 pg (25.7-33.7); MCHC 33.6 g/dl (32.0-35.9); MEAN CELL VOLUME 100.4 fl (80-96); MEAN PLT VOLUME 6.6 fl (7.5-11.1); MONO % 10.6 % (3.8-10.2); NEUT % 69.5 % (42.8-82.8); PLATELET COUNT 85 10^3/uL (134-434); RBC 4.09 M/mm3 (4.00-5.60); RDW 15.2 % (11.9-15.9); WHITE BLOOD COUNT 5.2 K/mm3 (4.0-10.0)
[2021-02-01 16:26] LABS: CHLORIDE 100 mmol/L (98-107); SODIUM 137 mmol/L (136-145)
[2021-02-01 16:32] LABS: ANION GAP 9 MMOL/L (8-16); BLOOD UREA NITROGEN 64.1 mg/dL (7-18); CALCIUM 9.3 mg/dL (8.5-10.1); CO2 28 mmol/L (21-32); GLUCOSE,RANDOM 75 mg/dL (74-106)
[2021-02-01 16:35] LABS: SGOT/AST 13 U/L (15-37); SGPT/ALT 14 U/L (13-61)
[2021-02-01 16:37] LABS: BILIRUBIN,TOTAL 0.5 mg/dL (0.2-1); TOT PROT 7.4 g/dl (6.4-8.2)
[2021-02-01 16:38] LABS: ALK PHOS 53 U/L (45-117)
[2021-02-01 16:49] LABS: ALBUMIN 3.7 g/dl (3.4-5.0); CREATININE 7.5 mg/dL (0.55-1.3)
[2021-02-01] MEDS ORDERED: SODIUM CHLORIDE 250 ML IV PRN (22:24)
[2021-02-01] MEDS ORDERED: INSULIN REGULAR HUMAN 100 UNITS/ML *VIAL IVPUSH ONE (23:44)
[2021-02-01] MEDS ORDERED: DEXTROSE 50%-WATER - 25 GM/50 ML VIAL IVPUSH ONE (23:44)
[2021-02-01] MEDS ORDERED: DEXTROSE 50%-WATER 25 GM/50 ML DISP.SYRIN ONE (23:56)
[2021-02-02] MEDS ORDERED: POLYETHYLENE GLYCOL (HEALTHYLAX) 3350 17 GM PACKET PO PRN (00:24)
[2021-02-02] MEDS ORDERED: ACETAMINOPHEN 325 MG TABLET (FP) PO PRN (00:24)
[2021-02-02] MEDS ORDERED: LORazepam 0.5 MG TABLET PO SCH (00:45)
[2021-02-02] MEDS ORDERED: LORazepam 0.5 MG TABLET PO PRN (00:50)
[2021-02-02] MEDS ORDERED: DEXTROSE 50%-WATER - 25 GM/50 ML VIAL IVPUSH PRN (04:17)
[2021-02-02] MEDS ORDERED: DEXTROSE 50%-WATER 25 GM/50 ML DISP.SYRIN ONE (04:21)
[2021-02-02 04:40] LABS: HEMATOCRIT 41.6 % (35.4-49); MCH 33.5 pg (25.7-33.7); MCHC 33.7 g/dl (32.0-35.9); MEAN CELL VOLUME 99.6 fl (80-96); MEAN PLT VOLUME 6.4 fl (7.5-11.1); PLATELET COUNT 83 10^3/uL (134-434); RBC 4.18 M/mm3 (4.00-5.60); RDW 15.3 % (11.9-15.9); WHITE BLOOD COUNT 5.5 K/mm3 (4.0-10.0)
[2021-02-02 05:00] LABS: CHLORIDE 108 mmol/L (98-107); SODIUM 142 mmol/L (136-145)
[2021-02-02 05:02] LABS: ANION GAP 10 MMOL/L (8-16); BLOOD UREA NITROGEN 72.7 mg/dL (7-18); CALCIUM 9.1 mg/dL (8.5-10.1); CO2 24 mmol/L (21-32); GLUCOSE,RANDOM 55 mg/dL (74-106)
[2021-02-02 05:06] LABS: PHOSPHOROUS 7.8 mg/dL (2.5-4.9)
[2021-02-02 05:08] LABS: CREATININE 8.1 mg/dL (0.55-1.3)
[2021-02-02] MEDS ORDERED: HEPARIN NA (PORCINE) 5,000 UNITS/ML 1ML VIAL ONE (06:07)
[2021-02-02] MEDS: HEPARIN NA (PORCINE) 5,000 UNITS/ML 1ML VIAL SQ SCH ×2 (06:13→21:47)
[2021-02-02] MEDS: INSULIN SLIDING SCALE (NOVOLOG) 1 VIAL SQ SCH ×3 (07:00→21:44)
[2021-02-02] MEDS ORDERED: FUROSEMIDE 40 MG TABLET (FP) ONE (08:09)
[2021-02-02] MEDS ORDERED: buPROPion HCL 100 MG TABLET ONE (08:10)
[2021-02-02] MEDS ORDERED: DIVALPROEX SODIUM 500 MG TABLET E.C. ONE (08:10)
[2021-02-02] MEDS: DIVALPROEX SODIUM 500 MG TABLET E.C. PO SCH ×2 (09:00→21:43)
[2021-02-02] MEDS: FUROSEMIDE 40 MG TABLET (FP) PO SCH (10:00)
[2021-02-02 16:55] VITALS: BMI 28.8
[2021-02-02] MEDS ORDERED: INSULIN (NOVOLOG) ASPART 100 UNITS/ML 10ML VIAL ONE (21:21)
[2021-02-02] MEDS ORDERED: PT OWN MED DRAWER 7, Y5N ONE (21:21)
[2021-02-02] MEDS ORDERED: traZODone HCL 50 MG TABLET (FP) PO SCH (22:00)
[2021-02-02] MEDS ORDERED: MELATONIN 5 MG TABLETS PO SCH (22:00)
[2021-02-03] MEDS: INSULIN SLIDING SCALE (NOVOLOG) 1 VIAL SQ SCH ×3 (06:31→12:15)
[2021-02-03] MEDS: HEPARIN NA (PORCINE) 5,000 UNITS/ML 1ML VIAL SQ SCH ×2 (06:32→12:19)
[2021-02-03 08:51] LABS: BASO % 0.2 % (0-2.0); EOS % 1.1 % (0-4.5); HEMATOCRIT 42.4 % (35.4-49); HEMOGLOBIN 14.2 GM/dL (11.7-16.9); LYMPH % 23.9 % (8-40); MCH 33.3 pg (25.7-33.7); MCHC 33.6 g/dl (32.0-35.9); MEAN CELL VOLUME 99.3 fl (80-96); MEAN PLT VOLUME 6.4 fl (7.5-11.1); MONO % 10.8 % (3.8-10.2); PLATELET COUNT 73 10^3/uL (134-434); RBC 4.27 M/mm3 (4.00-5.60); RDW 15.2 % (11.9-15.9); WHITE BLOOD COUNT 5.5 K/mm3 (4.0-10.0)
[2021-02-03] MEDS ORDERED: PT OWN MED DRAWER 7, Y5N ONE (09:18)
[2021-02-03 09:27] LABS: BLOOD UREA NITROGEN 49.1 mg/dL (7-18); CALCIUM 9.6 mg/dL (8.5-10.1)
[2021-02-03 09:30] LABS: CREATININE 6.4 mg/dL (0.55-1.3)
[2021-02-03] MEDS: FUROSEMIDE 40 MG TABLET (FP) PO SCH (09:43)
[2021-02-03] MEDS: DIVALPROEX SODIUM 500 MG TABLET E.C. PO SCH (09:44)
[2021-02-03 11:17] VITALS: BP 118/71; PULSE 90; TEMP 98
[2021-02-03] MEDS ORDERED: SODIUM CHLORIDE 250 ML IV PRN (13:15)
[2021-02-03] MEDS ORDERED: FUROSEMIDE 40 MG TABLET (FP) PO PRN (13:16)
== END 2021-02-03 13:49 | disposition left against medical advice (07) | DRG 947 ==
LOC: JER 12:27 → JERBED 21:39 → OBSVTOIN 02-02 00:24 → J7W 02-02 16:54
PROVIDERS: ADMIT Hospitalist; ATTEND Internal Medicine
PROC: 5A1D70Z Performance of Urinary Filtration, Intermittent, Less than 6 Hours Per Day (ICD-10-PCS; principal; 2021-02-02)
DX: R53.1 Weakness (principal); N18.6 End stage renal disease; I12.0 Hypertensive chronic kidney disease with stage 5 chronic kidney disease or end stage renal disease; E11.22 Type 2 diabetes mellitus with diabetic chronic kidney disease; E11.42 Type 2 diabetes mellitus with diabetic polyneuropathy; F20.9 Schizophrenia, unspecified; F31.9 Bipolar disorder, unspecified; Z99.2 Dependence on renal dialysis; E78.5 Hyperlipidemia, unspecified; E87.5 Hyperkalemia; R29.6 Repeated falls; M54.81 Occipital neuralgia; I44.0 Atrioventricular block, first degree; R51.9 Headache, unspecified; E66.9 Obesity, unspecified; Z68.28 Body mass index [BMI] 28.0-28.9, adult
CPT/HCPCS: 36415; 70450-TC; 72125-TC; 72128-TC; 72131-TC; 80048; 80053; 80164; 82550; 82607; 82962; 82977; 83036; 84100; 84439; 84443; 84484; 85025; 85027; 86803; 87340; 93005; 93010; 99285-25; C9803; G0378; J1644; U0003; U0005

== ENCOUNTER 2021-06-01 11:49 | Observation (INO) | payer OTHER, MEDICARE ==
[2021-06-01] MEDS ORDERED: ACETAMINOPHEN 1000 MG/100 ML BAG IVPB ONE (13:08)
[2021-06-01] MEDS ORDERED: ONDANSETRON 4 MG/2 ML VIAL IVPB ONE (13:08)
[2021-06-01] MEDS ORDERED: ACETAMINOPHEN INJECTION 100 ML IVPB ONE (13:21)
[2021-06-01] MEDS ORDERED: ONDANSETRON 4 MG/2 ML VIAL ONE (13:21)
[2021-06-01] MEDS ORDERED: FAMOTIDINE 20 MG/50 ML IVPB 20 MG/50 ML MG IVPB ONE (13:29)
[2021-06-01] MEDS ORDERED: PANTOPRAZOLE SODIUM 40 MG VIAL IVPUSH ONE (13:29)
[2021-06-01] MEDS ORDERED: PANTOPRAZOLE SODIUM 40 MG/100 ML BAG IVPB ONE (13:38)
[2021-06-01] MEDS ORDERED: FAMOTIDINE 10 MG/ML VIAL IVPB ONE (13:38)
[2021-06-01 14:04] LABS: VENOUS BASE EXCESS -3.8 mmol/L (-2-2); VENOUS O2 SATURATION 81.1 % (70-80); VENOUS PH 7.321 (7.310-7.410)
[2021-06-01 14:10] LABS: BASO % 0.5 % (0-2.0); EOS % 1.8 % (0-4.5); HEMATOCRIT 37.4 % (35.4-49); HEMOGLOBIN 12.2 GM/dL (11.7-16.9); LYMPH % 25.5 % (8-40); MCH 32.3 pg (25.7-33.7); MCHC 32.6 g/dl (32.0-35.9); MEAN CELL VOLUME 98.9 fl (80-96); MEAN PLT VOLUME 6.8 fl (7.5-11.1); MONO % 12.8 % (3.8-10.2); NEUT % 59.4 % (42.8-82.8); PLATELET COUNT 99 10^3/uL (134-434); RBC 3.79 M/mm3 (4.00-5.60); RDW 14.7 % (11.9-15.9); WHITE BLOOD COUNT 4.8 K/mm3 (4.0-10.0)
[2021-06-01 14:32] LABS: BLOOD UREA NITROGEN 65.3 mg/dL (7-18); CALCIUM 9.8 mg/dL (8.5-10.1)
[2021-06-01 14:33] LABS: ALBUMIN 3.2 g/dl (3.4-5.0); MAGNESIUM 3.4 mg/dL (1.8-2.4)
[2021-06-01 14:34] LABS: CREATININE 6.9 mg/dL (0.55-1.3)
[2021-06-01 14:36] LABS: BILIRUBIN,TOTAL 0.3 mg/dL (0.2-1); PHOSPHOROUS 8.2 mg/dL (2.5-4.9); TOT PROT 6.3 g/dl (6.4-8.2)
[2021-06-01] MEDS ORDERED: SODIUM CHLORIDE 250 ML IV PRN (15:26)
[2021-06-01 18:55] VITALS: TEMP 97.8
[2021-06-01 19:30] LABS: INR 1.03 (0.83-1.09); PROTHROMBIN TIME (PATIENT) 11.8 SEC (9.7-13.0)
[2021-06-01 19:32] LABS: ACTIVATED PTT 33.3 SECONDS (25.2-36.5)
[2021-06-01] MEDS ORDERED: FAMOTIDINE 20 MG/50 ML IVPB 20 MG/50 ML MG IVPB SCH (21:00)
[2021-06-01] MEDS ORDERED: DIVALPROEX SODIUM 500 MG TABLET E.C. PO SCH (22:00)
[2021-06-01] MEDS ORDERED: hydrALAZINE HCL 25 MG TABLET (FP) PO SCH (22:00)
[2021-06-02 00:31] VITALS: BP 112/88; PULSE 82; BMI 27.3
[2021-06-02] MEDS ORDERED: SEVELAMER CARBONATE 2.4 GM POWDER PACKET PO SCH (08:00)
[2021-06-02] MEDS ORDERED: FUROSEMIDE 40 MG TABLET (FP) PO SCH (10:00)
[2021-06-02] MEDS ORDERED: PANTOPRAZOLE 40 MG TABLET PO SCH (10:00)
[2021-06-02] MEDS ORDERED: FAMOTIDINE 20 MG/50 ML IVPB 20 MG/50 ML MG IVPB SCH (21:00)
== END 2021-06-02 00:15 | disposition left against medical advice (07) ==
LOC: JER 11:49 → JERBED 14:58 → J6S 22:15
PROVIDERS: ADMIT Internal Medicine; ATTEND Internal Medicine
PROC: 3E033NZ Introduction of Analgesics, Hypnotics, Sedatives into Peripheral Vein, Percutaneous Approach (ICD-10-PCS; principal; 2021-06-01)
PROC: 3E033GC Introduction of Other Therapeutic Substance into Peripheral Vein, Percutaneous Approach (ICD-10-PCS; 2021-06-01)
DX: T54.91XA Toxic effect of unspecified corrosive substance, accidental (unintentional), initial encounter (principal); F31.9 Bipolar disorder, unspecified; E11.22 Type 2 diabetes mellitus with diabetic chronic kidney disease; E78.5 Hyperlipidemia, unspecified; G62.9 Polyneuropathy, unspecified; I13.11 Hypertensive heart and chronic kidney disease without heart failure, with stage 5 chronic kidney disease, or end stage renal disease; N18.6 End stage renal disease; Z99.2 Dependence on renal dialysis; F19.11 Other psychoactive substance abuse, in remission; Z87.891 Personal history of nicotine dependence; I45.10 Unspecified right bundle-branch block
CPT/HCPCS: 36415; 71045-TC-FY; 74177-TC; 80053; 80307; 82803; 83605; 83690; 83735; 84100; 84484; 85025; 85610; 85730; 86803; 87340; 93005; 93010; 96365; 96375; 99285-25; C9803-CS; G0378; Q9967; U0003; U0005

== ENCOUNTER 2021-06-14 15:15 | Inpatient (IN) | payer OTHER, MEDICARE ==
[2021-06-14] MEDS ORDERED: LACTATED RINGERS SOLUTION 1000 ML INFUS.BAG IV ONE (15:29)
[2021-06-14] MEDS ORDERED: ONDANSETRON 4 MG/2 ML VIAL IVPUSH ONE (15:30)
[2021-06-14 15:47] VITALS: BMI 27.0
[2021-06-14 16:21] LABS: INR 0.99 (0.83-1.09); PROTHROMBIN TIME (PATIENT) 11.4 SEC (9.7-13.0)
[2021-06-14 16:23] LABS: ACTIVATED PTT 32.4 SECONDS (25.2-36.5)
[2021-06-14 16:27] LABS: ALBUMIN 3.3 g/dl (3.4-5.0); BILIRUBIN,TOTAL 0.7 mg/dl (0.2-1); CALCIUM 8.7 mg/dl (8.5-10); CREATININE 3.9 mg/dl (0.55-1.3); TOT PROT 6.6 g/dl (6.4-8.2)
[2021-06-14 16:40] LABS: HEMOGLOBIN 12.8 G/dL (11.7-16.9); RBC 3.77 10^6/uL (4.00-5.60); WHITE BLOOD COUNT 5.6 10^3/uL (4.0-10.8)
[2021-06-14 16:41] LABS: HEMATOCRIT 37.4 % (35.4-49); MCHC 34.3 g/dl (32.0-35.9); MEAN CELL VOLUME 99.2 fl (80-96); MEAN PLT VOLUME 7.3 fl (7.5-11.1); PLATELET COUNT 100.5 10^3/uL (134-434); RDW 14.9 % (11.9-15.9)
[2021-06-14 16:42] LABS: VENOUS BASE EXCESS -1.5 mmol/L (-2-2); VENOUS O2 SATURATION 91.3 % (70-80); VENOUS PCO2 37.1 mmHg (38-52); VENOUS PH 7.407 (7.310-7.410)
[2021-06-14 17:46] LABS: MAGNESIUM 2.2 mg/dL (1.8-2.4); PHOSPHOROUS 3.5 mg/dl (2.5-4.9)
[2021-06-14 18:48] LABS: PLATELET ESTIMATE ADEQUATE
[2021-06-15 01:36] LABS: CALCIUM 8.7 mg/dL (8.5-10.1)
[2021-06-15 01:37] LABS: BLOOD UREA NITROGEN 41.8 mg/dL (7-18)
[2021-06-15 01:40] LABS: CREATININE 4.9 mg/dL (0.55-1.3)
[2021-06-15 07:15] LABS: BASO % 0.4 % (0-2.0); EOS % 2.3 % (0-4.5); HEMATOCRIT 37.5 % (35.4-49); HEMOGLOBIN 12.4 GM/dL (11.7-16.9); LYMPH % 22.1 % (8-40); MCH 32.9 pg (25.7-33.7); MEAN CELL VOLUME 99.7 fl (80-96); MEAN PLT VOLUME 6.5 fl (7.5-11.1); MONO % 14.1 % (3.8-10.2); NEUT % 61.1 % (42.8-82.8); PLATELET COUNT 104 10^3/uL (134-434); RBC 3.77 M/mm3 (4.00-5.60); RDW 15.4 % (11.9-15.9); WHITE BLOOD COUNT 5.3 K/mm3 (4.0-10.0)
[2021-06-15 07:40] LABS: CHOLESTEROL 168 mg/dL (50-200); TRIGLYCERIDES 148 mg/dL (0-150)
[2021-06-15 07:41] LABS: LDL CHOLESTEROL (ONLY SJRH) 98 mg/dL (5-100)
[2021-06-15 07:42] LABS: HDL CHOLESTEROL 37 mg/dL (40-60)
[2021-06-15 09:53] LABS: N-TERMINAL BNP 7622.8 pg/ml (5-125)
[2021-06-15 11:00] LABS: BLOOD UREA NITROGEN 44.5 mg/dL (7-18); CREATININE 5.3 mg/dL (0.55-1.3); GLUCOSE,RANDOM 86 mg/dL (74-106); SODIUM 140 mmol/L (136-145)
[2021-06-15 11:01] LABS: ALK PHOS 45 U/L (45-117); BILIRUBIN,TOTAL 0.4 mg/dL (0.2-1); CALCIUM 8.7 mg/dL (8.5-10.1); CHLORIDE 107 mmol/L (98-107); CO2 24 mmol/L (21-32); SGOT/AST 7 U/L (15-37); SGPT/ALT 11 U/L (13-61); TOT PROT 6.1 g/dl (6.4-8.2)
[2021-06-15] MEDS: LORazepam 1 MG TABLET PO SCH ×2 (11:17→21:31)
[2021-06-15] MEDS ORDERED: SODIUM CHLORIDE 250 ML IV PRN (13:16)
[2021-06-15] MEDS ORDERED: lamoTRIgine 100 MG TABLET PO SCH (22:00)
[2021-06-15] MEDS ORDERED: traZODone HCL 50 MG TABLET (FP) PO SCH (22:00)
[2021-06-16 07:55] VITALS: TEMP 98.2
[2021-06-16 09:01] LABS: HEMATOCRIT 35.2 % (35.4-49); HEMOGLOBIN 11.7 GM/dL (11.7-16.9); MCHC 33.4 g/dl (32.0-35.9); MEAN CELL VOLUME 98.9 fl (80-96); MEAN PLT VOLUME 6.5 fl (7.5-11.1); PLATELET COUNT 98 10^3/uL (134-434); RBC 3.56 M/mm3 (4.00-5.60); RDW 15.6 % (11.9-15.9); WHITE BLOOD COUNT 4.6 K/mm3 (4.0-10.0)
[2021-06-16] MEDS: LORazepam 1 MG TABLET PO SCH (09:18)
[2021-06-16 09:32] LABS: BLOOD UREA NITROGEN 45.7 mg/dL (7-18); CALCIUM 8.7 mg/dL (8.5-10.1)
[2021-06-16 09:35] LABS: CREATININE 5.3 mg/dL (0.55-1.3)
[2021-06-16 09:36] LABS: PHOSPHOROUS 4.9 mg/dL (2.5-4.9)
[2021-06-16] MEDS ORDERED: DIVALPROEX SODIUM 500 MG TABLET E.C. PO SCH (10:00)
[2021-06-16 11:29] VITALS: BP 128/82; PULSE 74
== END 2021-06-16 14:11 | disposition home or self-care (01) | DRG 640 ==
LOC: FER 15:15 → FM/S 19:19 → J4W 06-15 04:05 → JERBED 06-15 04:36 → J4W 06-15 04:37
PROVIDERS: ADMIT Internal Medicine; ATTEND Internal Medicine
PROC: 5A1D70Z Performance of Urinary Filtration, Intermittent, Less than 6 Hours Per Day (ICD-10-PCS; principal; 2021-06-16)
DX: E87.1 Hypo-osmolality and hyponatremia (principal); N18.6 End stage renal disease; I13.2 Hypertensive heart and chronic kidney disease with heart failure and with stage 5 chronic kidney disease, or end stage renal disease; I50.22 Chronic systolic (congestive) heart failure; I42.8 Other cardiomyopathies; F20.9 Schizophrenia, unspecified; F31.9 Bipolar disorder, unspecified; E11.22 Type 2 diabetes mellitus with diabetic chronic kidney disease; I25.10 Atherosclerotic heart disease of native coronary artery without angina pectoris; E11.42 Type 2 diabetes mellitus with diabetic polyneuropathy; I44.0 Atrioventricular block, first degree; R55 Syncope and collapse; R94.31 Abnormal electrocardiogram [ECG] [EKG]; I45.10 Unspecified right bundle-branch block; Y92.89 Other specified places as the place of occurrence of the external cause; W18.39XA Other fall on same level, initial encounter; Y99.8 Other external cause status; Z99.2 Dependence on renal dialysis
CPT/HCPCS: 0241U-QW; 36415; 70450-TC; 71045-TC-FY; 80048; 80053; 80061; 80164; 82803; 82962; 83036; 83690; 83735; 83880; 84100; 84439; 84443; 84484; 85025; 85027; 85610; 85730; 87807; 93005; 93306-TC; 93880-TC; 99285-25; C9803-CS; U0003; U0005

== ENCOUNTER 2022-09-09 23:17 | Inpatient (IN) | payer OTHER ==
[2022-09-10 02:06] LABS: BASO % 0.6 % (0-2.0); EOS % 3.1 % (0-4.5); HEMATOCRIT 34.6 % (35.4-49); HEMOGLOBIN 11.3 GM/dL (11.7-16.9); MCHC 32.7 g/dl (32.0-35.9); MEAN CELL VOLUME 97.9 fl (80-96); MEAN PLT VOLUME 7.1 fl (7.5-11.1); MONO % 15.4 % (3.8-10.2); NEUT % 49.9 % (42.8-82.8); PLATELET COUNT 166 10^3/uL (134-434); RBC 3.54 M/mm3 (4.00-5.60); WHITE BLOOD COUNT 4.9 K/mm3 (4.0-10.0)
[2022-09-10 02:09] LABS: EPI CELLS 1 /uL (0-25.1); HYALINE CASTS 0 /uL (0-3.1); PH,URINE 8.5 (5.0-8.0); URINE APPEARANCE CLEAR; URINE BACTERIA 4 /uL (0-1359); URINE BILIRUBIN NEGATIVE (NEGATIVE); URINE COLOR YELLOW; URINE GLUCOSE (UA) TRACE (NEGATIVE); URINE KETONE NEGATIVE (NEGATIVE); URINE LEUK ESTERASE NEGATIVE (NEGATIVE); URINE NITRITE NEGATIVE (NEGATIVE); URINE PROTEIN 1+ (NEGATIVE); URINE RBC 5 /uL (0-23.9); URINE UROBILINOGEN 0.2 mg/dL (0.2-1.0); URINE WBC 1 /uL (0-25.8)
[2022-09-10] MEDS ORDERED: VANCOMYCIN 1,000 MG in DEXTROSE 5%-WATER - 250 ML IVPB ONE (02:29)
[2022-09-10] MEDS ORDERED: VANCOMYCIN 1,000 MG VIAL (RESTRICTED TO ID ONLY) ONE (02:30)
[2022-09-10 02:33] LABS: POTASSIUM 4.2 mmol/L (3.5-5.1)
[2022-09-10 02:36] LABS: ALBUMIN 3.2 g/dl (3.4-5.0); BLOOD UREA NITROGEN 44.4 mg/dL (7-18)
[2022-09-10 02:41] LABS: BILIRUBIN,TOTAL 0.3 mg/dL (0.2-1); TOT PROT 6.5 g/dl (6.4-8.2)
[2022-09-10] MEDS ORDERED: DOCUSATE SODIUM 100 MG CAPSULE (FP) PO PRN (03:12)
[2022-09-10] MEDS: INSULIN SLIDING SCALE (NOVOLOG) 1 VIAL SQ SCH ×4 (07:45→22:12)
[2022-09-10] MEDS ORDERED: SEVELAMER CARBONATE 800 MG TAB (FP) PO SCH (08:00)
[2022-09-10 09:20] VITALS: BMI 26.5
[2022-09-10] MEDS: HEPARIN NA (PORCINE) 5,000 UNITS/ML 1ML VIAL SQ SCH ×2 (09:53→22:12)
[2022-09-10] MEDS: CEFAZOLIN 1 GM in DEXTROSE 5%-WATER - 50 ML IVPB SCH ×2 (12:08→17:53)
[2022-09-10] MEDS: SEVELAMER CARBONATE 800 MG TAB (FP) PO SCH ×2 (12:08→17:53)
[2022-09-10] MEDS ORDERED: SODIUM CHLORIDE 250 ML IV PRN (15:13)
[2022-09-10] MEDS: metoPROLOL SUCCINATE 25 MG TAB.SR.24H (FP) PO SCH (21:38)
[2022-09-10] MEDS: lamoTRIgine 100 MG TABLET PO SCH (21:38)
[2022-09-11] MEDS: ACETAMINOPHEN 325 MG TABLET (FP) PO PRN (01:22)
[2022-09-11] MEDS: CEFAZOLIN 1 GM in DEXTROSE 5%-WATER - 50 ML IVPB SCH ×2 (01:24→12:50)
[2022-09-11] MEDS: INSULIN SLIDING SCALE (NOVOLOG) 1 VIAL SQ SCH ×4 (06:07→21:52)
[2022-09-11 10:53] LABS: BASO % 0.6 % (0-2.0); EOS % 2.7 % (0-4.5); HEMATOCRIT 34.1 % (35.4-49); HEMOGLOBIN 11.2 GM/dL (11.7-16.9); LYMPH % 21.6 % (8-40); MCH 32.1 pg (25.7-33.7); MCHC 32.8 g/dl (32.0-35.9); MEAN CELL VOLUME 97.8 fl (80-96); MEAN PLT VOLUME 7.1 fl (7.5-11.1); MONO % 10.3 % (3.8-10.2); NEUT % 64.8 % (42.8-82.8); PLATELET COUNT 170 10^3/uL (134-434); RBC 3.48 M/mm3 (4.00-5.60); RDW 15.7 % (11.9-15.9); WHITE BLOOD COUNT 4.6 K/mm3 (4.0-10.0)
[2022-09-11 10:58] LABS: INR 0.95 (0.83-1.09)
[2022-09-11 11:00] LABS: ACTIVATED PTT 34.5 SECONDS (25.2-36.5)
[2022-09-11 11:13] LABS: CHLORIDE 113 mmol/L (98-107); POTASSIUM 4.7 mmol/L (3.5-5.1); SODIUM 143 mmol/L (136-145)
[2022-09-11 11:14] LABS: CALCIUM 8.9 mg/dL (8.5-10.1)
[2022-09-11 11:16] LABS: ANION GAP 11 MMOL/L (8-16); CO2 20 mmol/L (21-32)
[2022-09-11 11:19] LABS: GLUCOSE,RANDOM 114 mg/dL (74-106); SGOT/AST 16 U/L (15-37); SGPT/ALT 17 U/L (13-61)
[2022-09-11 11:20] LABS: ALK PHOS 95 U/L (45-117); BILIRUBIN,TOTAL 0.2 mg/dL (0.2-1)
[2022-09-11 11:34] LABS: CREATININE 7.7 mg/dL (0.55-1.3)
[2022-09-11] MEDS: SEVELAMER CARBONATE 800 MG TAB (FP) PO SCH ×3 (12:49→17:09)
[2022-09-11] MEDS: metoPROLOL SUCCINATE 25 MG TAB.SR.24H (FP) PO SCH ×2 (12:50→21:50)
[2022-09-11] MEDS: HEPARIN NA (PORCINE) 5,000 UNITS/ML 1ML VIAL SQ SCH ×2 (12:51→21:50)
[2022-09-11] MEDS ORDERED: CEFEPIME HCL 1 GM VIAL (RESTRICTED TO ID) IVPB SCH (14:15)
[2022-09-11] MEDS: CEFEPIME 1 GM in SODIUM CHLORIDE 100 ML IVPB SCH (15:30)
[2022-09-11] MEDS: lamoTRIgine 100 MG TABLET PO SCH (21:49)
[2022-09-11] MEDS: DIVALPROEX NA *ER* EXTEND REL 500 MG TABLET.SA (FP) PO SCH (21:50)
[2022-09-12] MEDS: ACETAMINOPHEN 325 MG TABLET (FP) PO PRN ×3 (01:02→23:43)
[2022-09-12] MEDS: LORazepam 1 MG TABLET PO PRN (02:55)
[2022-09-12] MEDS: INSULIN SLIDING SCALE (NOVOLOG) 1 VIAL SQ SCH ×4 (06:50→22:00)
[2022-09-12] MEDS: SEVELAMER CARBONATE 800 MG TAB (FP) PO SCH ×3 (08:52→17:44)
[2022-09-12] MEDS: metoPROLOL SUCCINATE 25 MG TAB.SR.24H (FP) PO SCH ×2 (09:44→21:51)
[2022-09-12] MEDS: CEFEPIME 1 GM in SODIUM CHLORIDE 100 ML IVPB SCH (09:44)
[2022-09-12] MEDS: DIVALPROEX NA *ER* EXTEND REL 500 MG TABLET.SA (FP) PO SCH ×2 (09:45→21:51)
[2022-09-12] MEDS: HEPARIN NA (PORCINE) 5,000 UNITS/ML 1ML VIAL SQ SCH ×2 (09:47→21:51)
[2022-09-12] MEDS ORDERED: SODIUM CHLORIDE 250 ML IV PRN (13:49)
[2022-09-12] MEDS ORDERED: VANCOMYCIN/WATER FOR INJ (PEG) 1,000 MG/200 ML BAG IVPB ONE (17:10)
[2022-09-12] MEDS: lamoTRIgine 100 MG TABLET PO SCH (21:51)
[2022-09-13] MEDS: LORazepam 1 MG TABLET PO PRN (01:48)
[2022-09-13] MEDS: INSULIN SLIDING SCALE (NOVOLOG) 1 VIAL SQ SCH (06:17)
[2022-09-13] MEDS: ACETAMINOPHEN 325 MG TABLET (FP) PO PRN (07:46)
[2022-09-13] MEDS: SEVELAMER CARBONATE 800 MG TAB (FP) PO SCH ×2 (07:46→12:20)
[2022-09-13 08:53] VITALS: RESP 18
[2022-09-13] MEDS: DIVALPROEX NA *ER* EXTEND REL 500 MG TABLET.SA (FP) PO SCH (12:19)
[2022-09-13] MEDS: HEPARIN NA (PORCINE) 5,000 UNITS/ML 1ML VIAL SQ SCH (12:19)
[2022-09-13] MEDS: CEFEPIME 1 GM in SODIUM CHLORIDE 100 ML IVPB SCH ×2 (12:20→13:43)
[2022-09-13 12:23] VITALS: BP 101/51; PULSE 72; TEMP 97.8
[2022-09-13] MEDS: metoPROLOL SUCCINATE 25 MG TAB.SR.24H (FP) PO SCH (12:40)
== END 2022-09-13 15:32 | disposition home or self-care (01) | DRG 638 ==
LOC: FER 23:17 → J5S 09-10 06:15
PROVIDERS: ADMIT Internal Medicine; ATTEND Internal Medicine
PROC: 5A1D70Z Performance of Urinary Filtration, Intermittent, Less than 6 Hours Per Day (ICD-10-PCS; principal; 2022-09-11)
PROC: 5A1D70Z Performance of Urinary Filtration, Intermittent, Less than 6 Hours Per Day (ICD-10-PCS; 2022-09-13)
DX: E11.628 Type 2 diabetes mellitus with other skin complications (principal); I13.2 Hypertensive heart and chronic kidney disease with heart failure and with stage 5 chronic kidney disease, or end stage renal disease; L03.115 Cellulitis of right lower limb; I50.22 Chronic systolic (congestive) heart failure; L97.518 Non-pressure chronic ulcer of other part of right foot with other specified severity; L08.9 Local infection of the skin and subcutaneous tissue, unspecified; F20.9 Schizophrenia, unspecified; L84 Corns and callosities; F31.9 Bipolar disorder, unspecified; E78.5 Hyperlipidemia, unspecified; E11.22 Type 2 diabetes mellitus with diabetic chronic kidney disease; N18.6 End stage renal disease; E11.42 Type 2 diabetes mellitus with diabetic polyneuropathy; Z99.2 Dependence on renal dialysis; F41.9 Anxiety disorder, unspecified; E11.621 Type 2 diabetes mellitus with foot ulcer; Z95.0 Presence of cardiac pacemaker
CPT/HCPCS: 36415; 71045-TC-FY; 73030-TC-LT-FY; 73610-TC-RT-FY; 73630-TC-RT-FY; 80053; 81003; 82962; 85025; 85610; 85730; 86140; 86803; 87040; 87070; 87081; 87186; 87205; 87340; 87635; 93005; 93926-TC; 99285-25; G0480; J1644

== ENCOUNTER 2022-12-13 16:54 | Emergency (ER) | payer OTHER ==
[2022-12-13 17:45] VITALS: BP 152/91; PULSE 83; RESP 16; TEMP 98; BMI 23.6
== END 2022-12-13 18:05 | disposition home or self-care (01) ==
LOC: FER 16:54
DX: M25.552 Pain in left hip (principal); S70.02XA Contusion of left hip, initial encounter; M25.522 Pain in left elbow; V09.20XA Pedestrian injured in traffic accident involving unspecified motor vehicles, initial encounter; Y92.410 Unspecified street and highway as the place of occurrence of the external cause
CPT/HCPCS: 72170-TC-FY; 99283-25

== ENCOUNTER 2023-01-15 12:36 | Inpatient (IN) | payer OTHER ==
[2023-01-15 14:44] LABS: BASO % 0.4 % (0-2.0); LYMPH % 12.2 % (8-40); MCH 32.6 pg (25.7-33.7); MCHC 32.6 g/dl (32.0-35.9); MEAN CELL VOLUME 99.9 fl (80-96); MEAN PLT VOLUME 7.8 fl (7.5-11.1); MONO % 8.2 % (3.8-10.2); NEUT % 78.2 % (42.8-82.8); PLATELET COUNT 178 10^3/uL (134-434); WHITE BLOOD COUNT 7.3 K/mm3 (4.0-10.0)
[2023-01-15 14:47] LABS: INR 1.02 (0.83-1.09); PROTHROMBIN TIME (PATIENT) 11.8 SEC (9.7-13.0)
[2023-01-15 14:50] LABS: ACTIVATED PTT 36.8 SECONDS (25.2-36.5)
[2023-01-15 15:03] LABS: CHLORIDE 104 mmol/L (98-107); POTASSIUM 4.1 mmol/L (3.5-5.1); SODIUM 139 mmol/L (136-145)
[2023-01-15 15:05] LABS: ALBUMIN 3.7 g/dl (3.4-5.0); ANION GAP 11 mmol/L (4-13); BLOOD UREA NITROGEN 88.1 mg/dL (7-18); CALCIUM 9.4 mg/dL (8.5-10.1); CO2 24 mmol/L (21-32); GLUCOSE,RANDOM 123 mg/dL (74-106); MAGNESIUM 3.9 mg/dL (1.8-2.4)
[2023-01-15 15:08] LABS: PHOSPHOROUS 7.1 mg/dL (2.5-4.9); SGOT/AST 14 U/L (15-37); SGPT/ALT 21 U/L (13-61)
[2023-01-15 15:09] LABS: BILIRUBIN,TOTAL 0.5 mg/dL (0.2-1)
[2023-01-15 15:10] LABS: TOT PROT 7.4 g/dl (6.4-8.2)
[2023-01-15 15:11] LABS: ALK PHOS 107 U/L (45-117); CREATININE 7.5 mg/dL (0.55-1.3)
[2023-01-15] MEDS ORDERED: SODIUM CHLORIDE 250 ML IV PRN (16:17)
[2023-01-15] MEDS ORDERED: LACTULOSE 20 GM/30 ML UDC (FOR ORAL USE ONLY) PO PRN ×2 (18:01→23:03)
[2023-01-15] MEDS ORDERED: ACETAMINOPHEN 325 MG TABLET (FP) PO PRN (18:04)
[2023-01-15] MEDS ORDERED: amLODIPine BESYLATE 10 MG TABLET (FP) PO SCH (18:15)
[2023-01-15] MEDS ORDERED: amLODIPine BESYLATE 10 MG TABLET (FP) ONE (18:36)
[2023-01-15] MEDS ORDERED: DEPAKOTE PO SCH (22:00)
[2023-01-15] MEDS ORDERED: INSULIN SLIDING SCALE (NOVOLOG) 1 VIAL SQ SCH (22:00)
[2023-01-15] MEDS ORDERED: lamoTRIgine 100 MG TABLET PO SCH (22:00)
[2023-01-15] MEDS: metoPROLOL SUCCINATE 25 MG TAB.SR.24H (FP) PO SCH (22:14)
[2023-01-15] MEDS: DIVALPROEX SODIUM 500 MG TABLET E.C. PO SCH (22:15)
[2023-01-15 23:44] VITALS: BMI 23.2
[2023-01-16 08:45] LABS: BASO % 0.4 % (0-2.0); EOS % 1.2 % (0-4.5); HEMOGLOBIN 13.3 GM/dL (11.7-16.9); LYMPH % 12.6 % (8-40); MCH 32.5 pg (25.7-33.7); MCHC 32.4 g/dl (32.0-35.9); MEAN CELL VOLUME 100.4 fl (80-96); MEAN PLT VOLUME 8.1 fl (7.5-11.1); MONO % 8.5 % (3.8-10.2); NEUT % 77.3 % (42.8-82.8); PLATELET COUNT 184 10^3/uL (134-434); RBC 4.08 M/mm3 (4.00-5.60); WHITE BLOOD COUNT 9.1 K/mm3 (4.0-10.0)
[2023-01-16 09:05] LABS: ALBUMIN 3.7 g/dl (3.4-5.0)
[2023-01-16 09:07] LABS: BILIRUBIN,DIRECT 0.2 mg/dL (0.0-0.2)
[2023-01-16 09:10] LABS: BILIRUBIN,TOTAL 0.6 mg/dL (0.2-1); TOT PROT 7.4 g/dl (6.4-8.2)
[2023-01-16 09:12] LABS: CHLORIDE 108 mmol/L (98-107); POTASSIUM 4.7 mmol/L (3.5-5.1); SODIUM 141 mmol/L (136-145)
[2023-01-16 09:21] LABS: GLUCOSE,RANDOM 72 mg/dL (74-106)
[2023-01-16] MEDS: DIVALPROEX SODIUM 500 MG TABLET E.C. PO SCH ×2 (09:21→22:42)
[2023-01-16 09:25] LABS: ANION GAP 11 mmol/L (4-13); CALCIUM 9.3 mg/dL (8.5-10.1); CO2 22 mmol/L (21-32); MAGNESIUM 4.2 mg/dL (1.8-2.4); PHOSPHOROUS 7.3 mg/dL (2.5-4.9)
[2023-01-16] MEDS: SEVELAMER CARBONATE 800 MG TAB (FP) PO SCH ×3 (09:26→17:39)
[2023-01-16] MEDS: metoPROLOL SUCCINATE 25 MG TAB.SR.24H (FP) PO SCH ×2 (09:27→22:44)
[2023-01-16 09:45] LABS: CREATININE 8.1 mg/dL (0.55-1.3)
[2023-01-16] MEDS ORDERED: BACITRACIN/POLYMYXIN B SULFATE 15 GM TUBE TP SCH (10:00)
[2023-01-16] MEDS ORDERED: MUPIROCIN 2% TOPICAL OINTMENT 22 GM TUBE TP SCH (10:00)
[2023-01-16] MEDS ORDERED: LORazepam 1 MG TABLET PO SCH (10:00)
[2023-01-16] MEDS ORDERED: FUROSEMIDE 40 MG TABLET (FP) PO SCH (10:00)
[2023-01-16] MEDS ORDERED: LIDOCAINE HCL 1%, 10 MG/ML (20ML VIAL) ONE (16:18)
[2023-01-16] MEDS ORDERED: HEPARIN NA (PORCINE) 5,000 UNITS/ML 1ML VIAL ONE (16:19)
[2023-01-16] MEDS ORDERED: amLODIPine BESYLATE 5 MG TABLET (FP) PO SCH (18:00)
[2023-01-16] MEDS ORDERED: MIDAZOLAM HCL 2 MG/2 ML SINGLE DOSE VIAL ONE ×3 (19:04→20:15)
[2023-01-16] MEDS ORDERED: PROPOFOL 20 ML ONE ×2 (19:04→19:40)
[2023-01-16] MEDS ORDERED: ceFAZolin SODIUM 1 GM VIAL IVPB ONE (19:24)
[2023-01-16] MEDS ORDERED: LIDOCAINE HCL 1%, 10 MG/ML (20ML VIAL) NR ONE (19:34)
[2023-01-16] MEDS ORDERED: POVIDONE-IODINE OINTMENT 10% - 28.4 GM TUBE ONE (20:19)
[2023-01-16] MEDS ORDERED: POVIDONE-IODINE OINTMENT 10% - 28.4 GM TUBE TP ONE (20:50)
[2023-01-16] MEDS ORDERED: ONDANSETRON 4 MG/2 ML VIAL IVPUSH PRN (21:04)
[2023-01-16] MEDS ORDERED: ACETAMINOPHEN 325 MG TABLET (FP) PO PRN (21:14)
[2023-01-16] MEDS ORDERED: LACTULOSE 20 GM/30 ML UDC (FOR ORAL USE ONLY) PO PRN (21:14)
[2023-01-16] MEDS ORDERED: oxyCODONE HCL 5 MG TABLET PO PRN (21:14)
[2023-01-16] MEDS ORDERED: lamoTRIgine 100 MG TABLET PO SCH (22:00)
[2023-01-16] MEDS: BACITRACIN/POLYMYXIN B SULFATE 15 GM TUBE TP SCH (22:49)
[2023-01-17] MEDS: SEVELAMER CARBONATE 800 MG TAB (FP) PO SCH ×2 (09:10→11:48)
[2023-01-17] MEDS: metoPROLOL SUCCINATE 25 MG TAB.SR.24H (FP) PO SCH (09:11)
[2023-01-17] MEDS: BACITRACIN/POLYMYXIN B SULFATE 15 GM TUBE TP SCH (09:12)
[2023-01-17] MEDS: DIVALPROEX SODIUM 500 MG TABLET E.C. PO SCH (09:16)
[2023-01-17 09:29] LABS: BASO % 0.5 % (0-2.0); EOS % 0.9 % (0-4.5); HEMOGLOBIN 11.8 GM/dL (11.7-16.9); LYMPH % 13.8 % (8-40); MCH 32.9 pg (25.7-33.7); MCHC 32.8 g/dl (32.0-35.9); MEAN CELL VOLUME 100.4 fl (80-96); MEAN PLT VOLUME 7.7 fl (7.5-11.1); MONO % 8.6 % (3.8-10.2); NEUT % 76.2 % (42.8-82.8); PLATELET COUNT 154 10^3/uL (134-434); RBC 3.58 M/mm3 (4.00-5.60); RDW 15.5 % (11.9-15.9); WHITE BLOOD COUNT 5.9 K/mm3 (4.0-10.0)
[2023-01-17] MEDS ORDERED: amLODIPine BESYLATE 5 MG TABLET (FP) PO SCH (10:00)
[2023-01-17] MEDS ORDERED: LORazepam 1 MG TABLET PO SCH (10:00)
[2023-01-17] MEDS ORDERED: FUROSEMIDE 40 MG TABLET (FP) PO SCH (10:00)
[2023-01-17] MEDS ORDERED: MUPIROCIN 2% TOPICAL OINTMENT 22 GM TUBE TP SCH (10:00)
[2023-01-17 10:43] LABS: CHLORIDE 104 mmol/L (98-107); POTASSIUM 4.4 mmol/L (3.5-5.1); SODIUM 139 mmol/L (136-145)
[2023-01-17 10:45] LABS: ALBUMIN 3.1 g/dl (3.4-5.0); CALCIUM 8.2 mg/dL (8.5-10.1)
[2023-01-17 10:46] LABS: ANION GAP 12 mmol/L (4-13); BLOOD UREA NITROGEN 98.1 mg/dL (7-18); CO2 23 mmol/L (21-32); GLUCOSE,RANDOM 92 mg/dL (74-106); MAGNESIUM 3.8 mg/dL (1.8-2.4)
[2023-01-17 10:49] LABS: PHOSPHOROUS 6.4 mg/dL (2.5-4.9); SGOT/AST 8 U/L (15-37); SGPT/ALT 15 U/L (13-61)
[2023-01-17 10:50] LABS: BILIRUBIN,TOTAL 0.4 mg/dL (0.2-1); TOT PROT 6.2 g/dl (6.4-8.2)
[2023-01-17 10:51] LABS: ALK PHOS 91 U/L (45-117)
[2023-01-17 10:54] LABS: CREATININE 8.5 mg/dL (0.55-1.3)
[2023-01-17 13:11] VITALS: RESP 18
[2023-01-17 14:48] VITALS: BP 99/67; PULSE 62; TEMP 98.3
[2023-01-17] MEDS ORDERED: SODIUM CHLORIDE 250 ML IV PRN (21:14)
== END 2023-01-17 15:26 | disposition home or self-care (01) | DRG 252 ==
LOC: JER 12:36 → JERBED 13:44 → J6S 20:22
PROVIDERS: ADMIT Internal Medicine; ATTEND Internal Medicine
PROC: 05780DZ Dilation of Left Axillary Vein with Intraluminal Device, Open Approach (ICD-10-PCS; 2023-01-16)
PROC: 05C80ZZ Extirpation of Matter from Left Axillary Vein, Open Approach (ICD-10-PCS; principal; 2023-01-16 18:00)
PROC: 5A1D70Z Performance of Urinary Filtration, Intermittent, Less than 6 Hours Per Day (ICD-10-PCS; 2023-01-17)
DX: T82.868A Thrombosis due to vascular prosthetic devices, implants and grafts, initial encounter (principal); N18.6 End stage renal disease; T82.41XA Breakdown (mechanical) of vascular dialysis catheter, initial encounter; I13.2 Hypertensive heart and chronic kidney disease with heart failure and with stage 5 chronic kidney disease, or end stage renal disease; I50.22 Chronic systolic (congestive) heart failure; T82.838A Hemorrhage due to vascular prosthetic devices, implants and grafts, initial encounter; E11.22 Type 2 diabetes mellitus with diabetic chronic kidney disease; E11.42 Type 2 diabetes mellitus with diabetic polyneuropathy; F20.9 Schizophrenia, unspecified; F31.9 Bipolar disorder, unspecified; Z95.0 Presence of cardiac pacemaker; Z99.2 Dependence on renal dialysis; Y83.8 Other surgical procedures as the cause of abnormal reaction of the patient, or of later complication, without mention of misadventure at the time of the procedure; Y92.9 Unspecified place or not applicable
CPT/HCPCS: 36415; 76000-TC-FY; 80048; 80053; 80076; 80175; 80307; 82962; 83735; 84100; 85025; 85610; 85730; 86704; 86803; 86850; 86900; 86901; 87340; 87517; 93005; 93010; 93990-TC; 94760; 97116-GP; 97161-GP; 99285-25; C1757; C1769; C1874; J1644

== ENCOUNTER 2023-02-10 14:05 | Emergency (ER) | payer OTHER ==
[2023-02-10 14:13] VITALS: BP 133/79; PULSE 79; RESP 18; TEMP 98.4; BMI 23.1
== END 2023-02-10 15:40 | disposition home or self-care (01) ==
LOC: JER 14:05
DX: Z48.00 Encounter for change or removal of nonsurgical wound dressing (principal)
CPT/HCPCS: 99282-25

== ENCOUNTER 2023-02-11 06:07 | Emergency (ER) | payer OTHER ==
[2023-02-11 06:20] VITALS: BP 137/103; PULSE 82; RESP 16; TEMP 98.3; BMI 23.1
[2023-02-11] MEDS ORDERED: ACETAMINOPHEN 325 MG TABLET (FP) PO ONE (06:52)
[2023-02-11] MEDS ORDERED: ACETAMINOPHEN 325 MG TABLET (FP) ONE (06:54)
== END 2023-02-11 07:28 | disposition home or self-care (01) ==
LOC: FER 06:07
DX: R53.81 Other malaise (principal); I12.0 Hypertensive chronic kidney disease with stage 5 chronic kidney disease or end stage renal disease; N18.6 End stage renal disease; I77.0 Arteriovenous fistula, acquired
CPT/HCPCS: 99283-25

== ENCOUNTER 2023-02-12 15:04 | Emergency (ER) | payer OTHER ==
[2023-02-12 15:24] VITALS: BP 125/67; PULSE 79; RESP 18; TEMP 98.2; BMI 24.5
[2023-02-12] MEDS ORDERED: ACETAMINOPHEN 500 MG TABLET (FP) PO ONE (16:34)
[2023-02-12] MEDS ORDERED: ACETAMINOPHEN 500 MG TABLET (FP) ONE (16:38)
== END 2023-02-12 17:02 | disposition home or self-care (01) ==
LOC: JERFT 15:04
DX: Z48.02 Encounter for removal of sutures (principal)
CPT/HCPCS: 99283-25

== ENCOUNTER 2023-02-18 11:00 | Emergency (ER) | payer OTHER ==
[2023-02-18 11:08] VITALS: BP 142/91; PULSE 71; RESP 18; TEMP 97.8; BMI 22.4
[2023-02-18] MEDS ORDERED: ACETAMINOPHEN 325 MG TABLET (FP) PO ONE (11:14)
[2023-02-18] MEDS ORDERED: ACETAMINOPHEN 325 MG TABLET (FP) ONE (11:22)
== END 2023-02-18 11:50 | disposition home or self-care (01) ==
LOC: FER 11:00
DX: S80.212A Abrasion, left knee, initial encounter (principal); W01.0XXA Fall on same level from slipping, tripping and stumbling without subsequent striking against object, initial encounter; Y92.9 Unspecified place or not applicable
CPT/HCPCS: 99283-25

== ENCOUNTER 2023-03-06 14:01 | Inpatient (IN) | payer OTHER ==
[2023-03-06] MEDS ORDERED: ACETAMINOPHEN 500 MG TABLET (FP) PO ONE (15:02)
[2023-03-06] MEDS ORDERED: VANCOMYCIN 500 MG in DEXTROSE 5%-WATER 100 ML IVPB ONE (18:08)
[2023-03-06] MEDS ORDERED: ACETAMINOPHEN 325 MG TABLET (FP) ONE (18:42)
[2023-03-06] MEDS ORDERED: VANCOMYCIN 500 MG VIAL (RESTRICTED TO ID ONLY) ONE (18:42)
[2023-03-06 18:47] LABS: BASO % 0.2 % (0-2.0); EOS % 0.5 % (0-4.5); HEMATOCRIT 41.4 % (35.4-49); HEMOGLOBIN 13.9 GM/dL (11.7-16.9); LYMPH % 12.3 % (8-40); MCH 33.3 pg (25.7-33.7); MCHC 33.6 g/dl (32.0-35.9); MEAN CELL VOLUME 99.2 fl (80-96); MEAN PLT VOLUME 7.6 fl (7.5-11.1); MONO % 8.3 % (3.8-10.2); NEUT % 78.7 % (42.8-82.8); PLATELET COUNT 105 10^3/uL (134-434); RBC 4.18 M/mm3 (4.00-5.60); RDW 15.7 % (11.9-15.9); WHITE BLOOD COUNT 7.1 K/mm3 (4.0-10.0)
[2023-03-06 18:56] LABS: INR 1.03 (0.83-1.09)
[2023-03-06 18:59] LABS: ACTIVATED PTT 35.9 SECONDS (25.2-36.5)
[2023-03-06 19:11] LABS: ALBUMIN 3.7 g/dl (3.4-5.0); CALCIUM 9.1 mg/dL (8.5-10.1)
[2023-03-06 19:12] LABS: BLOOD UREA NITROGEN 44.8 mg/dL (7-18)
[2023-03-06 19:14] LABS: CREATININE 6.1 mg/dL (0.55-1.3)
[2023-03-06 19:16] LABS: BILIRUBIN,TOTAL 0.5 mg/dL (0.2-1); TOT PROT 7.4 g/dl (6.4-8.2)
[2023-03-06] MEDS ORDERED: lamoTRIgine 100 MG TABLET PO SCH (22:00)
[2023-03-06] MEDS ORDERED: DIVALPROEX SODIUM 500 MG TABLET E.C. ONE (22:34)
[2023-03-06] MEDS ORDERED: lamoTRIgine 100 MG TABLET ONE (22:35)
[2023-03-06] MEDS: DIVALPROEX SODIUM 500 MG TABLET E.C. PO SCH (22:38)
[2023-03-07 07:28] LABS: CALCIUM 9.2 mg/dL (8.5-10.1)
[2023-03-07 07:29] LABS: ALBUMIN 3.2 g/dl (3.4-5.0); BASO % 0.6 % (0-2.0); BLOOD UREA NITROGEN 53.2 mg/dL (7-18); EOS % 1.2 % (0-4.5); HEMATOCRIT 39.7 % (35.4-49); LYMPH % 16.1 % (8-40); MAGNESIUM 2.9 mg/dL (1.8-2.4); MCHC 32.8 g/dl (32.0-35.9); MEAN CELL VOLUME 100.5 fl (80-96); MONO % 9.7 % (3.8-10.2); NEUT % 72.4 % (42.8-82.8); PLATELET COUNT 99 10^3/uL (134-434); RBC 3.95 M/mm3 (4.00-5.60); RDW 15.3 % (11.9-15.9); WHITE BLOOD COUNT 7.7 K/mm3 (4.0-10.0)
[2023-03-07 07:32] LABS: CREATININE 6.7 mg/dL (0.55-1.3); PHOSPHOROUS 4.9 mg/dL (2.5-4.9)
[2023-03-07 07:33] LABS: BILIRUBIN,TOTAL 0.4 mg/dL (0.2-1)
[2023-03-07 07:34] LABS: TOT PROT 6.6 g/dl (6.4-8.2)
[2023-03-07] MEDS ORDERED: HEPARIN NA (PORCINE) 5,000 UNITS/ML 1ML VIAL ONE (08:58)
[2023-03-07] MEDS ORDERED: LIDOCAINE HCL 1%, 10 MG/ML (20ML VIAL) ONE (08:58)
[2023-03-07] MEDS ORDERED: LIDOCAINE HCL/PF 2% SDV 5ML VIAL ONE (09:27)
[2023-03-07] MEDS ORDERED: PROPOFOL 20 ML ONE (09:28)
[2023-03-07] MEDS ORDERED: MIDAZOLAM HCL 2 MG/2 ML SINGLE DOSE VIAL ONE (09:28)
[2023-03-07] MEDS ORDERED: DEXTROSE 50%-WATER 25 GM/50 ML DISP.SYRIN ONE (09:33)
[2023-03-07] MEDS: SEVELAMER CARBONATE 800 MG TAB (FP) PO SCH ×3 (09:42→17:37)
[2023-03-07] MEDS: DIVALPROEX SODIUM 500 MG TABLET E.C. PO SCH ×2 (09:42→22:39)
[2023-03-07] MEDS ORDERED: DEXTROSE 50%-WATER - 25 GM/50 ML VIAL IVPUSH SCH (10:00)
[2023-03-07] MEDS ORDERED: ePHEDrine SULFATE 50 MG/1 ML AMPULE ONE (10:39)
[2023-03-07] MEDS ORDERED: LIDOCAINE HCL 1%, 10 MG/ML (20ML VIAL) INF ONE (11:04)
[2023-03-07] MEDS ORDERED: ROCURONIUM BROMIDE 50 MG/5 ML SYRINGE ONE (11:10)
[2023-03-07] MEDS ORDERED: VANCOMYCIN 1,000 MG VIAL (RESTRICTED TO ID ONLY) ONE ×2 (11:17→13:16)
[2023-03-07] MEDS ORDERED: VANCOMYCIN 1,000 MG VIAL (RESTRICTED TO ID ONLY) IVPB ONE (11:40)
[2023-03-07] MEDS ORDERED: POVIDONE-IODINE OINTMENT 10% - 28.4 GM TUBE ONE (12:04)
[2023-03-07] MEDS ORDERED: POVIDONE-IODINE OINTMENT 10% - 28.4 GM TUBE TP ONE (12:10)
[2023-03-07] MEDS ORDERED: ONDANSETRON 4 MG/2 ML VIAL IVPUSH PRN (12:52)
[2023-03-07] MEDS ORDERED: PROMETHAZINE HCL 25 MG/1 ML VIAL IVPB PRN (12:52)
[2023-03-07] MEDS ORDERED: oxyCODONE HCL 5 MG TABLET PO PRN ×2 (12:57)
[2023-03-07] MEDS ORDERED: LACTATED RINGERS SOLUTION 1,000 ML IV SCH (13:00)
[2023-03-07] MEDS ORDERED: KETOROLAC TROMETHAMINE 30 MG/1 ML VIAL ONE (13:05)
[2023-03-07] MEDS: KETOROLAC TROMETHAMINE 15 MG/ML VIAL IVPUSH ONE ×2 (13:08→13:16)
[2023-03-07] MEDS: ACETAMINOPHEN 1000 MG/100 ML BAG IVPB ONE ×2 (13:17→13:22)
[2023-03-07] MEDS: PIPERACILLIN/TAZOB 2.25 GM 2.25 GM in DEXTROSE 5%-WATER - 50 ML IVPB SCH ×3 (13:35→18:56)
[2023-03-07] MEDS ORDERED: VANCOMYCIN/WATER FOR INJ (PEG) 1,000 MG/200 ML BAG IVPB ONE (14:00)
[2023-03-07 17:35] VITALS: BMI 21.3
[2023-03-07] MEDS ORDERED: SODIUM CHLORIDE 250 ML IV PRN (19:11)
[2023-03-07] MEDS ORDERED: traZODone HCL 50 MG TABLET (FP) PO SCH (22:00)
[2023-03-07] MEDS: traZODone HCL 50 MG TABLET (FP) PO SCH (22:38)
[2023-03-07] MEDS: lamoTRIgine 100 MG TABLET PO SCH (22:39)
[2023-03-08] MEDS: HEPARIN NA (PORCINE) 5,000 UNITS/ML 1ML VIAL SQ SCH ×4 (02:16→22:17)
[2023-03-08] MEDS: PIPERACILLIN/TAZOB 2.25 GM 2.25 GM in DEXTROSE 5%-WATER - 50 ML IVPB SCH ×3 (02:17→17:18)
[2023-03-08 05:20] VITALS: RESP 18
[2023-03-08 09:45] LABS: BASO % 0.4 % (0-2.0); EOS % 1.1 % (0-4.5); HEMOGLOBIN 11.8 GM/dL (11.7-16.9); LYMPH % 14.5 % (8-40); MCH 32.9 pg (25.7-33.7); MCHC 32.9 g/dl (32.0-35.9); MEAN CELL VOLUME 100.1 fl (80-96); MEAN PLT VOLUME 7.9 fl (7.5-11.1); PLATELET COUNT 109 10^3/uL (134-434); RDW 15.2 % (11.9-15.9); WHITE BLOOD COUNT 5.8 K/mm3 (4.0-10.0)
[2023-03-08 10:04] LABS: POTASSIUM 4.3 mmol/L (3.5-5.1)
[2023-03-08 10:21] LABS: BLOOD UREA NITROGEN 58.3 mg/dL (7-18)
[2023-03-08 10:24] LABS: BILIRUBIN,TOTAL 0.4 mg/dL (0.2-1); TOT PROT 6.4 g/dl (6.4-8.2)
[2023-03-08 10:25] LABS: ALBUMIN 2.9 g/dl (3.4-5.0)
[2023-03-08 10:26] LABS: CREATININE 7.1 mg/dL (0.55-1.3)
[2023-03-08 10:32] LABS: CALCIUM 8.7 mg/dL (8.5-10.1)
[2023-03-08] MEDS ORDERED: SODIUM CHLORIDE 250 ML IV PRN (12:12)
[2023-03-08] MEDS: SEVELAMER CARBONATE 800 MG TAB (FP) PO SCH ×3 (12:15→17:27)
[2023-03-08] MEDS: DIVALPROEX SODIUM 500 MG TABLET E.C. PO SCH ×2 (12:31→22:18)
[2023-03-08] MEDS ORDERED: VANCOMYCIN/WATER FOR INJ (PEG) 1,000 MG/200 ML BAG IVPB ONE (15:13)
[2023-03-08] MEDS ORDERED: ACETAMINOPHEN 1000 MG/100 ML BAG IVPB PRN (15:34)
[2023-03-08] MEDS ORDERED: ACETAMINOPHEN 325 MG TABLET (FP) PO PRN (16:40)
[2023-03-08] MEDS: lamoTRIgine 100 MG TABLET PO SCH (22:18)
[2023-03-08] MEDS: traZODone HCL 50 MG TABLET (FP) PO SCH (22:19)
[2023-03-09] MEDS: PIPERACILLIN/TAZOB 2.25 GM 2.25 GM in DEXTROSE 5%-WATER - 50 ML IVPB SCH ×2 (01:33→09:55)
[2023-03-09] MEDS: HEPARIN NA (PORCINE) 5,000 UNITS/ML 1ML VIAL SQ SCH ×2 (05:53→15:02)
[2023-03-09 09:37] LABS: BASO % 0.5 % (0-2.0); EOS % 2.2 % (0-4.5); HEMATOCRIT 35.4 % (35.4-49); HEMOGLOBIN 11.5 GM/dL (11.7-16.9); LYMPH % 20.5 % (8-40); MCH 32.3 pg (25.7-33.7); MCHC 32.5 g/dl (32.0-35.9); MEAN CELL VOLUME 99.3 fl (80-96); MEAN PLT VOLUME 7.8 fl (7.5-11.1); MONO % 9.7 % (3.8-10.2); NEUT % 67.1 % (42.8-82.8); PLATELET COUNT 105 10^3/uL (134-434); RBC 3.57 M/mm3 (4.00-5.60); RDW 15.4 % (11.9-15.9); WHITE BLOOD COUNT 4.2 K/mm3 (4.0-10.0)
[2023-03-09 09:55] LABS: POTASSIUM 4.6 mmol/L (3.5-5.1)
[2023-03-09] MEDS: SEVELAMER CARBONATE 800 MG TAB (FP) PO SCH ×3 (09:55→17:29)
[2023-03-09] MEDS: DIVALPROEX SODIUM 500 MG TABLET E.C. PO SCH (09:55)
[2023-03-09 09:58] LABS: ALBUMIN 2.9 g/dl (3.4-5.0); CALCIUM 9.4 mg/dL (8.5-10.1)
[2023-03-09 09:59] LABS: MAGNESIUM 2.7 mg/dL (1.8-2.4)
[2023-03-09 10:01] LABS: CREATININE 4.8 mg/dL (0.55-1.3)
[2023-03-09 10:03] LABS: BILIRUBIN,TOTAL 0.4 mg/dL (0.2-1); TOT PROT 6.4 g/dl (6.4-8.2)
[2023-03-09 10:15] LABS: BLOOD UREA NITROGEN 29.3 mg/dL (7-18)
[2023-03-09 17:57] VITALS: BP 130/80; PULSE 70; TEMP 98
[2023-03-09] MEDS ORDERED: CEFAZOLIN 3 GM in DEXTROSE 5%-WATER - 100 ML IVPB ONE (18:00)
== END 2023-03-09 18:00 | disposition home or self-care (01) | DRG 252 ==
LOC: JER 14:01 → JERBED 17:09 → OBSVTOIN 18:31 → J5S 03-07 16:21
PROVIDERS: ADMIT Internal Medicine
PROC: B548ZZA Ultrasonography of Superior Vena Cava, Guidance (ICD-10-PCS; 2023-03-07)
PROC: 05CY0ZZ Extirpation of Matter from Upper Vein, Open Approach (ICD-10-PCS; principal; 2023-03-07 10:00)
PROC: 02HV33Z Insertion of Infusion Device into Superior Vena Cava, Percutaneous Approach (ICD-10-PCS; 2023-03-07 10:00)
DX: T82.7XXA Infection and inflammatory reaction due to other cardiac and vascular devices, implants and grafts, initial encounter (principal); N18.6 End stage renal disease; I13.2 Hypertensive heart and chronic kidney disease with heart failure and with stage 5 chronic kidney disease, or end stage renal disease; I50.32 Chronic diastolic (congestive) heart failure; Y83.8 Other surgical procedures as the cause of abnormal reaction of the patient, or of later complication, without mention of misadventure at the time of the procedure; Z99.2 Dependence on renal dialysis; F31.9 Bipolar disorder, unspecified; I25.10 Atherosclerotic heart disease of native coronary artery without angina pectoris; Z95.0 Presence of cardiac pacemaker; E78.5 Hyperlipidemia, unspecified
CPT/HCPCS: 0241U-QW; 36415; 70450-TC; 71045-TC-FY; 76000-TC-FY; 80053; 82962; 83735; 84100; 84484; 85025; 85610; 85730; 86704; 86803; 86850; 86900; 86901; 87040; 87070; 87186; 87205; 87340; 87517; 88304-TC; 93005; 93010; 94760; 99285-25; C1750; G0378; G0480; J0131; J1644

== ENCOUNTER 2023-03-14 08:56 | Inpatient (IN) | payer OTHER ==
[2023-03-14 09:48] LABS: INR 1.11 (0.83-1.09); PROTHROMBIN TIME (PATIENT) 12.9 SEC (9.7-13.0)
[2023-03-14 09:51] LABS: ACTIVATED PTT 35.2 SECONDS (25.2-36.5)
[2023-03-14 09:52] LABS: HEMATOCRIT 37.2 % (35.4-49); MCH 32.7 pg (25.7-33.7); MCHC 32.4 g/dl (32.0-35.9); MEAN CELL VOLUME 101.2 fl (80-96); PLATELET COUNT 129.3 10^3/uL (134-434); RBC 3.68 10^6/uL (4.00-5.60); RDW 14.7 % (11.9-15.9); WHITE BLOOD COUNT 5.5 10^3/uL (4.0-10.8)
[2023-03-14 09:56] LABS: PLATELET ESTIMATE ADEQUATE
[2023-03-14 10:00] LABS: ALBUMIN 3.7 g/dl (3.4-5.0); BILIRUBIN,TOTAL 0.3 mg/dl (0.2-1); CALCIUM 8.7 mg/dl (8.5-10.1); CREATININE 4.9 mg/dl (0.6-1.3); MAGNESIUM 2.7 mg/dL (1.8-2.4); POTASSIUM 4.3 mmol/L (3.5-5.1); TOT PROT 6.4 g/dl (6.4-8.2)
[2023-03-14] MEDS: SEVELAMER CARBONATE 800 MG TAB (FP) PO SCH (14:49)
[2023-03-15 07:56] VITALS: BMI 19.8
[2023-03-15 08:04] VITALS: RESP 18
[2023-03-15] MEDS ORDERED: SODIUM CHLORIDE 250 ML IV PRN (08:10)
[2023-03-15] MEDS: lamoTRIgine 100 MG TABLET PO SCH ×2 (08:28→22:00)
[2023-03-15] MEDS: DIVALPROEX SODIUM 500 MG TABLET E.C. PO SCH ×2 (08:28→09:06)
[2023-03-15 09:04] LABS: HEMATOCRIT 33.5 % (35.4-49); HEMOGLOBIN 11.4 GM/dL (11.7-16.9); MCH 33.6 pg (25.7-33.7); MCHC 34.1 g/dl (32.0-35.9); MEAN CELL VOLUME 98.6 fl (80-96); MEAN PLT VOLUME 7.2 fl (7.5-11.1); PLATELET COUNT 139 10^3/uL (134-434); RDW 14.9 % (11.9-15.9); WHITE BLOOD COUNT 4.9 K/mm3 (4.0-10.0)
[2023-03-15] MEDS: traZODone HCL 50 MG TABLET (FP) PO SCH (09:06)
[2023-03-15] MEDS: SEVELAMER CARBONATE 800 MG TAB (FP) PO SCH (09:06)
[2023-03-15 09:19] LABS: CHLORIDE 108 mmol/L (98-107); POTASSIUM 4.8 mmol/L (3.5-5.1); SODIUM 140 mmol/L (136-145)
[2023-03-15 09:34] LABS: ALBUMIN 2.9 g/dl (3.4-5.0); ANION GAP 5 mmol/L (4-13); BLOOD UREA NITROGEN 40.9 mg/dL (7-18); CALCIUM 8.7 mg/dL (8.5-10.1); CO2 27 mmol/L (21-32)
[2023-03-15 09:35] LABS: MAGNESIUM 3.1 mg/dL (1.8-2.4)
[2023-03-15 09:36] LABS: CREATININE 6.1 mg/dL (0.55-1.3); GLUCOSE,RANDOM 74 mg/dL (74-106); PHOSPHOROUS 4.2 mg/dL (2.5-4.9); SGOT/AST 7 U/L (15-37); SGPT/ALT < 6 U/L (13-61)
[2023-03-15 09:38] LABS: TOT PROT 6.2 g/dl (6.4-8.2)
[2023-03-15 09:39] LABS: ALK PHOS 102 U/L (45-117)
[2023-03-15 09:41] LABS: BILIRUBIN,TOTAL 0.3 mg/dL (0.2-1)
[2023-03-15] MEDS ORDERED: traZODone HCL 50 MG TABLET (FP) PO SCH (10:00)
[2023-03-15] MEDS: CEFAZOLIN 1 GM in DEXTROSE 5%-WATER - 50 ML IVPB ONE (18:14)
[2023-03-15] MEDS ORDERED: CEFAZOLIN 3 GM in DEXTROSE 5%-WATER - 100 ML IVPB ONE (21:00)
[2023-03-15] MEDS: CEFAZOLIN SODIUM 2 GM in DEXTROSE 5%-WATER 100 ML IVPB ONE (21:15)
[2023-03-16] MEDS ORDERED: SODIUM CHLORIDE 250 ML IV PRN (15:50)
[2023-03-17 09:25] LABS: HEMATOCRIT 36.8 % (35.4-49); HEMOGLOBIN 12.1 GM/dL (11.7-16.9); MCH 32.5 pg (25.7-33.7); MCHC 32.9 g/dl (32.0-35.9); MEAN CELL VOLUME 98.9 fl (80-96); MEAN PLT VOLUME 6.8 fl (7.5-11.1); PLATELET COUNT 151 10^3/uL (134-434); RBC 3.72 M/mm3 (4.00-5.60); RDW 14.7 % (11.9-15.9); WHITE BLOOD COUNT 4.9 K/mm3 (4.0-10.0)
[2023-03-17 09:52] LABS: CHLORIDE 107 mmol/L (98-107); POTASSIUM 3.8 mmol/L (3.5-5.1); SODIUM 142 mmol/L (136-145)
[2023-03-17 09:54] LABS: ANION GAP 6 mmol/L (4-13); BLOOD UREA NITROGEN 29.4 mg/dL (7-18); CALCIUM 8.8 mg/dL (8.5-10.1); CO2 29 mmol/L (21-32); GLUCOSE,RANDOM 120 mg/dL (74-106)
[2023-03-17 09:57] LABS: CREATININE 5.5 mg/dL (0.55-1.3); SGOT/AST 7 U/L (15-37); SGPT/ALT < 6 U/L (13-61)
[2023-03-17 09:59] LABS: BILIRUBIN,TOTAL 0.4 mg/dL (0.2-1); TOT PROT 6.6 g/dl (6.4-8.2)
[2023-03-17 10:00] LABS: ALK PHOS 111 U/L (45-117)
[2023-03-17] MEDS: CEFAZOLIN 3 GM in DEXTROSE 5%-WATER - 100 ML IVPB ONE (12:00)
[2023-03-17] MEDS: HEPARIN NA (PORCINE) 5,000 UNITS/ML 1ML VIAL SQ SCH (22:09)
[2023-03-17] MEDS: MELATONIN 5 MG TABLETS PO ONE (23:18)
[2023-03-18 09:00] LABS: BASO % 0.5 % (0-2.0); EOS % 1.6 % (0-4.5); HEMOGLOBIN 12.5 GM/dL (11.7-16.9); LYMPH % 25.3 % (8-40); MCH 32.9 pg (25.7-33.7); MEAN CELL VOLUME 99.7 fl (80-96); MEAN PLT VOLUME 7.1 fl (7.5-11.1); MONO % 9.4 % (3.8-10.2); NEUT % 63.2 % (42.8-82.8); PLATELET COUNT 150 10^3/uL (134-434); RBC 3.81 M/mm3 (4.00-5.60); RDW 14.7 % (11.9-15.9)
[2023-03-18 09:20] LABS: BLOOD UREA NITROGEN 24.3 mg/dL (7-18); MAGNESIUM 2.6 mg/dL (1.8-2.4); POTASSIUM 4.2 mmol/L (3.5-5.1)
[2023-03-18 09:23] LABS: CREATININE 4.2 mg/dL (0.55-1.3); PHOSPHOROUS 3.9 mg/dL (2.5-4.9)
[2023-03-18] MEDS ORDERED: SODIUM CHLORIDE 250 ML IV PRN (14:10)
[2023-03-19 07:26] VITALS: TEMP 98.2
[2023-03-19 15:06] VITALS: BP 100/69; PULSE 79
== END 2023-03-19 15:35 | DRG 91 ==
LOC: FER 08:56 → J8W 03-15 01:30
PROVIDERS: ADMIT Internal Medicine; ATTEND Nurse Practitioner Acute Care
PROC: 5A1D70Z Performance of Urinary Filtration, Intermittent, Less than 6 Hours Per Day (ICD-10-PCS; principal; 2023-03-15)
PROC: 5A1D70Z Performance of Urinary Filtration, Intermittent, Less than 6 Hours Per Day (ICD-10-PCS; 2023-03-15)
PROC: 5A1D70Z Performance of Urinary Filtration, Intermittent, Less than 6 Hours Per Day (ICD-10-PCS; 2023-03-15)
DX: R29.6 Repeated falls (principal); N18.6 End stage renal disease; I13.2 Hypertensive heart and chronic kidney disease with heart failure and with stage 5 chronic kidney disease, or end stage renal disease; I50.32 Chronic diastolic (congestive) heart failure; R45.851 Suicidal ideations; E78.5 Hyperlipidemia, unspecified; F43.9 Reaction to severe stress, unspecified; F31.9 Bipolar disorder, unspecified; E11.22 Type 2 diabetes mellitus with diabetic chronic kidney disease; E11.42 Type 2 diabetes mellitus with diabetic polyneuropathy; F20.9 Schizophrenia, unspecified; W18.30XA Fall on same level, unspecified, initial encounter; Y92.098 Other place in other non-institutional residence as the place of occurrence of the external cause; Y99.9 Unspecified external cause status; Z95.0 Presence of cardiac pacemaker; Z99.2 Dependence on renal dialysis
CPT/HCPCS: 0241U-QW; 36415; 70450-TC; 72125-TC; 72128-TC; 72131-TC; 80048; 80053; 81003; 82607; 82746; 83735; 84100; 84439; 84443; 84484; 85025; 85027; 85610; 85730; 87086; 87635; 93005; 97116-GP; 97161-GP; 99284-25; 99285-25; J1644

== ENCOUNTER 2023-04-02 15:04 | Inpatient (IN) | payer OTHER ==
[2023-04-02 17:10] LABS: BASO % 0.4 % (0-2.0); EOS % 1.5 % (0-4.5); HEMATOCRIT 37.1 % (35.4-49); HEMOGLOBIN 12.4 GM/dL (11.7-16.9); MCH 33.4 pg (25.7-33.7); MCHC 33.5 g/dl (32.0-35.9); MEAN CELL VOLUME 99.9 fl (80-96); MEAN PLT VOLUME 6.9 fl (7.5-11.1); NEUT % 74.1 % (42.8-82.8); PLATELET COUNT 120 10^3/uL (134-434); RBC 3.71 M/mm3 (4.00-5.60); RDW 16.5 % (11.9-15.9); WHITE BLOOD COUNT 5.7 K/mm3 (4.0-10.0)
[2023-04-02 17:30] LABS: CHLORIDE 103 mmol/L (98-107); POTASSIUM 4.7 mmol/L (3.5-5.1); SODIUM 136 mmol/L (136-145)
[2023-04-02 17:32] LABS: CALCIUM 8.5 mg/dL (8.5-10.1)
[2023-04-02 17:33] LABS: ALBUMIN 3.4 g/dl (3.4-5.0); ANION GAP 5 mmol/L (4-13); BLOOD UREA NITROGEN 44.4 mg/dL (7-18); CO2 28 mmol/L (21-32); GLUCOSE,RANDOM 87 mg/dL (74-106); MAGNESIUM 2.8 mg/dL (1.8-2.4)
[2023-04-02 17:35] LABS: SGPT/ALT < 6 U/L (13-61)
[2023-04-02 17:36] LABS: CREATININE 3.1 mg/dL (0.55-1.3); SGOT/AST 8 U/L (15-37)
[2023-04-02 17:37] LABS: BILIRUBIN,TOTAL 0.4 mg/dL (0.2-1); TOT PROT 7.1 g/dl (6.4-8.2)
[2023-04-02 17:38] LABS: ALK PHOS 106 U/L (45-117)
[2023-04-02] MEDS ORDERED: DIPHTH,PERTUSS(ACELL),TET 0.5 ML DISP.SYRIN IM ONE (18:57)
[2023-04-02] MEDS: DIPHTH,PERTUSS(ACELL),TET 0.5 ML DISP.SYRIN IM ONE (18:58)
[2023-04-02] MEDS: SODIUM CHLORIDE 1,000 ML IV SCH ×2 (23:09→23:24)
[2023-04-02] MEDS: HEPARIN NA (PORCINE) 5,000 UNITS/ML 1ML VIAL SQ SCH (23:49)
[2023-04-02] MEDS: INSULIN ASPART SLIDING SCALE (NOVOLOG) 1 VIAL SQ SCH (23:50)
[2023-04-03] MEDS: traZODone HCL 50 MG TABLET (FP) PO ONE (01:52)
[2023-04-03] MEDS: DIVALPROEX SODIUM 500 MG TABLET E.C. PO ONE (01:52)
[2023-04-03] MEDS: lamoTRIgine 100 MG TABLET PO ONE (02:25)
[2023-04-03 06:33] LABS: BASO % 0.4 % (0-2.0); EOS % 1.8 % (0-4.5); HEMATOCRIT 35.2 % (35.4-49); HEMOGLOBIN 11.7 GM/dL (11.7-16.9); LYMPH % 17.6 % (8-40); MCH 33.5 pg (25.7-33.7); MCHC 33.3 g/dl (32.0-35.9); MEAN CELL VOLUME 100.6 fl (80-96); MEAN PLT VOLUME 7.4 fl (7.5-11.1); MONO % 11.3 % (3.8-10.2); NEUT % 68.9 % (42.8-82.8); PLATELET COUNT 121 10^3/uL (134-434); RDW 15.8 % (11.9-15.9); WHITE BLOOD COUNT 5.4 K/mm3 (4.0-10.0)
[2023-04-03] MEDS: INSULIN ASPART SLIDING SCALE (NOVOLOG) 1 VIAL SQ SCH (06:48)
[2023-04-03 06:49] LABS: CHLORIDE 108 mmol/L (98-107); POTASSIUM 4.8 mmol/L (3.5-5.1); SODIUM 141 mmol/L (136-145)
[2023-04-03 07:01] LABS: ANION GAP 8 mmol/L (4-13); CALCIUM 8.5 mg/dL (8.5-10.1); CO2 25 mmol/L (21-32)
[2023-04-03 07:02] LABS: GLUCOSE,RANDOM 77 mg/dL (74-106); MAGNESIUM 2.8 mg/dL (1.8-2.4)
[2023-04-03 07:05] LABS: PHOSPHOROUS 4.8 mg/dL (2.5-4.9); SGOT/AST 9 U/L (15-37)
[2023-04-03 07:06] LABS: BILIRUBIN,TOTAL 0.4 mg/dL (0.2-1); TOT PROT 6.6 g/dl (6.4-8.2)
[2023-04-03 07:07] LABS: ALK PHOS 98 U/L (45-117)
[2023-04-03 07:15] LABS: SGPT/ALT < 6 U/L (13-61)
[2023-04-03] MEDS: SEVELAMER CARBONATE 800 MG TAB (FP) PO SCH (09:15)
[2023-04-03] MEDS: buPROPion HCL 100 MG TABLET PO SCH (11:00)
[2023-04-03] MEDS: SODIUM CHLORIDE 250 ML IV SCH (11:26)
[2023-04-03] MEDS: DIVALPROEX SODIUM 500 MG TABLET E.C. PO SCH (11:27)
[2023-04-03] MEDS: lamoTRIgine 100 MG TABLET PO SCH (21:19)
[2023-04-03] MEDS: traZODone HCL 50 MG TABLET (FP) PO SCH (21:19)
[2023-04-04 06:35] LABS: HEMATOCRIT 34.5 % (35.4-49); HEMOGLOBIN 11.3 GM/dL (11.7-16.9); MCH 33.1 pg (25.7-33.7); MCHC 32.8 g/dl (32.0-35.9); MEAN PLT VOLUME 7.5 fl (7.5-11.1); PLATELET COUNT 107 10^3/uL (134-434); RBC 3.41 M/mm3 (4.00-5.60); WHITE BLOOD COUNT 5.6 K/mm3 (4.0-10.0)
[2023-04-04 07:25] LABS: CHLORIDE 108 mmol/L (98-107); POTASSIUM 5.2 mmol/L (3.5-5.1); SODIUM 141 mmol/L (136-145)
[2023-04-04 07:27] LABS: ANION GAP 11 mmol/L (4-13); CALCIUM 8.5 mg/dL (8.5-10.1); CO2 21 mmol/L (21-32)
[2023-04-04 07:28] LABS: BLOOD UREA NITROGEN 79.7 mg/dL (7-18); GLUCOSE,RANDOM 76 mg/dL (74-106)
[2023-04-04 07:30] LABS: CREATININE 5.3 mg/dL (0.55-1.3)
[2023-04-04 07:31] LABS: SGOT/AST 9 U/L (15-37)
[2023-04-04 07:32] LABS: BILIRUBIN,TOTAL 0.3 mg/dL (0.2-1); TOT PROT 6.5 g/dl (6.4-8.2)
[2023-04-04 07:33] LABS: ALK PHOS 98 U/L (45-117)
[2023-04-04 07:39] LABS: SGPT/ALT < 6 U/L (13-61)
[2023-04-04] MEDS: MIDODRINE HCL 2.5 MG TABLET PO SCH (09:20)
[2023-04-04] MEDS ORDERED: SODIUM CHLORIDE 250 ML IV PRN (10:00)
[2023-04-04] MEDS: CEFAZOLIN SODIUM 2 GM in DEXTROSE 5%-WATER 100 ML IVPB ONE (11:35)
[2023-04-04] MEDS: SODIUM CHLORIDE 1,000 ML IV SCH (12:23)
[2023-04-04] MEDS: POLYETHYLENE GLYCOL (HEALTHYLAX) 3350 17 GM PACKET PO SCH (15:54)
[2023-04-05 06:49] LABS: CHLORIDE 108 mmol/L (98-107); POTASSIUM 4.9 mmol/L (3.5-5.1); SODIUM 141 mmol/L (136-145)
[2023-04-05 06:51] LABS: ALBUMIN 2.8 g/dl (3.4-5.0); ANION GAP 6 mmol/L (4-13); CALCIUM 8.1 mg/dL (8.5-10.1); CO2 28 mmol/L (21-32); GLUCOSE,RANDOM 77 mg/dL (74-106)
[2023-04-05 06:54] LABS: CREATININE 3.8 mg/dL (0.55-1.3); SGOT/AST 12 U/L (15-37)
[2023-04-05 06:55] LABS: SGPT/ALT < 6 U/L (13-61)
[2023-04-05 06:56] LABS: BILIRUBIN,TOTAL 0.4 mg/dL (0.2-1); TOT PROT 6.1 g/dl (6.4-8.2)
[2023-04-05 06:57] LABS: ALK PHOS 92 U/L (45-117)
[2023-04-05 07:24] LABS: BLOOD UREA NITROGEN 46.7 mg/dL (7-18)
[2023-04-05 07:42] LABS: HEMATOCRIT 31.6 % (35.4-49); MCH 34.7 pg (25.7-33.7); MEAN CELL VOLUME 99.1 fl (80-96); MEAN PLT VOLUME 7.5 fl (7.5-11.1); PLATELET COUNT 105 10^3/uL (134-434); RBC 3.19 M/mm3 (4.00-5.60); RDW 16.1 % (11.9-15.9); WHITE BLOOD COUNT 4.7 K/mm3 (4.0-10.0)
[2023-04-05 13:08] VITALS: BMI 20.3
[2023-04-05] MEDS: ACETAMINOPHEN 1000 MG/100 ML BAG IVPB ONE (14:32)
[2023-04-05] MEDS ORDERED: SODIUM CHLORIDE 250 ML IV PRN (14:40)
[2023-04-05] MEDS: MIDODRINE HCL 5 MG TABLET PO SCH (17:48)
[2023-04-05 20:42] VITALS: RESP 18
[2023-04-06 09:29] LABS: HEMATOCRIT 32.3 % (35.4-49); MCH 34.2 pg (25.7-33.7); MEAN CELL VOLUME 100.7 fl (80-96); MEAN PLT VOLUME 7.8 fl (7.5-11.1); PLATELET COUNT 105 10^3/uL (134-434); RBC 3.21 M/mm3 (4.00-5.60); RDW 15.7 % (11.9-15.9); WHITE BLOOD COUNT 4.3 K/mm3 (4.0-10.0)
[2023-04-06 09:40] LABS: CALCIUM 8.2 mg/dL (8.5-10.1); CHLORIDE 108 mmol/L (98-107); POTASSIUM 5.2 mmol/L (3.5-5.1); SODIUM 142 mmol/L (136-145)
[2023-04-06 09:41] LABS: ALBUMIN 2.8 g/dl (3.4-5.0); ANION GAP 7 mmol/L (4-13); BLOOD UREA NITROGEN 70.5 mg/dL (7-18); CO2 27 mmol/L (21-32); GLUCOSE,RANDOM 140 mg/dL (74-106)
[2023-04-06 09:44] LABS: CREATININE 5.2 mg/dL (0.55-1.3); SGOT/AST 8 U/L (15-37); SGPT/ALT < 6 U/L (13-61)
[2023-04-06 09:45] LABS: BILIRUBIN,TOTAL 0.3 mg/dL (0.2-1)
[2023-04-06 09:47] LABS: ALK PHOS 97 U/L (45-117)
[2023-04-06 14:20] VITALS: BP 116/80; PULSE 62; TEMP 98.1
== END 2023-04-06 16:43 | DRG 312 ==
LOC: JER 15:04 → JERBED 17:37 → J4W 04-03 01:00 → OBSVTOIN 04-03 13:24
PROVIDERS: ADMIT Internal Medicine; ATTEND Internal Medicine
PROC: 5A1D70Z Performance of Urinary Filtration, Intermittent, Less than 6 Hours Per Day (ICD-10-PCS; principal; 2023-04-03)
DX: I95.1 Orthostatic hypotension (principal); N18.6 End stage renal disease; I13.2 Hypertensive heart and chronic kidney disease with heart failure and with stage 5 chronic kidney disease, or end stage renal disease; T82.7XXA Infection and inflammatory reaction due to other cardiac and vascular devices, implants and grafts, initial encounter; I50.32 Chronic diastolic (congestive) heart failure; G40.909 Epilepsy, unspecified, not intractable, without status epilepticus; Z99.2 Dependence on renal dialysis; F20.9 Schizophrenia, unspecified; F31.9 Bipolar disorder, unspecified; Z95.0 Presence of cardiac pacemaker; G62.9 Polyneuropathy, unspecified; E11.22 Type 2 diabetes mellitus with diabetic chronic kidney disease; D69.6 Thrombocytopenia, unspecified; G47.00 Insomnia, unspecified; Y83.8 Other surgical procedures as the cause of abnormal reaction of the patient, or of later complication, without mention of misadventure at the time of the procedure; E04.1 Nontoxic single thyroid nodule
CPT/HCPCS: 0241U-QW; 36415; 70450-TC; 70486-TC; 71045-TC-FY; 72125-TC; 80053; 82962; 83605; 83735; 84100; 84484; 85025; 85027; 86704; 86708; 87340; 87517; 87635; 87902; 90715; 93005; 93010; 97116-GP; 97162-GP; 99285-25; G0378; J0131; J1644

== ENCOUNTER 2023-04-13 13:05 | Inpatient (IN) | payer OTHER ==
[2023-04-13 14:22] LABS: BASO % 0.5 % (0-2.0); EOS % 0.9 % (0-4.5); HEMATOCRIT 38.7 % (35.4-49); HEMOGLOBIN 13.2 GM/dL (11.7-16.9); LYMPH % 15.9 % (8-40); MCH 33.7 pg (25.7-33.7); MCHC 34.1 g/dl (32.0-35.9); MEAN PLT VOLUME 6.7 fl (7.5-11.1); MONO % 8.1 % (3.8-10.2); NEUT % 74.6 % (42.8-82.8); PLATELET COUNT 142 10^3/uL (134-434); RBC 3.91 M/mm3 (4.00-5.60); RDW 15.2 % (11.9-15.9); WHITE BLOOD COUNT 4.9 K/mm3 (4.0-10.0)
[2023-04-13 14:28] LABS: VENOUS BASE EXCESS -0.6 mmol/L (-2-2); VENOUS O2 SATURATION 21.2 % (70-80); VENOUS PCO2 48.6 mmHg (38-52); VENOUS PH 7.34 (7.310-7.410)
[2023-04-13 15:17] LABS: POTASSIUM 4.2 mmol/L (3.5-5.1)
[2023-04-13 15:20] LABS: CALCIUM 9.1 mg/dL (8.5-10.1); MAGNESIUM 2.8 mg/dL (1.8-2.4)
[2023-04-13 15:23] LABS: CREATININE 3.7 mg/dL (0.55-1.3)
[2023-04-13 15:25] LABS: BILIRUBIN,TOTAL 0.4 mg/dL (0.2-1)
[2023-04-13 15:28] LABS: ALBUMIN 3.8 g/dl (3.4-5.0); BLOOD UREA NITROGEN 44.2 mg/dL (7-18)
[2023-04-13 15:35] LABS: COCAINE, UR NEGATIVE (NEGATIVE); OPIATES, URI NEGATIVE (NEGATIVE); PHENCYCLIDINE,URINE NEGATIVE (NEGATIVE); URINE BARBITURATES NEGATIVE (NEGATIVE)
[2023-04-13 15:36] LABS: METHADONE, UR NEGATIVE (NEGATIVE); URINE BENZODIAZEPINES NEGATIVE (NEGATIVE)
[2023-04-13 15:38] LABS: URINE AMPHETAMINES NEGATIVE (NEGATIVE)
[2023-04-13 16:13] LABS: ACTIVATED PTT 34.2 SECONDS (25.2-36.5); INR 1.01 (0.83-1.09); PROTHROMBIN TIME (PATIENT) 11.7 SEC (9.7-13.0)
[2023-04-13] MEDS ORDERED: ACETAMINOPHEN 325 MG TABLET (FP) ONE (22:11)
[2023-04-13] MEDS: ACETAMINOPHEN 325 MG TABLET (FP) PO ONE (22:14)
[2023-04-14] MEDS ORDERED: HEPARIN NA (PORCINE) 5,000 UNITS/ML 1ML VIAL ONE (06:20)
[2023-04-14] MEDS: HEPARIN NA (PORCINE) 5,000 UNITS/ML 1ML VIAL SQ SCH ×2 (06:36→21:37)
[2023-04-14 08:00] LABS: HEMATOCRIT 37.9 % (35.4-49); HEMOGLOBIN 12.3 GM/dL (11.7-16.9); MCH 32.7 pg (25.7-33.7); MCHC 32.5 g/dl (32.0-35.9); MEAN CELL VOLUME 100.5 fl (80-96); MEAN PLT VOLUME 6.9 fl (7.5-11.1); PLATELET COUNT 142 10^3/uL (134-434); RBC 3.77 M/mm3 (4.00-5.60); RDW 15.1 % (11.9-15.9); WHITE BLOOD COUNT 4.1 K/mm3 (4.0-10.0)
[2023-04-14] MEDS: SEVELAMER CARBONATE 800 MG TAB (FP) PO SCH ×2 (08:00→17:42)
[2023-04-14 08:38] LABS: CHLORIDE 111 mmol/L (98-107); POTASSIUM 4.8 mmol/L (3.5-5.1); SODIUM 144 mmol/L (136-145)
[2023-04-14 08:41] LABS: ANION GAP 6 mmol/L (4-13); BLOOD UREA NITROGEN 59.4 mg/dL (7-18); CALCIUM 9.4 mg/dL (8.5-10.1); CO2 27 mmol/L (21-32); GLUCOSE,RANDOM 89 mg/dL (74-106); MAGNESIUM 3.2 mg/dL (1.8-2.4)
[2023-04-14 08:42] LABS: ALBUMIN 3.5 g/dl (3.4-5.0)
[2023-04-14 08:44] LABS: SGOT/AST 8 U/L (15-37)
[2023-04-14 08:45] LABS: CREATININE 5.1 mg/dL (0.55-1.3); PHOSPHOROUS 5.7 mg/dL (2.5-4.9)
[2023-04-14 08:46] LABS: BILIRUBIN,TOTAL 0.4 mg/dL (0.2-1); TOT PROT 7.3 g/dl (6.4-8.2)
[2023-04-14 08:47] LABS: ALK PHOS 99 U/L (45-117)
[2023-04-14 08:52] LABS: SGPT/ALT < 6 U/L (13-61)
[2023-04-14] MEDS ORDERED: HEPARIN NA (PORCINE) 5,000 UNITS/ML 1ML VIAL SQ SCH (10:00)
[2023-04-14] MEDS ORDERED: CEFAZOLIN SODIUM 2 GM in DEXTROSE 5%-WATER 100 ML IVPB SCH (10:00)
[2023-04-14] MEDS: MIDODRINE HCL 5 MG TABLET PO SCH ×2 (10:31→17:45)
[2023-04-14] MEDS: DIVALPROEX SODIUM 500 MG TABLET E.C. PO SCH ×2 (10:34→21:37)
[2023-04-14] MEDS ORDERED: CEFAZOLIN SODIUM 3 GM in DEXTROSE 5%-WATER 100 ML IVPB SCH (10:45)
[2023-04-14] MEDS: INSULIN ASPART SLIDING SCALE (NOVOLOG) 1 VIAL SQ SCH ×2 (11:30→22:01)
[2023-04-14] MEDS: CEFAZOLIN SODIUM 1 GM in DEXTROSE 5%-WATER 100 ML IVPB SCH (13:27)
[2023-04-14] MEDS ORDERED: SODIUM CHLORIDE 250 ML IV PRN ×2 (15:00→16:42)
[2023-04-14] MEDS: CEFAZOLIN 3 GM in DEXTROSE 5%-WATER - 100 ML IVPB ONE (15:46)
[2023-04-14] MEDS: traZODone HCL 50 MG TABLET (FP) PO SCH (21:38)
[2023-04-14] MEDS: lamoTRIgine 100 MG TABLET PO SCH (21:41)
[2023-04-14] MEDS ORDERED: lamoTRIgine 100 MG TABLET PO SCH (22:00)
[2023-04-14] MEDS ORDERED: traZODone HCL 50 MG TABLET (FP) PO SCH (22:00)
[2023-04-15] MEDS ORDERED: SODIUM CHLORIDE 250 ML IV PRN (14:35)
[2023-04-16] MEDS: BENZOCAINE/MENTHOL 1 EACH LOZENGE MM PRN (00:40)
[2023-04-16 09:22] LABS: HEMATOCRIT 37.7 % (35.4-49); HEMOGLOBIN 12.7 GM/dL (11.7-16.9); MCH 33.7 pg (25.7-33.7); MCHC 33.8 g/dl (32.0-35.9); MEAN CELL VOLUME 99.7 fl (80-96); MEAN PLT VOLUME 7.4 fl (7.5-11.1); PLATELET COUNT 148 10^3/uL (134-434); RBC 3.78 M/mm3 (4.00-5.60); RDW 15.6 % (11.9-15.9); WHITE BLOOD COUNT 5.4 K/mm3 (4.0-10.0)
[2023-04-16] MEDS: CEFAZOLIN SODIUM 2 GM in DEXTROSE 5%-WATER - 100 ML IVPB SCH (09:43)
[2023-04-16 09:53] LABS: POTASSIUM 5.2 mmol/L (3.5-5.1)
[2023-04-16 09:54] LABS: CALCIUM 9.2 mg/dL (8.5-10.1)
[2023-04-16 09:55] LABS: BLOOD UREA NITROGEN 55.7 mg/dL (7-18); MAGNESIUM 3.1 mg/dL (1.8-2.4)
[2023-04-16 09:58] LABS: CREATININE 5.5 mg/dL (0.55-1.3)
[2023-04-16] MEDS: OLANZapine 10 MG TABLET PO SCH (22:39)
[2023-04-17] MEDS: MELATONIN 5 MG TABLETS PO ONE (02:22)
[2023-04-17] MEDS: LIDOCAINE 5% TOPICAL PATCH TP ONE (02:29)
[2023-04-17 08:35] LABS: BASO % 0.5 % (0-2.0); EOS % 2.4 % (0-4.5); HEMATOCRIT 36.7 % (35.4-49); HEMOGLOBIN 12.3 GM/dL (11.7-16.9); LYMPH % 31.7 % (8-40); MCH 33.6 pg (25.7-33.7); MCHC 33.5 g/dl (32.0-35.9); MEAN CELL VOLUME 100.2 fl (80-96); MEAN PLT VOLUME 7.2 fl (7.5-11.1); MONO % 10.5 % (3.8-10.2); NEUT % 54.9 % (42.8-82.8); PLATELET COUNT 139 10^3/uL (134-434); RBC 3.66 M/mm3 (4.00-5.60); RDW 15.4 % (11.9-15.9); WHITE BLOOD COUNT 6.6 K/mm3 (4.0-10.0)
[2023-04-17 08:53] LABS: CHLORIDE 106 mmol/L (98-107); POTASSIUM 3.9 mmol/L (3.5-5.1); SODIUM 143 mmol/L (136-145)
[2023-04-17 08:58] LABS: CALCIUM 9.3 mg/dL (8.5-10.1)
[2023-04-17 08:59] LABS: ALBUMIN 3.5 g/dl (3.4-5.0); ANION GAP 8 mmol/L (4-13); BLOOD UREA NITROGEN 42.6 mg/dL (7-18); CO2 30 mmol/L (21-32); GLUCOSE,RANDOM 77 mg/dL (74-106)
[2023-04-17 09:02] LABS: CREATININE 4.2 mg/dL (0.55-1.3); SGOT/AST 8 U/L (15-37)
[2023-04-17 09:03] LABS: BILIRUBIN,TOTAL 0.4 mg/dL (0.2-1)
[2023-04-17 09:04] LABS: ALK PHOS 89 U/L (45-117); SGPT/ALT < 6 U/L (13-61)
[2023-04-17] MEDS ORDERED: SODIUM CHLORIDE 250 ML IV PRN (15:12)
[2023-04-17] MEDS: LIDOCAINE PATCH REMOVAL MC SCH (22:09)
[2023-04-17] MEDS: ACETAMINOPHEN 325 MG TABLET (FP) PO ONE (23:20)
[2023-04-17] MEDS: ACETAMINOPHEN 1000 MG/100 ML BAG IVPB ONE (23:44)
[2023-04-18 10:39] LABS: HEMATOCRIT 35.7 % (35.4-49); HEMOGLOBIN 12.1 GM/dL (11.7-16.9); MCH 33.9 pg (25.7-33.7); MCHC 33.8 g/dl (32.0-35.9); MEAN PLT VOLUME 7.6 fl (7.5-11.1); PLATELET COUNT 118 10^3/uL (134-434); RBC 3.57 M/mm3 (4.00-5.60); RDW 15.6 % (11.9-15.9); WHITE BLOOD COUNT 4.5 K/mm3 (4.0-10.0)
[2023-04-18 11:03] LABS: POTASSIUM 3.8 mmol/L (3.5-5.1)
[2023-04-18 11:06] LABS: CALCIUM 9.3 mg/dL (8.5-10.1)
[2023-04-18 11:08] LABS: ALBUMIN 3.5 g/dl (3.4-5.0); BLOOD UREA NITROGEN 65.6 mg/dL (7-18)
[2023-04-18 11:11] LABS: CREATININE 5.8 mg/dL (0.55-1.3)
[2023-04-18 11:13] LABS: BILIRUBIN,TOTAL 0.4 mg/dL (0.2-1); TOT PROT 6.9 g/dl (6.4-8.2)
[2023-04-18] MEDS: HEPARIN NA (PORCINE) 5,000 UNITS/ML 1ML VIAL IVPUSH ONE (15:05)
[2023-04-18] MEDS: MELATONIN 5 MG TABLETS PO ONE (23:52)
[2023-04-18] MEDS: ACETAMINOPHEN 325 MG TABLET (FP) PO ONE (23:52)
[2023-04-18] MEDS: ACETAMINOPHEN 1000 MG/100 ML BAG IVPB ONE (23:54)
[2023-04-19] MEDS: ACETAMINOPHEN 325 MG TABLET (FP) PO PRN (10:33)
[2023-04-19] MEDS: MIDODRINE HCL 5 MG TABLET PO SCH (17:56)
[2023-04-20 08:32] LABS: HEMATOCRIT 35.6 % (35.4-49); MCH 33.6 pg (25.7-33.7); MCHC 33.7 g/dl (32.0-35.9); MEAN CELL VOLUME 99.6 fl (80-96); MEAN PLT VOLUME 7.5 fl (7.5-11.1); PLATELET COUNT 112 10^3/uL (134-434); RBC 3.57 M/mm3 (4.00-5.60); RDW 15.6 % (11.9-15.9); WHITE BLOOD COUNT 4.9 K/mm3 (4.0-10.0)
[2023-04-20 08:47] LABS: CHLORIDE 104 mmol/L (98-107); POTASSIUM 3.6 mmol/L (3.5-5.1); SODIUM 141 mmol/L (136-145)
[2023-04-20 08:50] LABS: ALBUMIN 3.3 g/dl (3.4-5.0); ANION GAP 7 mmol/L (4-13); BLOOD UREA NITROGEN 52.6 mg/dL (7-18); CALCIUM 9.2 mg/dL (8.5-10.1); CO2 31 mmol/L (21-32); GLUCOSE,RANDOM 94 mg/dL (74-106)
[2023-04-20 08:53] LABS: CREATININE 4.7 mg/dL (0.55-1.3); SGOT/AST 8 U/L (15-37)
[2023-04-20 08:55] LABS: BILIRUBIN,TOTAL 0.3 mg/dL (0.2-1); TOT PROT 6.7 g/dl (6.4-8.2)
[2023-04-20 08:56] LABS: ALK PHOS 81 U/L (45-117)
[2023-04-20 09:10] LABS: SGPT/ALT < 6 U/L (13-61)
[2023-04-20] MEDS ORDERED: SODIUM CHLORIDE 250 ML IV PRN (10:11)
[2023-04-20] MEDS: HEPARIN NA (PORCINE) 5,000 UNITS/ML 1ML VIAL IVPUSH ONE (10:32)
[2023-04-20] MEDS: MELATONIN 5 MG TABLETS PO ONE (23:05)
[2023-04-22] MEDS ORDERED: SODIUM CHLORIDE 250 ML IV PRN (21:45)
[2023-04-23] MEDS: MELATONIN 5 MG TABLETS PO ONE (03:26)
[2023-04-24] MEDS: IBUPROFEN 600 MG TABLET (FP) PO PRN (08:38)
[2023-04-24 09:34] LABS: HEMATOCRIT 39.7 % (35.4-49); HEMOGLOBIN 12.9 GM/dL (11.7-16.9); MCH 33.2 pg (25.7-33.7); MCHC 32.5 g/dl (32.0-35.9); MEAN CELL VOLUME 102.1 fl (80-96); MEAN PLT VOLUME 7.8 fl (7.5-11.1); PLATELET COUNT 107 10^3/uL (134-434); RBC 3.89 M/mm3 (4.00-5.60); RDW 15.8 % (11.9-15.9); WHITE BLOOD COUNT 5.6 K/mm3 (4.0-10.0)
[2023-04-24 09:53] LABS: POTASSIUM 3.9 mmol/L (3.5-5.1)
[2023-04-24 10:04] LABS: CALCIUM 9.5 mg/dL (8.5-10.1)
[2023-04-24 10:05] LABS: ALBUMIN 3.9 g/dl (3.4-5.0); BLOOD UREA NITROGEN 54.2 mg/dL (7-18)
[2023-04-24 10:08] LABS: CREATININE 5.2 mg/dL (0.55-1.3)
[2023-04-24 10:09] LABS: TOT PROT 7.3 g/dl (6.4-8.2)
[2023-04-24 10:10] LABS: BILIRUBIN,TOTAL 0.4 mg/dL (0.2-1)
[2023-04-25] MEDS ORDERED: SODIUM CHLORIDE 250 ML IV PRN (08:00)
[2023-04-25 09:04] LABS: HEMATOCRIT 36.7 % (35.4-49); HEMOGLOBIN 12.3 GM/dL (11.7-16.9); MCHC 33.6 g/dl (32.0-35.9); MEAN PLT VOLUME 7.7 fl (7.5-11.1); PLATELET COUNT 101 10^3/uL (134-434); RBC 3.63 M/mm3 (4.00-5.60); RDW 15.9 % (11.9-15.9); WHITE BLOOD COUNT 4.7 K/mm3 (4.0-10.0)
[2023-04-25 09:27] LABS: POTASSIUM 4.7 mmol/L (3.5-5.1)
[2023-04-25 09:28] LABS: CALCIUM 8.9 mg/dL (8.5-10.1)
[2023-04-25 09:29] LABS: BLOOD UREA NITROGEN 70.7 mg/dL (7-18)
[2023-04-25 09:32] LABS: CREATININE 5.9 mg/dL (0.55-1.3)
[2023-04-25] MEDS: BACITRACIN ZINC 15 GM TUBE TOPICAL OINTMENT TP SCH (11:52)
[2023-04-26 08:49] LABS: POTASSIUM 4.1 mmol/L (3.5-5.1)
[2023-04-26 08:52] LABS: ALBUMIN 3.2 g/dl (3.4-5.0); BLOOD UREA NITROGEN 53.3 mg/dL (7-18); CALCIUM 9.4 mg/dL (8.5-10.1)
[2023-04-26 08:55] LABS: CREATININE 4.5 mg/dL (0.55-1.3)
[2023-04-26 08:57] LABS: BILIRUBIN,TOTAL 0.4 mg/dL (0.2-1); TOT PROT 6.8 g/dl (6.4-8.2)
[2023-04-26] MEDS: OLANZAPINE 10 MG, OLANZAPINE 5 MG PO SCH (21:34)
[2023-04-26] MEDS ORDERED: OLANZapine 7.5 MG TABLET PO SCH (22:00)
[2023-04-27 09:57] LABS: HEMATOCRIT 35.4 % (35.4-49); HEMOGLOBIN 11.7 GM/dL (11.7-16.9); MCH 33.6 pg (25.7-33.7); MCHC 33.1 g/dl (32.0-35.9); MEAN CELL VOLUME 101.5 fl (80-96); MEAN PLT VOLUME 8.1 fl (7.5-11.1); PLATELET COUNT 90 10^3/uL (134-434); RBC 3.49 M/mm3 (4.00-5.60); RDW 15.5 % (11.9-15.9); WHITE BLOOD COUNT 4.4 K/mm3 (4.0-10.0)
[2023-04-27 10:09] LABS: POTASSIUM 3.6 mmol/L (3.5-5.1)
[2023-04-27 10:11] LABS: BLOOD UREA NITROGEN 66.1 mg/dL (7-18)
[2023-04-27 10:14] LABS: CREATININE 5.5 mg/dL (0.55-1.3)
[2023-04-28] MEDS: MELATONIN 5 MG TABLETS PO ONE (01:38)
[2023-04-29] MEDS: ALBUTEROL SO4 0.083% IH SOL 2.5 MG/3 ML VIAL.NEB. NEB ONE (14:40)
[2023-04-29] MEDS: guaiFENesin/D-METHORPHAN HB 10 ML UNIT-DOSE CUPS PO ONE (14:49)
[2023-04-29 17:21] LABS: BASO % 0.5 % (0-2.0); HEMOGLOBIN 12.4 GM/dL (11.7-16.9); LYMPH % 17.1 % (8-40); MCH 33.8 pg (25.7-33.7); MCHC 33.5 g/dl (32.0-35.9); MEAN PLT VOLUME 7.7 fl (7.5-11.1); MONO % 9.9 % (3.8-10.2); NEUT % 70.5 % (42.8-82.8); PLATELET COUNT 100 10^3/uL (134-434); RBC 3.67 M/mm3 (4.00-5.60); RDW 15.5 % (11.9-15.9); WHITE BLOOD COUNT 5.5 K/mm3 (4.0-10.0)
[2023-04-29 17:45] LABS: POTASSIUM 4.5 mmol/L (3.5-5.1)
[2023-04-29 17:47] LABS: BLOOD UREA NITROGEN 83.5 mg/dL (7-18); CALCIUM 9.4 mg/dL (8.5-10.1); MAGNESIUM 3.5 mg/dL (1.8-2.4)
[2023-04-29 17:48] LABS: ALBUMIN 3.6 g/dl (3.4-5.0)
[2023-04-29 17:50] LABS: CREATININE 6.3 mg/dL (0.55-1.3); PHOSPHOROUS 4.6 mg/dL (2.5-4.9)
[2023-04-29 17:52] LABS: BILIRUBIN,TOTAL 0.4 mg/dL (0.2-1); TOT PROT 7.1 g/dl (6.4-8.2)
[2023-04-29] MEDS: ALPRAZolam 0.25 MG TABLET PO ONE (19:30)
[2023-04-29] MEDS: MIDODRINE HCL 5 MG TABLET PO ONE (22:26)
[2023-04-30 09:36] LABS: BASO % 0.4 % (0-2.0); EOS % 1.3 % (0-4.5); HEMATOCRIT 35.4 % (35.4-49); HEMOGLOBIN 11.6 GM/dL (11.7-16.9); LYMPH % 14.7 % (8-40); MCH 33.3 pg (25.7-33.7); MCHC 32.8 g/dl (32.0-35.9); MEAN CELL VOLUME 101.5 fl (80-96); MEAN PLT VOLUME 8.4 fl (7.5-11.1); MONO % 9.4 % (3.8-10.2); NEUT % 74.2 % (42.8-82.8); PLATELET COUNT 103 10^3/uL (134-434); RBC 3.49 M/mm3 (4.00-5.60); RDW 15.3 % (11.9-15.9); WHITE BLOOD COUNT 5.9 K/mm3 (4.0-10.0)
[2023-04-30 09:50] LABS: POTASSIUM 5.4 mmol/L (3.5-5.1)
[2023-04-30 09:58] LABS: CALCIUM 9.2 mg/dL (8.5-10.1)
[2023-04-30 09:59] LABS: MAGNESIUM 4.2 mg/dL (1.8-2.4)
[2023-04-30 10:02] LABS: CREATININE 6.7 mg/dL (0.55-1.3); PHOSPHOROUS 5.1 mg/dL (2.5-4.9)
[2023-04-30] MEDS: HEPARIN NA (PORCINE) 5,000 UNITS/ML 1ML VIAL IVPUSH ONE (11:30)
[2023-04-30] MEDS ORDERED: SODIUM CHLORIDE 250 ML IV PRN ×2 (11:42)
[2023-04-30] MEDS ORDERED: MIDODRINE HCL 5 MG TABLET PO ONE (22:02)
[2023-05-01] MEDS ORDERED: SODIUM CHLORIDE 250 ML IV PRN (13:37)
[2023-05-02] MEDS: LORazepam 2 MG/ML SDV VIAL IVPUSH ONE (03:23)
[2023-05-02] MEDS ORDERED: OLANZapine 5 MG TABLET ONE (21:36)
[2023-05-03] MEDS: MELATONIN 5 MG TABLETS PO ONE (03:14)
[2023-05-03 08:02] LABS: HEMATOCRIT 34.4 % (35.4-49); HEMOGLOBIN 11.3 GM/dL (11.7-16.9); MCH 33.2 pg (25.7-33.7); MCHC 32.7 g/dl (32.0-35.9); MEAN CELL VOLUME 101.4 fl (80-96); MEAN PLT VOLUME 7.5 fl (7.5-11.1); PLATELET COUNT 116 10^3/uL (134-434); RBC 3.39 M/mm3 (4.00-5.60); RDW 15.3 % (11.9-15.9); WHITE BLOOD COUNT 6.4 K/mm3 (4.0-10.0)
[2023-05-03 08:19] LABS: POTASSIUM 4.4 mmol/L (3.5-5.1)
[2023-05-03 08:22] LABS: CALCIUM 9.7 mg/dL (8.5-10.1)
[2023-05-03 08:23] LABS: ALBUMIN 3.3 g/dl (3.4-5.0)
[2023-05-03 08:26] LABS: CREATININE 4.2 mg/dL (0.55-1.3)
[2023-05-03 08:27] LABS: BILIRUBIN,TOTAL 0.3 mg/dL (0.2-1); TOT PROT 6.3 g/dl (6.4-8.2)
[2023-05-03 08:36] LABS: BLOOD UREA NITROGEN 67.8 mg/dL (7-18)
[2023-05-03] MEDS: IBUPROFEN 600 MG TABLET (FP) PO PRN (11:45)
[2023-05-03] MEDS ORDERED: SODIUM CHLORIDE 250 ML IV PRN (18:25)
[2023-05-04 14:25] VITALS: BMI 20.6
[2023-05-04] MEDS: SODIUM CHLORIDE 500 ML IV STA (16:51)
[2023-05-05] MEDS: HEPARIN NA (PORCINE) 5,000 UNITS/ML 1ML VIAL SQ SCH (21:55)
[2023-05-06 08:31] LABS: BASO % 0.5 % (0-2.0); EOS % 2.8 % (0-4.5); HEMATOCRIT 34.6 % (35.4-49); HEMOGLOBIN 11.2 GM/dL (11.7-16.9); MCH 32.9 pg (25.7-33.7); MCHC 32.5 g/dl (32.0-35.9); MEAN CELL VOLUME 101.2 fl (80-96); MEAN PLT VOLUME 7.7 fl (7.5-11.1); MONO % 12.1 % (3.8-10.2); NEUT % 68.6 % (42.8-82.8); PLATELET COUNT 136 10^3/uL (134-434); RBC 3.42 M/mm3 (4.00-5.60); RDW 15.2 % (11.9-15.9); WHITE BLOOD COUNT 6.3 K/mm3 (4.0-10.0)
[2023-05-06 08:50] LABS: POTASSIUM 4.6 mmol/L (3.5-5.1)
[2023-05-06 08:53] LABS: ALBUMIN 3.3 g/dl (3.4-5.0); BLOOD UREA NITROGEN 84.4 mg/dL (7-18)
[2023-05-06 08:56] LABS: CREATININE 5.8 mg/dL (0.55-1.3)
[2023-05-06 08:57] LABS: TOT PROT 6.5 g/dl (6.4-8.2)
[2023-05-06 08:58] LABS: BILIRUBIN,TOTAL 0.3 mg/dL (0.2-1)
[2023-05-06] MEDS ORDERED: SODIUM CHLORIDE 250 ML IV PRN (13:56)
[2023-05-07] MEDS ORDERED: MELATONIN 5 MG TABLETS PO PRN (02:40)
[2023-05-07] MEDS: MELATONIN 5 MG TABLETS PO ONE (02:44)
[2023-05-07 09:46] LABS: BASO % 0.4 % (0-2.0); EOS % 2.8 % (0-4.5); HEMATOCRIT 32.1 % (35.4-49); HEMOGLOBIN 10.5 GM/dL (11.7-16.9); LYMPH % 21.5 % (8-40); MCHC 32.7 g/dl (32.0-35.9); MEAN CELL VOLUME 100.9 fl (80-96); MEAN PLT VOLUME 7.4 fl (7.5-11.1); MONO % 6.6 % (3.8-10.2); NEUT % 68.7 % (42.8-82.8); PLATELET COUNT 140 10^3/uL (134-434); RBC 3.18 M/mm3 (4.00-5.60); RDW 15.3 % (11.9-15.9); WHITE BLOOD COUNT 5.7 K/mm3 (4.0-10.0)
[2023-05-07 10:04] LABS: POTASSIUM 4.3 mmol/L (3.5-5.1)
[2023-05-07 10:07] LABS: CALCIUM 9.7 mg/dL (8.5-10.1)
[2023-05-07 10:08] LABS: ALBUMIN 3.2 g/dl (3.4-5.0); BLOOD UREA NITROGEN 97.9 mg/dL (7-18)
[2023-05-07 10:11] LABS: CREATININE 6.4 mg/dL (0.55-1.3)
[2023-05-07 10:12] LABS: BILIRUBIN,TOTAL 0.4 mg/dL (0.2-1); TOT PROT 6.4 g/dl (6.4-8.2)
[2023-05-07] MEDS: SODIUM CHLORIDE 500 ML IV STA (16:05)
[2023-05-08 08:17] LABS: POTASSIUM 4.4 mmol/L (3.5-5.1)
[2023-05-08 08:24] LABS: ALBUMIN 3.5 g/dl (3.4-5.0)
[2023-05-08 08:27] LABS: CREATININE 4.4 mg/dL (0.55-1.3)
[2023-05-08 08:29] LABS: BILIRUBIN,TOTAL 0.4 mg/dL (0.2-1); TOT PROT 6.9 g/dl (6.4-8.2)
[2023-05-08 08:32] LABS: BLOOD UREA NITROGEN 54.9 mg/dL (7-18)
[2023-05-08 08:40] LABS: BASO % 0.4 % (0-2.0); EOS % 2.2 % (0-4.5); HEMATOCRIT 35.8 % (35.4-49); HEMOGLOBIN 11.8 GM/dL (11.7-16.9); LYMPH % 15.1 % (8-40); MCH 33.3 pg (25.7-33.7); MCHC 33.1 g/dl (32.0-35.9); MEAN CELL VOLUME 100.6 fl (80-96); MEAN PLT VOLUME 7.5 fl (7.5-11.1); MONO % 8.9 % (3.8-10.2); NEUT % 73.4 % (42.8-82.8); PLATELET COUNT 158 10^3/uL (134-434); RBC 3.56 M/mm3 (4.00-5.60); RDW 15.2 % (11.9-15.9); WHITE BLOOD COUNT 6.3 K/mm3 (4.0-10.0)
[2023-05-08] MEDS ORDERED: SODIUM CHLORIDE 250 ML IV PRN (11:46)
[2023-05-08 15:33] VITALS: BP 137/69; PULSE 72; RESP 18; TEMP 98.4
== END 2023-05-08 17:38 | DRG 880 ==
LOC: JER 13:05 → OBSVTOIN 22:52 → JERBED 22:52 → UNDOADMOB 22:52 → INTOOBSV 22:52 → JERBED 04-14 00:29 → OBSVTOIN 04-14 00:29 → J5S 04-14 16:36 → J8W 04-25 15:59 → J4W 05-07 13:12
PROVIDERS: ADMIT Internal Medicine; ATTEND Nurse Practitioner Acute Care
PROC: 5A1D70Z Performance of Urinary Filtration, Intermittent, Less than 6 Hours Per Day (ICD-10-PCS; principal; 2023-04-14)
DX: R45.851 Suicidal ideations (principal); N18.6 End stage renal disease; I13.2 Hypertensive heart and chronic kidney disease with heart failure and with stage 5 chronic kidney disease, or end stage renal disease; E44.0 Moderate protein-calorie malnutrition; I50.42 Chronic combined systolic (congestive) and diastolic (congestive) heart failure; Z68.1 Body mass index [BMI] 19.9 or less, adult; F31.9 Bipolar disorder, unspecified; E11.22 Type 2 diabetes mellitus with diabetic chronic kidney disease; Z99.2 Dependence on renal dialysis; G40.909 Epilepsy, unspecified, not intractable, without status epilepticus; F20.9 Schizophrenia, unspecified; E11.42 Type 2 diabetes mellitus with diabetic polyneuropathy; R42 Dizziness and giddiness; I45.10 Unspecified right bundle-branch block; I25.10 Atherosclerotic heart disease of native coronary artery without angina pectoris; I95.89 Other hypotension
CPT/HCPCS: 36415; 70450-TC; 71045-TC-FY; 80048; 80053; 80061; 80307; 82803; 82962; 83036; 83605; 83735; 84100; 84443; 84484; 85025; 85027; 85610; 85730; 86704; 86708; 86803; 86850; 86900; 86901; 87340; 87350; 87517; 87635; 93005; 93010; 93306-TC; 97116-GP; 97161-GP; 99285-25; J1644

== ENCOUNTER 2023-05-27 10:52 | Observation (INO) | payer OTHER ==
[2023-05-27] MEDS ORDERED: DIPHTH,PERTUSS(ACELL),TET 0.5 ML DISP.SYRIN IM ONE (12:13)
[2023-05-27] MEDS: DIPHTH,PERTUSS(ACELL),TET 0.5 ML DISP.SYRIN IM ONE (12:40)
[2023-05-27 14:12] LABS: BASO % 0.2 % (0-2.0); LYMPH % 17.5 % (8-40); MCH 33.5 pg (25.7-33.7); MCHC 33.4 g/dl (32.0-35.9); MEAN CELL VOLUME 100.3 fl (80-96); MEAN PLT VOLUME 7.5 fl (7.5-11.1); MONO % 8.6 % (3.8-10.2); NEUT % 72.7 % (42.8-82.8); PLATELET COUNT 110 10^3/uL (134-434); RBC 4.18 M/mm3 (4.00-5.60); RDW 15.3 % (11.9-15.9); WHITE BLOOD COUNT 5.7 K/mm3 (4.0-10.0)
[2023-05-27 14:20] LABS: INR 0.98 (0.83-1.09); PROTHROMBIN TIME (PATIENT) 11.4 SEC (9.7-13.0)
[2023-05-27 14:23] LABS: ACTIVATED PTT 33.6 SECONDS (25.2-36.5)
[2023-05-27] MEDS ORDERED: ceFAZolin SODIUM 1 GM VIAL ONE (14:33)
[2023-05-27 14:36] LABS: POTASSIUM 5.2 mmol/L (3.5-5.1)
[2023-05-27 14:37] LABS: CALCIUM 9.9 mg/dL (8.5-10.1)
[2023-05-27] MEDS ORDERED: CEFAZOLIN SODIUM 2 GM VIAL ONE (14:37)
[2023-05-27 14:38] LABS: ALBUMIN 3.8 g/dl (3.4-5.0); BLOOD UREA NITROGEN 73.3 mg/dL (7-18); MAGNESIUM 3.5 mg/dL (1.8-2.4)
[2023-05-27 14:41] LABS: CREATININE 7.3 mg/dL (0.55-1.3)
[2023-05-27 14:42] LABS: BILIRUBIN,TOTAL 0.4 mg/dL (0.2-1)
[2023-05-27 14:44] LABS: TOT PROT 7.6 g/dl (6.4-8.2)
[2023-05-27] MEDS: SODIUM CHLORIDE 1,000 ML IV STA (14:45)
[2023-05-27] MEDS: CEFAZOLIN SODIUM 2 GM VIAL IVPB ONE (14:45)
[2023-05-27] MEDS ORDERED: ACETAMINOPHEN INJECTION 100 ML IVPB ONE (16:06)
[2023-05-27] MEDS: ACETAMINOPHEN 1000 MG/100 ML BAG IVPB ONE (16:07)
[2023-05-27 18:35] LABS: EPI CELLS 0 /uL (0-25.1); HYALINE CASTS 0 /uL (0-3.1); PH,URINE 7.5 (5.0-8.0); URINE APPEARANCE CLEAR; URINE BACTERIA 0 /uL (0-1359); URINE BILIRUBIN NEGATIVE (NEGATIVE); URINE COLOR YELLOW; URINE GLUCOSE (UA) TRACE (NEGATIVE); URINE KETONE NEGATIVE (NEGATIVE); URINE LEUK ESTERASE NEGATIVE (NEGATIVE); URINE NITRITE NEGATIVE (NEGATIVE); URINE PROTEIN 1+ (NEGATIVE); URINE RBC 7 /uL (0-23.9); URINE UROBILINOGEN 0.2 mg/dL (0.2-1.0); URINE WBC 0 /uL (0-25.8)
[2023-05-27] MEDS: traZODone HCL 50 MG TABLET (FP) PO SCH (21:51)
[2023-05-27] MEDS: lamoTRIgine 100 MG TABLET PO SCH (21:52)
[2023-05-27] MEDS: DIVALPROEX SODIUM 500 MG TABLET E.C. PO SCH (21:52)
[2023-05-28] MEDS: ACETAMINOPHEN 325 MG TABLET (FP) PO PRN (00:57)
[2023-05-28] MEDS: DEXTROSE 50%-WATER 25 GM/50 ML DISP.SYRIN IVPUSH ONE (01:00)
[2023-05-28 07:32] LABS: BASO % 0.2 % (0-2.0); EOS % 1.3 % (0-4.5); HEMATOCRIT 39.4 % (35.4-49); HEMOGLOBIN 13.5 GM/dL (11.7-16.9); LYMPH % 19.6 % (8-40); MCH 34.1 pg (25.7-33.7); MCHC 34.3 g/dl (32.0-35.9); MEAN CELL VOLUME 99.5 fl (80-96); MEAN PLT VOLUME 7.5 fl (7.5-11.1); MONO % 9.1 % (3.8-10.2); NEUT % 69.8 % (42.8-82.8); PLATELET COUNT 113 10^3/uL (134-434); RBC 3.96 M/mm3 (4.00-5.60); RDW 15.2 % (11.9-15.9); WHITE BLOOD COUNT 6.1 K/mm3 (4.0-10.0)
[2023-05-28 07:56] LABS: CO2 24 mmol/L (21-32); GLUCOSE,RANDOM 58 mg/dL (74-106)
[2023-05-28 08:08] LABS: ANION GAP 11 mmol/L (4-13); CHLORIDE 108 mmol/L (98-107); POTASSIUM 4.8 mmol/L (3.5-5.1); SODIUM 143 mmol/L (136-145)
[2023-05-28] MEDS ORDERED: SODIUM CHLORIDE 250 ML IV PRN (08:08)
[2023-05-28 08:24] LABS: CREATININE 7.8 mg/dL (0.55-1.3)
[2023-05-28 11:25] VITALS: RESP 18
[2023-05-28] MEDS: SERTRALINE HCL 50 MG TABLET (FP) PO SCH (12:30)
[2023-05-29] MEDS ORDERED: SODIUM CHLORIDE 250 ML IV PRN (13:06)
[2023-05-29 13:08] VITALS: BMI 18.7
[2023-05-30 15:30] VITALS: BP 132/80; PULSE 67; TEMP 67
== END 2023-05-30 16:00 ==
LOC: JER 10:52 → JERBED 15:15 → J4W 17:57
PROVIDERS: ADMIT Internal Medicine; ATTEND Internal Medicine
PROC: 3E033NZ Introduction of Analgesics, Hypnotics, Sedatives into Peripheral Vein, Percutaneous Approach (ICD-10-PCS; principal; 2023-05-27)
PROC: 3E03329 Introduction of Other Anti-infective into Peripheral Vein, Percutaneous Approach (ICD-10-PCS; 2023-05-27)
PROC: 3E0337Z Introduction of Electrolytic and Water Balance Substance into Peripheral Vein, Percutaneous Approach (ICD-10-PCS; 2023-05-27)
PROC: 3E0234Z Introduction of Serum, Toxoid and Vaccine into Muscle, Percutaneous Approach (ICD-10-PCS; 2023-05-27)
DX: S02.2XXA Fracture of nasal bones, initial encounter for closed fracture (principal); W18.39XA Other fall on same level, initial encounter; Y93.89 Activity, other specified; Y92.008 Other place in unspecified non-institutional (private) residence as the place of occurrence of the external cause; E11.22 Type 2 diabetes mellitus with diabetic chronic kidney disease; I13.11 Hypertensive heart and chronic kidney disease without heart failure, with stage 5 chronic kidney disease, or end stage renal disease; N18.6 End stage renal disease; Z99.2 Dependence on renal dialysis; S01.21XA Laceration without foreign body of nose, initial encounter; R29.6 Repeated falls; R55 Syncope and collapse; S01.01XA Laceration without foreign body of scalp, initial encounter; R00.0 Tachycardia, unspecified; I50.20 Unspecified systolic (congestive) heart failure; F31.9 Bipolar disorder, unspecified; F25.9 Schizoaffective disorder, unspecified; E11.40 Type 2 diabetes mellitus with diabetic neuropathy, unspecified; Z95.0 Presence of cardiac pacemaker; F41.9 Anxiety disorder, unspecified; M62.81 Muscle weakness (generalized); R01.1 Cardiac murmur, unspecified; Z87.891 Personal history of nicotine dependence; Z23 Encounter for immunization
CPT/HCPCS: 0241U-QW; 36415; 70450-TC; 70486-TC; 71046-TC-FY; 72125-TC; 80048; 80053; 81003; 82962; 83605; 83735; 84100; 84443; 84484; 85025; 85610; 85730; 87040; 87086; 90471; 90715; 93005; 93010; 96361; 96374; 96375; 97116-GP; 97162-GP; 99285-25; G0378; J0131

== ENCOUNTER 2024-05-12 12:23 | Inpatient (IN) | payer OTHER ==
[2024-05-12] MEDS ORDERED: ACETAMINOPHEN INJECTION 100 ML ONE (13:08)
[2024-05-12] MEDS ORDERED: LORazepam 2 MG/ML SDV VIAL ONE ×4 (13:08→14:18)
[2024-05-12] MEDS: ACETAMINOPHEN 1000 MG/100 ML BAG IVPB ONE (13:20)
[2024-05-12 13:28] LABS: VENOUS BASE EXCESS -5.2 mmol/L (-2-2); VENOUS O2 SATURATION 90.6 % (70-80); VENOUS PCO2 34.1 mmHg (38-52); VENOUS PH 7.37 (7.310-7.410)
[2024-05-12 13:29] LABS: ABSOLUTE IMMATURE GRANULOCYTES 0.04 x10^3/uL (0.0-0.031); BASOPHILS # 0.04 x10^3/uL (0.01-0.08); EOSINOPHIL % 0.1 % (0.8-7.0); EOSINOPHILS # 0.01 x10^3/uL (0.04-0.54); HEMATOCRIT 33.6 % (40.1-51.0); HEMOGLOBIN 11.1 g/dL (13.7-17.5); MEAN CELL VOLUME 97.1 fl (79.0-92.2); MEAN PLT VOLUME 9.4 fl (9.4-12.4); MONOCYTE # 1.07 x10^3/uL (0.30-0.82); MONOCYTE % 10.1 % (5.3-12.2); PLATELET COUNT 175 x10^3/uL (163-337); RDW 14.7 % (12.2-16.1)
[2024-05-12 13:37] LABS: INR 1.01 (0.83-1.09); PROTHROMBIN TIME (PATIENT) 11.1 SEC (9.7-13.0)
[2024-05-12 13:40] LABS: ACTIVATED PTT 34.6 SECONDS (25.2-36.5)
[2024-05-12 13:48] LABS: URINE APPEARANCE CLEAR; URINE BILIRUBIN NEGATIVE (NEGATIVE); URINE COLOR YELLOW; URINE GLUCOSE (UA) NEGATIVE (NEGATIVE)
[2024-05-12 13:49] LABS: URINE KETONE NEGATIVE (NEGATIVE); URINE LEUK ESTERASE NEGATIVE (NEGATIVE); URINE NITRITE NEGATIVE (NEGATIVE); URINE PROTEIN 1+ (NEGATIVE); URINE UROBILINOGEN 0.2 mg/dL (0.2-1.0)
[2024-05-12] MEDS: LORazepam 2 MG/ML SDV VIAL IVPUSH ONE (14:04)
[2024-05-12 14:07] LABS: POTASSIUM 4.7 mmol/L (3.5-5.1)
[2024-05-12 14:13] LABS: ALBUMIN 4.2 g/dl (3.4-5.0); BLOOD UREA NITROGEN 43.8 mg/dL (7-18); CALCIUM 9.9 mg/dL (8.5-10.1)
[2024-05-12 14:18] LABS: BILIRUBIN,TOTAL 0.8 mg/dL (0.2-1); TOT PROT 7.3 g/dl (6.4-8.2)
[2024-05-12 14:19] LABS: COCAINE, UR NEGATIVE (NEGATIVE); URINE BENZODIAZEPINES NEGATIVE (NEGATIVE)
[2024-05-12 14:20] LABS: METHADONE, UR NEGATIVE (NEGATIVE); OPIATES, URI NEGATIVE (NEGATIVE); PHENCYCLIDINE,URINE NEGATIVE (NEGATIVE); URINE BARBITURATES NEGATIVE (NEGATIVE)
[2024-05-12 14:21] LABS: URINE AMPHETAMINES NEGATIVE (NEGATIVE)
[2024-05-12] MEDS ORDERED: MIDAZOLAM HCL 2 MG/2 ML SINGLE DOSE VIAL ONE ×2 (15:17→16:33)
[2024-05-12] MEDS: MIDAZOLAM HCL 2 MG/2 ML SINGLE DOSE VIAL IVPUSH ONE ×2 (15:22→16:35)
[2024-05-12] MEDS ORDERED: MIDAZOLAM HCL 2 MG/2 ML SINGLE DOSE VIAL IVPUSH ONE (17:44)
[2024-05-12] MEDS: CEFEPIME HCL 1 GM VIAL (RESTRICTED TO ID) IVPB ONE (18:14)
[2024-05-12] MEDS ORDERED: CEFEPIME HCL/D5W 1 GM/50 ML BAG IVPB ONE (18:14)
[2024-05-12] MEDS ORDERED: AMPICILLIN SODIUM 250 MG VIAL IVPB ONE (18:17)
[2024-05-12] MEDS: AMPICILLIN SODIUM 250 MG VIAL IVPUSH ONE (18:21)
[2024-05-12] MEDS ORDERED: VANCOMYCIN/WATER 1250 MG 1,250 MG/250 ML BAG IVPB ONE (18:22)
[2024-05-12] MEDS: VANCOMYCIN/WATER 1250 MG 1,250 MG/250 ML BAG IVPB ONE (18:27)
[2024-05-12] MEDS: WATER IVPB ONE (19:35)
[2024-05-12] MEDS: DEXTROSE 5% IVPB ONE (19:35)
[2024-05-12] MEDS: ACYCLOVIR IVPB ONE (19:35)
[2024-05-12] MEDS: SODIUM CHLORIDE 1,000 ML IV SCH (20:39)
[2024-05-12] MEDS: SODIUM CHLORIDE IVPB ONE (20:39)
[2024-05-12] MEDS: AMPICILLIN IVPB ONE (20:39)
[2024-05-12] MEDS ORDERED: HEPARIN NA (PORCINE) 5,000 UNITS/ML 1ML VIAL ONE (21:11)
[2024-05-12] MEDS: HEPARIN NA (PORCINE) 5,000 UNITS/ML 1ML VIAL SQ SCH (21:15)
[2024-05-12] MEDS ORDERED: METOPROLOL TARTRATE 5 MG/5 ML VIAL IVPUSH PRN (21:58)
[2024-05-13 00:01] VITALS: BMI 21.7
[2024-05-13 07:08] LABS: HEMATOCRIT 32.8 % (40.1-51.0); HEMOGLOBIN 10.8 g/dL (13.7-17.5); MCHC 32.9 g/dl (32.3-36.5); MEAN CELL VOLUME 97.6 fl (79.0-92.2); MEAN PLT VOLUME 9.5 fl (9.4-12.4); PLATELET COUNT 162 x10^3/uL (163-337); RDW 14.8 % (12.2-16.1)
[2024-05-13 07:29] LABS: POTASSIUM 3.9 mmol/L (3.5-5.1)
[2024-05-13 07:37] LABS: BLOOD UREA NITROGEN 51.5 mg/dL (7-18); CREATININE 6.8 mg/dL (0.55-1.3)
[2024-05-13 07:39] LABS: BILIRUBIN,TOTAL 0.9 mg/dL (0.2-1); TOT PROT 6.7 g/dl (6.4-8.2)
[2024-05-13 07:40] LABS: ALBUMIN 3.7 g/dl (3.4-5.0); CALCIUM 9.2 mg/dL (8.5-10.1); MAGNESIUM 3.3 mg/dL (1.8-2.4); PHOSPHOROUS 5.2 mg/dL (2.5-4.9)
[2024-05-13 09:08] LABS: ERYTHROCYTE SEDIMENTATION RATE 16 mm/hr (0-20)
[2024-05-13] MEDS ORDERED: SODIUM CHLORIDE 250 ML IV PRN (09:15)
[2024-05-13] MEDS ORDERED: lamoTRIgine 100 MG TABLET PO SCH ×2 (10:00→22:00)
[2024-05-13] MEDS: EPOETIN ALFA-EPBX 4,000 UNIT/ML VIAL SQ ONE (10:52)
[2024-05-13] MEDS: lamoTRIgine 100 MG TABLET PO ONE (12:22)
[2024-05-13] MEDS: SEVELAMER CARBONATE 800 MG TAB (FP) PO SCH (12:22)
[2024-05-13] MEDS: VANCOMYCIN 500 MG in DEXTROSE 5%-WATER - 100 ML IVPB SCH (17:32)
[2024-05-13] MEDS: CEFEPIME IVPB SCH (17:32)
[2024-05-13] MEDS: SODIUM CHLORIDE IVPB SCH (17:32)
[2024-05-13] MEDS: VANCOMYCIN 500 MG in DEXTROSE 5%-WATER - 100 ML IVPB ONE (17:36)
[2024-05-13 18:23] LABS: HCV DIAGNOSTIC IN-HOUSE W/RFLX NON-REACTIVE (NONREACTIVE)
[2024-05-13] MEDS: lamoTRIgine 100 MG TABLET PO SCH (22:01)
[2024-05-13] MEDS: ACETAMINOPHEN 325 MG TABLET (FP) PO PRN (22:02)
[2024-05-14] MEDS: MELATONIN 5 MG TABLETS PO ONE (02:37)
[2024-05-14] MEDS: hydrOXYzine PAMOATE 25 MG CAPSULE (FP) PO ONE (02:56)
[2024-05-14 07:34] LABS: ABSOLUTE IMMATURE GRANULOCYTES 0.02 x10^3/uL (0.0-0.031); BASOPHILS # 0.03 x10^3/uL (0.01-0.08); EOSINOPHIL % 0.6 % (0.8-7.0); EOSINOPHILS # 0.04 x10^3/uL (0.04-0.54); HEMATOCRIT 30.5 % (40.1-51.0); MCHC 32.8 g/dl (32.3-36.5); MEAN CELL VOLUME 99.3 fl (79.0-92.2); MEAN PLT VOLUME 9.1 fl (9.4-12.4); MONOCYTE # 0.73 x10^3/uL (0.30-0.82); MONOCYTE % 10.5 % (5.3-12.2); PLATELET COUNT 157 x10^3/uL (163-337); RDW 14.8 % (12.2-16.1)
[2024-05-14 07:56] LABS: CHLORIDE 106 mmol/L (98-107); SODIUM 143 mmol/L (136-145)
[2024-05-14 08:01] LABS: CALCIUM 9.5 mg/dL (8.5-10.1)
[2024-05-14 08:02] LABS: ALBUMIN 3.3 g/dl (3.4-5.0); BLOOD UREA NITROGEN 29.4 mg/dL (7-18); CO2 30 mmol/L (21-32); GLUCOSE,RANDOM 88 mg/dL (74-106); MAGNESIUM 2.7 mg/dL (1.8-2.4)
[2024-05-14 08:04] LABS: PHOSPHOROUS 4.1 mg/dL (2.5-4.9); SGPT/ALT 20 U/L (13-61)
[2024-05-14 08:05] LABS: CREATININE 4.6 mg/dL (0.55-1.3); SGOT/AST 33 U/L (15-37)
[2024-05-14 08:06] LABS: BILIRUBIN,TOTAL 0.6 mg/dL (0.2-1)
[2024-05-14 08:07] LABS: ALK PHOS 86 U/L (45-117)
[2024-05-14 08:16] LABS: ANION GAP 7 mmol/L (4-13); POTASSIUM 2.9 mmol/L (3.5-5.1)
[2024-05-14] MEDS: POTASSIUM CHLORIDE ORAL LIQUID 20 MEQ/15 ML PO ONE (10:00)
[2024-05-14] MEDS ORDERED: SODIUM CHLORIDE 250 ML IV PRN (11:40)
[2024-05-14] MEDS: VANCOMYCIN/WATER FOR INJ (PEG) 1,000 MG/200 ML BAG IVPB ONE (16:08)
[2024-05-14] MEDS: CEFEPIME HCL/D5W 1 GM/50 ML PREMIX BAG IVPB SCH (16:50)
[2024-05-14] MEDS: VANCOMYCIN 500 MG in DEXTROSE 5%-WATER - 100 ML IVPB SCH (16:52)
[2024-05-14] MEDS: POTASSIUM CHLORIDE TABS 20 MEQ TABLET.ER (FP) PO ONE (17:09)
[2024-05-14] MEDS: OLANZapine 10 MG TABLET PO SCH (21:42)
[2024-05-14] MEDS: ARIPiprazole 5 MG TABLET PO SCH (21:42)
[2024-05-15] MEDS: MELATONIN 5 MG TABLETS PO PRN (00:50)
[2024-05-15 07:17] LABS: ABSOLUTE IMMATURE GRANULOCYTES 0.01 x10^3/uL (0.0-0.031); BASOPHILS # 0.03 x10^3/uL (0.01-0.08); EOSINOPHIL % 1.8 % (0.8-7.0); EOSINOPHILS # 0.11 x10^3/uL (0.04-0.54); HEMATOCRIT 29.8 % (40.1-51.0); HEMOGLOBIN 9.6 g/dL (13.7-17.5); MCHC 32.2 g/dl (32.3-36.5); MEAN PLT VOLUME 9.1 fl (9.4-12.4); MONOCYTE # 0.65 x10^3/uL (0.30-0.82); MONOCYTE % 10.6 % (5.3-12.2); PLATELET COUNT 156 x10^3/uL (163-337); RDW 15.2 % (12.2-16.1)
[2024-05-15 07:47] LABS: POTASSIUM 3.3 mmol/L (3.5-5.1)
[2024-05-15 07:56] LABS: CALCIUM 9.6 mg/dL (8.5-10.1)
[2024-05-15 07:57] LABS: ALBUMIN 3.3 g/dl (3.4-5.0); MAGNESIUM 3.1 mg/dL (1.8-2.4)
[2024-05-15 08:00] LABS: CREATININE 5.6 mg/dL (0.55-1.3); PHOSPHOROUS 4.4 mg/dL (2.5-4.9)
[2024-05-15 08:01] LABS: TOT PROT 6.2 g/dl (6.4-8.2)
[2024-05-15 08:03] LABS: BILIRUBIN,TOTAL 0.6 mg/dL (0.2-1)
[2024-05-15] MEDS: SERTRALINE HCL 50 MG TABLET (FP) PO SCH (10:35)
[2024-05-15] MEDS ORDERED: EPOETIN ALFA-EPBX 4,000 UNIT/ML VIAL SQ ONE (11:40)
[2024-05-15 12:38] VITALS: RESP 16
[2024-05-15 15:12] VITALS: BP 98/60; PULSE 67; TEMP 98.7
[2024-05-15] MEDS: CEFEPIME HCL 1 GM VIAL (RESTRICTED TO ID) IVPB SCH (17:20)
== END 2024-05-15 18:08 | DRG 864 ==
LOC: JER 12:23 → JERBED 18:48 → J4S 22:01
PROVIDERS: ADMIT Student in an Organized Health Care Education/Training Program; ATTEND Internal Medicine
PROC: 5A1D70Z Performance of Urinary Filtration, Intermittent, Less than 6 Hours Per Day (ICD-10-PCS; principal; 2024-05-13)
DX: R50.9 Fever, unspecified (principal); N18.6 End stage renal disease; I13.2 Hypertensive heart and chronic kidney disease with heart failure and with stage 5 chronic kidney disease, or end stage renal disease; E87.1 Hypo-osmolality and hyponatremia; I50.42 Chronic combined systolic (congestive) and diastolic (congestive) heart failure; R64 Cachexia; I24.89 Other forms of acute ischemic heart disease; I49.9 Cardiac arrhythmia, unspecified; F31.9 Bipolar disorder, unspecified; F20.9 Schizophrenia, unspecified; R25.1 Tremor, unspecified; Z79.899 Other long term (current) drug therapy; E87.6 Hypokalemia; E78.5 Hyperlipidemia, unspecified; Z68.20 Body mass index [BMI] 20.0-20.9, adult; Z99.2 Dependence on renal dialysis
CPT/HCPCS: 0241U-QW; 36415; 70450-TC; 71045-TC-FY; 71250-TC; 74176-TC; 80053; 80061; 80307; 81003; 82550; 82553; 82728; 82803; 82962; 83036; 83605; 83735; 83930; 83935; 84100; 84300; 84443; 84478; 84484; 85025; 85027; 85610; 85651; 85730; 86038; 86140; 86803; 86850; 86900; 86901; 87040; 87086; 87340; 93005; 93010; 93306-TC; 99285-25; G0480; J0131; J1644; Q5106

== ENCOUNTER 2024-08-30 10:59 | Inpatient (IN) | payer OTHER ==
[2024-08-30 12:43] LABS: MCHC 33.0 g/dl (32.3-36.5); MEAN CELL VOLUME 101.2 fl (79.0-92.2); MEAN PLT VOLUME 8.7 fl (9.4-12.4); RDW 14.1 % (12.2-16.1)
[2024-08-30 13:26] LABS: CO2 28.0 mmol/L (21-32); GLUCOSE,RANDOM 120.0 mg/dL (74-106)
[2024-08-30 13:29] LABS: CREATININE 4.4 mg/dL (0.55-1.3); SGOT/AST 12.0 U/L (15-37); SGPT/ALT 15.0 U/L (13-61)
[2024-08-30 13:29] LABS: BG HCT 37.0 % (35.4-49); VENOUS BASE EXCESS -0.9 mmol/L (-2-2); VENOUS O2 SATURATION 68.8 % (70-80); VENOUS PCO2 42.1 mmHg (38-52); VENOUS PH 7.378 (7.310-7.410)
[2024-08-30 13:31] LABS: TOT PROT 6.8 g/dl (6.4-8.2)
[2024-08-30 13:32] LABS: ALK PHOS 93.0 U/L (45-117)
[2024-08-30] MEDS ORDERED: ACETAMINOPHEN 325 MG TABLET (FP) PO PRN (15:22)
[2024-08-30] MEDS ORDERED: LORazepam 4 MG/1 ML VIAL IVPUSH PRN (15:27)
[2024-08-30] MEDS ORDERED: VANCOMYCIN 1 GRAM (PRE-DOCKED) 1,000 MG/250 ML BAG IVPB ONE (15:46)
[2024-08-30] MEDS: VANCOMYCIN 1 GRAM (PRE-DOCKED) 1 GM/250 ML BAG IVPB ONE (15:53)
[2024-08-30] MEDS: DEXTROSE 5%-NORMAL SALINE 1,000 ML IV SCH (17:25)
[2024-08-30] MEDS ORDERED: SEVELAMER CARBONATE 800 MG TAB (FP) ONE (18:27)
[2024-08-30] MEDS: SEVELAMER CARBONATE 800 MG TAB (FP) PO SCH (18:28)
[2024-08-30] MEDS ORDERED: CEFTRIAXONE 1 GM/50 ML BAG ONE (23:30)
[2024-08-30] MEDS: CEFTRIAXONE 1 GM in DEXTROSE 5%-WATER - 50 ML IVPB ONE (23:32)
[2024-08-31 06:48] LABS: CO2 26.0 mmol/L (21-32); GLUCOSE,RANDOM 79.0 mg/dL (74-106)
[2024-08-31 06:51] LABS: CREATININE 4.8 mg/dL (0.55-1.3)
[2024-08-31 07:17] LABS: ABSOLUTE IMMATURE GRANULOCYTES 0.02 x10^3/uL (0.0-0.031); BASOPHILS # 0.02 x10^3/uL (0.01-0.08); EOSINOPHIL % 1.4 % (0.8-7.0); EOSINOPHILS # 0.10 x10^3/uL (0.04-0.54); MCHC 33.1 g/dl (32.3-36.5); MEAN CELL VOLUME 101.2 fl (79.0-92.2); MEAN PLT VOLUME 9.5 fl (9.4-12.4); MONOCYTE # 0.62 x10^3/uL (0.30-0.82); MONOCYTE % 8.5 % (5.3-12.2); RDW 13.6 % (12.2-16.1)
[2024-08-31 08:21] LABS: EPI CELLS 8 /uL (0-25.1); HYALINE CASTS 0 /uL (0-3.1); URINE APPEARANCE CLEAR; URINE BACTERIA 19 /uL (0-1359); URINE BILIRUBIN NEGATIVE (NEGATIVE); URINE COLOR YELLOW; URINE GLUCOSE (UA) TRACE (NEGATIVE); URINE KETONE NEGATIVE (NEGATIVE); URINE LEUK ESTERASE NEGATIVE (NEGATIVE); URINE NITRITE NEGATIVE (NEGATIVE); URINE PROTEIN 1+ (NEGATIVE); URINE RBC 9 /uL (0-23.9); URINE UROBILINOGEN 0.2 mg/dL (0.2-1.0); URINE WBC 9 /uL (0-25.8)
[2024-08-31] MEDS ORDERED: CEFTRIAXONE 1 GM in DEXTROSE 5%-WATER - 50 ML IVPB ONE (15:43)
[2024-08-31] MEDS ORDERED: SODIUM CHLORIDE 250 ML IV PRN (16:05)
[2024-08-31] MEDS: DEXTROSE 5%-NORMAL SALINE 1,000 ML IV SCH (17:52)
[2024-09-01 08:00] LABS: ABSOLUTE IMMATURE GRANULOCYTES 0.02 x10^3/uL (0.0-0.031); BASOPHILS # 0.04 x10^3/uL (0.01-0.08); EOSINOPHIL % 2.0 % (0.8-7.0); EOSINOPHILS # 0.14 x10^3/uL (0.04-0.54); MCHC 33.0 g/dl (32.3-36.5); MEAN CELL VOLUME 99.4 fl (79.0-92.2); MEAN PLT VOLUME 9.2 fl (9.4-12.4); MONOCYTE # 0.82 x10^3/uL (0.30-0.82); MONOCYTE % 11.4 % (5.3-12.2); RDW 14.0 % (12.2-16.1)
[2024-09-01 08:45] LABS: CO2 23.0 mmol/L (21-32); GLUCOSE,RANDOM 76.0 mg/dL (74-106)
[2024-09-01 08:48] LABS: CREATININE 5.4 mg/dL (0.55-1.3); SGOT/AST 8.0 U/L (15-37)
[2024-09-01 08:49] LABS: TOT PROT 6.5 g/dl (6.4-8.2)
[2024-09-01 08:51] LABS: ALK PHOS 91.0 U/L (45-117)
[2024-09-01 09:00] LABS: SGPT/ALT 14.0 U/L (13-61)
[2024-09-01 14:43] VITALS: BMI 18.3
[2024-09-02 07:00] LABS: ABSOLUTE IMMATURE GRANULOCYTES 0.03 x10^3/uL (0.0-0.031); BASOPHILS # 0.04 x10^3/uL (0.01-0.08); EOSINOPHIL % 1.6 % (0.8-7.0); EOSINOPHILS # 0.11 x10^3/uL (0.04-0.54); MCHC 33.0 g/dl (32.3-36.5); MEAN CELL VOLUME 99.1 fl (79.0-92.2); MEAN PLT VOLUME 9.1 fl (9.4-12.4); MONOCYTE # 0.78 x10^3/uL (0.30-0.82); MONOCYTE % 11.2 % (5.3-12.2); RDW 14.3 % (12.2-16.1)
[2024-09-02 08:40] LABS: CO2 28.0 mmol/L (21-32); CREATININE 3.7 mg/dL (0.55-1.3); GLUCOSE,RANDOM 95.0 mg/dL (74-106)
[2024-09-02 15:03] VITALS: RESP 19
[2024-09-02 17:24] VITALS: BP 138/93; PULSE 104; TEMP 98.1
[2024-09-02] MEDS ORDERED: LAMOTRIGINE 100 MG, LAMOTRIGINE 50 MG PO SCH (22:00)
== END 2024-09-02 17:42 | DRG 100 ==
LOC: JER 10:59 → JERBED 14:05 → J4S 08-31 14:44
PROVIDERS: ADMIT Internal Medicine; ATTEND Internal Medicine
PROC: 5A1D70Z Performance of Urinary Filtration, Intermittent, Less than 6 Hours Per Day (ICD-10-PCS; principal; 2024-09-01)
DX: G40.909 Epilepsy, unspecified, not intractable, without status epilepticus (principal); N18.6 End stage renal disease; I13.2 Hypertensive heart and chronic kidney disease with heart failure and with stage 5 chronic kidney disease, or end stage renal disease; I24.89 Other forms of acute ischemic heart disease; I44.2 Atrioventricular block, complete; E87.1 Hypo-osmolality and hyponatremia; I50.32 Chronic diastolic (congestive) heart failure; E11.22 Type 2 diabetes mellitus with diabetic chronic kidney disease; F31.9 Bipolar disorder, unspecified; F20.9 Schizophrenia, unspecified; Z99.2 Dependence on renal dialysis; E11.42 Type 2 diabetes mellitus with diabetic polyneuropathy; E78.5 Hyperlipidemia, unspecified
CPT/HCPCS: 36415; 70450-TC; 71045-TC-FY; 80048; 80053; 80175; 80177; 81003; 82550; 82803; 82962; 83605; 83735; 84484; 85025; 86803; 87086; 87340; 87637-QW; 93005; 93010; 93306-TC; 99285-25

== ENCOUNTER 2024-09-02 23:14 | Inpatient (IN) | payer OTHER ==
[2024-09-02 23:25] VITALS: BMI 27.1
[2024-09-03] MEDS: ACETAMINOPHEN 325 MG TABLET (FP) PO PRN (00:51)
[2024-09-03] MEDS ORDERED: SEVELAMER CARBONATE 800 MG TAB (FP) ONE ×2 (06:03→15:47)
[2024-09-03] MEDS ORDERED: HEPARIN NA (PORCINE) 5,000 UNITS/ML 1ML VIAL ONE ×2 (06:03→15:47)
[2024-09-03] MEDS: SEVELAMER CARBONATE 800 MG TAB (FP) PO SCH (06:06)
[2024-09-03] MEDS: HEPARIN NA (PORCINE) 5,000 UNITS/ML 1ML VIAL SQ SCH (06:07)
[2024-09-03 06:08] LABS: CO2 26.0 mmol/L (21-32); CREATININE 4.6 mg/dL (0.55-1.3); GLUCOSE,RANDOM 98.0 mg/dL (74-106); SGOT/AST 5.0 U/L (15-37); SGPT/ALT 10.0 U/L (13-61)
[2024-09-03 06:10] LABS: TOT PROT 6.4 g/dl (6.4-8.2)
[2024-09-03 06:11] LABS: ALK PHOS 88.0 U/L (45-117)
[2024-09-03 06:25] LABS: ABSOLUTE IMMATURE GRANULOCYTES 0.03 x10^3/uL (0.0-0.031); BASOPHILS # 0.02 x10^3/uL (0.01-0.08); EOSINOPHIL % 0.8 % (0.8-7.0); EOSINOPHILS # 0.06 x10^3/uL (0.04-0.54); MCHC 32.6 g/dl (32.3-36.5); MEAN CELL VOLUME 102.5 fl (79.0-92.2); MEAN PLT VOLUME 9.7 fl (9.4-12.4); MONOCYTE # 0.86 x10^3/uL (0.30-0.82); MONOCYTE % 11.3 % (5.3-12.2); RDW 13.9 % (12.2-16.1)
[2024-09-03] MEDS ORDERED: SERTRALINE HCL 50 MG TABLET (FP) ONE (11:08)
[2024-09-03] MEDS: SERTRALINE HCL 50 MG TABLET (FP) PO SCH (11:39)
[2024-09-03] MEDS: traZODone HCL 50 MG TABLET (FP) PO SCH (21:49)
[2024-09-04 10:44] LABS: MCHC 33.1 g/dl (32.3-36.5); MEAN CELL VOLUME 102.1 fl (79.0-92.2); MEAN PLT VOLUME 9.4 fl (9.4-12.4); RDW 13.8 % (12.2-16.1)
[2024-09-04 11:02] LABS: CO2 27.0 mmol/L (21-32); GLUCOSE,RANDOM 119.0 mg/dL (74-106)
[2024-09-04 11:05] LABS: CREATININE 6.1 mg/dL (0.55-1.3); SGOT/AST 7.0 U/L (15-37); SGPT/ALT 10.0 U/L (13-61)
[2024-09-04 11:07] LABS: ALK PHOS 82.0 U/L (45-117); TOT PROT 6.2 g/dl (6.4-8.2)
[2024-09-04] MEDS ORDERED: SODIUM CHLORIDE 250 ML IV PRN ×2 (11:42→17:16)
[2024-09-04] MEDS: EPOETIN ALFA-EPBX 10,000 UNIT/ML VIAL SQ ONE (14:09)
[2024-09-05] MEDS: EPOETIN ALFA-EPBX 10,000 UNIT/ML VIAL SQ ONE (12:17)
[2024-09-05] MEDS ORDERED: LIDOCAINE HCL 1%, 10 MG/ML (20ML VIAL) ONE (14:24)
[2024-09-05] MEDS ORDERED: SODIUM CHLORIDE 250 ML IV PRN ×2 (15:35→17:40)
[2024-09-05] MEDS ORDERED: PROPOFOL 20 ML ONE (16:22)
[2024-09-05] MEDS ORDERED: ONDANSETRON 4 MG/2 ML VIAL ONE (16:59)
[2024-09-05] MEDS: LIDOCAINE HCL 1%, 10 MG/ML (20ML VIAL) NR ONE ×2 (17:07)
[2024-09-05] MEDS ORDERED: ONDANSETRON 4 MG/2 ML VIAL IVPUSH PRN (17:36)
[2024-09-05] MEDS: SEVELAMER CARBONATE 800 MG TAB (FP) PO SCH (18:40)
[2024-09-05] MEDS: LACTATED RINGERS SOLUTION 1,000 ML IV SCH (18:40)
[2024-09-05] MEDS: traZODone HCL 50 MG TABLET (FP) PO SCH (21:49)
[2024-09-06] MEDS: ACETAMINOPHEN 325 MG TABLET (FP) PO PRN (03:10)
[2024-09-06] MEDS: HEPARIN NA (PORCINE) 5,000 UNITS/ML 1ML VIAL SQ SCH (05:10)
[2024-09-06] MEDS: SERTRALINE HCL 50 MG TABLET (FP) PO SCH (10:26)
[2024-09-06] MEDS: MIDODRINE HCL 5 MG TABLET PO SCH (12:26)
[2024-09-07 13:02] VITALS: BP 87/51; PULSE 79; RESP 17; TEMP 97.5
== END 2024-09-07 11:41 | DRG 698 ==
LOC: JER 23:14 → INTOOBSV 23:46 → JERBED 23:46 → J8W 09-03 18:12 → OBSVTOIN 09-04 16:49
PROVIDERS: ADMIT Internal Medicine; ATTEND Internal Medicine
PROC: 5A1D70Z Performance of Urinary Filtration, Intermittent, Less than 6 Hours Per Day (ICD-10-PCS; 2024-09-04)
PROC: B548ZZA Ultrasonography of Superior Vena Cava, Guidance (ICD-10-PCS; 2024-09-05)
PROC: 02HV33Z Insertion of Infusion Device into Superior Vena Cava, Percutaneous Approach (ICD-10-PCS; principal; 2024-09-05 16:30)
DX: T82.42XA Displacement of vascular dialysis catheter, initial encounter (principal); N18.6 End stage renal disease; I13.2 Hypertensive heart and chronic kidney disease with heart failure and with stage 5 chronic kidney disease, or end stage renal disease; I50.32 Chronic diastolic (congestive) heart failure; G40.909 Epilepsy, unspecified, not intractable, without status epilepticus; F31.9 Bipolar disorder, unspecified; F20.9 Schizophrenia, unspecified; Z99.2 Dependence on renal dialysis; E78.5 Hyperlipidemia, unspecified; E11.22 Type 2 diabetes mellitus with diabetic chronic kidney disease; Y83.8 Other surgical procedures as the cause of abnormal reaction of the patient, or of later complication, without mention of misadventure at the time of the procedure
CPT/HCPCS: 36415; 71045-TC-FY; 76000-TC-FY; 80053; 82962; 85025; 85027; 93005; 93010; 94760; 99285-25; C1750; G0378; J1644; Q5106